=== PATIENT | male | born 1955 | race Caucasian/White ===

== ENCOUNTER 2020-02-29 07:27 | Inpatient (IN) | payer MEDICAID, SELFPAY ==
[2020-02-29] VITALS (15 sets, daily range): BP systolic 111–153; BP diastolic 52–111; PULSE 82–110; RESP 16–24; TEMP 36.4–36.9; O2SAT 91–98; BMI 35.4
--- NOTE | 2020-02-29 07:33 | XR_ITS ---
WS: [id number] PORTABLE CHEST HISTORY: dyspnea COMPARISON: 08/25/2014 New bilateral scattered opacifications. Opacification in the RIGHT upper lobe abuts the fissure. Ther e are a few scattered opacifications in the central and lower LEFT lung. Normal vasculature. No pleur al effusion or pneumothorax. Cardiac size: Normal. Mediastinum/Aorta: Normal mediastinum. No osseous abnormality seen. XR/XR chest 1V portable [id number] IMPRESSION: Bilateral, multilobar opacifications consistent with pneumonia/pneumonitis.
--- NOTE | 2020-02-29 07:38 | ED_ITS ---
HPI - COVID General: Chief Complaint: COVID symptoms Stated Complaint: covid symptoms Time Seen by Provider: 02/29/20 07:32 Triage information: Has fever, cough or shortness of breath . No known COVID + exposure last 14 days History of Present Illness: HPI Narrative: 64-year-old male who has 1 week of cough flulike symptoms with some diarrhea. Cough has been minimally productive. He is [place] increasingly short of breath. Is a history of hypertension coronary artery disease this morning began to have severe shortness of breath called EMS he was found to have room air sats in the mid and upper 80s which responded to oxygen by nasal cannula at 4 L/min he was in the mid 90s. He is not aware of being around anyone who has Covid and he has not been tested. He states he has been having extreme difficult time eating and drinking significant loss of appetite. Has not seen anyone for this or taking anything [id number] or prescription since it started. MD complaint: has COVID symptoms Prior covid testing: no COVID 19 common symptoms: positive fever(s), chills, cough, non-productive cough, dyspnea, fatigue, body aches, nasal congestion, nausea, vomiting and diarrhea COVID 19 other sytmptoms: positive requiring oxygen; negative chest pain Onset (ago): week(s) (1) Severity: moderate Pertinent comorbid conditions: hypertension, heart disease and COPD/respiratory disease Treatment prior to arrival: oxygen COVID Results: SARS-CoV-2 Antigen (Rapid) Positive (Negative) H 02/29/20 08:06 02/29/20 Review of Systems Const: Reports: fever(s), chills, body aches and fatigue ENMT: Reports: nasal congestion Card: Denies: chest pain, edema, dyspnea on exertion or orthopnea Resp: Reports: dyspnea and non-productive cough GI: Reports: nausea, vomiting and diarrhea : Denies: flank pain, dysuria, urinary frequency or urinary urgency Skin/Breast: Denies: rash or pruritus PFSH ED PFSH: Medical History (Updated 03/01/20 @ 09:15 by Vince Kern DO) Chronic back pain COPD (chronic obstructive pulmonary disease) Coronary artery disease HTN (hypertension) Hyperlipidemia Surgical History (Updated 02/29/20 @ 12:35 by Darius Gregg MD) History of thoracotomy Previous back surgery C5 and C6 fusion S/P appendectomy S/P cholecystectomy S/P eye surgery S/P knee surgery S/P PTCA (percutaneous transluminal coronary angioplasty) Status post lung surgery Secondary to pneumothorax Family History Other Diabetes Hypertension Social History (Updated 02/29/20 @ 07:41 by Mil Jaffe RN) Smoking and tobacco status: former smoker Alcohol intake: current Alcohol intake frequency: holidays/special occasions only Substance/Drug Use: never History of recent travel: No Physical Exam Const: COMMON NORMALS: no acute distress GENERAL APPEARANCE: cooperative and comfortable ORIENTATION/CONSCIOUSNESS: Yes awake, Yes oriented to person, Yes oriented to place and Yes oriented to time HENMT: COMMON NORMALS: normocephalic, atraumatic and hearing grossly normal bilaterally HEAD & SCALP: normocephalic and atraumatic Neck/C-Spine: COMMON NORMALS: no JVD Resp: AUSCULTATION: rhonchi, wheezes and diminished lung sounds Cardio: COMMON NORMALS: no JVD, regular rate, regular rhythm and No murmurs present (Cardio) RATE: regular rate RHYTHM: regular rhythm GI: COMMON NORMALS: Soft to palpation and No hepatosplenomegaly present AUSCULTATION: Yes normoactive bowel sounds PALPATION: Yes Soft to palpation, No Tenderness to palpation present (GI), No Guarding due to palpation present (GI) and Yes No hepatosplenomegaly present Extremity: COMMON NORMALS: normal to inspection, capillary refill normal, no clubbing, cyanosis or edema, no calf tenderness and no pedal edema Neuro: SENSORIUM/ORIENTATION: Yes oriented to person, Yes oriented to place and Yes oriented to time Skin: COMMON NORMALS: no rashes or lesions noted GENERAL SKIN EXAM: no rashes or lesions noted Course Vital Signs: Vital signs: Vital Signs Temperature 97.9 F 03/01/20 08:00 Pulse Rate 79 03/01/20 08:00 Respiratory Rate 17 03/01/20 08:00 Blood Pressure 108/76 03/01/20 08:00 Pulse Oximetry 92 03/01/20 08:00 MDM - COVID MDM Narrative: Medical decision making narrative: Patient has Covid pneumonitis I am quite concerned that he will continue to worsen and would benefit from closer monitoring. We will go ahead and admit him start him on dexamethasone and remdesivir. Cussed Dr. Gregg orders are written Lab Data: Labs: Lab Results 02/29/20 02/29/20 02/29/20 Range/Units 07:23 07:23 07:23 WBC 3.4 L (4.0-10.0) 10^3/ uL RBC 6.64 H (4.1-5.3) 10^6/u L Hgb 17.0 H (11.7-16.6) g/dL Hct 55.2 H (42.0-52.0) % MCV 83.1 (80-94) fL MCH 25.6 L (28.0-34.0) pg MCHC 30.8 (30.0-36.0) g/dL RDW 14.6 (12.1-15.1) % Plt Count 123 L (130-400) 10^3/c mm MPV 10.8 H (7.4-10.4) fL Neut % (Auto) 44.8 % Lymph % (Auto) 46.4 % [place] % (Auto) 8.2 % Eos % (Auto) 0.0 % Baso % (Auto) 0.6 % Neut # (Auto) 1.54 L (1.8-7.7) 10^3/u L Lymph # (Auto) 1.6 (0.8-4.8) 10^3/u L [place] # (Auto) 0.3 (0.2-0.9) 10^3/u L Eos # (Auto) 0.0 (0.0-0.8) 10^3/u L Baso # (Auto) 0.0 (0.0-0.1) 10^3/u L Nucleated RBC % (a uto) 0 % Nucleated RBCs # 0.0 /100WBC D-Dimer Cancelled Specimen Type Sample Site ABG pH (7.35-7.45) ABG pCO2 (35-45) mmHg ABG pO2 (80.0-100.0) mmH g ABG HCO3 (22-26) mmol/L ABG O2 Saturation ABG Base Excess (-2.0-2.0) mmol/ L Wilber Test A-a O2 Gradient (5-10) mmHg Hematocrit (42-52) % Hgb O2 Saturation (95-100) % Carboxyhemoglobin (0.4-20.1) %THgb Methemoglobin (0.4-1.5) % Total Hemoglobin (14-18) g/dL Ionized Calcium (1.1-1.4) mmol/L O2 Delivery Device O2 Liters/Min % FiO2 % Portable Pinch Riveter ID Sodium 135 L (136-145) mmol/L Potassium 4.2 (3.5-5.1) mmol/L Chloride 98 (98-107) mmol/L Carbon Dioxide 24 (22-29) mmol/L Anion Gap 17.2 (5-19) BUN 12 (8-23) mg/dL Creatinine 1.0 (0.7-1.2) mg/dL GFR Calculation 75.2 L (90-130) mL/min Glucose 162 H (65-115) mg/dL Estimat Average Gl ucose Hemoglobin A1c (4.0-6.0) % Calculated Osmolal ity 283 L (285-295) mOsm/k g Calcium 9.9 (8.5-10.5) mg/dL Total Bilirubin 0.3 (0.15-1.2) mg/dL AST 39 (0-40) U/L ALT 28 (0-41) U/L Alkaline Phosphata se 56 (40-130) IU/L C-Reactive Protein (0.0-4.9) mg/L Total Protein 6.8 (6.6-8.7) g/dL Albumin 4.2 (3.5-5.2) g/dL Globulin 2.6 (1.3-4.6) g/dL Procalcitonin (0-0.5) ng/mL SARS-CoV-2 Ag (Rap id) (Negative) 02/29/20 02/29/20 02/29/20 Range/Units 07:23 07:23 08:04 WBC (4.0-10.0) 10^3/ uL RBC (4.1-5.3) 10^6/u L Hgb (11.7-16.6) g/dL Hct (42.0-52.0) % MCV (80-94) fL MCH (28.0-34.0) pg MCHC (30.0-36.0) g/dL RDW (12.1-15.1) % Plt Count (130-400) 10^3/c mm MPV (7.4-10.4) fL Neut % (Auto) % Lymph % (Auto) % [place] % (Auto) % Eos % (Auto) % Baso % (Auto) % Neut # (Auto) (1.8-7.7) 10^3/u L Lymph # (Auto) (0.8-4.8) 10^3/u L [place] # (Auto) (0.2-0.9) 10^3/u L Eos # (Auto) (0.0-0.8) 10^3/u L Baso # (Auto) (0.0-0.1) 10^3/u L Nucleated RBC % (a uto) % Nucleated RBCs # /100WBC D-Dimer 1.01 H Specimen Type Sample Site ABG pH (7.35-7.45) ABG pCO2 (35-45) mmHg ABG pO2 (80.0-100.0) mmH g ABG HCO3 (22-26) mmol/L ABG O2 Saturation ABG Base Excess (-2.0-2.0) mmol/ L Wilber Test A-a O2 Gradient (5-10) mmHg Hematocrit (42-52) % Hgb O2 Saturation (95-100) % Carboxyhemoglobin (0.4-20.1) %THgb Methemoglobin (0.4-1.5) % Total Hemoglobin (14-18) g/dL Ionized Calcium (1.1-1.4) mmol/L O2 Delivery Device O2 Liters/Min % FiO2 % Portable Pinch Riveter ID Sodium (136-145) mmol/L Potassium (3.5-5.1) mmol/L Chloride (98-107) mmol/L Carbon Dioxide (22-29) mmol/L Anion Gap (5-19) BUN (8-23) mg/dL Creatinine (0.7-1.2) mg/dL GFR Calculation (90-130) mL/min Glucose (65-115) mg/dL Estimat Average Gl ucose 137 Hemoglobin A1c 6.4 H (4.0-6.0) % Calculated Osmolal ity (285-295) mOsm/k g Calcium (8.5-10.5) mg/dL Total Bilirubin (0.15-1.2) mg/dL AST (0-40) U/L ALT (0-41) U/L Alkaline Phosphata se (40-130) IU/L C-Reactive Protein 55.4 H (0.0-4.9) mg/L Total Protein (6.6-8.7) g/dL Albumin (3.5-5.2) g/dL Globulin (1.3-4.6) g/dL Procalcitonin 0.27 (0-0.5) ng/mL SARS-CoV-2 Ag (Rap id) (Negative) 02/29/20 02/29/20 Range/Units 08:06 08:36 WBC (4.0-10.0) 10^3/ uL RBC (4.1-5.3) 10^6/u L Hgb (11.7-16.6) g/dL Hct (42.0-52.0) % MCV (80-94) fL MCH (28.0-34.0) pg MCHC (30.0-36.0) g/dL RDW (12.1-15.1) % Plt Count (130-400) 10^3/c mm MPV (7.4-10.4) fL Neut % (Auto) % Lymph % (Auto) % [place] % (Auto) % Eos % (Auto) % Baso % (Auto) % Neut # (Auto) (1.8-7.7) 10^3/u L Lymph # (Auto) (0.8-4.8) 10^3/u L [place] # (Auto) (0.2-0.9) 10^3/u L Eos # (Auto) (0.0-0.8) 10^3/u L Baso # (Auto) (0.0-0.1) 10^3/u L Nucleated RBC % (a uto) % Nucleated RBCs # /100WBC D-Dimer Specimen Type Arterial Sample Site Radial, right ABG pH 7.45 (7.35-7.45) ABG pCO2 31.7 L (35-45) mmHg ABG pO2 68.0 L (80.0-100.0) mmH g ABG HCO3 21.8 L (22-26) mmol/L ABG O2 Saturation 95.8 ABG Base Excess -1.2 (-2.0-2.0) mmol/ L Wilber Test Pos A-a O2 Gradient 12.1 H (5-10) mmHg Hematocrit 48.5 (42-52) % Hgb O2 Saturation 94.4 L (95-100) % Carboxyhemoglobin 0.8 (0.4-20.1) %THgb Methemoglobin 0.7 (0.4-1.5) % Total Hemoglobin 15.8 (14-18) g/dL Ionized Calcium 1.2 (1.1-1.4) mmol/L O2 Delivery Device Nc O2 Liters/Min 2.0 % FiO2 28.0 % Portable Pinch Riveter ID Ed Sodium 134.0 (136-145) mmol/L Potassium 3.7 (3.5-5.1) mmol/L Chloride (98-107) mmol/L Carbon Dioxide (22-29) mmol/L Anion Gap (5-19) BUN (8-23) mg/dL Creatinine (0.7-1.2) mg/dL GFR Calculation (90-130) mL/min Glucose 154.0 H (65-115) mg/dL Estimat Average Gl ucose Hemoglobin A1c (4.0-6.0) % Calculated Osmolal ity (285-295) mOsm/k g Calcium (8.5-10.5) mg/dL Total Bilirubin (0.15-1.2) mg/dL AST (0-40) U/L ALT (0-41) U/L Alkaline Phosphata se (40-130) IU/L C-Reactive Protein (0.0-4.9) mg/L Total Protein (6.6-8.7) g/dL Albumin (3.5-5.2) g/dL Globulin (1.3-4.6) g/dL Procalcitonin (0-0.5) ng/mL SARS-CoV-2 Ag (Rap id) Positive H (Negative) COVID Results: SARS-CoV-2 Antigen (Rapid) Positive (Negative) H 02/29/20 08:06 02/29/20 Discharge Plan Discharge Patient Disposition: Admitted As Inpatient Admit Provider: Darius Gregg Clinical Impression: Pneumonia due to COVID-19 virus, HTN (hypertension), Coronary artery disease Condition: Stable Coding Level of Care Code ED Comedian for Chg Fwd Exam Comprehensive
[2020-02-29 07:45] LABS: Basophils % 0.6 %; Hematocrit 55.2 % (42.0-52.0); Lymphocytes # 1.6 10^3/uL (0.8-4.8); Lymphocytes % 46.4 %; Mean Corpuscular HGB Conc 30.8 g/dL (30.0-36.0); Mean Corpuscular Hemoglobin 25.6 pg (28.0-34.0); Mean Corpuscular Volume 83.1 fL (80-94); Mean Platelet Volume 10.8 fL (7.4-10.4); Monocytes # 0.3 10^3/uL (0.2-0.9); Monocytes % 8.2 %; Neutrophils # 1.54 10^3/uL (1.8-7.7); Neutrophils % 44.8 %; Nucleated Red Blood Cells % 0 %; Platelet Count 123 10^3/cmm (130-400); Red Blood Count 6.64 10^6/uL (4.1-5.3); Red Cell Distribution Width 14.6 % (12.1-15.1); White Blood Count 3.4 10^3/uL (4.0-10.0)
[2020-02-29 08:05] LABS: Alanine Aminotransferase 28 U/L (0-41); Albumin Level 4.2 g/dL (3.5-5.2); Alkaline Phosphatase 56 IU/L (40-130); Anion Gap 17.2 (5-19); Aspartate Amino Transferase 39 U/L (0-40); Blood Urea Nitrogen 12 mg/dL (8-23); Calcium 9.9 mg/dL (8.5-10.5); Carbon Dioxide 24 mmol/L (22-29); Chloride 98 mmol/L (98-107); Globulin 2.6 g/dL (1.3-4.6); Glomerular Filtration Rate 75.2 mL/min (90-130); Glucose 162 mg/dL (65-115); Osmolality Calculated 283 mOsm/kg (285-295); Potassium 4.2 mmol/L (3.5-5.1); Sodium 135 mmol/L (136-145); Total Bilirubin 0.3 mg/dL (0.15-1.2); Total Protein 6.8 g/dL (6.6-8.7)
[2020-02-29 08:41] LABS: D Dimer 1.01 ug/mIFEU (0-0.59)
[2020-02-29 08:45] LABS: SARS Covid-2 Antigen Positive (Negative)
[2020-02-29 08:47] LABS: ABG PCO2 31.7 mmHg (35-45); ABG PH Result 7.45 (7.35-7.45); Alveolar-Arterial Oxygen Gradi 12.1 mmHg (5-10); Arterial Blood Gas Hematocrit 48.5 % (42-52); Base Excess ABG -1.2 mmol/L (-2.0-2.0); Blood Gas Allen Test Pos; Blood Gas Operator Identificat ED; Blood Gas Sample Site Radial, right; Blood Gas Sample Type Arterial; Carboxyhemoglobin 0.8 %THgb (0.4-20.1); HCO3 ABG 21.8 mmol/L (22-26); HGB O2 Sat 94.4 % (95-100); Ionized Calcium Level - ABG 1.2 mmol/L (1.1-1.4); Methemoglobin 0.7 % (0.4-1.5); Oxygen Device NC; Oxygen Saturation ABG 95.8; Potassium Level - ABG 3.7 mmol/L (3.5-5.0); Total Hemoglobin 15.8 g/dL (14-18)
--- NOTE | 2020-02-29 09:11 | CT_ITS ---
WS: [id number] CT CHEST ANGIOGRAPHY WITH REFORMATS HISTORY: elevated d dimer/COVID TECHNIQUE: Contiguous axial images are obtained through the chest during arterial injection of intrav enous contrast. Images are reconstructed to evaluate the pulmonary arteries. MIP imaging also reviewe d. All CT scans at [facility] use at least one of these dose optimization techniques: aut omated exposure control; mA and/or kV adjustment per patient size (includes targeted exams where dose is matched to clinical indication); or iterative reconstruction. CONTRAST: Visipaque 320; 95 mL IV. DLP: 580.09 mGy.cm COMPARISON: None available. Adequate but limited opacification of the pulmonary arteries. Centrally there is no pulmonary emboli. Beyond the segmental branches the opacification is limited. Pulmonary artery size is normal. Atheros clerosis aorta. Normal size heart. No pericardial or pleural effusions. There are numerous bilateral, multi lobar opacifications. Groundglass opacifications with increasing areas of consolidation predominantly in a peripheral and basilar distribution. No pneumothorax. Small mediastinal and hilar lymph nodes are probably reactive. Small hiatal hernia. Prior cholecystectomy. Cortical cyst upper pole LEFT kidney. Hepatic steatosis. CT/CT angio chest PE protcl [id number] IMPRESSION: 1. No central pulmonary emboli. Opacification is limited from the segmental ar teries distally. 2. Diffuse multilobar opacifications consistent with history of Covid 19. 3. Prior cholecystectomy. 4. Hepatic steatosis.
[2020-02-29] MEDS: iodixanol 320 mg/mL 100mL Btl IV (10:12)
--- NOTE | 2020-02-29 11:51 | PC.PHAR ---
pt states he stop taking his amlodipine,losartan, and metoprolol tartrate about a month ago-pt states he was getting nose bleeds and states he hasnt told his dr that he has dced them-pt state he was taking a old rx of amoxil 500mg q6h pt states the amoxil wasnt working so he stop taking on the 02/27/20
[2020-02-29] MEDS: dexamethasone 4 mg/mL INJ 6 MG IVP (12:12)
[2020-02-29] MEDS: remdesivir 200 MG in sodium chloride 0.9% (100 ml) 100 ML 100 MG IV (12:12)
--- NOTE | 2020-02-29 12:32 | PM.HP ---
Providers/Chief Complaint Primary Care Provider: Jamaal Allison DO Chief Complaint: covid symptoms History of Present Illness Jono Pierce is a 64 year old male who presents to the hospital with concerns of having Covid. He reports he has been ill for 8 days. He has had fever, chills, anorexia. He denies any loose stool. No vomiting. He reports he is short of breath with any exertion. He coughs constantly occasionally productive of white sputum. No chest pain. Still drinking clear liquids. Review of Systems General: Reports: 10 or more systems reviewed and unremarkable except in HPI and below Const: Reports: fever(s), chills, body aches and change in appetite Eyes: Denies: change in vision ENMT: Denies: throat pain Card: Denies: chest pain Resp: Reports: dyspnea and productive cough GI: Denies: abdominal pain, nausea or vomiting : Denies: flank pain Musc: Denies: neck pain Skin/Breast: Denies: rash Neuro: Denies: headache(s) Psych: Denies: anxiety Endo: Denies: polyuria [place]/Lymph: Denies: easy bruising All/Imm: Denies: urticaria Medications/Allergies Home Medications Medication Instructions Recorded Confirmed Last Taken Type magnesium oxide 400 mg PO DAILY PRN 04/30/19 02/29/20 Unknown History metoprolol tartrate 25 mg tablet 25 mg PO BID PRN 04/30/19 02/29/20 Unknown History Plavix 75 mg PO DAILY@15 02/29/20 02/29/20 02/28/20 History alprazolam 1 mg PO TID PRN 02/29/20 02/29/20 02/28/20 History amlodipine 5 mg PO DAILY PRN 02/29/20 02/29/20 Unknown History amoxicillin 500 mg PO Q6H 02/29/20 02/29/20 02/27/20 History old rx pt took ibuprofen 400 mg PO PRN 02/29/20 02/29/20 Unknown History losartan 25 mg PO DAILY PRN 02/29/20 02/29/20 Unknown History Allergies Allergy/AdvReac Type Severity Reaction Status Date / Time lisinopril Allergy RASH Verified 02/29/20 11:50 Penicillins Allergy RASH Verified 02/29/20 11:50 PFSH Acute PFSH: Medical History (Updated 02/29/20 @ 12:39 by Darius Gregg MD) Chronic back pain COPD (chronic obstructive pulmonary disease) Coronary artery disease HTN (hypertension) Hyperlipidemia Surgical History (Updated 02/29/20 @ 12:35 by Darius Gregg MD) History of thoracotomy Previous back surgery C5 and C6 fusion S/P appendectomy S/P cholecystectomy S/P eye surgery S/P knee surgery S/P PTCA (percutaneous transluminal coronary angioplasty) Status post lung surgery Secondary to pneumothorax Family History Other Diabetes Hypertension Social History (Updated 02/29/20 @ 07:41 by Mil Jaffe RN) Smoking and tobacco status: former smoker Alcohol intake: current Alcohol intake frequency: holidays/special occasions only History of recent travel: No Vitals/I&O/Wt Last Vital Signs Temp 98.5 F 02/29/20 07:29 Pulse 110 H 02/29/20 07:29 Resp 16 02/29/20 07:29 BP 124/83 02/29/20 07:29 Pulse Ox 95 02/29/20 08:11 Weight last 48 hrs Weight 108.862 kg Physical Exam Narrative: EXAM NARRATIVE: General exam is a white male, who appears tachypneic at baseline who coughs frequently throughout the exam. HEENT: Atraumatic normocephalic. Pupils equally round. Oropharynx clear and mucous membranes wet. Neck is supple no lymphadenopathy or thyromegaly Cardiovascular regular rate and rhythm, borderline tachycardia. No murmur Lungs scattered dry crackles bilaterally with occasional expiratory wheeze Abdomen is soft with positive bowel sounds. No obvious organomegaly is deferred Extremities no cyanosis clubbing or edema, cap refill brisk Skin no rash Neuro no focal deficits. Data : 02/29/20 07:23 02/29/20 07:23 Micro: Microbiology 02/29/20 08:06 Gram Stain - Final Sputum - Expectorated Sputum Other data: CT chest consistent with Covid with scattered bilateral opacities. No evidence of pulmonary embolism. I reviewed this as well. Chest x-ray reviewed by me with scattered opacities consistent with Covid Rapid Covid is positive ABG demonstrates a pH 7.45, PCO2 of 31, PO2 of 68 on 28% FiO2 LFTs normal A&P Assessment and plan (1) Pneumonia due to COVID-19 virus: Admission Remdesivir Dexamethasone 6 mg IV daily Pulmonary toilet Oxygen as needed Check pro calcitonin level. If high consider initiation of antibiotic Status: Acute (2) Acute hypoxemic respiratory failure: Oxygen as needed Status: Acute (3) Leukopenia: Consistent with viral infection Status: Acute (4) Hyperglycemia: Check hemoglobin A1c Status: Acute (5) Thrombocytopenia: Continue to monitor Status: Acute (6) COPD (chronic obstructive pulmonary disease): Combivent as needed. No evidence of exacerbation currently. Status: Inactive Additional A&P Information Coronary artery disease. Denies any chest discomfort currently. Continue metoprolol and Plavix History of chronic back pain Hypertension. Continue Norvasc Hyperlipidemia, has refused treatment in the past secondary to leg pain/myalgia Past history of tobacco use Full code Lovenox will suffice for DVT prophylaxis Attestations Medical Necessity Statement*: Will need greater than 2 midnight stay secondary COVID-19 pneumonia requiring treatment Time Spent in Patient Care: Greater than 35 minutes Coding Level of Care Code Acute Senior Technical Project Manager for [facility] Diagnoses Pneumonia due to COVID-19 virus U07.1; J12.89 Acute hypoxemic respiratory failure J96.01 Leukopenia D72.819 Hyperglycemia R73.9 Thrombocytopenia D69.6 COPD (chronic obstructive pulmonary disease) J44.9
[2020-02-29 13:05] LABS: Estmated Average Glucose 137; Hemoglobin A1C 6.4 % (4.0-6.0)
[2020-02-29] MEDS: HYDROcodone-acetaminophen 5-325 mg Tablet 1 TAB PO (18:19)
--- NOTE | 2020-02-29 18:54 | PC.NURSE ---
PT STILL IN ED, S/T SECOND FLOORNOT READY FOR REPORT.
[2020-02-29 22:51] LABS: Procalcitonin 0.27 ng/mL (0-0.5)
[2020-02-29 23:02] LABS: C Reactive Protein 55.4 mg/L (0.0-4.9)
[2020-03-01] VITALS (9 sets, daily range): BP systolic 96–117; BP diastolic 62–76; PULSE 71–97; RESP 15–20; TEMP 36.2–37; O2SAT 91–95
[2020-03-01] MEDS: enoxaparin 40 mg/0.4 mL Syringe SUBCUT ×2 (00:31→22:05)
[2020-03-01] MEDS: HYDROcodone-acetaminophen 5-325 mg Tablet 1 TAB PO ×4 (01:55→22:06)
[2020-03-01] MEDS: famotidine 20 mg Tablet PO ×3 (01:55→17:18)
[2020-03-01 06:07] LABS: Basophils % 0.3 %; Hemoglobin 16.5 g/dL (11.7-16.6); Lymphocytes # 1.4 10^3/uL (0.8-4.8); Lymphocytes % 44.7 %; Mean Corpuscular HGB Conc 30.6 g/dL (30.0-36.0); Mean Corpuscular Hemoglobin 25.6 pg (28.0-34.0); Mean Corpuscular Volume 83.9 fL (80-94); Mean Platelet Volume 10.4 fL (7.4-10.4); Monocytes # 0.4 10^3/uL (0.2-0.9); Neutrophils # 1.32 10^3/uL (1.8-7.7); Neutrophils % 42.7 %; Nucleated Red Blood Cells % 0 %; Platelet Count 114 10^3/cmm (130-400); Red Blood Count 6.44 10^6/uL (4.1-5.3); Red Cell Distribution Width 14.6 % (12.1-15.1); White Blood Count 3.1 10^3/uL (4.0-10.0)
[2020-03-01 06:41] LABS: Alanine Aminotransferase 28 U/L (0-41); Albumin Level 3.8 g/dL (3.5-5.2); Alkaline Phosphatase 53 IU/L (40-130); Aspartate Amino Transferase 37 U/L (0-40); Blood Urea Nitrogen 15 mg/dL (8-23); Calcium 10.7 mg/dL (8.5-10.5); Carbon Dioxide 29 mmol/L (22-29); Chloride 104 mmol/L (98-107); Globulin 3.4 g/dL (1.3-4.6); Glomerular Filtration Rate 97.3 mL/min (90-130); Glucose 128 mg/dL (65-115); Osmolality Calculated 294 mOsm/kg (285-295); Sodium 141 mmol/L (136-145); Total Bilirubin 0.2 mg/dL (0.15-1.2); Total Protein 7.2 g/dL (6.6-8.7)
[2020-03-01] MEDS: dexamethasone 4 mg/mL INJ 6 MG IVP (07:01)
--- NOTE | 2020-03-01 10:41 | PC.NURSE ---
PRN norco given for chronic back pain per doctors orders see MAR for further details, PRN tessalon pearls given for cough, denies further needs, remains alert and oriented.
[2020-03-01] MEDS: benzonatate 100 mg Capsule PO (10:44)
--- NOTE | 2020-03-01 11:17 | PC.NURSE ---
patient resting with eyes closed, equal chest rise and fall, no distress noted.
--- NOTE | 2020-03-01 13:19 | P.PN_ITS ---
Subjective Subjective: Interval history: This is a 64-year-old male who was admitted to the hospital with Covid pneumonia. Breathing about the same. Afebrile. Vitals/I&O/Wt Last Vital Signs Temp 97.9 F 03/01/20 08:00 Pulse 71 03/01/20 09:34 Resp 16 03/01/20 09:34 BP 108/76 03/01/20 08:00 Pulse Ox 91 03/01/20 09:34 02/29/20 03/01/20 03/01/20 22:59 06:59 14:59 Intake Total 100 / 100 480 / 480 Output Total 700 / 700 Balance 100 / 100 -700 / -600 480 / 480 Weight last 48 hrs Weight 240 lb Physical Exam Const: COMMON NORMALS: no acute distress, average body habitus and patient oriented x3 Resp: COMMON NORMALS: normal respiratory effort and No retractions Cardio: COMMON NORMALS: regular rate and regular rhythm RATE: regular rate RHYTHM: regular rhythm GI: COMMON NORMALS: Normal to inspection, nondistended, normoactive bowel sounds present and Soft to palpation PALPATION: Yes Soft to palpation Neuro: COMMON NORMALS: patient oriented x3 Psych: COMMON NORMALS: mental status grossly normal and Normal thought process present THOUGHT PROCESS: Normal thought process present Data : 03/01/20 05:37 03/01/20 05:37 Micro: Microbiology 02/29/20 08:06 Gram Stain - Final Sputum - Expectorated Sputum Sputum Culture - Preliminary A&P Assessment and plan (1) Thrombocytopenia: Status: Acute (2) Hyperglycemia: Status: Acute (3) Leukopenia: Status: Acute (4) Pneumonia due to COVID-19 virus: Status: Acute Additional A&P Information Pneumonia secondary to COVID-19 infection 1) Pneumonia due to COVID-19 virus: Admission Remdesivir Dexamethasone 6 mg IV daily Pulmonary toilet Oxygen as needed add azithromycin, rocephin (2) Acute hypoxemic respiratory failure: Oxygen as needed Status: Acute (3) Leukopenia: Consistent with viral infection Status: Acute (4) Hyperglycemia: AIC 6.4 Status: Acute (5) Thrombocytopenia: Continue to monitor Status: Acute (6) COPD (chronic obstructive pulmonary disease): Combivent as needed. No evidence of exacerbation currently. Status: Inactive Coronary artery disease. - Continue metoprolol and Plavix History of chronic back pain Hypertension. Continue Norvasc Hyperlipidemia, has refused treatment in the past secondary to leg pain/myalgia Past history of tobacco use Attestations Medical Necessity Statement*: Jono Pierce's hospital stay will require greater than 2 midnights for pna Coding Level of Care Code Acute Microfilm Operator for g Fwd Exam Detailed Diagnoses Thrombocytopenia D69.6 Hyperglycemia R73.9 Leukopenia D72.819 Pneumonia due to COVID-19 virus U07.1; J12.89
[2020-03-01] MEDS: cefTRIAXone 2,000 MG in sodium chloride 0.9% (plus) 50 ML 100 MG IV (14:38)
[2020-03-01] MEDS: azithromycin 500 MG in sodium chloride 0.9% 250 ML 250 MG IV (15:52)
[2020-03-01] MEDS: clopidogrel 75 mg Tablet PO (15:54)
--- NOTE | 2020-03-01 16:30 | PC.NURSE ---
Patient reports back pain, PRN norco given per doctors orders, see MAR for further details.
[2020-03-01] MEDS: remdesivir 100 MG in sodium chloride 0.9% (100 ml) 100 ML IV (17:18)
--- NOTE | 2020-03-01 17:36 | PC.NURSE ---
Patient denies further back pain at this time. Sitting up in bed, eating supper, no distress noted.
[2020-03-02] VITALS (14 sets, daily range): BP systolic 93–136; BP diastolic 60–88; PULSE 68–88; RESP 16–20; TEMP 35.9–36.6; O2SAT 86–93
[2020-03-02 04:11] LABS: Basophils % 0.2 %; Hematocrit 49.1 % (42.0-52.0); Hemoglobin 15.2 g/dL (11.7-16.6); Lymphocytes # 1.6 10^3/uL (0.8-4.8); Lymphocytes % 29.5 %; Mean Corpuscular Hemoglobin 25.6 pg (28.0-34.0); Mean Corpuscular Volume 82.7 fL (80-94); Mean Platelet Volume 10.3 fL (7.4-10.4); Monocytes # 0.4 10^3/uL (0.2-0.9); Monocytes % 7.5 %; Neutrophils # 3.34 10^3/uL (1.8-7.7); Neutrophils % 62.6 %; Nucleated Red Blood Cells % 0 %; Platelet Count 137 10^3/cmm (130-400); Red Blood Count 5.94 10^6/uL (4.1-5.3); Red Cell Distribution Width 14.3 % (12.1-15.1); White Blood Count 5.3 10^3/uL (4.0-10.0)
[2020-03-02] MEDS: benzonatate 100 mg Capsule PO ×2 (04:25→21:39)
[2020-03-02 04:32] LABS: Alanine Aminotransferase 23 U/L (0-41); Albumin Level 3.3 g/dL (3.5-5.2); Alkaline Phosphatase 45 IU/L (40-130); Anion Gap 12.4 (5-19); Aspartate Amino Transferase 26 U/L (0-40); Blood Urea Nitrogen 16 mg/dL (8-23); Calcium 9.5 mg/dL (8.5-10.5); Carbon Dioxide 26 mmol/L (22-29); Chloride 106 mmol/L (98-107); Creatinine Clr Calc Pharmacy 151.2344; Globulin 2.9 g/dL (1.3-4.6); Glomerular Filtration Rate 135.6 mL/min (90-130); Glucose 141 mg/dL (65-115); Osmolality Calculated 294 mOsm/kg (285-295); Potassium 4.4 mmol/L (3.5-5.1); Sodium 140 mmol/L (136-145); Total Bilirubin 0.2 mg/dL (0.15-1.2); Total Protein 6.2 g/dL (6.6-8.7)
[2020-03-02] MEDS: dexamethasone 4 mg/mL INJ 6 MG IVP (06:30)
[2020-03-02] MEDS: HYDROcodone-acetaminophen 5-325 mg Tablet 1 TAB PO ×3 (08:50→21:39)
[2020-03-02] MEDS: famotidine 20 mg Tablet PO ×2 (08:50→17:14)
[2020-03-02] MEDS: azithromycin 500 MG in sodium chloride 0.9% 250 ML 250 MG IV (14:40)
[2020-03-02] MEDS: clopidogrel 75 mg Tablet PO (14:40)
--- NOTE | 2020-03-02 16:51 | P.PN_ITS ---
Subjective Subjective: Interval history: This is a 64-year-old male who was admitted to the hospital with Covid pneumonia. feels breathing is comfortable. afebrile feels anxious at times 3L oxygen Vitals/I&O/Wt Last Vital Signs Temp 97.1 F L 03/02/20 16:00 Pulse 84 03/02/20 16:00 Resp 16 03/02/20 16:00 BP 113/78 03/02/20 16:00 Pulse Ox 92 03/02/20 16:00 03/02/20 03/02/20 03/02/20 06:59 14:59 22:59 Intake Total 480 / 480 Output Total 0 / 950 Balance 0 / 955 480 / 480 Physical Exam Const: COMMON NORMALS: no acute distress, average body habitus and patient oriented x3 Resp: COMMON NORMALS: normal respiratory effort and No retractions Cardio: COMMON NORMALS: regular rate and regular rhythm RATE: regular rate RHYTHM: regular rhythm GI: COMMON NORMALS: Normal to inspection, nondistended, normoactive bowel sounds present and Soft to palpation PALPATION: Yes Soft to palpation Neuro: COMMON NORMALS: patient oriented x3 Psych: COMMON NORMALS: mental status grossly normal and Normal thought process present THOUGHT PROCESS: Normal thought process present Data : 03/02/20 04:05 03/02/20 04:05 Micro: Microbiology 02/29/20 08:06 Gram Stain - Final Sputum - Expectorated Sputum Sputum Culture - Final A&P Assessment and plan (1) Thrombocytopenia: Status: Acute (2) Hyperglycemia: Status: Acute (3) Leukopenia: Status: Acute (4) Pneumonia due to COVID-19 virus: Status: Acute Additional A&P Information Pneumonia secondary to COVID-19 infection 1) Pneumonia due to COVID-19 virus: Admission Remdesivir (started 02/28) Dexamethasone 6 mg IV daily Pulmonary toilet Oxygen as needed add azithromycin, rocephin (2) Acute hypoxemic respiratory failure: Oxygen as needed Status: Acute (3) Leukopenia: Consistent with viral infection Status: Acute (4) Hyperglycemia: AIC 6.4 Status: Acute (5) Thrombocytopenia: Continue to monitor Status: Acute (6) COPD (chronic obstructive pulmonary disease): Combivent as needed. No evidence of exacerbation currently. Status: Inactive Coronary artery disease. - Continue metoprolol and Plavix History of chronic back pain Hypertension. Continue Norvasc Hyperlipidemia, has refused treatment in the past secondary to leg pain/myalgia Past history of tobacco use Disposition: DC home this week, may need home health and oxygen Attestations Medical Necessity Statement*: Jono Pierce's hospital stay will require greater than 2 midnights for pneumonia Coding Level of Care Code Acute Chief Contract Officer for Chg Fwd Diagnoses Thrombocytopenia D69.6 Hyperglycemia R73.9 Leukopenia D72.819 Pneumonia due to COVID-19 virus U07.1; J12.89
[2020-03-02] MEDS: docusate sodium 100 mg Capsule PO (17:14)
[2020-03-02] MEDS: remdesivir 100 MG in sodium chloride 0.9% (100 ml) 100 ML IV (17:25)
[2020-03-02] MEDS: enoxaparin 40 mg/0.4 mL Syringe SUBCUT (21:39)
[2020-03-03] VITALS (9 sets, daily range): BP systolic 118–129; BP diastolic 73–86; PULSE 69–87; RESP 16–18; TEMP 35.8–36.8; O2SAT 90–94
[2020-03-03 05:30] LABS: Basophils % 0.2 %; Hematocrit 48.7 % (42.0-52.0); Hemoglobin 15.1 g/dL (11.7-16.6); Lymphocytes % 33.2 %; Mean Corpuscular Hemoglobin 25.9 pg (28.0-34.0); Mean Corpuscular Volume 83.7 fL (80-94); Mean Platelet Volume 10.4 fL (7.4-10.4); Monocytes # 0.4 10^3/uL (0.2-0.9); Neutrophils # 3.53 10^3/uL (1.8-7.7); Neutrophils % 59.1 %; Nucleated Red Blood Cells % 0 %; Platelet Count 169 10^3/cmm (130-400); Red Blood Count 5.82 10^6/uL (4.1-5.3); Red Cell Distribution Width 14.5 % (12.1-15.1)
[2020-03-03 05:56] LABS: Alanine Aminotransferase 21 U/L (0-41); Albumin Level 3.3 g/dL (3.5-5.2); Alkaline Phosphatase 47 IU/L (40-130); Anion Gap 14.7 (5-19); Aspartate Amino Transferase 23 U/L (0-40); Blood Urea Nitrogen 15 mg/dL (8-23); C Reactive Protein 14.9 mg/L (0.0-4.9); Calcium 9.6 mg/dL (8.5-10.5); Carbon Dioxide 27 mmol/L (22-29); Chloride 104 mmol/L (98-107); Creatinine Clr Calc Pharmacy 129.6295; Glomerular Filtration Rate 113.5 mL/min (90-130); Glucose 105 mg/dL (65-115); Osmolality Calculated 293 mOsm/kg (285-295); Potassium 4.7 mmol/L (3.5-5.1); Sodium 141 mmol/L (136-145); Total Bilirubin 0.2 mg/dL (0.15-1.2); Total Protein 6.3 g/dL (6.6-8.7)
[2020-03-03] MEDS: dexamethasone 4 mg/mL INJ 6 MG IVP (06:05)
[2020-03-03] MEDS: HYDROcodone-acetaminophen 5-325 mg Tablet 1 TAB PO ×3 (10:16→22:17)
[2020-03-03] MEDS: famotidine 20 mg Tablet PO ×2 (10:16→18:02)
[2020-03-03] MEDS: docusate sodium 100 mg Capsule PO (10:16)
--- NOTE | 2020-03-03 13:35 | PC.RESP ---
Pulmonary Rehab information sent to patient.
[2020-03-03] MEDS: azithromycin 500 MG in sodium chloride 0.9% 250 ML 250 MG IV (15:24)
[2020-03-03] MEDS: clopidogrel 75 mg Tablet PO (15:24)
--- NOTE | 2020-03-03 17:08 | PM.PN ---
Subjective Subjective: Interval history: 64 year old with past medical history hypertension, coronary artery disease, chronic back pain, hyperlipidemia and chronic obstructive pulmonary disease who is presenting shortness of breath. Upon arrival to ER patients initial laboratory work up showed wbc of 3.1, hgb 16.5, hct 54.0, plt of 114. Sodium of 115, potassium of 5.0, chloride of 104, bicarbonate of 29, BUN of 15, and creatinine of 0.8. CoV-2-ag was positive. Bilateral, multi-lobar opacifications consistent with pneumonia/pneumonitis. CTA chest showed diffuse multilobar opacifications consistent with history of Covid 19. Patient was started on Remdesivir 200mg IV x 1, then 100 mg IV daily for total 5 days until 03/04/20, Decadron 6 mg IV daily and empirically on rocephin/azithromycin. Patient has been requiring supplemental oxygen. 03/04 No significant clinical events overnight. Patient remained on oxygen via nasal cannula. Oxygen saturations remained in the high 80s to low 90s. Patient did not have any new complaints. No fever chills overnight. No nausea vomiting. Medications: Reviewed: Yes Vitals/I&O/Wt Last Vital Signs Temp 98.2 F 03/03/20 19:56 Pulse 74 03/03/20 19:56 Resp 18 03/03/20 19:56 BP 129/86 03/03/20 19:56 Pulse Ox 94 03/03/20 19:56 03/03/20 03/03/20 03/03/20 06:59 14:59 22:59 Intake Total 600 / 600 480 / 1080 Output Total 1150 / 1150 500 / 500 600 / 1100 Balance -1150 / 40 100 / 100 -120 / -20 Physical Exam Narrative: EXAM NARRATIVE: General: Alert, awake and oriented x 3, on NC HEENT : Unremarkable Chest : Non-labored respiration CVS : NSR ABD : soft,NT Ext : No edema Data : 03/03/20 05:21 03/03/20 05:21 A&P Assessment and plan (1) Thrombocytopenia: Continue to monitor Status: Acute (2) Hyperglycemia: Check hemoglobin A1c Status: Acute (3) Leukopenia: Consistent with viral infection Status: Acute (4) Pneumonia due to COVID-19 virus: Admission Remdesivir Dexamethasone 6 mg IV daily Pulmonary toilet Oxygen as needed Check pro calcitonin level. If high consider initiation of antibiotic Status: Acute Additional A&P Information Acute Hypoxic respiratory failure due to COVID-19 pneumonia Chronic obstructive pulmonary disease Thrombocytopenia - Resolved Steroid induced Hyperglycemia Coronary artery disease Hypertension Hyperlipidemia Chronic back pain GI ppx DVT ppx Plan: - Remdesivir 5 day protocol - Completed on 03/04 - Decadron 6 mg daily - plan total 10 days - On ceftriaxone 1g daily - Azithromycin 500 mg IV daily - Sputum culture - ngtd - Check Ferritin, D-dimer, CRP, Procalcitonin in am - Chest -xray in am - Home 02 eval at discharge. Attestations Medical Necessity Statement*: Patient require further hospitalization for management of COVID-19 pneumonia Time Spent in Patient Care: Greater than 35 minutes (>than 50% of time spent in counselling and/or direct pt care on unit). Coding Level of Care Code Acute [employer]ed [employer] Boards Plasma Etcher for g Fwd Diagnoses Thrombocytopenia D69.6 Hyperglycemia R73.9 Leukopenia D72.819 Pneumonia due to COVID-19 virus U07.1; J12.89
[2020-03-03] MEDS: remdesivir 100 MG in sodium chloride 0.9% (100 ml) 100 ML IV (18:02)
[2020-03-03] MEDS: enoxaparin 40 mg/0.4 mL Syringe SUBCUT (21:24)
[2020-03-04] VITALS (10 sets, daily range): BP systolic 117–130; BP diastolic 74–98; PULSE 68–99; RESP 17–18; TEMP 36.4–37.1; O2SAT 83–94
[2020-03-04 04:39] LABS: ABG PH Result 7.43 (7.35-7.45); Arterial Blood Gas Hematocrit 48.7 % (42-52); Blood Gas Allen Test Pos; Blood Gas Sample Site Radial, right; Blood Gas Sample Type Arterial; HCO3 ABG 26.5 mmol/L (22-26); Oxygen Device NC
[2020-03-04] MEDS: dexamethasone 4 mg/mL INJ 6 MG IVP (06:27)
--- NOTE | 2020-03-04 07:00 | XR_ITS ---
WS: [id number] CHEST XRAY TECHNIQUE: Portable chest. CLINICAL INFORMATION: respiratory failure COMPARISON: February 29, 2020 FINDINGS: Heart: Normal cardiac silhouette. Lungs: Advanced chronic emphysematous changes. Bilateral pulmonary infiltrates within the right upper lobe and right lower lobe laterally and left lower lobe unchanged since March 12, 2020 Bones: Normal visualized bony structures. XR/XR chest 1V portable [id number] IMPRESSION: Bilateral multilobar pulmonary infiltrates unchanged since February 29, 2020
[2020-03-04] MEDS: docusate sodium 100 mg Capsule PO (08:34)
[2020-03-04] MEDS: famotidine 20 mg Tablet PO (08:34)
[2020-03-04] MEDS: HYDROcodone-acetaminophen 5-325 mg Tablet 1 TAB PO ×2 (08:34→14:10)
[2020-03-04 10:21] LABS: Basophils % 0.2 %; Hematocrit 50.7 % (42.0-52.0); Hemoglobin 15.6 g/dL (11.7-16.6); Lymphocytes % 15.9 %; Mean Corpuscular HGB Conc 30.8 g/dL (30.0-36.0); Mean Corpuscular Hemoglobin 25.5 pg (28.0-34.0); Mean Platelet Volume 10.4 fL (7.4-10.4); Monocytes # 0.3 10^3/uL (0.2-0.9); Monocytes % 5.4 %; Neutrophils # 4.88 10^3/uL (1.8-7.7); Neutrophils % 77.7 %; Nucleated Red Blood Cells % 0 %; Platelet Count 183 10^3/cmm (130-400); Red Blood Count 6.11 10^6/uL (4.1-5.3); Red Cell Distribution Width 14.5 % (12.1-15.1); White Blood Count 6.3 10^3/uL (4.0-10.0)
[2020-03-04 10:48] LABS: Alanine Aminotransferase 56 U/L (0-41); Albumin Level 3.3 g/dL (3.5-5.2); Alkaline Phosphatase 53 IU/L (40-130); Anion Gap 17.5 (5-19); Aspartate Amino Transferase 65 U/L (0-40); Blood Urea Nitrogen 15 mg/dL (8-23); Calcium 9.8 mg/dL (8.5-10.5); Carbon Dioxide 22 mmol/L (22-29); Chloride 100 mmol/L (98-107); Creatinine Clr Calc Pharmacy 129.6295; Globulin 3.3 g/dL (1.3-4.6); Glomerular Filtration Rate 113.5 mL/min (90-130); Glucose 270 mg/dL (65-115); Osmolality Calculated 290 mOsm/kg (285-295); Potassium 4.5 mmol/L (3.5-5.1); Sodium 135 mmol/L (136-145); Total Bilirubin 0.3 mg/dL (0.15-1.2); Total Protein 6.6 g/dL (6.6-8.7)
[2020-03-04 10:54] LABS: Procalcitonin 0.13 ng/mL (0-0.5)
[2020-03-04 11:42] LABS: Ferritin 1718 ng/mL (30-400)
[2020-03-04] MEDS: clopidogrel 75 mg Tablet PO (14:10)
--- NOTE | 2020-03-04 15:05 | P.PN_ITS ---
Subjective Subjective: Interval history: 64 year old with past medical history hypertension, coronary artery disease, chronic back pain, hyperlipidemia and chronic obstructive pulmonary disease who is presenting shortness of breath. Upon arrival to ER patients initial laboratory work up showed wbc of 3.1, hgb 16.5, hct 54.0, plt of 114. Sodium of 115, potassium of 5.0, chloride of 104, bicarbonate of 29, BUN of 15, and creatinine of 0.8. CoV-2-ag was positive. Bilateral, multi-lobar opacifications consistent with pneumonia/pneumonitis. CTA chest showed diffuse multilobar opacifications consistent with history of Covid 19. Patient was started on Remdesivir 200mg IV x 1, then 100 mg IV daily for total 5 days until 03/04/20, Decadron 6 mg IV daily and empirically on rocephin/azithromycin. Patient has been requiring supplemental oxygen. 03/03 No significant clinical events overnight. Patient remained on oxygen via nasal cannula. Oxygen saturations remained in the high 80s to low 90s. Patient did not have any new complaints. No fever chills overnight. No nausea vomiting. 03/04 Doing well. oxygen weaned to 3L via NC. Wanting to go home Medications: Reviewed: Yes Vitals/I&O/Wt Last Vital Signs Temp 98.8 F 03/04/20 12:00 Pulse 81 03/04/20 14:00 Resp 17 03/04/20 12:00 BP 117/83 03/04/20 12:00 Pulse Ox 93 03/04/20 12:00 03/04/20 03/04/20 03/04/20 06:59 14:59 22:59 Intake Total 960 / 960 Output Total 700 / 1800 300 / 300 Balance -700 / -720 660 / 660 Physical Exam Narrative: EXAM NARRATIVE: General: Alert, awake and oriented x 3, on NC HEENT : Unremarkable Chest : Non-labored respiration CVS : NSR ABD : soft,NT Ext : No edema Data : 03/04/20 10:15 03/04/20 10:15 A&P Assessment and plan (1) Thrombocytopenia: Status: Acute (2) Hyperglycemia: Status: Acute (3) Leukopenia: Status: Acute (4) Pneumonia due to COVID-19 virus: Status: Acute Additional A&P Information Acute Hypoxic respiratory failure due to COVID-19 pneumonia Chronic obstructive pulmonary disease Thrombocytopenia - Resolved Steroid induced Hyperglycemia Coronary artery disease Hypertension Hyperlipidemia Chronic back pain GI ppx DVT ppx Plan: - Remdesivir 5 day protocol - Completed on 03/04 at 18:00 - Decadron 6 mg daily - plan total 10 days - Azithromycin 500 mg IV daily - Sputum culture - NGTD - Home eval today - May consider discharging in PM today after final remdesivir dose Attestations Medical Necessity Statement*: Will require further hospitalization for management of covid-19 related respiratory failure Time Spent in Patient Care: Greater than 35 minutes (>than 50% of time spent in counselling and/or direct pt care on unit) . Coding Level of Care Code Acute Hospital Nursing Assistant for Chg Fwd Diagnoses Thrombocytopenia D69.6 Hyperglycemia R73.9 Leukopenia D72.819 Pneumonia due to COVID-19 virus U07.1; J12.89
[2020-03-04] MEDS: azithromycin 500 MG in sodium chloride 0.9% 250 ML 250 MG IV (15:06)
[2020-03-04] MEDS: remdesivir 100 MG in sodium chloride 0.9% (100 ml) 100 ML IV (16:41)
--- NOTE | 2020-03-04 16:42 | P.DS_ITS ---
Discharge Providers Date of Admission: 02/29/20 11:36 Date of Discharge: March 04, 2020 Attending Provider at Admission: Darius Gregg MD Attending Provider at Discharge: Alena Bartholomew Primary Care Provider: Jamaal Allison DO Diagnoses at Discharge Discharge Diagnosis (1) Thrombocytopenia: Status: Acute (2) Hyperglycemia: Status: Acute (3) Leukopenia: Status: Acute (4) Pneumonia due to COVID-19 virus: Status: Acute Reason for Visit Reason for Visit: covid symptoms Hospital Course Hospital Course 64 year old with past medical history hypertension, coronary artery disease, chronic back pain, hyperlipidemia and chronic obstructive pulmonary disease who is presenting shortness of breath. Upon arrival to ER patients initial laboratory work up showed wbc of 3.1, hgb 16.5, hct 54.0, plt of 114. Sodium of 115, potassium of 5.0, chloride of 104, bicarbonate of 29, BUN of 15, and creatinine of 0.8. CoV-2-ag was positive. Bilateral, multi-lobar opacifications consistent with pneumonia/pneumonitis. CTA chest showed diffuse multilobar opacifications consistent with history of Covid 19. Patient was started on Remdesivir 200mg IV x 1, then 100 mg IV daily for total 5 days until 03/04/20, Decadron 6 mg IV daily and empirically on azithromycin. Patient has been requiring supplemental oxygen. After completion of 5 day course of remdesivir patient was wanting to discharge home. Home o2 eval qualified patient for 3L of o2 via NC which was arranged. Decadron was was prescribed to complete total 10 days. Patient was advised to follow up with PCP and given information for follow up with pulmonary medicine. Physical Exam Narrative: EXAM NARRATIVE: General: Alert, awake and oriented x 3, on NC HEENT : Unremarkable Chest : Non-labored respiration CVS : NSR ABD : soft,NT Ext : No edema Discharge Data Data Completed and Pending: Completed Studies During Hospitalization Category Date Time Status CT angio chest PE protcl [id number] Stat Cat Scan 02/29/20 09:11 Completed XR chest 1V lucretia ble [id number] Routine Exams 03/04/20 07:00 Completed XR chest 1V lucretia ble [id number] Stat Exams 02/29/20 07:33 Completed Labs from last 24 hours 03/04/20 03/04/20 03/04/20 10:15 10:15 10:15 WBC RBC Hgb Hct MCV MCH MCHC RDW Plt Count MPV Neut % (Auto) Lymph % (Auto) Otero % (Auto) Eos % (Auto) Baso % (Auto) Neut # (Auto) Lymph # (Auto) Otero # (Auto) Eos # (Auto) Baso # (Auto) Nucleated RBC % (a uto) Nucleated RBCs # D-Dimer 0.80 H Specimen Type Sample Site ABG pH ABG pCO2 ABG pO2 ABG HCO3 ABG Base Excess Wilber Test Hematocrit O2 Delivery Device O2 Liters/Min FiO2 Nuclear Powerplant Mechanic ID Sodium 135 L Potassium 4.5 Chloride 100 Carbon Dioxide 22 Anion Gap 17.5 BUN 15 Creatinine 0.7 GFR Calculation 113.5 Glucose 270 H Calculated Osmolal ity 290 Calcium 9.8 Ferritin 1718 H Total Bilirubin 0.3 AST 65 H ALT 56 H Alkaline Phosphata se 53 Total Protein 6.6 Albumin 3.3 L Globulin 3.3 Procalcitonin 0.13 03/04/20 03/04/20 10:15 04:28 WBC 6.3 RBC 6.11 H Hgb 15.6 Hct 50.7 MCV 83.0 MCH 25.5 L MCHC 30.8 RDW 14.5 Plt Count 183 MPV 10.4 Neut % (Auto) 77.7 Lymph % (Auto) 15.9 Otero % (Auto) 5.4 Eos % (Auto) 0.0 Baso % (Auto) 0.2 Neut # (Auto) 4.88 Lymph # (Auto) 1.0 Otero # (Auto) 0.3 Eos # (Auto) 0.0 Baso # (Auto) 0.0 Nucleated RBC % (a uto) 0 Nucleated RBCs # 0.0 D-Dimer Specimen Type Arterial Sample Site Radial, right ABG pH 7.43 ABG pCO2 40.0 ABG pO2 54.0 L ABG HCO3 26.5 H ABG Base Excess 2.0 Wilber Test Pos Hematocrit 48.7 O2 Delivery Device Nc O2 Liters/Min 3.0 FiO2 32.0 Nuclear Powerplant Mechanic ID [id number] Sodium Potassium Chloride Carbon Dioxide Anion Gap BUN Creatinine GFR Calculation Glucose Calculated Osmolal ity Calcium Ferritin Total Bilirubin AST ALT Alkaline Phosphata se Total Protein Albumin Globulin Procalcitonin Vitals: Last Vital Signs Temp 97.6 F 03/04/20 16:00 Pulse 99 03/04/20 16:00 Resp 18 03/04/20 16:00 BP 130/85 03/04/20 16:00 Pulse Ox 88 L 03/04/20 16:08 Discharge Plan Discharge Patient Disposition: Home Condition: Stable Prescriptions: New Decadron 6 mg tablet 6 mg PO DAILY 5 Days RF: 0 Ventolin HFA 90 mcg/actuation HFA aerosol inhaler 1 inh inhalation Q6H PRN (Reason: shortness of breath or wheezing) Qty: 6.7 RF: 0 Continued magnesium oxide 400 mg magnesium capsule 400 mg PO DAILY PRN (Reason: unknown) RF: 0 metoprolol tartrate 25 mg tablet 25 mg PO BID PRN (Reason: pt dced a month ago-see pharmacy comment) RF: 0 alprazolam 1 mg tablet 1 mg PO TID PRN (Reason: Anxiety) RF: 0 Plavix 75 mg tablet 75 mg PO DAILY@15 RF: 0 amlodipine 5 mg tablet 5 mg PO DAILY PRN (Reason: pt dced a month ago-see pharmacy comment) RF: 0 losartan 25 mg tablet 25 mg PO DAILY PRN (Reason: pt dced a month ago-see pharmacy comment) RF: 0 Discontinued amoxicillin 500 mg Tablet 500 mg PO Q6H RF: 0 ibuprofen 200 mg Tablet 400 mg PO PRN RF: 0 Discharge Orders: Discharge Order (Routine); Ordered 03/04/20 Ordered By: Alena Bartholomew Other Ambulatory Orders: DME: Oxygen (Order) Location: None Selected Ordered By: Alena Bartholomew Referrals: Jamaal Allison DO [Primary Care Provider] - 4-7 days (Please call tomorrow to make a follow up appointment.) Riddhi Hernandez MD [Physician] - 04/01/20 8:45 am Discharge Diet: Cardiac Discharge Activity: Increase activity as tolerated Patient Instructions: Corticosteroids (By mouth), Albuterol (By breathing), Pneumonia Stoplight, Pneumonia - Viral, Using Oxygen at Home Activity Restrictions/Additional Instructions: Return to ER for worsening respiratory distress, recurrent fever or any new symptoms. Discharge Attestations Time Spent in Discharge Care*: greater than 30 min Specific Discharge Activities: educating patient, educating and/or supporting family/caregiver, discussing with case technician/social workers/dc planners, documenting/other paperwork and evaluating patient/reviewing data Status at Discharge: Cognitive status at discharge: cognitively intact , Behavioral status at discharge: cooperative , Functional status at discharge: independent ambulation Overall status at discharge: patient is progressing back to baseline Quality Metrics Clinical Quality Measures During this hospital stay, did patient experience: None Coding Level of Care Code Acute System Support Developer for Keeshag Fwd Diagnoses Thrombocytopenia D69.6 Hyperglycemia R73.9 Leukopenia D72.819 Pneumonia due to COVID-19 virus U07.1; J12.89
--- NOTE | 2020-03-04 18:38 | PC.NURSE ---
Discharge instructions given to patient, all questions answered. Patient in stable condition. Patient is being rude and states is ready to get out of here. Patient refused to take his belongings states he does not want to take it with him because he does not want to catch COVID again. Patient left his pants, hat and socks on the bed. Patient taken out in wheelchair in stable condition.
== END 2020-03-04 18:41 | disposition home or self-care (01) | DRG 177 ==
LOC: ER 13:57 → MEDSURG 15:12
PROVIDERS: Internal Medicine; Admitting Provider Internal Medicine; Emergency Provider Family Medicine; PCP Family Medicine; Visit Provider Hospitalist
DX: U07.1 COVID-19 (principal); J12.82 Pneumonia due to coronavirus disease 2019; J96.01 Acute respiratory failure with hypoxia; J44.0 Chronic obstructive pulmonary disease with (acute) lower respiratory infection; D69.6 Thrombocytopenia, unspecified; R73.9 Hyperglycemia, unspecified; I25.10 Atherosclerotic heart disease of native coronary artery without angina pectoris; I10 Essential (primary) hypertension; G89.29 Other chronic pain; M54.9 Dorsalgia, unspecified; E78.5 Hyperlipidemia, unspecified; Z79.02 Long term (current) use of antithrombotics/antiplatelets; T38.0X5A Adverse effect of glucocorticoids and synthetic analogues, initial encounter; Y92.009 Unspecified place in unspecified non-institutional (private) residence as the place of occurrence of the external cause; Z95.5 Presence of coronary angioplasty implant and graft
CPT/HCPCS: 12345; 36415; 36600; 71045; 71275; 80051; 80053; 82330; 82728; 82803; 82805; 83036; 83605; 84145; 85025; 85378; 86140; 87070; 87205; 87426; 94640; 96372; 99283; J0456; J0696; J1100; J1650; J3535; J7050; Q9967

== ENCOUNTER 2020-03-05 16:12 | Inpatient (IN) | payer MEDICAID, SELFPAY ==
[2020-03-05] VITALS (8 sets, daily range): BP systolic 98–142; BP diastolic 58–95; PULSE 100–128; RESP 21–30; TEMP 36.6–36.7; O2SAT 91–96; BMI 35.4
--- NOTE | 2020-03-05 16:24 | CTR_ITS ---
PROCEDURE INFORMATION: Exam: CT Angiography Chest With Contrast Exam date and time: 03/05/2020 5:13 PM Age: 64 years old Clinical indication: Shortness of breath; Chest pain; Additional info: Sudden onset dyspnea TECHNIQUE: Imaging protocol: Computed tomographic angiography of the chest with intravenous contrast. 3D rendering (Not supervised by radiologist): MIP and/or 3D reconstructed images were created by the technologist. Radiation optimization: All CT scans at this facility use at least one of these dose optimization techniques: automated exposure control; mA and/or kV adjustment per patient size (includes targeted exams where dose is matched to clinical indication); or iterative reconstruction. Contrast material: OMNI 350; Contrast volume: 94 ml; Contrast route: INTRAVENOUS (IV); COMPARISON: CT angio chest PE protcl [id number] 02/29/2020 9:57 AM RADIATION DOSE METRICS: Total DLP (mGy-cm): 613.05 FINDINGS: Limitations: Suboptimal opacification of the pulmonary arteries limits assessment. Pulmonary arteries: The central pulmonary arteries are free of filling defects. Peripheral branches also appear free of filling defects. Aorta: Mild atherosclerosis of the thoracic aorta. No aortic aneurysm or dissection. Lungs: Extensive bullous disease/emphysema in the upper lungs. Superimposed peripheral ground-glass infiltrates throughout both lungs, consistent with nonspecific viral pneumonia. Pleural space: No pleural effusion or pneumothorax noted. Heart: No cardiomegaly. No pericardial effusion. Lymph nodes: Mild nonspecific mediastinal and bilateral hilar adenopathy. Lymph nodes measuring up to 10 mm short axis are noted. Bones/joints: Mild degenerative spine changes. No acute fracture. Soft tissues: Unremarkable. CT/CT angio chest PE protcl [id number] IMPRESSION: 1. Suboptimal opacification of the pulmonary arteries limits assessment. 2. No evidence of pulmonary embolism within the technical limits of the examination. 3. Mild atherosclerosis of the thoracic aorta. No aortic aneurysm or dissection. 4. Extensive bullous disease/emphysema in the upper lungs. Superimposed peripheral infiltrates throughout both lungs, consistent with nonspecific viral pneumonia. These infiltrates have progressed when compared to the previous study. Commonly reported imaging features of COVID-19 pneumonia are present. Other processes such as influenza pneumonia and organizing pneumonia, as can be seen with drug toxicity and connective tissue disease, can cause a similar imaging pattern. (Reference: [place]) 5. Mild nonspecific mediastinal and bilateral hilar adenopathy. Lymph nodes measuring up to 10 mm short axis are noted. REFERENCES: Carl Francois, et al., Radiological Society of [place] Expert Consensus Statement on Reporting Chest CT Findings Related to COVID-19. Endorsed by the Society of Thoracic Radiology, the [employer], and RSNA. Published May 16, 2019. Radiation Dose CTDIVOL = (mGy): DLP = 613.05 (mGy-cm)
--- NOTE | 2020-03-05 16:24 | XR_ITS ---
WS: [id number] Portable AP upright chest, 03/05/2020 Clinical Data: dyspnea/cough Comparison: Portable chest, 03/04/2020 Findings: The bilateral patchy opacities have increased slightly compared to yesterday. The patient h as a poor inspiratory effort. The heart remains the same. Monitor leads on the chest wall. There are no nodules or masses. XR/XR chest 1V portable [id number] Impression: Increase in bilateral peripheral opacities which may represent worsening pneumo fidelina.
--- NOTE | 2020-03-05 16:30 | ED_ITS ---
HPI - SOB/Dyspnea General: Chief Complaint: Shortness of Breath/Dyspnea Stated Complaint: RESPIRATORY DISTRESS/ LEG WEAKNESS Time Seen by Provider: 03/05/20 16:14 History of Present Illness: HPI Narrative: 64 male presents to the emergency room with complaints of shortness of breath. Symptoms began suddenly this afternoon while he was sitting at rest. Patient has a recent hospitalization for COVID-19 was discharged yesterday. He was discharged home on dexamethasone. He is also on Plavix. He did receive DVT prophylaxis while he was in inpatient but was not sent home on the oral anticoagulation because he developed some epistaxis. He denies any fever denies any shortness of breath EMS reports that on arrival his oxygen saturation was in the mid to low 80s. It improved with the addition of mask at 10 L/min he is now at 92%. He is tachycardic as well he denies any chest pain. He has a known history of coronary disease had multiple previous stents. MD elicited complaint: shortness of breath and cough Pertinent past history: COPD, pneumonia (COVID-19) and other (Urinary artery disease/hypertension) Onset (ago): hour(s) Context: recent illness (Hospitalized from February 29, 2020 to March 04, 2020 for COVID-19) Timing: constant Severity: severe Exacerbating factors: exertion and coughing Relieving factors: oxygen Known history of: congestive heart failure Associated symptoms: Deny abdominal pain, chest pain, nausea, orthopnea or vomiting Treatment prior to arrival: oxygen and bronchodilator Review of Systems ENMT: Denies: throat pain, ear or mastoid pain, nasal discharge or nasal congestion Card: Denies: chest pain, edema, dyspnea on exertion or orthopnea Resp: Denies: dyspnea, productive cough or non-productive cough GI: Denies: abdominal pain, nausea, vomiting, hematemesis, coffee ground emesis, diarrhea, constipation, bloating, hematochezia or melena : Denies: flank pain, dysuria, urinary frequency or urinary urgency Skin/Breast: Denies: rash or pruritus PFSH ED PFSH: Medical History Chronic back pain COPD (chronic obstructive pulmonary disease) Coronary artery disease HTN (hypertension) Hyperlipidemia Surgical History History of thoracotomy Previous back surgery C5 and C6 fusion S/P appendectomy S/P cholecystectomy S/P eye surgery S/P knee surgery S/P PTCA (percutaneous transluminal coronary angioplasty) Status post lung surgery Secondary to pneumothorax Family History Other Diabetes Hypertension Social History Smoking and tobacco status: former smoker Alcohol intake: current Alcohol intake frequency: holidays/special occasions only History of recent travel: No Physical Exam Const: ORIENTATION/CONSCIOUSNESS: Yes awake, Yes oriented to person, Yes oriented to place and Yes oriented to time HENMT: COMMON NORMALS: normocephalic, atraumatic and hearing grossly normal bilaterally HEAD & SCALP: normocephalic and atraumatic Resp: AUSCULTATION: rhonchi, wheezes and diminished lung sounds Cardio: COMMON NORMALS: regular rhythm and No murmurs present (Cardio) RATE: tachycardic RHYTHM: regular rhythm GI: COMMON NORMALS: Soft to palpation and No hepatosplenomegaly present AUSCULTATION: Yes normoactive bowel sounds PALPATION: Yes Soft to palpation, No Tenderness to palpation present (GI), No Guarding due to palpation present (GI) and Yes No hepatosplenomegaly present Extremity: COMMON NORMALS: normal to inspection, capillary refill normal, no clubbing, cyanosis or edema, no calf tenderness and no pedal edema Neuro: SENSORIUM/ORIENTATION: Yes oriented to person, Yes oriented to place and Yes oriented to time Skin: COMMON NORMALS: no rashes or lesions noted GENERAL SKIN EXAM: no rashes or lesions noted Course Vital Signs: Vital signs: Vital Signs Temperature 98.0 F 03/07/20 08:00 Pulse Rate 97 03/07/20 12:00 Respiratory Rate 29 H 03/07/20 12:00 Blood Pressure 92/60 03/07/20 12:00 Pulse Oximetry 91 03/07/20 12:00 MDM - SOB/Dyspnea MDM Narrative: Medical decision making narrative: Patient was recently discharged from Covid unit we will go ahead and readmit he looks like he has pneumonia cover with antibiotics discussed with hospitalist. Lab Data: Labs: Lab Results 03/05/20 03/05/20 03/05/20 Range/Units 00:00 00:00 16:22 WBC (4.0-10.0) 10^3/ uL RBC (4.1-5.3) 10^6/u L Hgb (11.7-16.6) g/dL Hct (42.0-52.0) % MCV (80-94) fL MCH (28.0-34.0) pg MCHC (30.0-36.0) g/dL RDW (12.1-15.1) % Plt Count (130-400) 10^3/c mm MPV (7.4-10.4) fL Neut % (Auto) % Lymph % (Auto) % [place] % (Auto) % Eos % (Auto) % Baso % (Auto) % Neut # (Auto) (1.8-7.7) 10^3/u L Lymph # (Auto) (0.8-4.8) 10^3/u L [place] # (Auto) (0.2-0.9) 10^3/u L Eos # (Auto) (0.0-0.8) 10^3/u L Baso # (Auto) (0.0-0.1) 10^3/u L Nucleated RBC % (a uto) % Nucleated RBCs # /100WBC Specimen Type Arterial Sample Site Radial, left ABG pH 7.48 H (7.35-7.45) ABG pCO2 28.7 L (35-45) mmHg ABG pO2 60.8 L (80.0-100.0) mmH g ABG HCO3 21.4 L (22-26) mmol/L ABG O2 Saturation 93.8 ABG Base Excess -0.5 (-2.0-2.0) mmol/ L Wilber Test Pos A-a O2 Gradient 6.7 (5-10) mmHg Hematocrit 53.6 H (42-52) % Hgb O2 Saturation 92.4 L (95-100) % Carboxyhemoglobin 0.8 (0.4-20.1) %THgb Methemoglobin 0.6 (0.4-1.5) % Total Hemoglobin 17.5 (14-18) g/dL Sodium 140.0 (131-143) mmol/L Potassium 3.7 (3.5-5.0) mmol/L Glucose 203.0 H (70-115) mg/dL Ionized Calcium 1.3 (1.1-1.4) mmol/L O2 Delivery Device Nrb O2 Liters/Min 12.0 % [employer]ator [employer] ID Gd Chloride (98-107) mmol/L Carbon Dioxide (22-29) mmol/L Anion Gap (5-19) BUN (8-23) mg/dL Creatinine (0.7-1.2) mg/dL GFR Calculation (90-130) mL/min Calculated Osmolal ity (285-295) mOsm/k g Lactic Acid (0.5-2.2) mmol/L Lactic Acid (Sepsi s) 1.6 (0.5-2.2) mmol/L Calcium (8.5-10.5) mg/dL Total Bilirubin (0.15-1.2) mg/dL AST (0-40) U/L ALT (0-41) U/L Alkaline Phosphata se (40-130) IU/L Troponin T Baselin e 35 H (0-15) ng/L Total Protein (6.6-8.7) g/dL Albumin (3.5-5.2) g/dL Globulin (1.3-4.6) g/dL 03/05/20 03/05/20 03/05/20 Range/Units 16:45 16:45 16:45 WBC 8.5 (4.0-10.0) 10^3/ uL RBC 6.45 H (4.1-5.3) 10^6/u L Hgb 16.7 H (11.7-16.6) g/dL Hct 54.0 H (42.0-52.0) % MCV 83.7 (80-94) fL MCH 25.9 L (28.0-34.0) pg MCHC 30.9 (30.0-36.0) g/dL RDW 15.3 H (12.1-15.1) % Plt Count 201 (130-400) 10^3/c mm MPV 10.5 H (7.4-10.4) fL Neut % (Auto) 64.0 % Lymph % (Auto) 25.3 % [place] % (Auto) 8.6 % Eos % (Auto) 0.6 % Baso % (Auto) 0.6 % Neut # (Auto) 5.40 (1.8-7.7) 10^3/u L Lymph # (Auto) 2.1 (0.8-4.8) 10^3/u L [place] # (Auto) 0.7 (0.2-0.9) 10^3/u L Eos # (Auto) 0.1 (0.0-0.8) 10^3/u L Baso # (Auto) 0.1 (0.0-0.1) 10^3/u L Nucleated RBC % (a uto) 0 % Nucleated RBCs # 0.0 /100WBC Specimen Type Sample Site ABG pH (7.35-7.45) ABG pCO2 (35-45) mmHg ABG pO2 (80.0-100.0) mmH g ABG HCO3 (22-26) mmol/L ABG O2 Saturation ABG Base Excess (-2.0-2.0) mmol/ L Wilber Test A-a O2 Gradient (5-10) mmHg Hematocrit (42-52) % Hgb O2 Saturation (95-100) % Carboxyhemoglobin (0.4-20.1) %THgb Methemoglobin (0.4-1.5) % Total Hemoglobin (14-18) g/dL Sodium 137 (131-143) mmol/L Potassium 4.0 (3.5-5.0) mmol/L Glucose 200 H (70-115) mg/dL Ionized Calcium (1.1-1.4) mmol/L O2 Delivery Device O2 Liters/Min % [employer] ID Chloride 101 (98-107) mmol/L Carbon Dioxide 22 (22-29) mmol/L Anion Gap 18.0 (5-19) BUN 16 (8-23) mg/dL Creatinine 0.8 (0.7-1.2) mg/dL GFR Calculation 97.3 (90-130) mL/min Calculated Osmolal ity 291 (285-295) mOsm/k g Lactic Acid 3.1 H (0.5-2.2) mmol/L Lactic Acid (Sepsi s) (0.5-2.2) mmol/L Calcium 9.7 (8.5-10.5) mg/dL Total Bilirubin 0.5 (0.15-1.2) mg/dL AST 43 H (0-40) U/L ALT 74 H (0-41) U/L Alkaline Phosphata se 61 (40-130) IU/L Troponin T Baselin e (0-15) ng/L Total Protein 6.8 (6.6-8.7) g/dL Albumin 3.7 (3.5-5.2) g/dL Globulin 3.1 (1.3-4.6) g/dL Discharge Plan Discharge Patient Disposition: Admitted As Inpatient Admit Provider: Regulo Reynaga Clinical Impression: Pneumonia due to COVID-19 virus, Acute hypoxemic respiratory failure, COPD (chronic obstructive pulmonary disease), Coronary artery disease, HTN (hypertension) Condition: Stable Coding Level of Care Code ED Production Designer for Chg Fwd Exam Detailed
[2020-03-05 16:39] LABS: ABG PCO2 28.7 mmHg (35-45); ABG PH Result 7.48 (7.35-7.45); Alveolar-Arterial Oxygen Gradi 6.7 mmHg (5-10); Arterial Blood Gas Hematocrit 53.6 % (42-52); Base Excess ABG -0.5 mmol/L (-2.0-2.0); Blood Gas Allen Test Pos; Blood Gas Operator Identificat GD; Blood Gas Sample Site Radial, left; Blood Gas Sample Type Arterial; Carboxyhemoglobin 0.8 %THgb (0.4-20.1); HCO3 ABG 21.4 mmol/L (22-26); HGB O2 Sat 92.4 % (95-100); Ionized Calcium Level - ABG 1.3 mmol/L (1.1-1.4); Methemoglobin 0.6 % (0.4-1.5); Oxygen Device NRB; Oxygen Saturation ABG 93.8; PO2 ABG 60.8 mmHg (80.0-100.0); Potassium Level - ABG 3.7 mmol/L (3.5-5.0); Total Hemoglobin 17.5 g/dL (14-18)
--- NOTE | 2020-03-05 16:53 | PC.PHAR ---
PT STATES HE NEVER GOT HIS RX FOR DECADRON 6MG DAILY-DISCHARGE PAPERS DOESNT SHOW WHERE IT WAS TRANSMITTED TO A PHARMACY-PT STATES HE GOT THE VENTOLIN INHALER BUT [facility] STATES THEY HAVE THE RX READY FOR HIM TO [facility]-PT STATES HE STOP TAKING HIS BP MEDS A MONTH AGO AND STATES HE HASNT TALKED TO HIS DR ABOUT STOPPING THEM
[2020-03-05 16:56] LABS: Basophils # 0.1 10^3/uL (0.0-0.1); Basophils % 0.6 %; Eosinophils # 0.1 10^3/uL (0.0-0.8); Eosinophils % 0.6 %; Hemoglobin 16.7 g/dL (11.7-16.6); Lymphocytes # 2.1 10^3/uL (0.8-4.8); Lymphocytes % 25.3 %; Mean Corpuscular HGB Conc 30.9 g/dL (30.0-36.0); Mean Corpuscular Hemoglobin 25.9 pg (28.0-34.0); Mean Corpuscular Volume 83.7 fL (80-94); Mean Platelet Volume 10.5 fL (7.4-10.4); Monocytes # 0.7 10^3/uL (0.2-0.9); Monocytes % 8.6 %; Nucleated Red Blood Cells % 0 %; Platelet Count 201 10^3/cmm (130-400); Red Blood Count 6.45 10^6/uL (4.1-5.3); Red Cell Distribution Width 15.3 % (12.1-15.1); White Blood Count 8.5 10^3/uL (4.0-10.0)
[2020-03-05 17:17] LABS: Alanine Aminotransferase 74 U/L (0-41); Albumin Level 3.7 g/dL (3.5-5.2); Alkaline Phosphatase 61 IU/L (40-130); Aspartate Amino Transferase 43 U/L (0-40); Blood Urea Nitrogen 16 mg/dL (8-23); Calcium 9.7 mg/dL (8.5-10.5); Carbon Dioxide 22 mmol/L (22-29); Chloride 101 mmol/L (98-107); Globulin 3.1 g/dL (1.3-4.6); Glomerular Filtration Rate 97.3 mL/min (90-130); Glucose 200 mg/dL (65-115); Osmolality Calculated 291 mOsm/kg (285-295); Sodium 137 mmol/L (136-145); Total Bilirubin 0.5 mg/dL (0.15-1.2); Total Protein 6.8 g/dL (6.6-8.7)
[2020-03-05 17:18] LABS: Lactic Sepsis W/Reflex 3.1 mmol/L (0.5-2.2)
[2020-03-05] MEDS: iohexol 350 mg/mL 100 mL Btl IV (17:18)
--- NOTE | 2020-03-05 18:23 | PM.HP ---
Providers/Chief Complaint Primary Care Provider: Jamaal Allison DO Chief Complaint: RESPIRATORY DISTRESS/ LEG WEAKNESS History of Present Illness Jono Pierce is a 64 year old male with past medical history hypertension, coronary artery disease s/p multiple stent, chronic back pain, hyperlipidemia and chronic obstructive pulmonary disease diagnosed with COVID 19 on 02/28 and discharged on 03/04 after completing the 5 day course. Patient has been requiring supplemental oxygen during last admission. After completion of 5 day course of remdesivir patient was discharged as he wanted to go home.Home o2 evaluation was done patient qualified for 3L of o2 via [place].He came back today with worsening SOB after admission.He is also complainin ER Course: CTA chest:Subopitmal study : No evidence of pulmonary embolism within the technical limits of the examination.Extensive bullous disease/emphysema in the upper lungs. Superimposed peripheral infiltrates throughout both lungs, consistent with nonspecific viral pneumonia. These infiltrates have progressed when compared to the previous study. Pertinent Labs : WBC: 8.5 , H/H: 16/54 , PLT: 201, Lactic acid: 3.1 ABG : Ph: 7.48, PCO2: 28, PO2: 60 FIO2: 12 Ls EKG: Sinus Tachycardia. Review of Systems Const: Denies: fever(s) or chills Card: Denies: palpitations, edema, swelling of feet/ankles or leg pain with exertion Resp: Denies: wheezing or pain on inspiration GI: Denies: abdominal pain, nausea, vomiting, diarrhea or constipation : Denies: flank pain or difficulty urinating Musc: Denies: back pain, extremity pain or extremity swelling Neuro: Denies: headache(s) Medications/Allergies Home Medications Medication Instructions Recorded Confirmed Last Taken Type magnesium oxide 400 mg PO DAILY PRN 04/30/19 03/05/20 Unknown History metoprolol tartrate 25 mg tablet 25 mg PO BID PRN 04/30/19 03/05/20 Unknown History alprazolam 1 mg PO TID PRN 02/29/20 03/05/20 03/04/20 History amlodipine 5 mg PO DAILY PRN 02/29/20 03/05/20 Unknown History clopidogrel [Plavix] 75 mg PO DAILY@15 02/29/20 03/05/20 03/04/20 History losartan 25 mg PO DAILY PRN 02/29/20 03/05/20 Unknown History albuterol sulfate [Ventolin HFA] 1 inh INHALATION Q6H PRN #6.7 g 03/04/20 03/05/20 Unknown Rx dexamethasone [Decadron] 6 mg PO DAILY 03/05/20 03/05/20 Unknown History Allergies Allergy/AdvReac Type Severity Reaction Status Date / Time lisinopril Allergy RASH Verified 03/05/20 16:52 Penicillins Allergy RASH Verified 03/05/20 16:52 PFSH Acute PFSH: Medical History Chronic back pain COPD (chronic obstructive pulmonary disease) Coronary artery disease HTN (hypertension) Hyperlipidemia Surgical History History of thoracotomy Previous back surgery C5 and C6 fusion S/P appendectomy S/P cholecystectomy S/P eye surgery S/P knee surgery S/P PTCA (percutaneous transluminal coronary angioplasty) Status post lung surgery Secondary to pneumothorax Family History Other Diabetes Hypertension Social History Smoking and tobacco status: former smoker Alcohol intake: current Alcohol intake frequency: holidays/special occasions only History of recent travel: No Vitals/I&O/Wt Last Vital Signs Temp 97.9 F 03/05/20 16:21 Pulse 115 H 03/05/20 18:00 Resp 26 H 03/05/20 17:54 BP 108/76 03/05/20 17:54 Pulse Ox 96 03/05/20 17:54 Weight last 48 hrs Weight 108.862 kg Physical Exam Const: COMMON NORMALS: patient oriented x3 HENMT: COMMON NORMALS: normocephalic and atraumatic HEAD & SCALP: normocephalic and atraumatic Chest: CHEST: Yes Symmetrical chest wall rise Resp: OTHER: Diminished air entry B/L Cardio: COMMON NORMALS: regular rate, regular rhythm, S1 normal heart sound present, S2 normal heart sound present, No gallops present (Cardio), No murmurs present (Cardio), No rub (Cardio) and Peripheral pulses 2+ throughout RATE: regular rate RHYTHM: regular rhythm HEART SOUNDS: S1 normal heart sound present and S2 normal heart sound present PERIPHERAL PULSES: Peripheral pulses 2+ throughout GI: COMMON NORMALS: Normal to inspection, nondistended, normoactive bowel sounds present, Soft to palpation, non-tender, No hepatosplenomegaly present and no masses AUSCULTATION: Yes normoactive bowel sounds PALPATION: Yes Soft to palpation and Yes No hepatosplenomegaly present RECTAL EXAM: Yes deferred Extremity: COMMON NORMALS: no clubbing, cyanosis or edema and no pedal edema Neuro: COMMON NORMALS: patient oriented x3 Data : 03/05/20 16:45 03/05/20 16:45 A&P Assessment and plan (1) Acute hypoxemic respiratory failure: 2/2 COVID PNA/Possible superimposed bacterial PNA. Extended 10 days Rem course Dexamethasone 6 mg I.V daily Van/Imipenam/ Monitor Cytokine storm markers ( D-DIMER, CRP, ESR, Ferritin) Will consider Convalescent Plasma therapy Eliquis 2 .5 MG Q12 H Daily Supplemental oxygen Nebs Monitor Serial X-Ray, ABG Status: Acute (2) Pneumonia due to COVID-19 virus: Status: Acute (3) Coronary artery disease: Status: Acute (4) HTN (hypertension): Status: Acute (5) COPD (chronic obstructive pulmonary disease): Status: Acute Additional A&P Information DVT PPX: Eliquis 2.5 mgq12 h daily Code Status :Full code Disposition :Home Attestations Medical Necessity Statement*: Patient needs to be in hospital for the management of r/f 2/2 COVID PNA. Anticipated LOS greater then 2 midnights Coding Level of Care Code Acute Power System Dispatcher for [facility] Fwd Diagnoses Acute hypoxemic respiratory failure J96.01 Pneumonia due to COVID-19 virus U07.1; J12.89 Coronary artery disease I25.10 HTN (hypertension) I10 COPD (chronic obstructive pulmonary disease) J44.9
[2020-03-05] MEDS: levofloxacin-dextrose 5 % 750 MG/150 ML PREMIX 100 MG IV (18:34)
[2020-03-05] MEDS: aztreonam 2,000 MG in sodium chloride 0.9% (plus) 100 ML 200 MG IV (18:35)
[2020-03-05] MEDS: vancomycin 1,000 MG in sodium chloride 0.9% 250 ML 250 MG IV (18:35)
[2020-03-05 18:41] LABS: Reflex Lactate Order REFLEX LACTIC ORDERD
--- NOTE | 2020-03-05 18:50 | ECG_ITS ---
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 Measurements Intervals [place] Rate: 109 P: 23 MS: 150 QRS: -9 QRSD: 85 T: 24 QT: 260 QTc: 351 Interpretive Statements SINUS TACHYCARDIA LOW QRS VOLTAGE IN PRECORDIAL LEADS [QRS DEFLECTION < 1.0 mV IN CHEST LEADS] Compared to ECG 08/25/2014 17:23:37 Low QRS voltage now present Sinus rhythm no longer present T-wave abnormality no longer present Electronically Signed On 03-05-2020 19:16:33 LOGGING CONTRACTOR by Ree Moyer M.D. [id number]
--- NOTE | 2020-03-05 22:38 | ECG_ITS ---
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 Measurements Intervals [place] Rate: 101 P: 47 MI: 145 QRS: 16 QRSD: 89 T: 74 QT: 339 QTc: 440 Interpretive Statements SINUS TACHYCARDIA LOW QRS VOLTAGE IN PRECORDIAL LEADS [QRS DEFLECTION < 1.0 mV IN CHEST LEADS] POSSIBLE ANTERIOR MYOCARDIAL INFARCTION [30 ms Q WAVE IN V3/V4, OR R < 0.2 mV IN V4], OF INDETERMINATE AGE ST ELEVATION, CONSIDER INFERIOR INJURY [MARKED ST ELEVATION W/O NORMALLY INFLECTED T WAVE IN II/aVF] Compared to ECG 03/05/2020 19:05:54 Myocardial infarct finding now present ST (T wave) deviation now present Electronically Signed On 03-11-2020 22:25:53 BI ANALYST by Ree Moyer M.D. [id number] f
[2020-03-05] MEDS: remdesivir 100 MG in sodium chloride 0.9% (100 ml) 100 ML IV (22:59)
[2020-03-05] MEDS: dexamethasone 4 mg/mL INJ 6 MG IVP (23:05)
--- NOTE | 2020-03-05 23:08 | ECG_ITS ---
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 Measurements Intervals [place] Rate: 98 P: 35 MO: 153 QRS: 7 QRSD: 82 T: 48 QT: 326 QTc: 418 Interpretive Statements SINUS RHYTHM LOW QRS VOLTAGE IN PRECORDIAL LEADS [QRS DEFLECTION < 1.0 mV IN CHEST LEADS] POSSIBLE ANTERIOR MYOCARDIAL INFARCTION [30 ms Q WAVE IN V3/V4, OR R < 0.2 mV IN V4], OF INDETERMINATE AGE Compared to ECG 03/05/2020 23:13:04 Sinus tachycardia no longer present ST (T wave) deviation no longer present Myocardial infarct finding still present Electronically Signed On 03-11-2020 22:23:59 SURFACE GRINDER by Ree Moyer M.D. [id number] f
--- NOTE | 2020-03-05 23:30 | PC.NURSE ---
When patient arrived to the floor patient was noted to be in sinus tach with no noted ST elevation on the personnel monitor. Patient began to complain of 8 out of 10 chest pain. When reviewing his personnel monitor there is profound changes in ST elevation of his personnel monitor. Notified hospitalist and received and order for stat EKG and one dose of 0.4mg sublingual Nitro. After taking the nitro the patient stated that the nitro helped a little and there was a decrease in ST elevation on his personnel monitor. EKG was reviewed by the hospitalist and she stated that she believes that the changes on his EKG are chronic in nature and r/t demand ischemia due to hypoxia.No interventions needed at this time. Patient is currently sating 95% on non-rebreather at 15LPM/100% Fi02. Patient denies of any other pains or concerns at this time. Bed in lowest and locked position, call light and water within reach, x's 2 rails up. Will continue to monitor pt.
[2020-03-05] MEDS: nitroglycerin 0.4 mg sublingual Tablet SUBLINGUAL (23:40)
[2020-03-06] VITALS (184 sets, daily range): BP systolic 120–184; BP diastolic 81–127; PULSE 74–117; RESP 7–27; TEMP 37.4; O2SAT 86–99; BMI 34.4
[2020-03-06] MEDS: albuterol 8 gm MDI 2 PUFF INHALATION ×3 (00:05→20:21)
--- NOTE | 2020-03-06 00:06 | P.PNCC_ITS ---
Critical Care Event Note Critical Care Event The high probability of a clinically significant, sudden or life threatening deterioration of the patient's cardiovascular system(s) required my full and direct attention, intervention and personal management. The critical care time is as shown. This time is in addition to time spent performing any reported procedures but includes the following: [x] Data and vital sign review and interpretation [x] Patient assessment, examination and intervention [x] Documentation [x] Medication orders and management Patient arrived to the viral ICU and was complaining of substernal chest pain radiating into the neck and shoulder region. It was severe in nature. Twelve- lead EKG was done and showed some mild ST elevation in lead III and aVF. Q waves were also noted. ST elevation was not noted on an old EKG from 2014. Also not noted on an EKG from earlier. Troponin and BNP are currently pending. Patient does have a history of coronary artery disease with prior stents. Last arteriogram was in 2014. At that point in time he had a chronically occluded RCA noted. He had stents put in the mid and distal LAD, the left circumflex and the first OM. He follows with Dr. Reyes on outpatient basis. Blood pressure was 114/86, pulse 102 and respirations in the mid 20s. He is on high flow heated oxygen at 15 L with sats at 92%. Nitroglycerin was tried but he had drop in blood pressure. He is feeling a little bit better but continues to complain of pain. I have discussed the case with Dr. Lopez. Suspicion is that the ischemia is likely secondary to the hypoxemia at this point in time in the setting of somebody with a chronically occluded RCA. We will attempt to manage medically at the moment. He has not received Eliquis. I am changing him to treatment dose Lovenox. He is chronically on Plavix. We will give him some aspirin. Have also ordered statin. Echocardiogram for in the morning. Lipid panel for in the morning. Looks like most of his cardiac medications at home are as needed rather than scheduled. I have currently held the as needed amlodipine and losartan but I have ordered low-dose beta-blockade to see if his blood pressure can handle it. Will follow up with Dr. Wright regarding cardiac enzymes and BNP which are pending. Have reviewed with nursing staff current plans of care. Critical Care Time Critical Care Time: Code activated: No Critical Care Time (min): 32 Additional information about critical care time: Time spent reviewing clinical situation, new and old EKGs, laboratory studies and prior cardiac catheterizations/cardiac history as well as discussing with specialist, entering medication orders and updating nursing staff Coding Level of Care Code Acute Cabin Cleaning Supervisor for María Galvan
[2020-03-06] MEDS: morphine 4 mg/mL SDV 1 mL 2 MG IVP (00:18)
[2020-03-06] MEDS: atorvastatin 40 mg Tablet PO ×2 (00:18→21:23)
[2020-03-06 00:44] LABS: Lactic Acid level (Lactate) 1.6 mmol/L (0.5-2.2)
[2020-03-06 00:51] LABS: NT Pro B Type Natriuretic Pept 54 pg/mL (0-125)
--- NOTE | 2020-03-06 00:51 | ECG_ITS ---
[facility] ED Test Date: 2020-03-06 Pat Name: Jono Pierce Department: Room: ICU19 Gender: Male Vp Home Health: : 1955 Requested By: Regulo Reynaga Order Number: [id number] Deven MD: Ree Moyer M.D. Measurements Intervals [place] Rate: 92 P: 35 SC: 157 QRS: -11 QRSD: 86 T: 41 QT: 341 QTc: 423 Interpretive Statements SINUS RHYTHM LOW QRS VOLTAGE IN PRECORDIAL LEADS [QRS DEFLECTION < 1.0 mV IN CHEST LEADS] ST ELEVATION, CONSIDER INFERIOR INJURY ACUTE NV Compared to ECG 03/05/2020 23:28:42 ST (T wave) deviation now present Myocardial infarct finding still present Electronically Signed On 03-11-2020 22:28:01 TEST DEVELOPER by Ree Moyer M.D. [id number]
[2020-03-06] MEDS: aspirin 325 mg EC Tablet PO (01:04)
[2020-03-06] MEDS: enoxaparin 120 mg/0.8 mL Syringe 110 MG SUBCUT ×2 (01:04→12:13)
[2020-03-06 01:13] LABS: Troponin(5th) Baseline 35 ng/L (0-15)
--- NOTE | 2020-03-06 01:19 | PC.RESP ---
Therapist tried patient on a high flow nasal cannula. patient did not succeed and sats went down to 85%. therapist placed patient back on NRB of 15LPM sats are 92%. Patient was asked if he would want to wear a Heated high flow machine and patient refused. patient stated that he just wants to wear the NRB mask at this time.
[2020-03-06] MEDS: nitroglycerin 0.4 mg sublingual Tablet SUBLINGUAL (01:32)
[2020-03-06 02:38] LABS: Basophils % 0.3 %; Eosinophils % 0.1 %; Hematocrit 51.9 % (42.0-52.0); Hemoglobin 15.9 g/dL (11.7-16.6); Lymphocytes % 10.8 %; Mean Corpuscular HGB Conc 30.6 g/dL (30.0-36.0); Mean Corpuscular Hemoglobin 25.5 pg (28.0-34.0); Mean Corpuscular Volume 83.3 fL (80-94); Mean Platelet Volume 10.6 fL (7.4-10.4); Monocytes # 0.6 10^3/uL (0.2-0.9); Monocytes % 6.9 %; Neutrophils # 7.29 10^3/uL (1.8-7.7); Neutrophils % 80.8 %; Nucleated Red Blood Cells % 0 %; Platelet Count 198 10^3/cmm (130-400); Red Blood Count 6.23 10^6/uL (4.1-5.3); Red Cell Distribution Width 14.9 % (12.1-15.1)
[2020-03-06 03:15] LABS: Alanine Aminotransferase 104 U/L (0-41); Albumin Level 3.4 g/dL (3.5-5.2); Alkaline Phosphatase 76 IU/L (40-130); Aspartate Amino Transferase 114 U/L (0-40); Blood Urea Nitrogen 15 mg/dL (8-23); Calcium 9.4 mg/dL (8.5-10.5); Carbon Dioxide 21 mmol/L (22-29); Chloride 100 mmol/L (98-107); Creatinine Clr Calc Pharmacy 151.2344; Glomerular Filtration Rate 135.6 mL/min (90-130); Glucose 212 mg/dL (65-115); Magnesium 1.9 mg/dL (1.7-2.3); Osmolality Calculated 285 mOsm/kg (285-295); Sodium 134 mmol/L (136-145); Total Bilirubin 0.6 mg/dL (0.15-1.2); Total Protein 6.4 g/dL (6.6-8.7)
[2020-03-06 03:17] LABS: Troponin 5 2HR 46.03 ng/L (0-15)
[2020-03-06 03:22] LABS: Procalcitonin 0.27 ng/mL (0-0.5)
[2020-03-06 03:32] LABS: Chol HDL Ratio 2.32 mg/dL (1.0-5.00); Cholesterol 88 mg/dL (0-200); HDL Cholesterol 38 mg/dL (60-100); LDL Cholesterol Calculated 29 mg/dL (50-129); LDL HDL Ratio 0.76 RATIO (0.00-3.22); Triglycerides 104 mg/dL (0-150)
[2020-03-06 03:46] LABS: Anion Gap 17.3 (5-19); Potassium 4.3 mmol/L (3.5-5.1)
--- NOTE | 2020-03-06 04:45 | PC.NURSE ---
Patient started to c/o chest pain again and rated his pain 8 out of 10. Patient states that pain is like a bunch of pressure located mid-sternum that does not radiate. Patient states he is also feeling really hot. Patient is noted to be back in ST elevation. Notified hospitalist. Was ordered to give another does of 0.4mg of sublingual nitro and 1mg of PO Xanax. Post nitro patient stated that it helped ease his chest pain and that the pain was now tolerable. ST elevation still noted on start up specialist. Patient denies any other pains or concerns at this time. Bed in lowest and locked position, call light and water within reach, x's 2 rails up. Will continue to monitor patient. supervisor matrix was notified of patient's situation and current treatment plan.
[2020-03-06] MEDS: nitroglycerin 1 gm/inch oint Pkt 1 INCH TOPICAL ×4 (05:10→21:58)
[2020-03-06 08:00] LABS: Lactic Sepsis W/Reflex 1.2 mmol/L (0.5-2.2)
[2020-03-06] MEDS: vancomycin 1,500 MG/300 ML PIGGYBACK 200 MG IV ×2 (08:28→19:47)
[2020-03-06] MEDS: ascorbic acid 500 mg Tablet PO (08:29)
[2020-03-06] MEDS: pantoprazole DR 40 mg Tablet PO (08:29)
[2020-03-06] MEDS: aspirin 81 mg EC Tablet PO (08:29)
[2020-03-06] MEDS: zinc gluconate 50 mg Tablet PO (08:30)
[2020-03-06] MEDS: metoprolol tartrate 25 mg Tablet 12.5 MG PO (08:30)
--- NOTE | 2020-03-06 10:05 | PC.NURSE ---
Patient has been resting in bed this shift. Complains of dull chest ache at 3/10 and becomes short of breath while talking.
--- NOTE | 2020-03-06 12:09 | P.CONIM_ITS ---
Providers/Reason For Consult Consulting Physican/Specialty*: Cardiology Reason for Consult*: Abnormal EKG Attending Physician: Benny Godinez MD Primary Care Provider: Jamaal Allison DO History of Present Illness History of Present Illness Jono Pierce is a 64 year old male past medical history significant for history of coronary artery disease, non-ST elevation MS with history of 4 stents two in LAD, 2 in circumflex and chronically occluded RCA as per angiogram in 2015. Patient was admitted with Covid pneumonia respiratory distress last night. Due to abnormal EKG I was consulted to see whether patient is having acute coronary syndrome with suspicion of ST elevation. Twelve-lead EKG was suggestive of sinus rhythm normal axis and old inferior wall myocardial infarction with slight ST elevation without any significant reciprocal changes. When compared to the prior EKG from 2015 this change was new, patient was complaining of some chest pressure. Please note that history and physical examination was as per my conversation with Dr. Marquez and I have not examined the patient since he is in Covid unit. I suggested medical management as I was not convinced on the basis of EKG that patient is going through ST elevation MS. We checked cardiac markers which did not show significant change to be called as acute coronary syndrome. Patient was not suggested of heart failure by physical examination. Review of Systems Const: Denies: fever(s) or chills ENMT: Denies: throat pain, ear or mastoid pain, nasal discharge or nasal congestion Card: Denies: chest pain, palpitations, edema, swelling of feet/ankles, dyspnea on exertion, orthopnea or leg pain with exertion Resp: Denies: dyspnea, productive cough, non-productive cough, wheezing or pain on inspiration GI: Denies: abdominal pain, nausea, vomiting, hematemesis, coffee ground emesis, diarrhea, constipation, bloating, hematochezia or melena : Denies: flank pain, difficulty urinating, dysuria, urinary frequency or urinary urgency Musc: Denies: back pain, extremity pain or extremity swelling Skin/Breast: Denies: rash or pruritus Neuro: Denies: headache(s) Meds/Allergies Home Medications and Allergies Home Medications Medication Instructions Recorded Confirmed Last Taken Type magnesium oxide 400 mg PO DAILY PRN 04/30/19 03/05/20 Unknown History metoprolol tartrate 25 mg tablet 25 mg PO BID PRN 04/30/19 03/05/20 Unknown History alprazolam 1 mg PO TID PRN 02/29/20 03/05/20 03/04/20 History amlodipine 5 mg PO DAILY PRN 02/29/20 03/05/20 Unknown History clopidogrel [Plavix] 75 mg PO DAILY@15 02/29/20 03/05/20 03/04/20 History losartan 25 mg PO DAILY PRN 02/29/20 03/05/20 Unknown History albuterol sulfate [Ventolin HFA] 1 inh INHALATION Q6H PRN #6.7 g 03/04/20 03/05/20 Unknown Rx dexamethasone [Decadron] 6 mg PO DAILY 03/05/20 03/05/20 Unknown History Allergies Allergy/AdvReac Type Severity Reaction Status Date / Time lisinopril Allergy RASH Verified 03/05/20 16:52 Penicillins Allergy RASH Verified 03/05/20 16:52 Current Medications Current Medications Generic Name Dose Route Start Last Admin Trade Name Freq PRN Reason Stop Dose Admin Albuterol Sulfate 2 puff 03/05/20 22:38 03/06/20 09:39 Albuterol 8 Gm Mdi INHALATION 2 puff Q4H.RESPIRATORY PRN Administration SHORTNESS OF BREATH Alprazolam 1 mg 03/05/20 22:38 03/06/20 01:44 Alprazolam 1 Mg Tablet PO 1 mg TID PRN Administration Anxiety Ascorbic Acid 500 mg 03/06/20 09:00 03/06/20 08:29 Ascorbic Acid 500 Mg Tablet PO 500 mg DAILY ALEN Administration Aspirin 81 mg 03/06/20 09:00 03/06/20 08:29 Aspirin 81 Mg Ec Tablet PO 81 mg DAILY ALEN Administration Atorvastatin Calcium 40 mg 03/05/20 23:45 03/06/20 00:18 Atorvastatin 40 Mg Tablet PO 40 mg BEDTIME ALEN Administration Dexamethasone 6 mg 03/05/20 22:38 03/05/20 23:05 Dexamethasone 4 Mg/Ml Inj IVP 6 mg Q24H ALEN Administration Enoxaparin Sodium 110 mg 03/06/20 00:15 03/06/20 01:04 Enoxaparin 120 Mg/0.8 Ml Syringe SUBCUT 110 mg Q12H ALEN Administration Remdesivir 100 mg/ Sodium 100 mls @ 100 mls/hr 03/05/20 19:30 03/06/20 00:10 Chloride IV 03/09/20 18:59 Infused DAILY@1800 ALEN Infusion Vancomycin/PEG/NADA/Lysine/Water 1,500 mg in 300 mls @ 200 mls/hr 03/05/20 20:00 03/06/20 08:28 Vancocin IV 200 mls/hr Q12H ALEN Administration Imipenem/Cilastatin Sodium 500 100 mls @ 200 mls/hr 03/05/20 23:00 03/06/20 11:02 mg/ Sodium Chloride IV 200 mls/hr Q6H ALEN Administration Protocol Metoprolol Tartrate 12.5 mg 03/06/20 09:00 03/06/20 08:30 Metoprolol Tartrate 25 Mg Tablet PO 12.5 mg BID@0900,2100 ALEN Administration Morphine Sulfate 2 mg 03/05/20 23:57 03/06/20 00:18 Morphine 4 Mg/Ml Sdv 1 Ml IVP 2 mg Q4H PRN Administration SEVERE PAIN Nitroglycerin 0.4 mg 03/05/20 23:26 03/06/20 01:32 Nitroglycerin 0.4 Mg Sublingual Tablet SUBLINGUAL 0.4 mg Q5M PRN Administration CHEST PAIN Nitroglycerin 1 inch 03/06/20 04:30 03/06/20 11:02 Nitroglycerin 1 Gm/Inch Oint Pkt TOPICAL 1 inch Q6H ALEN Administration Pantoprazole Sodium 40 mg 03/06/20 09:00 03/06/20 08:[address] 40 Mg Tablet PO 40 mg DAILY ALEN Administration Fluticasone/Salmeterol 1 puff 03/06/20 09:00 03/06/20 09:38 Fluticasone-Salmeterol 250-50 Diskus INHALATION 1 puff BID ALEN Administration Zinc Gluconate 50 mg 03/06/20 09:00 03/06/20 08:30 Zinc Gluconate 50 Mg Tablet PO 50 mg DAILY ALEN Administration PFSH Acute PFSH: Medical History Chronic back pain COPD (chronic obstructive pulmonary disease) Coronary artery disease HTN (hypertension) Hyperlipidemia Surgical History History of thoracotomy Previous back surgery C5 and C6 fusion S/P appendectomy S/P cholecystectomy S/P eye surgery S/P knee surgery S/P PTCA (percutaneous transluminal coronary angioplasty) Status post lung surgery Secondary to pneumothorax Family History Other Diabetes Hypertension Social History Smoking and tobacco status: former smoker Alcohol intake: current Alcohol intake frequency: holidays/special occasions only History of recent travel: No Dietary Habits: Current diet type/program: regular Vitals/I&O/Wt Last Vital Signs Temp 99.3 F 03/06/20 08:45 Pulse 88 03/06/20 09:43 Resp 20 H 03/06/20 09:43 BP 141/102 03/06/20 09:35 Pulse Ox 91 03/06/20 09:43 03/05/20 03/06/20 03/06/20 22:59 06:59 14:59 Intake Total 100 / 100 960 / 1060 340 / 340 Output Total 350 / 350 Balance 100 / 100 610 / 710 340 / 340 Weight last 48 hrs Weight 233 lb 3 oz Weight 240 lb Physical Exam Narrative: EXAM NARRATIVE: Physical examination was not performed since I did not examine the patient as he was in Covid unit Data Micro: Micro: Microbiology 03/05/20 16:45 Blood Culture - Pr eliminary Blood SPECIMEN [facility] 03/05/20 16:55 Blood Culture - Pr eliminary Blood SPECIMEN [facility] A&P Assessment and plan (1) Abnormal electrocardiogram: Patient has history of chronic RCA occlusion, in the face of acute respiratory distress Covid and hypoxia inferior wall EKG changes could be secondary to demand and supply mismatch. We therefore recommend continuing treating patient medically, patient will be on Lovenox continue aspirin statin and isosorbide mononitrate along with oxygenation above 90. Will obtain echocardiogram to assess LV function. Status: Acute (2) Coronary artery disease: Patient has history of multivessel coronary artery disease status post drug-eluting stent to LAD circumflex and history of chronically occluded RCA. In this time of stress/pneumonia we will continue to treat medically with nitroglycerin statin aspirin and anticoagulation. Status: Acute Qualifiers: Coronary Disease-Associated Artery/Lesion type: [place] artery [place] vs. transplanted heart: [place] heart Associated angina: with other forms of angina Qualified Code(s): I25.118 - Atherosclerotic heart disease of [place] coronary artery with other forms of angina pectoris (3) HTN (hypertension): Continue current regimen Status: Acute Qualifiers: Hypertension type: essential hypertension Qualified Code(s): I10 - Essential (primary) hypertension (4) Pneumonia due to COVID-19 virus: As per medicine Status: Acute Consult Attestations Medical Necessity Statement: Patient require continuation hospitalization for above defined care. Coding Level of Care Code New Pt Acute Manager Universal for [facility] Cole Patient Type New History Detailed Exam Detailed Medical Decision Making Moderate Complexity Diagnoses Abnormal electrocardiogram R94.31 Coronary artery disease I25.118 Coronary Disease-Associated Artery/Lesion type: [place] artery [place] vs. transplanted heart: [place] heart Associated angina: with other forms of angina HTN (hypertension) I10 Hypertension type: essential hypertension Pneumonia due to COVID-19 virus U07.1; J12.89
[2020-03-06] MEDS: clopidogrel 75 mg Tablet PO (15:42)
[2020-03-06] MEDS: benzonatate 100 mg Capsule PO ×2 (15:42→21:23)
[2020-03-06] MEDS: remdesivir 100 MG in sodium chloride 0.9% (100 ml) 100 ML IV (17:12)
[2020-03-06] MEDS: ascorbic acid 500 mg Tablet 1000 MG PO (17:12)
--- NOTE | 2020-03-06 18:17 | PC.NURSE ---
Uneventful shift. Patient sits up in bed and eats meals. Complains of not being very hungry. Only one episode of chest pain this AM at 3/10. Patient has been using IS and able to hook puller 1,000 and wants to rest in bed with lights off.
--- NOTE | 2020-03-06 18:50 | P.PN_ITS ---
Subjective Subjective: Interval history: Hospital course, labs and vitals noted. On examination patient lying comfortably in bed, states feels out of breath. Denies any further chest pain. He is on 10 L high flow nasal cannula saturating 95%. Vitals/I&O/Wt Last Vital Signs Temp 99.3 F 03/06/20 08:45 Pulse 92 03/06/20 16:15 Resp 19 H 03/06/20 16:15 BP 165/103 03/06/20 16:15 Pulse Ox 95 03/06/20 16:15 03/06/20 03/06/20 03/06/20 06:59 14:59 22:59 Intake Total 960 / 1060 840 / 840 Output Total 350 / 350 600 / 600 500 / 1100 Balance 610 / 710 240 / 240 -500 / -260 Weight last 48 hrs Weight 105.772 kg Weight 108.862 kg Physical Exam Narrative: EXAM NARRATIVE: General: No acute distress, AO x3 HEENT: PERRLA, pupils bilaterally equal and reactive Chest: Bilateral coarse crackles, right more than left, rhonchi present bilaterally over the lung condon CVS: S1-S2 regular, no murmurs, no tachycardia, no gallops, no rubs Abdomen: Soft, nontender, no organomegaly, bowel sounds present Neuro: No focal deficits, no facial deformity, AO x3, power 5/5 in all limbs Data : 03/06/20 02:00 03/06/20 02:00 Micro: Microbiology 03/05/20 16:45 Blood Culture - Preliminary Blood NEGATIVE TO DATE 03/05/20 16:55 Blood Culture - Preliminary Blood NEGATIVE TO DATE A&P Assessment and plan (1) Acute hypoxemic respiratory failure: Status: Acute (2) Pneumonia due to COVID-19 virus: Status: Acute (3) Coronary artery disease: Status: Acute (4) HTN (hypertension): Status: Acute (5) COPD (chronic obstructive pulmonary disease): Status: Acute Additional A&P Information Hypoxic respiratory failure: Patient was recently admitted for COVID-19 pneumonia and he completed a course with IV remdesivir. Cannot rule out post Covid syndrome versus superadded bacterial infection. For now continue with already started vancomycin and imipenem. Check procalcitonin, proBNP, MRSA swab, urine Legionella, bacterial antigen. If patient remains afebrile without leukocytosis will de-escalate antibiotics in the next 24 to 48 hours. Also check proBNP. CTA negative for pulmonary embolism, negative for pleural effusion. Patient is already finished course of remdesivir will not continue any further. Continue dexamethasone 6 mg IV daily for now. Start patient on Advair, Spiriva. Oxygen supplementation keeping saturation over 88% for now. CAD: Case discussed with Dr. Wright. EKG done yesterday suggestive of mild ST elevation in inferior lateral leads. As per Dr. 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 For now continue with medical management with aspirin, Plavix, statin, beta- ronaldo, full dose Lovenox. Hypertension: Less than 140/90 mmHg. Continue with metoprolol 50 twice daily given CAD. We will restart home dose of losartan tomorrow depending on blood pressures. DVT prophylaxis: Lovenox PUD prophylaxis: Famotidine Code Status :Full code Disposition :Home Attestations Medical Necessity Statement*: Requires further hospitalization for management of acute hypoxic respiratory failure in setting of recent COVID-19 pneumonia and demand ischemia in setting of CAD. Time Spent in Patient Care: Greater than 35 minutes (>than 50% of time spent in counselling and/or direct pt care on unit) . Coding Level of Care Code Acute Advanced Practice Professional for María Galvan Diagnoses Acute hypoxemic respiratory failure J96.01 Pneumonia due to COVID-19 virus U07.1; J12.89 Coronary artery disease I25.10 HTN (hypertension) I10 COPD (chronic obstructive pulmonary disease) J44.9
[2020-03-06] MEDS: acetaminophen 325 mg Tablet 650 MG PO (19:46)
[2020-03-06] MEDS: metoprolol tartrate 25 mg Tablet 50 MG PO (21:26)
[2020-03-06] MEDS: dexamethasone 4 mg/mL INJ 6 MG IVP (21:58)
[2020-03-06] MEDS: HYDROcodone-acetaminophen 5-325 mg Tablet 1 TAB PO (22:00)
--- NOTE | 2020-03-06 23:53 | USCV_ITS ---
Jono Pierce Age: 64 Gender: M : 1955 Exam Date: 03/06/2020 10:13 Ordering Phys: Annette Hurst MD Technologist: Jason Beal [place] [facility] [place]: [place] BP: 140 / 111 HR: 84 Rhythm: Sinus Technical Quality: Poor MEASUREMENTS (Male / Female) Normal Values 2D ECHO LV Diastolic Diameter PLAX 3.0 cm 4.2 - 5.9 / 3.9 - 5.3 cm LV Systolic Diameter PLAX 1.9 cm IVS Diastolic Thickness 0.7 cm 0.6 - 1.0 / 0.6 - 0.9 cm IVS Systolic Thickness 1.0 cm LVPW Diastolic Thickness 1.1 cm 0.6 - 1.0 / 0.6 - 0.9 cm LVPW Systolic Thickness 1.1 cm LVOT Diameter 2.0 cm LV Ejection Fraction 2D Teich 69.1 % LV Ejection Fraction MOD 2C 59.4 % LV Ejection Fraction 2C AL 59.1 % LA Diameter 3.9 cm LA Width 3.2 cm LA Height 4.6 cm RA Width 3.6 cm RA Height 5.3 cm M-MODE LV Diastolic Diameter MM 5.2 cm 4.2 - 5.9 / 3.9 - 5.3 cm LV Systolic Diameter MM 4.0 cm LV Ejection Fraction MM Teich 45.7 % IVS Diastolic Thickness MM 1.1 cm 0.6 - 1.0 / 0.6 - 0.9 cm IVS Systolic Thickness MM 1.6 cm LVPW Diastolic Thickness MM 1.2 cm 0.6 - 1.0 / 0.6 - 0.9 cm LVPW Systolic Thickness MM 1.5 cm RV Diastolic Diameter MM 1.5 cm Aortic Annulus Diameter 4.0 cm LA Ao Ratio MM 1.1 MV E Point Septal Separation 0.7 cm FINDINGS Left Ventricle Normal left ventricular cavity size. Normal left ventricular systolic function. Left ventricular ejection fraction is estimated at 55 %. Right Ventricle The right ventricle is normal in size and function. RVSP could not be calculated due to incomplete tricuspid regurgitation velocity profile. Right Atrium The right atrium is normal in size. Left Atrium The left atrium is normal in size. Mitral Valve Structurally normal mitral valve without significant stenosis or prolapse. Aortic Valve Moderate aortic valve calcification. No aortic valve stenosis. Tricuspid Valve Structurally normal tricuspid valve without significant stenosis or regurgitation. P Pulmonic Valve Structurally normal pulmonic valve without significant stenosis. Pericardium Normal pericardium without effusion. Aorta Normal ascending aorta dimension. CONCLUSIONS Please note that no Doppler data was recorded therefore cannot assess regurgitation of the valves or pulmonary pressures 1-Normal left ventricular cavity size. Normal left ventricular systolic function. Left ventricular ejection fraction is estimated at 55 %. 2-Moderate aortic valve calcification. No aortic valve stenosis. 3-Structurally normal mitral valve without significant stenosis or prolapse. 4-There is no pericardial effusion. 5-Cannot compared with prior echocardiogram due to suboptimal quality Gaurav Wright MD (Electronically Signed) Final Date: 10 March 2020 18:51 S
[2020-03-07] VITALS (87 sets, daily range): BP systolic 75–137; BP diastolic 54–98; PULSE 69–97; RESP 11–29; TEMP 36.6–37.4; O2SAT 87–97; BMI 34.4
[2020-03-07] MEDS: enoxaparin 120 mg/0.8 mL Syringe 110 MG SUBCUT ×2 (00:27→11:27)
[2020-03-07] MEDS: nitroglycerin 1 gm/inch oint Pkt 1 INCH TOPICAL ×3 (05:20→21:30)
[2020-03-07 05:36] LABS: Basophils % 0.3 %; Eosinophils # 0.1 10^3/uL (0.0-0.8); Eosinophils % 0.6 %; Hematocrit 52.1 % (42.0-52.0); Hemoglobin 15.9 g/dL (11.7-16.6); Lymphocytes # 1.3 10^3/uL (0.8-4.8); Lymphocytes % 15.7 %; Mean Corpuscular HGB Conc 30.5 g/dL (30.0-36.0); Mean Corpuscular Hemoglobin 25.8 pg (28.0-34.0); Mean Corpuscular Volume 84.4 fL (80-94); Mean Platelet Volume 10.6 fL (7.4-10.4); Monocytes # 0.5 10^3/uL (0.2-0.9); Monocytes % 6.3 %; Neutrophils # 6.09 10^3/uL (1.8-7.7); Neutrophils % 76.2 %; Nucleated Red Blood Cells % 0 %; Platelet Count 214 10^3/cmm (130-400); Red Blood Count 6.17 10^6/uL (4.1-5.3); Red Cell Distribution Width 14.6 % (12.1-15.1)
[2020-03-07 05:58] LABS: Fibrinogen 704 mg/dL (174-498)
[2020-03-07 06:01] LABS: D Dimer 1.25 ug/mIFEU (0-0.59)
[2020-03-07 06:06] LABS: Alanine Aminotransferase 79 U/L (0-41); Albumin Level 3.3 g/dL (3.5-5.2); Alkaline Phosphatase 69 IU/L (40-130); Anion Gap 12.8 (5-19); Aspartate Amino Transferase 59 U/L (0-40); Blood Urea Nitrogen 17 mg/dL (8-23); Calcium 10.2 mg/dL (8.5-10.5); Carbon Dioxide 27 mmol/L (22-29); Chloride 100 mmol/L (98-107); Glomerular Filtration Rate 113.5 mL/min (90-130); Glucose 212 mg/dL (65-115); Osmolality Calculated 288 mOsm/kg (285-295); Potassium 4.8 mmol/L (3.5-5.1); Sodium 135 mmol/L (136-145); Total Bilirubin 0.4 mg/dL (0.15-1.2); Total Protein 7.3 g/dL (6.6-8.7)
[2020-03-07 06:55] LABS: C Reactive Protein 124.7 mg/L (0.0-4.9); Lactate Dehydrogenase 418 U/L (135-225); NT Pro B Type Natriuretic Pept 721 pg/mL (0-125)
[2020-03-07 07:13] LABS: Ferritin 2188 ng/mL (30-400)
[2020-03-07 07:15] LABS: Creatine Phosphokinase 323 U/L (39-308)
[2020-03-07 08:36] LABS: Vancomycin Trough 5.2 ug/mL (10-15)
[2020-03-07] MEDS: zinc gluconate 50 mg Tablet PO (09:05)
[2020-03-07] MEDS: aspirin 81 mg EC Tablet PO (09:05)
[2020-03-07] MEDS: pantoprazole DR 40 mg Tablet PO (09:05)
[2020-03-07] MEDS: vancomycin 1,500 MG/300 ML PIGGYBACK 200 MG IV ×2 (09:06→15:04)
[2020-03-07] MEDS: benzonatate 100 mg Capsule PO ×3 (09:06→21:24)
[2020-03-07] MEDS: ascorbic acid 500 mg Tablet 1000 MG PO ×2 (09:06→17:55)
--- NOTE | 2020-03-07 09:07 | PC.NURSE ---
0800 vancomycin overdue, given at 0907 r/t unavailable vanc trough from lab.
[2020-03-07] MEDS: metoprolol tartrate 25 mg Tablet 50 MG PO ×2 (09:09→21:28)
[2020-03-07] MEDS: sodium chloride 0.9% (100 ml) 100 ML (09:09)
[2020-03-07] MEDS: budesonide 0.5 mg/2 mL Neb INHALATION ×2 (09:14→20:19)
[2020-03-07] MEDS: ipratropium-albuterol 3 mL Neb INHALATION ×3 (09:14→20:19)
[2020-03-07] MEDS: clopidogrel 75 mg Tablet PO (15:04)
[2020-03-07] MEDS: HYDROcodone-acetaminophen 5-325 mg Tablet 1 TAB PO ×2 (15:04→21:28)
--- NOTE | 2020-03-07 16:20 | PM.PN ---
Subjective Subjective: Interval history: No acute events overnight. Patient states he is feeling a lot better. He states his breathing is a lot better. Appropriately with incentive spirometry. On examination saturating 94% on 6 L nasal cannula. Blood pressures have been on the softer side but mean arterial pressures over 65 continuously. Urine output has been appropriate. Energy level is better today. Vitals/I&O/Wt Last Vital Signs Temp 98.0 F 03/07/20 08:00 Pulse 94 03/07/20 14:15 Resp 22 H 03/07/20 14:12 BP 92/60 03/07/20 12:00 Pulse Ox 92 03/07/20 14:15 03/07/20 03/07/20 03/07/20 06:59 14:59 22:59 Intake Total 200 / 1640 800 / 800 400 / 1200 Output Total 600 / 1700 500 / 500 Balance -400 / -60 300 / 300 400 / 700 Weight last 48 hrs Weight 105.772 kg Weight 105.772 kg Weight 108.862 kg Physical Exam Narrative: EXAM NARRATIVE: General: No acute distress, AO x3 HEENT: PERRLA, pupils bilaterally equal and reactive Chest: Bilateral coarse crackles, right more than left, rhonchi present bilaterally over the lung condon CVS: S1-S2 regular, no murmurs, no tachycardia, no gallops, no rubs Abdomen: Soft, nontender, no organomegaly, bowel sounds present Neuro: No focal deficits, no facial deformity, AO x3, power 5/5 in all limbs Data : 03/07/20 04:00 03/07/20 04:00 Micro: Microbiology 03/07/20 09:27 Bacterial Antigens - Final Urine,Clean Catch 03/06/20 21:25 Blood Culture - Preliminary Blood SPECIMEN COLLECTED 03/06/20 17:45 Blood Culture - Preliminary Blood SPECIMEN COLLECTED 03/06/20 14:40 Legionella Urinary Antigen - Final Urine,Voided 03/05/20 16:45 Blood Culture - Preliminary Blood NEGATIVE TO DATE 03/05/20 16:55 Blood Culture - Preliminary Blood NEGATIVE TO DATE A&P Assessment and plan (1) Acute hypoxemic respiratory failure: Status: Acute (2) Pneumonia due to COVID-19 virus: Status: Acute (3) Coronary artery disease: Status: Acute (4) HTN (hypertension): Status: Acute (5) COPD (chronic obstructive pulmonary disease): Status: Acute Additional A&P Information Hypoxic respiratory failure: Patient was recently admitted for COVID-19 pneumonia and he completed a course with IV remdesivir. Cannot rule out post Covid syndrome versus superadded bacterial infection. For now continue with already started vancomycin and imipenem. Procalcitonin negative, proBNP within normal limits. MRSA swab awaited, urine Legionella and bacterial antigen negative. Patient does not have any leukocytosis, no fever but for now we will continue the antibiotics as patient is improving. Would most likely do a short course of antibiotics. Patient is overall 1400 cc positive since admission. Will give IV Lasix 20 mg once. Will give 40 mg of oral potassium as well. Continue to monitor urine output regularly, strict input output charting, daily weights. CTA negative for pulmonary embolism, negative for pleural effusion. Patient is already finished course of remdesivir will not continue any further. Continue dexamethasone 6 mg IV daily for now. Start patient on Advair, Spiriva. Oxygen supplementation keeping saturation over 88% for now. CAD: Case discussed with Dr. Wright. EKG done yesterday suggestive of mild ST elevation in inferior lateral leads. As per Dr. Wright most likely secondary to RCA MEDICAL CARE MANAGER covering patient to have possible demand ischemia in setting of hypoxia. For now continue with medical management with aspirin, Plavix, statin, beta-ronaldo, full dose Lovenox. Lipid panel results appreciated. Hypertension: Less than 140/90 mmHg. Continue with metoprolol 50 twice daily given CAD. We will restart home dose of losartan tomorrow depending on blood pressures. Cardiac diet. DVT prophylaxis: Lovenox PUD prophylaxis: Famotidine Code Status :Full code Disposition :Home If patient continues to improve we will plan to transfer to floors tomorrow. PT/OT evaluation. Out of bed to chair. Will encourage patient to walk Attestations Medical Necessity Statement*: Requires further hospitalization for management of hypoxia due to recent COVID-19 pneumonia and possible superadded bacterial infection. Time Spent in Patient Care: Greater than 35 minutes (>than 50% of time spent in counselling and/or direct pt care on unit). Coding Level of Care Code Acute Anatomic Pathology Assistant for Keesha Cole Diagnoses Acute hypoxemic respiratory failure J96.01 Pneumonia due to COVID-19 virus U07.1; J12.89 Coronary artery disease I25.10 HTN (hypertension) I10 COPD (chronic obstructive pulmonary disease) J44.9
--- NOTE | 2020-03-07 16:25 | P.PN_ITS ---
Subjective Subjective: Interval history: No chest pain. Patient getting treated for Covid pneumonia Vitals/I&O/Wt Last Vital Signs Temp 98.0 F 03/07/20 08:00 Pulse 94 03/07/20 14:15 Resp 22 H 03/07/20 14:12 BP 92/60 03/07/20 12:00 Pulse Ox 92 03/07/20 14:15 03/07/20 03/07/20 03/07/20 06:59 14:59 22:59 Intake Total 200 / 1640 800 / 800 400 / 1200 Output Total 600 / 1700 500 / 500 Balance -400 / -60 300 / 300 400 / 700 Weight last 48 hrs Weight 233 lb 3 oz Weight 233 lb 3 oz Physical Exam Narrative: EXAM NARRATIVE: Physical examination was not performed since I did not examine the patient as he was in Covid unit Data : 03/07/20 04:00 03/07/20 04:00 Micro: Microbiology 03/07/20 09:27 Bacterial Antigens - Final Urine,Clean Catch 03/06/20 21:25 Blood Culture - Preliminary Blood SPECIMEN COLLECTED 03/06/20 17:45 Blood Culture - Preliminary Blood SPECIMEN COLLECTED 03/06/20 14:40 Legionella Urinary Antigen - Final Urine,Voided 03/05/20 16:45 Blood Culture - Preliminary Blood NEGATIVE TO DATE 03/05/20 16:55 Blood Culture - Preliminary Blood NEGATIVE TO DATE A&P Assessment and plan (1) Abnormal electrocardiogram: Patient has history of chronic RCA occlusion, in the face of acute respiratory distress Covid and hypoxia inferior wall EKG changes could be secondary to demand and supply mismatch. We therefore recommend continuing treating patient medically, patient will be on Lovenox continue aspirin statin and isosorbide mononitrate along with oxygenation above 90. Will obtain echocardiogram to assess LV function.\ Stable from a coronary disease perspective continue current regimen Status: Acute (2) Coronary artery disease: Patient has history of multivessel coronary artery disease status post drug-eluting stent to LAD circumflex and history of chronically occluded RCA. In this time of stress/pneumonia we will continue to treat medically with nitroglycerin statin aspirin and anticoagulation. Continue to manage medically. Awaiting echocardiogram as images were not transferred. Will repeat EKG and if patient has chest pain may will ask for cardiac markers Status: Acute (3) HTN (hypertension): Mildly on the lower side. Status: Acute (4) Pneumonia due to COVID-19 virus: As per medicine Status: Acute Attestations Medical Necessity Statement*: Require continuation hospitalization for above defined care. Coding Level of Care Code Established Pt Acute Professional Nursing Tutor for Keeshag Fwd Patient Type Established History Expanded Problem Focused Exam Expanded Problem Focused Medical Decision Making Moderate Complexity Diagnoses Abnormal electrocardiogram R94.31 Coronary artery disease I25.10 HTN (hypertension) I10 Pneumonia due to COVID-19 virus U07.1; J12.89
[2020-03-07] MEDS: FUROsemide 10 mg/mL SDV 2mL 20 MG IVP (17:56)
--- NOTE | 2020-03-07 17:56 | PC.NURSE ---
Furosemide overdue - dose to start at 1800.
--- NOTE | 2020-03-07 20:11 | PC.NURSE ---
Spoke with mother rina robledo .
[2020-03-07] MEDS: atorvastatin 40 mg Tablet PO (21:24)
[2020-03-07] MEDS: dexamethasone 4 mg/mL INJ 6 MG IVP (21:29)
[2020-03-08] VITALS (32 sets, daily range): BP systolic 93–132; BP diastolic 67–99; PULSE 64–101; RESP 13–26; TEMP 36.6–37.2; O2SAT 88–97; BMI 34.4
[2020-03-08] MEDS: enoxaparin 120 mg/0.8 mL Syringe 110 MG SUBCUT ×2 (00:26→11:29)
[2020-03-08] MEDS: ipratropium-albuterol 3 mL Neb INHALATION ×4 (03:41→20:08)
[2020-03-08] MEDS: nitroglycerin 1 gm/inch oint Pkt 1 INCH TOPICAL ×4 (03:42→21:31)
[2020-03-08] MEDS: vancomycin 1,500 MG/300 ML PIGGYBACK 200 MG IV ×2 (03:42→11:29)
[2020-03-08 04:27] LABS: Basophils % 0.4 %; Eosinophils % 0.3 %; Hematocrit 53.3 % (42.0-52.0); Hemoglobin 16.2 g/dL (11.7-16.6); Lymphocytes # 1.2 10^3/uL (0.8-4.8); Lymphocytes % 15.6 %; Mean Corpuscular HGB Conc 30.4 g/dL (30.0-36.0); Mean Corpuscular Hemoglobin 25.8 pg (28.0-34.0); Mean Corpuscular Volume 84.9 fL (80-94); Mean Platelet Volume 10.8 fL (7.4-10.4); Monocytes # 0.3 10^3/uL (0.2-0.9); Monocytes % 4.1 %; Neutrophils % 78.6 %; Nucleated Red Blood Cells % 0 %; Platelet Count 225 10^3/cmm (130-400); Red Blood Count 6.28 10^6/uL (4.1-5.3); Red Cell Distribution Width 14.6 % (12.1-15.1); White Blood Count 7.6 10^3/uL (4.0-10.0)
[2020-03-08 04:38] LABS: Fibrinogen 705 mg/dL (174-498)
[2020-03-08 04:40] LABS: D Dimer 1.18 ug/mIFEU (0-0.59)
[2020-03-08 04:57] LABS: Alanine Aminotransferase 62 U/L (0-41); Albumin Level 3.4 g/dL (3.5-5.2); Alkaline Phosphatase 68 IU/L (40-130); Anion Gap 13.9 (5-19); Aspartate Amino Transferase 24 U/L (0-40); Blood Urea Nitrogen 22 mg/dL (8-23); C Reactive Protein 51.7 mg/L (0.0-4.9); Calcium 10.4 mg/dL (8.5-10.5); Carbon Dioxide 26 mmol/L (22-29); Chloride 99 mmol/L (98-107); Creatine Phosphokinase 95 U/L (39-308); Globulin 4.4 g/dL (1.3-4.6); Glomerular Filtration Rate 97.3 mL/min (90-130); Glucose 274 mg/dL (65-115); Lactate Dehydrogenase 352 U/L (135-225); NT Pro B Type Natriuretic Pept 581 pg/mL (0-125); Osmolality Calculated 291 mOsm/kg (285-295); Potassium 4.9 mmol/L (3.5-5.1); Sodium 134 mmol/L (136-145); Total Bilirubin 0.4 mg/dL (0.15-1.2); Total Protein 7.8 g/dL (6.6-8.7)
[2020-03-08 05:09] LABS: Ferritin 2127 ng/mL (30-400)
--- NOTE | 2020-03-08 06:00 | XRR_ITS ---
PROCEDURE INFORMATION: Exam: XR Chest, 1 View Exam date and time: 03/08/2020 12:00 AM Age: 64 years old Clinical indication: Shortness of breath; Additional info: Covid TECHNIQUE: Imaging protocol: XR of the chest Views: 1 view. COMPARISON: CR XR chest 1V portable [id number] 03/05/2020 4:47 PM FINDINGS: Lungs: Bilateral interstitial pulmonary infiltrates are present which are consistent with a viral pneumonia. They have mildly improved when compared to previous chest x-ray from 03/05/2020. Pleural space: Unremarkable. No pleural effusion. No pneumothorax. Heart/Mediastinum: Unremarkable. No cardiomegaly. Bones/joints: Unremarkable. XR/XR chest 1V portable [id number] IMPRESSION: Mild improvement of bilateral interstitial pneumonia.
[2020-03-08] MEDS: aspirin 81 mg EC Tablet PO (08:16)
[2020-03-08] MEDS: benzonatate 100 mg Capsule PO ×3 (08:16→20:06)
[2020-03-08] MEDS: metoprolol tartrate 25 mg Tablet 50 MG PO ×2 (08:16→20:06)
[2020-03-08] MEDS: zinc gluconate 50 mg Tablet PO (08:16)
[2020-03-08] MEDS: pantoprazole DR 40 mg Tablet PO (08:16)
[2020-03-08] MEDS: ascorbic acid 500 mg Tablet 1000 MG PO ×2 (08:16→17:05)
[2020-03-08] MEDS: budesonide 0.5 mg/2 mL Neb INHALATION ×2 (09:05→20:08)
--- NOTE | 2020-03-08 14:35 | PC.NURSE ---
Patient ambulated throughout hallway with PT et walker. Oxygen saturation maintained at 97% on 3L nasal cannula. Denies c/o during this time. Currently resting in bed.
[2020-03-08] MEDS: clopidogrel 75 mg Tablet PO (15:47)
--- NOTE | 2020-03-08 16:41 | PM.PN ---
Subjective Subjective: Interval history: No acute events overnight. Patient states he is feeling a lot better. He states his breathing is a lot better. Appropriately with incentive spirometry. On examination saturating 94% on 6 L nasal cannula. Blood pressures have been on the softer side but mean arterial pressures over 65 continuously. Urine output has been appropriate. Energy level is better today. Vitals/I&O/Wt Last Vital Signs Temp 97.9 F 03/08/20 08:00 Pulse 80 03/08/20 16:00 Resp 16 03/08/20 15:55 BP 112/85 03/08/20 12:00 Pulse Ox 92 03/08/20 15:55 03/08/20 03/08/20 03/08/20 06:59 14:59 22:59 Intake Total 100 / 2300 1600 / 1600 Output Total 550 / 2475 500 / 500 Balance -450 / -175 1100 / 1100 Weight last 48 hrs Weight 105.772 kg Weight 105.772 kg Physical Exam Narrative: EXAM NARRATIVE: General: No acute distress, AO x3 HEENT: PERRLA, pupils bilaterally equal and reactive Chest: Bilateral coarse crackles, right more than left, rhonchi present bilaterally over the lung condon CVS: S1-S2 regular, no murmurs, no tachycardia, no gallops, no rubs Abdomen: Soft, nontender, no organomegaly, bowel sounds present Neuro: No focal deficits, no facial deformity, AO x3, power 5/5 in all limbs Data : 03/08/20 03:50 03/08/20 03:50 Micro: Microbiology 03/06/20 21:25 Blood Culture - Preliminary Blood NEGATIVE TO DATE 03/06/20 17:45 Blood Culture - Preliminary Blood NEGATIVE TO DATE 03/07/20 09:27 Bacterial Antigens - Final Urine,Clean Catch A&P Assessment and plan (1) Acute hypoxemic respiratory failure: Status: Acute (2) Pneumonia due to COVID-19 virus: Status: Acute (3) Coronary artery disease: Status: Acute (4) HTN (hypertension): Status: Acute (5) COPD (chronic obstructive pulmonary disease): Status: Acute Additional A&P Information Hypoxic respiratory failure: Patient was recently admitted for COVID-19 pneumonia and he completed a course with IV remdesivir. Cannot rule out post Covid syndrome versus superadded bacterial infection. Though bacterial infection is less likely as patient does not have any fever, leukocytosis, pro-Azam negative since admission. Stop antibiotics and monitor for next 24 hours. Switch dexamethasone to oral prednisone. Most likely patient will require slow taper as an outpatient. Continue with Advair and Spiriva. Oxygen supplementation keeping saturation over 90%. Continue with physical therapy and oxygen monitoring both at rest and ambulation. CAD: Case discussed with Dr. Wright. EKG done yesterday suggestive of mild ST elevation in inferior lateral leads. As per Dr. 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 For now continue with medical management with aspirin, Plavix, statin, beta-ronaldo, full dose Lovenox. Lipid panel appreciated. Hypertension: Less than 140/90 mmHg. Continue with metoprolol 50 twice daily given CAD. We will restart home dose of losartan tomorrow depending on blood pressures. Cardiac diet. DVT prophylaxis: Lovenox PUD prophylaxis: Famotidine Code Status :Full code Disposition :Home Discharge planning: If patient continues to improve can plan to discharge soon. Discussed with patient regarding possible discharge to SNF because of severe generalized deconditioning. Patient states he lives by himself and does not have any family support nearby and is agreeable to discuss SNF discharge if possible. Will consult care coordination for same. Attestations Medical Necessity Statement*: Patient requires further hospitalization for management of hypoxic respiratory failure secondary to COVID-19 pneumonia. Time Spent in Patient Care: Greater than 35 minutes (>than 50% of time spent in counselling and/or direct pt care on unit). Coding Level of Care Code Acute Concrete Smoother for María Galvan Diagnoses Acute hypoxemic respiratory failure J96.01 Pneumonia due to COVID-19 virus U07.1; J12.89 Coronary artery disease I25.10 HTN (hypertension) I10 COPD (chronic obstructive pulmonary disease) J44.9
--- NOTE | 2020-03-08 19:00 | PC.NURSE ---
Report received, care assumed. Monitor alarms, plan of care et previous orders reviewed. Please see physical assessment et vital sign flow sheets for details.
[2020-03-08] MEDS: atorvastatin 40 mg Tablet PO (20:06)
[2020-03-08] MEDS: HYDROcodone-acetaminophen 5-325 mg Tablet 1 TAB PO (20:06)
[2020-03-08] MEDS: morphine 4 mg/mL SDV 1 mL 2 MG IVP (21:11)
[2020-03-09] VITALS (17 sets, daily range): BP systolic 81–121; BP diastolic 54–81; PULSE 68–85; RESP 13–18; TEMP 36.4–36.5; O2SAT 90–93
[2020-03-09] MEDS: enoxaparin 120 mg/0.8 mL Syringe 110 MG SUBCUT ×2 (00:19→12:57)
[2020-03-09] MEDS: ipratropium-albuterol 3 mL Neb INHALATION ×3 (02:45→14:52)
[2020-03-09] MEDS: HYDROcodone-acetaminophen 5-325 mg Tablet 1 TAB PO (04:07)
[2020-03-09] MEDS: nitroglycerin 1 gm/inch oint Pkt 1 INCH TOPICAL ×2 (04:08→10:23)
[2020-03-09] MEDS: morphine 4 mg/mL SDV 1 mL 2 MG IVP ×2 (04:24→11:22)
[2020-03-09 06:10] LABS: Alanine Aminotransferase 47 U/L (0-41); Albumin Level 3.2 g/dL (3.5-5.2); Alkaline Phosphatase 57 IU/L (40-130); Anion Gap 14.3 (5-19); Aspartate Amino Transferase 21 U/L (0-40); Blood Urea Nitrogen 23 mg/dL (8-23); Carbon Dioxide 23 mmol/L (22-29); Chloride 102 mmol/L (98-107); Creatinine Clr Calc Pharmacy 148.7447; Globulin 3.6 g/dL (1.3-4.6); Glomerular Filtration Rate 135.6 mL/min (90-130); Glucose 179 mg/dL (65-115); Osmolality Calculated 288 mOsm/kg (285-295); Potassium 4.3 mmol/L (3.5-5.1); Sodium 135 mmol/L (136-145); Total Bilirubin 0.3 mg/dL (0.15-1.2); Total Protein 6.8 g/dL (6.6-8.7)
[2020-03-09 06:16] LABS: Fibrinogen 561 mg/dL (174-498)
[2020-03-09 06:22] LABS: D Dimer 0.95 ug/mIFEU (0-0.59)
[2020-03-09] MEDS: ascorbic acid 500 mg Tablet 1000 MG PO (08:03)
[2020-03-09] MEDS: benzonatate 100 mg Capsule PO ×2 (08:03→14:32)
[2020-03-09] MEDS: metoprolol tartrate 25 mg Tablet 50 MG PO (08:03)
[2020-03-09] MEDS: aspirin 81 mg EC Tablet PO (08:03)
[2020-03-09] MEDS: zinc gluconate 50 mg Tablet PO (08:03)
[2020-03-09] MEDS: predniSONE 20 mg Tablet 40 MG PO (08:03)
[2020-03-09] MEDS: pantoprazole DR 40 mg Tablet PO (08:03)
[2020-03-09] MEDS: budesonide 0.5 mg/2 mL Neb INHALATION (09:19)
--- NOTE | 2020-03-09 13:58 | P.DS_ITS ---
Discharge Providers Date of Admission: 03/05/20 18:20 Date of Discharge: March 09, 2020 Attending Provider at Admission: Regulo Reynaga MD Attending Provider at Discharge: Benny Godinez MD Consults: Cardiology: Dr. Wright Primary Care Provider: Jamaal Allison DO Diagnoses at Discharge Discharge Diagnosis (1) Acute hypoxemic respiratory failure: Status: Acute (2) Pneumonia due to COVID-19 virus: Status: Acute (3) Coronary artery disease: Status: Acute (4) HTN (hypertension): Status: Acute (5) COPD (chronic obstructive pulmonary disease): Status: Acute Reason for Visit Reason for Visit: RESPIRATORY DISTRESS/ LEG WEAKNESS Hospital Course Hospital Course Jono Pierce is a 64 year old male with past medical history hypertension, coronary artery disease s/p multiple stent, chronic back pain, hyperlipidemia and chronic obstructive pulmonary disease diagnosed with COVID 19 on 02/28 and discharged on 03/04 after completing the 5 day course. Patient has been requiring supplemental oxygen during last admission. After completion of 5 day course of remdesivir patient was discharged as he wanted to go home.Home o2 evaluation was done patient qualified for 3L of o2 via NC.He came back today with worsening SOB after admission. Patient admitted to the hospital for further evaluation and management of hypoxia. Patient underwent CTA of chest which was negative for pulmonary embolism or any new infiltrates but showed evolving infiltrates from nonspecific viral pneumonia. He was started on empiric antibiotics, steroids. Patient remained afebrile without any leukocytosis and was monitored in the hospital for more than 24 hours and off antibiotics. His oxygen supplementation requirement eventually came down and he was on room air for more than 18 hours though requiring as high as 1 L as of oxygen patient becomes anxious. It is believed that patient's hypoxia is most likely secondary to anxiety along with gradual evolution of recent COVID-19 pneumonia infiltrates. During hospitalization patient was also found to have mildly elevated troponins for which cardiology was consulted. As per cardiology patient mild troponin leak is most likely because of chronic total occlusion of RCA. He was advised medical management. Patient is discharged in hemodynamically stable condition with advised to take Advair and Spiriva as additional treatment for next 2 weeks, slow taper of steroids as an outpatient, follow-up with his primary care provider within next 1 to 3 days. Patient was counseled in detail that now his oxygen supplementation requirement is down to room air both at rest and ambulation which has been tested multiple times in the hospital and he has remained stable during his hospitalization. Home health has been arranged for further assistance. Patient lives by himself and does not have any social support along with anxiety that puts him at a high risk of readmission. For safe discharge placement to SNF short-term goals discussed with the patient though he declined the offer and agreed to go home with home health. Physical Exam Narrative: EXAM NARRATIVE: General: No acute distress, AO x3 HEENT: PERRLA, pupils bilaterally equal and reactive Chest: Bilateral coarse crackles, right more than left, rhonchi present bilaterally over the lung condon CVS: S1-S2 regular, no murmurs, no tachycardia, no gallops, no rubs Abdomen: Soft, nontender, no organomegaly, bowel sounds present Neuro: No focal deficits, no facial deformity, AO x3, power 5/5 in all limbs Discharge Data Data Completed and Pending: Completed Studies During Hospitalization Category Date Time Status CT angio chest PE protcl [id number] Stat Cat Scan 03/05/20 16:24 Completed XR chest 1V lucretia ble [id number] Q48H Exams 03/08/20 06:00 Completed XR chest 1V lucretia ble [id number] Stat Exams 03/05/20 16:24 Completed Pending at discharge Category Date Time Status XR chest 1V lucretia ble 06595 Q48H Exams 03/10/20 06:00 Ordered XR chest 1V lucretia ble [id number] Q48H Exams 03/12/20 06:00 Ordered Blood Culture Sta t Lab 03/05/20 16:45 Results Blood Culture Sta t Lab 03/06/20 21:25 Results C Reactive Protei n AM LABS Lab 03/09/20 04:00 Ordered Creatine Phosphok inase AM LABS Lab 03/09/20 04:00 Ordered Ferritin AM LABS Lab 03/09/20 04:00 Ordered Lactate Dehydroge nase AM LABS Lab 03/09/20 04:00 Ordered Miscellaneous Muriel t Routine Lab 03/06/20 Received NT Pro B Type Parvin riuretic Pept AM L ABS Lab 03/09/20 04:00 Ordered CV echo limited 9 [id number] Routine Ultrasound 03/06/20 23:53 Taken Labs from last 24 hours 03/09/20 03/09/20 04:20 04:20 Fibrinogen 561 H D-Dimer 0.95 H Sodium 135 L Potassium 4.3 Chloride 102 Carbon Dioxide 23 Anion Gap 14.3 BUN 23 Creatinine 0.6 L GFR Calculation 135.6 H Glucose 179 H Calculated Osmolal ity 288 Calcium 10.0 Total Bilirubin 0.3 AST 21 ALT 47 H Alkaline Phosphata se 57 Total Protein 6.8 Albumin 3.2 L Globulin 3.6 Vitals: Last Vital Signs Temp 97.7 F 03/09/20 12:00 Pulse 69 03/09/20 12:00 Resp 15 03/09/20 12:00 BP 121/81 03/09/20 12:00 Pulse Ox 91 03/09/20 12:00 Discharge Plan Discharge Patient Disposition: Home Health Service Condition: Stable Prescriptions: New atorvastatin 40 mg Tablet 40 mg PO BEDTIME 30 Days Qty: 30 RF: 0 Advair Diskus 250-50 mcg/dose Blister With Device 1 puff inhalation BID.RESPIRATORY 14 Days Qty: 30 RF: 0 aspirin 81 mg Tablet,Delayed Release (Dr/Ec) 81 mg PO DAILY 30 Days Qty: 30 RF: 0 Vitamin C 500 mg Tablet 1,000 mg PO BID 14 Days Qty: 56 RF: 0 benzonatate 100 mg Capsule 100 mg PO TID PRN (Reason: cough) Qty: 10 RF: 0 pantoprazole 40 mg Tablet,Delayed Release (Dr/Ec) 40 mg PO DAILY 30 Days Qty: 30 RF: 0 zinc gluconate 50 mg Tablet 50 mg PO DAILY 14 Days Qty: 14 RF: 0 Spiriva with HandiHaler 18 mcg Capsule, W/Inhalation Device 18 mcg inhalation DAILY.RESPIRATORY 30 Days Qty: 30 RF: 0 prednisone 10 mg tablet See Taper mg PO DAILY Qty: 60 RF: 0 Continued magnesium oxide 400 mg magnesium capsule 400 mg PO DAILY PRN (Reason: unknown) RF: 0 alprazolam 1 mg tablet 1 mg PO TID PRN (Reason: Anxiety) RF: 0 clopidogrel [Plavix] 75 mg tablet 75 mg PO DAILY@15 RF: 0 albuterol sulfate [Ventolin HFA] 90 mcg/actuation HFA aerosol inhaler 1 inh inhalation Q6H PRN (Reason: shortness of breath or wheezing) Qty: 6.7 RF: 0 Changed metoprolol tartrate 25 mg tablet 50 mg PO BID PRN (Reason: pt dced a month ago-see pharmacy comment) Qty: 0 RF: 0 Discontinued Decadron 6 mg tablet 6 mg PO DAILY RF: 0 amlodipine 5 mg tablet 5 mg PO DAILY PRN (Reason: pt dced a month ago-see pharmacy comment) RF: 0 losartan 25 mg tablet 25 mg PO DAILY PRN (Reason: pt dced a month ago-see pharmacy comment) RF: 0 Discharge Orders: Discharge Order (Routine); Ordered 03/09/20 Ordered By: Benny Godinez Referrals: Jamaal Allison, [Primary Care Provider] - 1-3 days Discharge Diet: Cardiac Discharge Activity: Resume usual activity and Increase activity as tolerated Activity Restrictions/Additional Instructions: Please take Advair and Spiriva which are the inhalers for next 2 weeks. Please take steroids as directed and wean off after acted. Please take aspirin and Plavix along with your cholesterol medication. Please take vitamin C and zinc as directed. Please follow-up with your primary care provider within next 1 to 3 days. Home health has been arranged for you. Please follow social distancing protocols as discussed in detail. Discharge Attestations Time Spent in Discharge Care*: greater than 30 min Specific Discharge Activities: educating patient, discussing with keycase assembler/social workers/dc planners, documenting/other paperwork and evaluating patient/reviewing data Status at Discharge: Cognitive status at discharge: cognitively intact , Behavioral status at discharge: cooperative , Functional status at discharge: independent ambulation Overall status at discharge: patient is progressing back to baseline Quality Metrics Clinical Quality Measures During this hospital stay, did patient experience: None Coding Level of Care Code Acute Merchandiser Seasonal for carlos Fwd Diagnoses Acute hypoxemic respiratory failure J96.01 Pneumonia due to COVID-19 virus U07.1; J12.89 Coronary artery disease I25.10 HTN (hypertension) I10 COPD (chronic obstructive pulmonary disease) J44.9
[2020-03-09] MEDS: clopidogrel 75 mg Tablet PO (14:32)
[2020-03-10 07:45] LABS: C Reactive Protein 15.5 mg/L (0.0-4.9); Creatine Phosphokinase 61 U/L (39-308); Lactate Dehydrogenase 284 U/L (135-225); NT Pro B Type Natriuretic Pept 489 pg/mL (0-125)
[2020-03-10 08:04] LABS: Ferritin 1530 ng/mL (30-400)
--- NOTE | 2020-04-14 09:19 | PC.SOCIAL ---
Natalie shipping assistant was notified by [facility] Home Care staff member on 04/11/2020 that patient verbalized did not want HH services to continue.
== END 2020-03-09 16:09 | disposition home health service (06) | DRG 177 ==
LOC: ER 16:23 → MEDSURG 19:54 → ICU 21:21
PROVIDERS: Hospitalist; Admitting Provider Internal Medicine; Emergency Provider Family Medicine; PCP Family Medicine; Visit Provider Student in an Organized Health Care Education/Training Program
DX: U07.1 COVID-19 (principal); J12.82 Pneumonia due to coronavirus disease 2019; J96.01 Acute respiratory failure with hypoxia; J15.9 Unspecified bacterial pneumonia; I24.8 Other forms of acute ischemic heart disease; I25.118 Atherosclerotic heart disease of native coronary artery with other forms of angina pectoris; G89.29 Other chronic pain; M54.9 Dorsalgia, unspecified; E78.5 Hyperlipidemia, unspecified; J43.9 Emphysema, unspecified; Z99.81 Dependence on supplemental oxygen; Z98.1 Arthrodesis status; Z87.891 Personal history of nicotine dependence; I25.2 Old myocardial infarction; R94.31 Abnormal electrocardiogram [ECG] [EKG]; F41.9 Anxiety disorder, unspecified; Z79.02 Long term (current) use of antithrombotics/antiplatelets; Z79.51 Long term (current) use of inhaled steroids
CPT/HCPCS: 12345; 36415; 36600; 71045; 71275; 80051; 80053; 80061; 80202; 82330; 82550; 82728; 82805; 83605; 83615; 83735; 83880; 84145; 84484; 85025; 85378; 85384; 86140; 86403; 87040; 87081; 87449; 93005; 93308; 94640; 96372; 97110; 97116; 97161; 97530; 99283; J0743; J1100; J1650; J1940; J1956; J2270; J3370; J3490; J3535; J7050; J7512; J7626; Q9967

== ENCOUNTER 2020-04-18 12:50 | Emergency (ER) | payer MEDICAID, SELFPAY ==
[2020-04-18 13:02] VITALS: BP 113/83; PULSE 118; RESP 22; TEMP 36.6; O2SAT 95; BMI 35.1
--- NOTE | 2020-04-18 13:17 | XR_ITS ---
WS: [id number] Exam: XR chest 1V portable [id number] Date/Time of Exam: 04/18/2020 1:25 PM Reason For Exam: dyspnea Comparison 03/08/2020. Interstitial densities noted in the upper lobe of the right lung which may represent scarring or resi dual infiltrate. There is atelectasis in the right lower lobe. There may be some loculated pleural ef fusion present. Normal cardiomediastinal structures and bony elements. The lungs are fully expanded. XR/XR chest 1V portable [id number] IMPRESSION: 1. Atelectasis in the right lower lobe. There may be some loculated or subpulmo perfecto pleural effusion present. 2. Interstitial densities noted in the upper lobe of the right lung which may r epresent residual infiltrate or scarring.
--- NOTE | 2020-04-18 13:17 | CT_ITS ---
WS: [id number] CTA OF THE CHEST WITH PULMONARY EMBOLISM PROTOCOL TECHNIQUE: High-resolution contrast enhanced CTA of the chest with coronal and sagittal reformatted i mages with pulmonary embolism protocol. MIP images are also reviewed. CLINICAL INFORMATION: recent dx covid COMPARISON: CTA March 05, 2020 DLP: 604.[address] scans at [facility] use at least one of these dose optimization techniques: automat ed exposure control; mA and/or kV adjustment per patient size (includes targeted exams where dose is matched to clinical indication); or iterative reconstruction. FINDINGS: Moderate chronic emphysematous changes. Bulla formation in the lung apices. Previously described grou ndglass infiltrates have improved and essentially resolved resolved compared to previous. Hazy atelec tasis in the lung bases. No focal consolidation or pleural fluid. Proximal main pulmonary arteries are normal. Multiple filling defects in the right lower lobe segment al and subsegmental pulmonary arteries consistent with acute pulmonary embolus. Suboptimal contrast b olus. Numerous mediastinal and peribronchial lymph nodes likely reactive. Coronary calcification. Adrenal g lands are normal. Cholecystectomy clips. Small esophageal hiatal hernia. CT/CT angio chest PE protcl [id number] IMPRESSION: 1. Numerous filling defects in the right lower lobe segmental and subsegmental pulmonary arteries consistent with acute pulmonary embolus. 2. Previous described pulmonary infiltrates have essentially resolved. Hazy at electasis in the lung bases. 3. Normal mediastinal and peribronchial lymph nodes likely reactive. 4. Prior cholecystectomy. Notified Vince Kern DO at 04/18/2020 2:47 PM.
--- NOTE | 2020-04-18 13:17 | ECG_ITS ---
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 Measurements Intervals [place] Rate: 116 P: 55 OK: 147 QRS: 20 QRSD: 85 T: 8 QT: 287 QTc: 400 Interpretive Statements SINUS TACHYCARDIA POSSIBLE ANTERIOR MYOCARDIAL INFARCTION, OF INDETERMINATE AGE PROBABLE INFERIOR MYOCARDIAL INFARCTION [35 ms Q WAVE IN II/aVF], OF INDETERMINATE AGE Compared to ECG 03/06/2020 01:15:50 Sinus rhythm no longer present ST (T wave) deviation no longer present Myocardial infarct finding still present Electronically Signed On 04-19-2020 11:07:48 CORD MAKER by Ree Moyer M.D. [id number]
[2020-04-18 13:27] VITALS: BP 115/79; PULSE 110; RESP 21; O2SAT 94; O2SAT 95
--- NOTE | 2020-04-18 13:37 | ED_ITS ---
HPI - Chest Pain General: Chief Complaint: Chest Pain Stated Complaint: CP, SOB W/ EXERTION Time Seen by Provider: 04/18/20 13:16 History of Present Illness: HPI narrative: 64 yo male [facility] emergency [facility] complaining of chest pain with shortness of breath with exertion. He tested positive for Covid on March 10 he was hospitalized for period of time and then discharged home. When he has these episodes he gets diaphoretic and palpitations. MD complaint: chest pain Onset (ago): week(s) Timing of current episode: episodic Onset: during exertion Pain radiation: none Severity: moderate Quality: heaviness Relieving factors: rest Exacerbating factors: exertion Context: recent illness (covid) Associated symptoms: Reports dyspnea; Deny abdominal pain, diaphoresis, fever(s), leg edema, nausea, palpitations, sense of impending doom, syncope or vomiting Treatment prior to arrival: none Review of Systems Const: Denies: fever(s) or diaphoresis ENMT: Denies: throat pain, ear or mastoid pain, nasal discharge or nasal congestion Card: Denies: palpitations or syncope Resp: Reports: dyspnea GI: Denies: abdominal pain, nausea or vomiting : Denies: flank pain, dysuria, urinary frequency or urinary urgency Skin/Breast: Denies: rash or pruritus PFSH ED PFSH: Medical History Chronic back pain COPD (chronic obstructive pulmonary disease) Coronary artery disease HTN (hypertension) Hyperlipidemia Surgical History History of thoracotomy Previous back surgery C5 and C6 fusion S/P appendectomy S/P cholecystectomy S/P eye surgery S/P knee surgery S/P PTCA (percutaneous transluminal coronary angioplasty) Status post lung surgery Secondary to pneumothorax Family History Other Diabetes Hypertension Social History Smoking and tobacco status: former smoker Alcohol intake: current Alcohol intake frequency: holidays/special occasions only History of recent travel: No Physical Exam Const: COMMON NORMALS: no acute distress GENERAL APPEARANCE: cooperative and comfortable ORIENTATION/CONSCIOUSNESS: Yes awake, Yes oriented to person, Yes oriented to place and Yes oriented to time HENMT: COMMON NORMALS: normocephalic, atraumatic and hearing grossly normal bilaterally HEAD & SCALP: normocephalic and atraumatic Neck/C-Spine: COMMON NORMALS: no JVD Resp: COMMON NORMALS: normal respiratory effort, No retractions, No use of accessory muscles and clear to auscultation bilaterally AUSCULTATION: clear to auscultation bilaterally Cardio: COMMON NORMALS: no JVD, regular rate, regular rhythm and No murmurs present (Cardio) RATE: regular rate RHYTHM: regular rhythm GI: COMMON NORMALS: Soft to palpation and No hepatosplenomegaly present AUSCULTATION: Yes normoactive bowel sounds PALPATION: Yes Soft to palpation, No Tenderness to palpation present (GI), No Guarding due to palpation present (GI) and Yes No hepatosplenomegaly present Extremity: COMMON NORMALS: normal to inspection, capillary refill normal, no clubbing, cyanosis or edema, no calf tenderness and no pedal edema Neuro: SENSORIUM/ORIENTATION: Yes oriented to person, Yes oriented to place and Yes oriented to time Skin: COMMON NORMALS: no rashes or lesions noted GENERAL SKIN EXAM: no rashes or lesions noted Course Vital Signs: Vital signs: Vital Signs Temperature 97.9 F 04/18/20 13:02 Pulse Rate 104 H 04/18/20 15:37 Respiratory Rate 18 04/18/20 15:37 Blood Pressure 139/99 04/18/20 15:37 Pulse Oximetry 96 04/18/20 15:37 MDM - Chest Pain MDM Narrative: Medical decision making narrative: Patient is maintaining sats well at room air we will go ahead and discharge him home with Eliquis. Given Lovenox here given Eliquis starter kit and Dosepak follow-up this primary care with Dr. Hernandez. Lab Data: Labs: Lab Results 04/18/20 04/18/20 04/18/20 Range/Units 13:40 13:40 13:40 WBC 7.2 (4.0-10.0) 10^3/ uL RBC 5.84 H (4.1-5.3) 10^6/u L Hgb 15.3 (11.7-16.6) g/dL Hct 49.3 (42.0-52.0) % MCV 84.4 (80-94) fL MCH 26.2 L (28.0-34.0) pg MCHC 31.0 (30.0-36.0) g/dL RDW 15.9 H (12.1-15.1) % Plt Count 209 (130-400) 10^3/c mm MPV 10.6 H (7.4-10.4) fL Neut % (Auto) 54.0 % Lymph % (Auto) 35.0 % [place] % (Auto) 8.6 % Eos % (Auto) 1.3 % Baso % (Auto) 0.7 % Neut # (Auto) 3.87 (1.8-7.7) 10^3/u L Lymph # (Auto) 2.5 (0.8-4.8) 10^3/u L [place] # (Auto) 0.6 (0.2-0.9) 10^3/u L Eos # (Auto) 0.1 (0.0-0.8) 10^3/u L Baso # (Auto) 0.1 (0.0-0.1) 10^3/u L Nucleated RBC % (a uto) 0 % Nucleated RBCs # 0.0 /100WBC Sodium 140 (136-145) mmol/L Potassium 4.4 (3.5-5.1) mmol/L Chloride 107 (98-107) mmol/L Carbon Dioxide 22 (22-29) mmol/L Anion Gap 15.4 (5-19) BUN 19 (8-23) mg/dL Creatinine 0.6 L (0.7-1.2) mg/dL GFR Calculation 135.6 H (90-130) mL/min Glucose 118 H (65-115) mg/dL Calculated Osmolal ity 293 (285-295) mOsm/k g Calcium 10.9 H (8.5-10.5) mg/dL Total Bilirubin 0.2 (0.15-1.2) mg/dL AST 16 (0-40) U/L ALT 26 (0-41) U/L Alkaline Phosphata se 62 (40-130) IU/L Troponin T Baselin e 8 (0-15) ng/L Total Protein 7.3 (6.6-8.7) g/dL Albumin 4.2 (3.5-5.2) g/dL Globulin 3.1 (1.3-4.6) g/dL Discharge Plan Discharge Patient Disposition: Home Clinical Impression: Pulmonary embolism Condition: Stable Prescriptions: New Eliquis DVT-PE Treat 30D Start 5 mg (74 tabs) tablets,dose pack See Rx Instructions .ROUTE .COMPLEX Qty: 74 RF: 0 No Action Stiolto Respimat 2.5-2.5 mcg/actuation mist 2 puff inhalation DAILY 30 Days Qty: 4 RF: 3 albuterol sulfate [Ventolin HFA] 90 mcg/actuation HFA aerosol inhaler 1 inh inhalation Q6H PRN (Reason: shortness of breath or wheezing) 30 Days Qty: 6.7 RF: 3 alprazolam 1 mg tablet 1 mg PO TID PRN (Reason: Anxiety) RF: 0 clopidogrel [Plavix] 75 mg tablet 75 mg PO DAILY@09 RF: 0 amlodipine 5 mg tablet 5 mg PO DAILY RF: 0 losartan 25 mg tablet 25 mg PO DAILY RF: 0 Advil 200 mg Tablet 200 mg PO PRN RF: 0 Lasix 20 mg tablet 20 mg PO DAILY@09 RF: 0 metoprolol tartrate 25 mg tablet 50 mg PO BID PRN (Reason: SEE PHARMACY COMMENTS) RF: 0 Discharge Orders: Discharge ED (Routine); Ordered 04/18/20 Ordered By: Vince Kern Referrals: Jamaal Allison DO [Primary Care Provider] - Discharge Diet: Usual diet Discharge Activity: Increase activity as tolerated Patient Instructions: Opioid Safety Activity Restrictions/Additional Instructions: Follow-up with your primary care doctor within the next 7 to 10 days return to the emergency room if any worsening or change of symptoms Coding Level of Care Code ED Branch Rental Manager for María Galvan
--- NOTE | 2020-04-18 13:51 | PC.PHAR ---
PT STATES HE TAKES CARE OF HIS OWN MEDICATIONS-PT STATES HE HASNT TAKEN METOPROLOL TARTRATE FOR MONTHS- RX WRITTEN ON 04/11/2020 FOR 50MG BID PRN-OZH FILLED 25MG BID ON 04/11/2020
[2020-04-18 14:04] LABS: Basophils # 0.1 10^3/uL (0.0-0.1); Basophils % 0.7 %; Eosinophils # 0.1 10^3/uL (0.0-0.8); Eosinophils % 1.3 %; Hematocrit 49.3 % (42.0-52.0); Hemoglobin 15.3 g/dL (11.7-16.6); Lymphocytes # 2.5 10^3/uL (0.8-4.8); Mean Corpuscular Hemoglobin 26.2 pg (28.0-34.0); Mean Corpuscular Volume 84.4 fL (80-94); Mean Platelet Volume 10.6 fL (7.4-10.4); Monocytes # 0.6 10^3/uL (0.2-0.9); Monocytes % 8.6 %; Neutrophils # 3.87 10^3/uL (1.8-7.7); Nucleated Red Blood Cells % 0 %; Platelet Count 209 10^3/cmm (130-400); Red Blood Count 5.84 10^6/uL (4.1-5.3); Red Cell Distribution Width 15.9 % (12.1-15.1); White Blood Count 7.2 10^3/uL (4.0-10.0)
--- NOTE | 2020-04-18 14:14 | PC.NURSE ---
Pt given water with approval of Dr Kern.
[2020-04-18 14:21] VITALS: BP 98/78; PULSE 101; RESP 19; O2SAT 96
[2020-04-18 14:23] LABS: Alanine Aminotransferase 26 U/L (0-41); Albumin Level 4.2 g/dL (3.5-5.2); Alkaline Phosphatase 62 IU/L (40-130); Anion Gap 15.4 (5-19); Aspartate Amino Transferase 16 U/L (0-40); Blood Urea Nitrogen 19 mg/dL (8-23); Calcium 10.9 mg/dL (8.5-10.5); Carbon Dioxide 22 mmol/L (22-29); Chloride 107 mmol/L (98-107); Globulin 3.1 g/dL (1.3-4.6); Glomerular Filtration Rate 135.6 mL/min (90-130); Glucose 118 mg/dL (65-115); Osmolality Calculated 293 mOsm/kg (285-295); Potassium 4.4 mmol/L (3.5-5.1); Sodium 140 mmol/L (136-145); Total Bilirubin 0.2 mg/dL (0.15-1.2); Total Protein 7.3 g/dL (6.6-8.7)
[2020-04-18 14:24] LABS: Troponin(5th) Baseline 8 ng/L (0-15)
[2020-04-18 14:27] LABS: Creatinine Clr Calc Pharmacy 150.5961
[2020-04-18] MEDS: iohexol 350 mg/mL 100 mL Btl IV (14:31)
[2020-04-18 15:21] VITALS: O2SAT 93; O2SAT 96
[2020-04-18 15:37] VITALS: BP 139/99; PULSE 104; RESP 18; O2SAT 96
== END 2020-04-18 15:38 | disposition home or self-care (01) ==
PROVIDERS: Emergency Provider Family Medicine; PCP Family Medicine
DX: I26.99 Other pulmonary embolism without acute cor pulmonale (principal); Z79.02 Long term (current) use of antithrombotics/antiplatelets; J44.9 Chronic obstructive pulmonary disease, unspecified; I25.10 Atherosclerotic heart disease of native coronary artery without angina pectoris; I10 Essential (primary) hypertension; E78.5 Hyperlipidemia, unspecified; Z87.891 Personal history of nicotine dependence
CPT/HCPCS: 71045; 71275; 80053; 84484; 85025; 93005; 99284; Q9967

== ENCOUNTER 2020-05-07 12:29 | Outpatient (CLI) | payer MEDICAID, SELFPAY ==
--- NOTE | 2020-05-07 12:45 | USCV_ITS ---
Jono Pierce Age: 64 Gender: M : 1955 Exam Date: 05/07/2020 13:01 Ordering Phys: Riddhi Hernandez MD Technologist: Jason Beal [place] [facility] [place] CHEST PAIN BP: 129 / 90 HR: 77 Rhythm: Sinus Technical Quality: Fair MEASUREMENTS (Male / Female) Normal Values 2D ECHO LV Diastolic Diameter PLAX 3.9 cm 4.2 - 5.9 / 3.9 - 5.3 cm LV Systolic Diameter PLAX 2.7 cm IVS Diastolic Thickness 1.6 cm 0.6 - 1.0 / 0.6 - 0.9 cm IVS Systolic Thickness 2.0 cm LVPW Diastolic Thickness 1.1 cm 0.6 - 1.0 / 0.6 - 0.9 cm LVPW Systolic Thickness 1.5 cm LVOT Diameter 2.0 cm LV Ejection Fraction 2D Teich 57.5 % LV Ejection Fraction MOD 2C 58.8 % LV Ejection Fraction 2C AL 59.1 % LA Diameter 3.5 cm LA Width 3.1 cm LA Height 4.8 cm RA Width 3.4 cm RA Height 5.1 cm Aorta at Sinotubular Diameter 3.5 cm M-MODE LV Diastolic Diameter MM 4.7 cm 4.2 - 5.9 / 3.9 - 5.3 cm LV Systolic Diameter MM 3.2 cm LV Ejection Fraction MM Teich 58.8 % IVS Diastolic Thickness MM 1.1 cm 0.6 - 1.0 / 0.6 - 0.9 cm IVS Systolic Thickness MM 1.5 cm LVPW Diastolic Thickness MM 1.1 cm 0.6 - 1.0 / 0.6 - 0.9 cm LVPW Systolic Thickness MM 1.5 cm Aortic Annulus Diameter 4.4 cm LA Ao Ratio MM 0.8 DOPPLER AV Peak Velocity 171.0 cm/s LVOT Peak Velocity 79.0 cm/s AV Area Cont Eq vti 1.6 cm squared AV Area Cont Eq pk 1.5 cm squared MV Area PHT 4.9 cm squared Mitral E to A Ratio 0.6 MV E' Velocity 29.0 cm/s Mitral E to MV E' Ratio 5.8 Mitral E to LV E' Lateral Ratio 6.0 Mitral E to LV E' Septal Ratio 5.7 TR Peak Velocity 147.7 cm/s TR Peak Gradient 8.7 mmHg Right Atrial Pressure 3.0 mmHg Pulmonary Artery Systolic Pressu 11.7 mmHg PV Peak Velocity 65.0 cm/s RV Acceleration Time 0.1 s RV Ejection Time 0.2 s RV AcT/ET 0.5 FINDINGS Left Ventricle Normal left ventricular cavity size. Normal left ventricular systolic function. No regional wall motion abnormalities. Left ventricular ejection fraction is estimated at 58 %. Grade I/IV diastolic dysfunction (abnormal relaxation filling pattern), normal to mildly elevated filling pressures. Right Ventricle The right ventricle is normal in size and function. Right Atrium The right atrium is normal in size. Left Atrium The left atrium is normal in size. Mitral Valve Moderately thickened mitral valve. Moderate mitral annular calcification. No mitral valve stenosis. No mitral valve regurgitation. Aortic Valve Severe aortic valve calcification. Moderate aortic valve stenosis, mean gradient 6 mmHg, ELIJAH 1.6 cm squared. Trace aortic valve regurgitation. Tricuspid Valve Trace tricuspid valve regurgitation. Pulmonic Valve Structurally normal pulmonic valve without significant stenosis. There is no pulmonic regurgitation. Pericardium Normal pericardium without effusion. Aorta Normal ascending aorta dimension. CONCLUSIONS 1-Normal left ventricular cavity size. Normal left ventricular systolic function. No regional wall motion abnormalities. Left ventricular ejection fraction is estimated at 58 %. Grade I/IV diastolic dysfunction (abnormal relaxation filling pattern), normal to mildly elevated filling pressures. 2-Moderately thickened mitral valve. Moderate mitral annular calcification. No mitral valve stenosis. No mitral valve regurgitation. 3-Severe aortic valve calcification. Moderate aortic valve stenosis, mean gradient 6 mmHg, ELIJAH 1.6 cm squared. Trace aortic valve regurgitation. 4-Trace tricuspid valve regurgitation. 5-There is no pericardial effusion. 6-Pulmonary artery systolic pressure is within normal limits. 7-No significant change since the prior echocardiogram study of 05/23/2014 Gaurav Wright MD (Electronically Signed) Final Date: 07 May 2020 19:51 S
== END 2020-05-07 12:30 | disposition home or self-care (01) ==
LOC: RAD 12:32
PROVIDERS: PCP Family Medicine; Visit Provider Internal Medicine Critical Care Medicine
DX: R06.02 Shortness of breath (principal); I08.3 Combined rheumatic disorders of mitral, aortic and tricuspid valves
CPT/HCPCS: 93306

== ENCOUNTER 2020-08-26 08:53 | Outpatient (CLI) | payer MEDICARE, MEDICAID, SELFPAY ==
--- NOTE | 2020-08-26 09:20 | XR_ITS ---
WS: [id number] PROCEDURE: XR chest 2V* [id number] CLINICAL INFORMATION: PERIPHERAL NEUROPATHY, CHEST PAIN COMPARISON: 2020 FINDINGS: Heart: Cardiomegaly. Tortuous thoracic aorta. Lungs: Moderate chronic emphysematous changes. Subsegmental atelectasis right lower lobe. No acute pu lmonary infiltrates. Bones: Normal visualized bony structures. XR/XR chest 2V* [id number] IMPRESSION: Moderate chronic emphysematous changes. Subsegmental atelectasis right lower lo be. This is unchanged from previous.
== END 2020-08-26 08:54 | disposition home or self-care (01) ==
PROVIDERS: PCP Family Medicine; Visit Provider Family Medicine
DX: G60.9 Hereditary and idiopathic neuropathy, unspecified (principal); R07.9 Chest pain, unspecified; J98.11 Atelectasis
CPT/HCPCS: 71046

== ENCOUNTER → 2021-04-28 12:47 | Outpatient (BNVA) | payer MEDICARE, MEDICAID, SELFPAY | PROVIDERS: PCP Family Medicine; Visit Provider Internal Medicine Critical Care Medicine | DX: J44.9 Chronic obstructive pulmonary disease, unspecified (principal); I25.10 Atherosclerotic heart disease of native coronary artery without angina pectoris; U09.9 Post COVID-19 condition, unspecified; J12.9 Viral pneumonia, unspecified; I26.99 Other pulmonary embolism without acute cor pulmonale; G47.10 Hypersomnia, unspecified; F17.210 Nicotine dependence, cigarettes, uncomplicated | CPT/HCPCS: 99213; 99214; 99215 ==

== ENCOUNTER 2021-07-06 13:38 | Outpatient (CLI) | payer MEDICARE, MEDICAID, SELFPAY ==
--- NOTE | 2021-07-06 13:52 | XRR_ITS ---
PROCEDURE INFORMATION: Exam: XR Right Knee Exam date and time: 07/06/2021 2:01 PM Age: 65 years old Clinical indication: Right; Prior surgery; Surgery type: Patella reconstruction; Patient HX: PT was pushing his adalberto Tuesday and heard his RT knee pop. PT has been having pain in the posterior popliteal area since. PT has had reconstructive suregery on the patella prior; Additional info: R knee joint pain radiating up thigh down into R calf, stat TECHNIQUE: Imaging protocol: XR Right knee. Views: 3 views. COMPARISON: No relevant prior studies available. FINDINGS: Bones/joints: Intact cerclage wire noted within the patella. Osseous structures are intact. Negative for fracture. Mild tricompartmental DJD of the knee. Soft tissues: Normal. XR/XR knee RT 3V* [id number] IMPRESSION: No acute findings.
--- NOTE | 2021-07-06 13:52 | USCV_ITS ---
Jono Pierce Age: 65 Gender: M : 1955 Exam Date: 07/06/2021 14:11 Ordering Phys: Mil Rose NP Technologist: Exam Location: [facility] [place] Indication: rt leg pain HISTORY: rt knee pain PROCEDURES: Venous duplex imaging was performed in only the right lower extremity. The following venous structures were evaluated: common femoral vein, profunda vein, proximal portion of the greater saphenous vein, superficial femoral vein, and the popliteal vein. In addition, the posterior tibial and peroneal trunk were evaluated. FINDINGS: rt leg pain rt popleteal and rt perineal trunk dvt CONCLUSIONS Right popliteal and peroneal trunk DVT Remainder RLE patent 3.1 x 1.1cm right popliteal cyst with internal debris Beka Acevedo MD (Electronically Signed) Final Date: 07 Jul 2021 08:35 S
== END 2021-07-06 13:39 | disposition home or self-care (01) ==
LOC: RAD 13:44
PROVIDERS: PCP Family Medicine; Visit Provider Family Medicine
DX: I82.451 Acute embolism and thrombosis of right peroneal vein (principal); I82.431 Acute embolism and thrombosis of right popliteal vein; M71.21 Synovial cyst of popliteal space [Baker], right knee; M25.561 Pain in right knee
CPT/HCPCS: 73562; 93971

== ENCOUNTER 2021-08-10 09:56 | Outpatient (CLI) | payer MEDICARE, MEDICAID, SELFPAY ==
--- NOTE | 2021-08-10 10:07 | XR_ITS ---
WS: [id number] Exam: XR lumbar spine 2-3V* [id number] Date/Time of Exam: 08/10/2021 10:09 AM Reason For Exam: BACK PAIN, LUMBAR W/RADICULOPATHY Comparison 11/27/2009. No fracture or dislocation. Mild spondylosis. Disc spaces are relatively well maintained. There may b e aneurysmal dilatation of the abdominal aorta. Recommendations: Abdominal aortic ultrasound recommended for further workup. XR/XR lumbar spine 2-3V* [id number] IMPRESSION: 1. No fracture or malalignment. Mild degenerative changes and spondylosis. 2. Possible aneurysmal dilatation of the abdominal aorta.
== END 2021-08-10 09:57 | disposition home or self-care (01) ==
LOC: RAD 10:00
PROVIDERS: PCP Family Medicine; Visit Provider Family Medicine
DX: M54.16 Radiculopathy, lumbar region (principal); M47.896 Other spondylosis, lumbar region
CPT/HCPCS: 72100

== ENCOUNTER 2021-09-24 12:12 | Outpatient (CLI) | payer MEDICARE, MEDICAID, SELFPAY ==
--- NOTE | 2021-09-24 12:50 | CT_ITS ---
WS: [id number] LDCT LUNG CANCER SCREENING TECHNIQUE: Noncontrast CT of the chest with coronal and sagittal reformatted images. CLINICAL INFORMATION: Lung cancer screening COMPARISON: CTA April 18, 2020 DLP: 81.50 mGy.cm DIvol: Mean CTDIvol: 1.60 (mGy) All CT scans at [facility] use at least one of these dose optimization techniques: automat ed exposure control; mA and/or kV adjustment per patient size (includes targeted exams where dose is matched to clinical indication); or iterative reconstruction. FINDINGS: Mild to moderate chronic emphysematous changes. No acute pulmonary infiltrates. No focal pneumonia or pleural fluid. No suspicious pulmonary parenchymal opacities. Mild aortic calcification. Normal caliber thoracic aorta. No mediastinal or hilar lymphadenopathy. Co ronary calcification. Normal caliber descending thoracic aorta. Normal GE junction. Adrenal glands are normal. CT/CT lung screening [id number] IMPRESSION: LUNG-RADS: 1-Negative FOLLOW UP: 12 Month: Continue annual screening with LDCT
== END 2021-09-24 12:13 | disposition home or self-care (01) ==
PROVIDERS: PCP Family Medicine; Visit Provider Internal Medicine Critical Care Medicine
DX: Z12.2 Encounter for screening for malignant neoplasm of respiratory organs (principal); F17.200 Nicotine dependence, unspecified, uncomplicated; I71.4 Abdominal aortic aneurysm, without rupture
CPT/HCPCS: 71271; 80053

== ENCOUNTER 2021-09-28 12:44 | Outpatient (CLI) | payer MEDICARE, MEDICAID, SELFPAY ==
--- NOTE | 2021-09-28 12:58 | CTR_ITS ---
PROCEDURE INFORMATION: Exam: CTA Abdomen and Pelvis With Contrast Exam date and time: 09/28/2021 1:21 PM Age: 66 years old Clinical indication: Other: Dilation of descending aorta, back pain-chronic TECHNIQUE: Imaging protocol: Computed tomographic angiography of the abdomen and pelvis with contrast. 3D rendering (Not supervised by radiologist): MIP and/or 3D reconstructed images were created by the technologist. Radiation optimization: All CT scans at this facility use at least one of these dose optimization techniques: automated exposure control; mA and/or kV adjustment per patient size (includes targeted exams where dose is matched to clinical indication); or iterative reconstruction. Contrast material: OMNI 350; Contrast volume: 95 ml; Contrast route: INTRAVENOUS (IV); COMPARISON: CT angio chest PE protcl [id number] 04/18/2020 2:39 PM RADIATION DOSE METRICS: Total DLP (mGy-cm): 1087.15 FINDINGS: Lungs: Emphysematous changes. Bibasilar atelectasis. Heart: Coronary artery atherosclerotic calcifications. Aorta: Infrarenal fusiform abdominal aortic aneurysm measuring 3.2 cm without findings of rupture. Celiac trunk and mesenteric arteries: No occlusion or significant stenosis. Renal arteries: No occlusion or significant stenosis. Right iliac arteries: No occlusion or significant stenosis. Left iliac arteries: No occlusion or significant stenosis. Liver: Hepatic steatosis. Gallbladder and bile ducts: Cholecystectomy. Pancreas: Unremarkable. No mass. No ductal dilation. Spleen: Unremarkable. No splenomegaly. Adrenal glands: Unremarkable. No mass. Kidneys and ureters: Bilateral renal cysts, negative for follow-up advised. Stomach and bowel: Unremarkable. No obstruction. No mucosal thickening. Appendix: No evidence of appendicitis. Intraperitoneal space: Unremarkable. No free air. No significant fluid collection. Lymph nodes: Unremarkable. No enlarged lymph nodes. Urinary bladder: Unremarkable. No mass. Reproductive: Unremarkable as visualized. Bones/joints: No acute fracture. Soft tissues: Unremarkable. CT/CT angio abdomen pelvis [id number] IMPRESSION: 1. Infrarenal fusiform abdominal aortic aneurysm measuring 3.2 cm without findings of rupture. 2. Bilateral renal cysts, negative for follow-up advised. 3. Coronary artery atherosclerotic calcifications. 4. Emphysematous changes. 5. Bibasilar atelectasis. 6. Hepatic steatosis. 7. Cholecystectomy.
[2021-09-28] MEDS: iohexol 350 mg/mL 100 mL Btl IV (13:32)
== END 2021-09-28 12:45 | disposition home or self-care (01) ==
LOC: RAD 12:45
PROVIDERS: PCP Family Medicine; Visit Provider Family Medicine
DX: I71.4 Abdominal aortic aneurysm, without rupture (principal); Q61.02 Congenital multiple renal cysts; J98.11 Atelectasis; K76.0 Fatty (change of) liver, not elsewhere classified; Z90.49 Acquired absence of other specified parts of digestive tract
CPT/HCPCS: 74174

== ENCOUNTER → 2022-04-06 10:55 | Outpatient (BNVA) | payer MEDICARE, MEDICAID, SELFPAY | PROVIDERS: PCP Family Medicine; Visit Provider Family Medicine | DX: I10 Essential (primary) hypertension (principal); J44.9 Chronic obstructive pulmonary disease, unspecified; M54.9 Dorsalgia, unspecified; G89.29 Other chronic pain; R73.9 Hyperglycemia, unspecified; J02.9 Acute pharyngitis, unspecified; M19.90 Unspecified osteoarthritis, unspecified site; G47.10 Hypersomnia, unspecified | CPT/HCPCS: 80053; 80061; 83036 ==

== ENCOUNTER → 2022-05-05 09:57 | Outpatient (BNVA) | payer MEDICARE, MEDICAID, SELFPAY | PROVIDERS: PCP Family Medicine; Visit Provider Family Medicine | DX: M19.90 Unspecified osteoarthritis, unspecified site (principal); J44.9 Chronic obstructive pulmonary disease, unspecified; E78.00 Pure hypercholesterolemia, unspecified; I10 Essential (primary) hypertension; E83.52 Hypercalcemia; G47.10 Hypersomnia, unspecified | CPT/HCPCS: 82310; 83970 ==

== ENCOUNTER → 2022-08-17 11:43 | Outpatient (BNVA) | payer MEDICARE, MEDICAID, SELFPAY | PROVIDERS: PCP Clinical Nurse Specialist Adult Health; Visit Provider Internal Medicine Cardiovascular Disease | DX: R06.02 Shortness of breath (principal); I25.10 Atherosclerotic heart disease of native coronary artery without angina pectoris; I10 Essential (primary) hypertension; E78.5 Hyperlipidemia, unspecified; E78.00 Pure hypercholesterolemia, unspecified; J44.9 Chronic obstructive pulmonary disease, unspecified; I26.99 Other pulmonary embolism without acute cor pulmonale; I71.43 Infrarenal abdominal aortic aneurysm, without rupture; F17.210 Nicotine dependence, cigarettes, uncomplicated; R94.31 Abnormal electrocardiogram [ECG] [EKG] | CPT/HCPCS: 93005; 99214 ==

== ENCOUNTER → 2022-10-26 10:25 | Outpatient (BNVA) | payer MEDICARE, MEDICAID, SELFPAY | PROVIDERS: PCP Clinical Nurse Specialist Adult Health; Visit Provider Clinical Nurse Specialist Adult Health | DX: I25.10 Atherosclerotic heart disease of native coronary artery without angina pectoris (principal) | CPT/HCPCS: 80061 ==

== ENCOUNTER → 2023-01-19 08:18 | Outpatient (BNVA) | payer MEDICARE, MEDICAID, SELFPAY | PROVIDERS: PCP Clinical Nurse Specialist Adult Health; Visit Provider Clinical Nurse Specialist Adult Health | DX: F41.1 Generalized anxiety disorder (principal); G47.00 Insomnia, unspecified; J44.9 Chronic obstructive pulmonary disease, unspecified; E78.5 Hyperlipidemia, unspecified; I25.10 Atherosclerotic heart disease of native coronary artery without angina pectoris; M54.9 Dorsalgia, unspecified; G89.29 Other chronic pain; Z79.899 Other long term (current) drug therapy | CPT/HCPCS: 80053; 83036; 83721; 83735; 85025 ==

== ENCOUNTER 2023-09-26 06:43 | Outpatient (CLI) | payer MEDICARE, MEDICAID, SELFPAY ==
--- NOTE | 2023-09-26 07:17 | XR_ITS ---
WS: [id number] XR cervical spine 4-5V [id number] REASON FOR EXAM: CERVICAL FUSION SYNDROME FINDINGS: Moderate straightening of the normal cervical lordosis. Fusion of C5 and C6. Significant narrowing of the C4-C5 disc space with moderate uncinate and anterior osteophytosis. 2/3 mm of anterolisthesis of fused C5-C6 in relation to C4. XR/XR cervical spine 4-5V [id number] IMPRESSION: C5-C6 fusion with significant degenerative spondylosis at C4-C5.
--- NOTE | 2023-09-26 07:17 | XR_ITS ---
WS: [email or web address] XR lumbar spine min 4V [id number] REASON FOR EXAM: DDD LUMBAR FINDINGS: Moderate rotatory dextroscoliosis. Mildly exaggerated lumbar scoliosis. No significant focal vertebral body abnormality. Moderate narrowing of the L5-S1 disc space with endplate sclerosis and osteophytosis. 4 mm of anterolisthesis of L3 in relation to L2 and L for in relation to L3. Moderate degenerative arthropathy in the facet joints L4-S1. There is an abdominal aortic aneurysm. The mural calcifications indicate a diameter of 4.5 cm. XR/XR lumbar spine min 4V [id number] IMPRESSION: Degenerative spondylosis as above. There is an increased amount of dextroscolio sis compared to 08/10/2021. The abdominal aortic aneurysm appears to have increased in maximum diameter fro m 3.288 2021 to 4.5 cm currently. Ultrasound of the abdominal aorta is recommen ded to confirm and continued survey may be indicated.
== END 2023-09-26 06:44 | disposition home or self-care (01) ==
PROVIDERS: PCP Clinical Nurse Specialist Adult Health; Visit Provider General Practice
DX: M51.36 Other intervertebral disc degeneration, lumbar region (principal); M43.22 Fusion of spine, cervical region; M41.35 Thoracogenic scoliosis, thoracolumbar region; M48.061 Spinal stenosis, lumbar region without neurogenic claudication; M48.08 Spinal stenosis, sacral and sacrococcygeal region; M25.78 Osteophyte, vertebrae; M43.16 Spondylolisthesis, lumbar region; I71.40 Abdominal aortic aneurysm, without rupture, unspecified; M47.896 Other spondylosis, lumbar region; M47.898 Other spondylosis, sacral and sacrococcygeal region
CPT/HCPCS: 72050; 72110

== ENCOUNTER 2023-11-02 09:04 | Emergency (ER) | payer MEDICARE, MEDICAID, SELFPAY ==
[2023-11-02 09:19] VITALS: BP 135/95; PULSE 82; RESP 18; TEMP 36.6; O2SAT 95; BMI 35.4
[2023-11-02 09:21] VITALS: BP 135/95; PULSE 82; RESP 18; TEMP 36.6; O2SAT 95
--- NOTE | 2023-11-02 09:23 | ECG_ITS ---
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
--- NOTE | 2023-11-02 09:23 | XR_ITS ---
WS: [email or web address] XR chest 1V portable [id number] REASON FOR EXAM: dyspnea/cough FINDINGS: The chest is relatively unchanged compared to previous examination of 04/18/2020. Moderate tortuosity and ectasia of the thoracic aorta. Normal heart size. Calcified granulomas disease bilaterally. Central lobar emphysema and bullous changes in the upper lungs. Flattening of the hemidiaphragms. Old pleural reactive changes in the right lower hemithorax. Chronic reticular interstitial densities in both lower lung condon. No definite acute pulmonary parenchymal or pleural abnormality is identified. Moderate degenerative spondylosis of the mid and lower thoracic spine. XR/XR chest 1V portable [id number] IMPRESSION: Stable abnormal chest as above.
[2023-11-02 10:02] LABS: Basophils # 0.1 10^3/uL (0.0-0.1); Basophils % 0.5 %; Eosinophils # 0.1 10^3/uL (0.0-0.8); Hematocrit 50.4 % (37-53); Lymphocytes # 2.2 10^3/uL (0.8-4.8); Lymphocytes % 19.3 %; Mean Corpuscular HGB Conc 31.5 g/dL (30-55); Mean Corpuscular Hemoglobin 27.3 pg (27-33); Mean Corpuscular Volume 86.4 fl (82-101); Mean Platelet Volume 10.4 fL (7.4-10.4); Monocytes % 8.8 %; Neutrophils # 8.07 10^3/uL (1.8-7.7); Nucleated Red Blood Cells % 0 %; Platelet Count 178 10^3/cmm (157-399); Red Blood Count 5.83 10^6/uL (3.85-5.65); Red Cell Distribution Width 14.8 % (12.1-15.1); White Blood Count 11.52 10^3/uL (3.29-11.43)
--- NOTE | 2023-11-02 10:17 | ED_ITS ---
HPI - URI/Sore Throat 2 General: Chief Complaint: Upper Respiratory Infection Stated Complaint: Fever, soar throat, coughing Time Seen by Provider: 11/02/23 09:22 Source: patient Mode of arrival: ambulatory Limitations: no limitations History of Present Illness: 68-year-old male history of COPD states that he has been having cough shortness of breath low-grade fever flulike symptoms for the last 4 to 5 days. He states that he is just gotten more short of breath and his cough is worsening. He is in no distress here with normal pulse ox. He denies any pain anywhere denies any vomiting or diarrhea Associated symptoms: Deny abdominal pain, chills, chest pain, diarrhea, fever(s), headache(s), nausea or vomiting Related Data Home Medications Medication Instructions Recorded Confirmed ibuprofen 200 mg tablet (Advil) 200 mg PO PRN 04/18/20 08/08/23 evolocumab 140 mg/mL subcutaneous 140 mg SUBCUT .Q2W 08/17/22 08/08/23 syringe (Repatha Syringe) Previous Rx's Medication Instructions Recorded hydrocodone 10 mg-acetaminophen 1 tab PO Q6H 5 days #20 tabs 07/29/22 325 mg tablet hydroxyzine HCl 50 mg tablet 50 mg PO BID PRN itching #30 tabs 03/07/23 losartan 25 mg tablet 25 mg PO DAILY #90 tabs 03/07/23 metoprolol tartrate 25 mg tablet See Rx Instructions .Route 03/21/23 .COMPLEX #180 tabs Plavix 75 mg tablet (clopidogrel) 75 mg PO DAILY@09 #90 tabs 04/29/23 albuterol sulfate 90 mcg/actuation See Rx Instructions .Route 05/31/23 aerosol inhaler .COMPLEX #8.5 grams prednisone 10 mg tablet 5 - 10 mg (0.5 - 1 x 10 mg) PO 06/21/23 DAILY PRN inflammation #30 tabs alprazolam 1 mg tablet 1 mg PO TID PRN anxiety #90 tabs 08/08/23 gabapentin 400 mg capsule 400 mg PO TID #90 caps 08/08/23 tiotropium 2.5 mcg-olodaterol 2.5 2 puff inhalation DAILY 30 days #4 08/30/23 mcg/actuation mist for inhalation grams (Stiolto Respimat) apixaban 5 mg tablet (Eliquis) 5 mg PO BID #60 tabs 09/20/23 methocarbamol 500 mg tablet 500 mg PO TID #90 tabs 09/20/23 amlodipine 5 mg tablet 5 mg PO DAILY #30 tabs 09/22/23 budesonide-formoterol HFA 160 2 puff inhalation BID #10.2 grams 11/01/23 mcg-4.5 mcg/actuation aerosol inhaler (Symbicort) cephalexin 500 mg capsule 500 mg PO TID 7 days #21 caps 11/02/23 prednisone 50 mg tablet 50 mg PO DAILY #5 tabs 11/02/23 Allergies Allergy/AdvReac Type Severity Reaction Status Date / Time atorvastatin [From Lipitor] Allergy Severe Unknown Verified 08/08/23 08:00 lisinopril Allergy RASH Verified 08/08/23 08:00 Penicillins Allergy RASH Verified 08/08/23 08:00 Review of Systems 2 Const: Denies: fever(s), chills, body aches or change in appetite ENMT: Denies: throat pain or dental pain Card: Denies: chest pain Resp: Reports: dyspnea, non-productive cough and wheezing GI: Denies: abdominal pain, nausea, vomiting or diarrhea Musc: Denies: neck pain or back pain Skin/Breast: Denies: rash Neuro: Denies: headache(s) PFSH ED 2 PFSH: Medical History Abdominal aortic aneurysm 3.2 cm 09/28/21 DVT (deep venous thrombosis) hx of DVT History of heart attack COPD (chronic obstructive pulmonary disease) Chronic back pain Coronary artery disease has 11 stents Hyperlipidemia HTN (hypertension) Surgical History History of ankle surgery History of facial surgery History of thoracotomy S/P cholecystectomy S/P appendectomy Status post lung surgery Secondary to pneumothorax S/P knee surgery Previous back surgery C5 and C6 fusion S/P eye surgery S/P PTCA (percutaneous transluminal coronary angioplasty) Family History Other CAD (coronary artery disease) Hypertension Denies family history of Diabetes Stroke Social History Smoking and tobacco/nicotine status: current every day tobacco/nicotine user cigarettes Packs smoked per day: 1 Years cigarettes smoked: 48 [ Other cigarette details: Hx of 1PPD x 48 Years, started at age 16] and cigars Cigars smoked per week: 21 Years smoked cigars: 1 Cigar details: smoked cigarettes prior to cigars. Quit status (tobacco/nicotine): has tried quititng Alcohol intake: current Alcohol intake frequency: holidays/special occasions only Substance/Drug Use: former Lives independently: Yes Household members: none Marital status: Current occupational status: retired and disabled Do you think of yourself as: Straight/Heterosexual Current gender identity: Male Physical Exam 2 Const: COMMON NORMALS: no acute distress, patient oriented x3 and healthy appearing HENMT: COMMON NORMALS: normocephalic and atraumatic HEAD & SCALP: n ormocephalic and atraumatic Neck/C-Spine: COMMON NORMALS: full ROM and supple Chest: COMMONS NORMALS: normal inspection of the chest and normal palpation of entire chest wall Resp: COMMON NORMALS: normal respiratory effort, No retractions and No use of accessory muscles AUSCULTATION: wheezes Cardio: COMMON NORMALS: regular rate, regular rhythm and No murmurs present (Cardio) RATE: regular rate RHYTHM: regular rhythm GI: COMMON NORMALS: Normal to inspection, nondistended, normoactive bowel sounds present, Soft to palpation, non-tender and no masses PALPATION: Yes Soft to palpation Extremity: COMMON NORMALS: normal to inspection and full ROM Neuro: COMMON NORMALS: patient oriented x3, moves all extremities and no focal motor deficits Psych: COMMON NORMALS: mental status grossly normal, Normal thought process present and cooperative THOUGHT PROCESS: Normal thought process present Skin: COMMON NORMALS: no rashes or lesions noted and no wounds GENERAL SKIN EXAM: no rashes or lesions noted Course 2 Vital Signs: Vital signs: Vital Signs Temperature 97.8 F 11/02/23 09:21 Pulse Rate 88 11/02/23 10:24 Respiratory Rate 20 H 11/02/23 10:24 Blood Pressure 135/95 11/02/23 09:21 Pulse Oximetry 94 11/02/23 10:24 Oxygen Delivery Me thod Room Air 11/02/23 10:24 MDM - URI/Sore Throat Medical Decision Making Patient presents with cough congestion history of COPD likely has a bronchitis feels improved after breathing treatment we will place him on steroids antibiotics no signs of pneumonia or pulmonary embolism he stable for discharge follow-up with PCP return if worsening. Medical Records I reviewed the patient's medical records. Lab Data I reviewed the patient's lab results. 11/02/23 09:46 11/02/23 09:46 Radiology Impressions Chest X-Ray 11/02/23 09:23 IMPRESSION: Stable abnormal chest as above. Laboratory Results WBC 11.52 10^3/uL (3.29-11.43) H 11/02/23 09:46 RBC 5.83 10^6/uL (3.85-5.65) H 11/02/23 09:46 Hgb 15.90 g/dL (11.27-16.99) 11/02/23 09:46 Hct 50.4 % (37-53) 11/02/23 09:46 MCV 86.4 fl (82-101) 11/02/23 09:46 MCH 27.3 pg (27-33) 11/02/23 09:46 MCHC 31.5 g/dL (30-55) 11/02/23 09:46 RDW 14.8 % (12.1-15.1) 11/02/23 09:46 Plt Count 178 10^3/cmm (157-399) 11/02/23 09:46 MPV 10.4 fL (7.4-10.4) 11/02/23 09:46 Neut % (Auto) 70.0 % 11/02/23 09:46 Lymph % (Auto) 19.3 % 11/02/23 09:46 Fleming % (Auto) 8.8 % 11/02/23 09:46 Eos % (Auto) 1.0 % 11/02/23 09:46 Baso % (Auto) 0.5 % 11/02/23 09:46 Neut # (Auto) 8.07 10^3/uL (1.8-7.7) H 11/02/23 09:46 Lymph # (Auto) 2.2 10^3/uL (0.8-4.8) 11/02/23 09:46 Fleming # (Auto) 1.0 10^3/uL (0.2-0.9) H 11/02/23 09:46 Eos # (Auto) 0.1 10^3/uL (0.0-0.8) 11/02/23 09:46 Baso # (Auto) 0.1 10^3/uL (0.0-0.1) 11/02/23 09:46 Nucleated RBC % (auto) 0 % 11/02/23 09:46 Nucleated RBCs # 0.0 /100WBC 11/02/23 09:46 Sodium 136 mmol/L (136-145) 11/02/23 09:46 Potassium 4.3 mmol/L (3.5-5.1) 11/02/23 09:46 Chloride 102 mmol/L (98-107) 11/02/23 09:46 Carbon Dioxide 23 mmol/L (22-29) 11/02/23 09:46 Anion Gap 15.3 (5-19) 11/02/23 09:46 BUN 16 mg/dL (8-23) 11/02/23 09:46 Creatinine 0.8 mg/dL (0.7-1.2) 11/02/23 09:46 GFR Calculation 96.1 mL/min (90-130) 11/02/23 09:46 Glucose 192 mg/dL (65-115) H 11/02/23 09:46 Calculated Osmolality 288 mOsm/kg (285-295) 11/02/23 09:46 Calcium 10.0 mg/dL (8.5-10.5) 11/02/23 09:46 Total Bilirubin 0.6 mg/dL (0.15-1.2) 11/02/23 09:46 AST 14 U/L (0-40) 11/02/23 09:46 ALT 18 U/L (0-41) 11/02/23 09:46 Alkaline Phosphatase 70 U/L (40-130) 11/02/23 09:46 Total Protein 7.3 g/dL (6.6-8.7) 11/02/23 09:46 Albumin 4.0 g/dL (3.5-5.2) 11/02/23 09:46 Globulin 3.3 g/dL (1.3-4.6) 11/02/23 09:46 Coronavirus (PCR) Negative (Negative) 11/02/23 09:31 Influenza A (PCR) Negative (Negative) 11/02/23 09:31 Influenza Type B (PCR) Negative (Negative) 11/02/23 09:31 RSV (PCR) Negative (Negative) 11/02/23 09:31 All radiology interpretation(s) finalized by discharge Discharge Plan Discharge Patient Disposition: Home Clinical Impression: Bronchitis Condition: Stable Prescriptions: New cephalexin 500 mg capsule 500 mg PO TID 7 Days Qty: 21 0RF prednisone 50 mg tablet 50 mg PO DAILY Qty: 5 0RF No Action Repatha Syringe 140 mg/mL syringe 140 mg SUBCUT .Q2W alprazolam 1 mg tablet 1 mg PO TID PRN (Reason: anxiety) Qty: 90 2RF gabapentin 400 mg capsule 400 mg PO TID Qty: 90 3RF hydrocodone-acetaminophen 10-325 mg tablet 1 tab PO Q6H 5 Days Qty: 20 0RF hydroxyzine HCl 50 mg tablet 50 mg PO BID PRN (Reason: itching) Qty: 30 0RF losartan 25 mg tablet 25 mg PO DAILY Qty: 90 3RF metoprolol tartrate 25 mg tablet See Rx Instructions .ROUTE .COMPLEX Qty: 180 3RF Dose Instruction: TAKE 1 TABLET BY MOUTH TWICE DAILY Rx Instructions: TAKE 1 TABLET BY MOUTH TWICE DAILY clopidogrel [Plavix] 75 mg tablet 75 mg PO DAILY@09 Qty: 90 3RF albuterol sulfate 90 mcg/actuation HFA aerosol inhaler See Rx Instructions .ROUTE .COMPLEX Qty: 8.5 5RF Dose Instruction: INHALE TWO PUFFS EVERY 4 HOURS NEEDED FOR help with breathing Rx Instructions: INHALE TWO PUFFS EVERY 4 HOURS NEEDED FOR help with breathing prednisone 10 mg tablet 5 - 10 mg PO DAILY PRN (Reason: inflammation) Qty: 30 1RF Stiolto Respimat 2.5-2.5 mcg/actuation mist 2 puff inhalation DAILY 30 Days Qty: 4 3RF methocarbamol 500 mg tablet 500 mg PO TID Qty: 90 2RF Eliquis 5 mg tablet 5 mg PO BID Qty: 60 11RF amlodipine 5 mg tablet 5 mg PO DAILY Qty: 30 11RF budesonide-formoterol [Symbicort] 160-4.5 mcg/actuation HFA aerosol inhaler 2 puff inhalation BID Qty: 10.2 6RF Advil 200 mg Tablet 200 mg PO PRN Discharge Orders: Discharge ED (Routine); Ordered 11/02/23 Ordered By: Roberto Mensah Referrals: Mil Rose SURGEON PARTNER [Primary Care Provider] - 4-7 days Discharge Diet: Advance as tolerated Discharge Activity: Resume usual activity Patient Instructions: Acute Bronchitis (ED) Coding Level of Care Code ED Fashion Model for María Galvan
[2023-11-02 10:20] LABS: Covid PCR NEGATIVE (Negative); Influenza A NEGATIVE (Negative); Influenza B NEGATIVE (Negative); Respiratory Syncytial Virus Ce NEGATIVE (Negative)
[2023-11-02 10:21] LABS: Alanine Aminotransferase 18 U/L (0-41); Alkaline Phosphatase 70 U/L (40-130); Anion Gap 15.3 (5-19); Aspartate Amino Transferase 14 U/L (0-40); Blood Urea Nitrogen 16 mg/dL (8-23); Carbon Dioxide 23 mmol/L (22-29); Chloride 102 mmol/L (98-107); Globulin 3.3 g/dL (1.3-4.6); Glomerular Filtration Rate 96.1 mL/min (90-130); Glucose 192 mg/dL (65-115); Osmolality Calculated 288 mOsm/kg (285-295); Potassium 4.3 mmol/L (3.5-5.1); Sodium 136 mmol/L (136-145); Total Bilirubin 0.6 mg/dL (0.15-1.2); Total Protein 7.3 g/dL (6.6-8.7)
[2023-11-02] MEDS: ipratropium-albuterol 3 mL Neb INHALATION (10:22)
[2023-11-02 10:24] VITALS: PULSE 88; RESP 20; O2SAT 94
[2023-11-02] MEDS: cephALEXin 500 mg Capsule PO (11:23)
[2023-11-02] MEDS: predniSONE 20 mg Tablet 60 MG PO (11:23)
[2023-11-02 11:25] VITALS: BP 142/71; PULSE 83; O2SAT 97
== END 2023-11-02 11:26 | disposition home or self-care (01) ==
PROVIDERS: Family Medicine; Emergency Provider Emergency Medicine; PCP Clinical Nurse Specialist Adult Health
DX: J44.89 Other specified chronic obstructive pulmonary disease (principal); Z79.02 Long term (current) use of antithrombotics/antiplatelets; Z79.01 Long term (current) use of anticoagulants; F17.290 Nicotine dependence, other tobacco product, uncomplicated; I25.2 Old myocardial infarction; I25.10 Atherosclerotic heart disease of native coronary artery without angina pectoris; E78.5 Hyperlipidemia, unspecified; I10 Essential (primary) hypertension
CPT/HCPCS: 0241U; 36415; 71045; 80053; 85025; 93005; 94640; 99285; J7512

== ENCOUNTER 2024-01-03 12:15 | Outpatient (CLI) | payer MEDICARE, MEDICAID, SELFPAY ==
--- NOTE | 2024-01-03 12:26 | MR_ITS ---
WS: [id number] MRI LUMBAR SPINE NONCONTRAST TECHNIQUE: Sagittal T1, T2 and STIR imaging. Axial T1 and T2 imaging. CLINICAL INFORMATION: INTERVERTEBRAL DISC DISORDERS WITH RADICULOPATHY COMPARISON: None. FINDINGS: Small central protrusion in the cervical spine surgical elastic knitter hand frame imaging at C4-5 with slight indentation on the c ervical cord. L1-L2: Mild annular bulging. Moderate facet arthropathy. Spinal canal and foramen are patent. L2-L3: Mild annular bulging. Moderate facet arthropathy. Spinal canal and foramen are patent. L3-L4: Slight retrolisthesis. Mild annular bulging. Slight effacement of the ventral thecal sac. RIGH T eccentric disc bulging slightly contacts the exiting RIGHT L3 nerve root. L4-L5: Mild annular bulging. Slight effacement of the ventral thecal sac. LEFT eccentric disc bulging slightly contacts the exiting LEFT L4 nerve root. Moderate facet arthropathy. L5-S1: Mild annular bulging. Moderate facet arthropathy. Spinal canal and foramen are patent. Visualized pelvic bony structures: Normal. Paravertebral soft tissues: Normal. Small bilateral renal cysts. Partially visualized abdominal aortic aneurysm measuring 3.8 x 3.7 cm AP by transverse. Peripheral mural thrombus. This appears progressed since 2021. Recommend further eval uation CTA. MR/MR lumbar spine wo con* [id number] IMPRESSION: 1. Partially visualized abdominal aortic aneurysm measuring 3.8 x 3.7 cm AP b y transverse. Peripheral mural thrombus. This appears progressed since 2021. Re commend further evaluation CTA. 2. RIGHT eccentric disc bulging L3-4 with slight contact of the exiting RIGHT L3 nerve root. 3. Mild LEFT L4-5 foraminal narrowing. 4. Mild annular bulge L3-4 and L4-5 with slight effacement of the ventral thec al sac. No significant central canal stenosis. 5. Moderate facet arthropathy L4-L5 and L5-S1.
== END 2024-01-03 12:25 | disposition home or self-care (01) ==
PROVIDERS: Visit Provider General Practice
DX: M51.16 Intervertebral disc disorders with radiculopathy, lumbar region (principal); M47.896 Other spondylosis, lumbar region; M51.360 Other intervertebral disc degeneration, lumbar region with discogenic back pain only; M47.898 Other spondylosis, sacral and sacrococcygeal region; I71.40 Abdominal aortic aneurysm, without rupture, unspecified; Q61.02 Congenital multiple renal cysts; I51.3 Intracardiac thrombosis, not elsewhere classified
CPT/HCPCS: 72148

== ENCOUNTER → 2024-02-28 15:52 | Outpatient (BNVA) | payer MEDICARE, MEDICAID, SELFPAY | PROVIDERS: Visit Provider Internal Medicine Cardiovascular Disease | DX: I25.10 Atherosclerotic heart disease of native coronary artery without angina pectoris (principal); E78.00 Pure hypercholesterolemia, unspecified; I10 Essential (primary) hypertension; J44.9 Chronic obstructive pulmonary disease, unspecified; Z86.711 Personal history of pulmonary embolism; Z86.718 Personal history of other venous thrombosis and embolism; Z86.16 Personal history of COVID-19; I25.2 Old myocardial infarction; F17.210 Nicotine dependence, cigarettes, uncomplicated | CPT/HCPCS: 99214 ==

== ENCOUNTER 2024-03-04 15:51 | Observation (INO) | payer MEDICARE, MEDICAID, SELFPAY ==
[2024-03-04] VITALS (12 sets, daily range): BP systolic 98–124; BP diastolic 60–81; PULSE 79–114; RESP 16–22; TEMP 36.4–36.6; O2SAT 91–96
--- NOTE | 2024-03-04 15:52 | XRR_ITS ---
PROCEDURE INFORMATION: Exam: XR Chest Exam date and time: 03/04/2024 4:18 PM Age: 68 years old Clinical indication: Shortness of breath; Prior surgery; Surgery date: 6+ months; Surgery type: Lung; Coronary angioplasty; Patient HX: C/O SOB and left sided chest pain for the past week. PT states that he has been to [facility] and given steroids for uri. PT reports that it has not helped at all. PT states that he has been waking up gasping for air. Reports copd HX. TECHNIQUE: Imaging protocol: Radiologic exam of the chest. Views: 1 view. COMPARISON: CR XR chest 1V portable [id number] 11/02/2023 9:33 AM FINDINGS: Lungs: Emphysematous changes in the lungs. Chronic bibasilar atelectasis/scarring. No focal consolidation. Pleural spaces: Unremarkable. No pleural effusion. No pneumothorax. Heart/Mediastinum: Unremarkable. No cardiomegaly. Vasculature: Tortuous, ectatic thoracic aorta with atherosclerotic calcifications, similar to prior. Bones/joints: Unremarkable. XR/XR chest 1V portable [id number] IMPRESSION: No acute cardiopulmonary findings.
--- NOTE | 2024-03-04 15:52 | ECG_ITS ---
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 Measurements Intervals [place] Rate: 99 P: 71 NC: 146 QRS: 28 QRSD: 90 T: -54 QT: 314 QTc: 404 Interpretive Statements SINUS RHYTHM Possible old IWMI Compared to ECG 11/02/2023 09:24:28 No significant changes Electronically Signed On 03-06-2024 23:47:16 SOCIAL WORKER ASSISTANT by Fortino Lange M.D. [email or web address]
--- NOTE | 2024-03-04 16:21 | W.ED.SOB ---
HPI - SOB/Dyspnea General: Chief Complaint: Shortness of Breath/Dyspnea Stated Complaint: sob Time Seen by Provider: 03/04/24 16:10 History of Present Illness: HPI Narrative: 68-year-old male presents to the emergency department reporting 1 week of shortness of breath and chest congestion with tightness and wheezing. Patient reports that he has been having sweats and chills at nighttime. He reports minimal sputum production and no hemoptysis. He has not measured his temperature. He does have loss of appetite and some bodyaches. He has had some runny nose and mild sore throat as well. Patient does have a significant medical history and takes Plavix as well as Eliquis. He has a history of coronary artery disease, DVTs, pulmonary embolism among other comorbidities. Patient went to urgent care 2 days ago and was started on prednisone twice a day. He says it has not helped. Patient does use budesonide formoterol inhaler as well as as needed albuterol nebulizer at home. He reports they have not been helping him. Other symptoms include poor appetite, mild headache. Associated symptoms: Deny abdominal pain, extremity pain, nausea, syncope or vomiting Related Data Previous Rx's Medication Instructions Recorded hydrocodone 10 mg-acetaminophen 1 tab PO Q6H 5 days #20 tabs 07/29/22 325 mg tablet metoprolol tartrate 25 mg tablet See Rx Instructions .Route 03/21/23 .COMPLEX #180 tabs Plavix 75 mg tablet (clopidogrel) 75 mg PO DAILY@09 #90 tabs 04/29/23 albuterol sulfate 90 mcg/actuation See Rx Instructions .Route 05/31/23 aerosol inhaler .COMPLEX #8.5 grams apixaban 5 mg tablet (Eliquis) 5 mg PO BID #60 tabs 09/20/23 budesonide-formoterol HFA 160 2 puff inhalation BID #10.2 grams 11/01/23 mcg-4.5 mcg/actuation aerosol inhaler (Symbicort) Nebulizer machine and supplies #1 ea 11/08/23 albuterol sulfate 2.5 mg/3 mL 2.5 mg (3 mL) inhalation Q4H PRN 11/08/23 (0.083 %) solution for nebulization shortness of breath or wheezing #75 mL gabapentin 400 mg capsule 400 mg PO TID #90 caps 12/20/23 methocarbamol 500 mg tablet 500 mg PO TID #90 tabs 12/20/23 tiotropium 2.5 mcg-olodaterol 2.5 2 puff inhalation DAILY 30 days #4 01/13/24 mcg/actuation mist for inhalation grams (Stiolto Respimat) alprazolam 1 mg tablet 1 mg PO TID PRN anxiety #90 tabs 01/31/24 pantoprazole 40 mg tablet,delayed 40 mg PO DAILY #30 tabs 01/31/24 release (Protonix) losartan 25 mg tablet 25 mg PO DAILY #90 tabs 02/27/24 prednisone 20 mg tablet 20 mg PO BID 5 days #10 tabs 03/01/24 Allergies Allergy/AdvReac Type Severity Reaction Status Date / Time atorvastatin [From Lipitor] Allergy Severe Unknown Verified 03/01/24 16:55 lisinopril Allergy RASH Verified 03/01/24 16:55 Penicillins Allergy RASH Verified 03/01/24 16:55 Review of Systems General: Reports: 10 or more systems reviewed and unremarkable except in HPI and below Eyes: Denies: change in vision Card: Denies: edema or syncope Resp: Denies: productive cough GI: Denies: abdominal pain, nausea, vomiting or diarrhea : Denies: flank pain, dysuria or urinary frequency Musc: Denies: neck pain, extremity pain or extremity swelling Skin/Breast: Denies: rash or erythema Neuro: Denies: numbness in extremities, weakness in extremities, lack of coordination or difficulty walking PFS ED PFSH: Medical History Abdominal aortic aneurysm 3.2 cm 09/28/21 DVT (deep venous thrombosis) hx of DVT History of heart attack COPD (chronic obstructive pulmonary disease) Chronic back pain Coronary artery disease has 11 stents Hyperlipidemia HTN (hypertension) Surgical History History of ankle surgery History of facial surgery History of thoracotomy S/P cholecystectomy S/P appendectomy Status post lung surgery Secondary to pneumothorax S/P knee surgery Previous back surgery C5 and C6 fusion S/P eye surgery S/P PTCA (percutaneous transluminal coronary angioplasty) Family History Other CAD (coronary artery disease) Hypertension Denies family history of Diabetes Stroke Social History Smoking and tobacco/nicotine status: never used tobacco/nicotine Quit status (tobacco/nicotine): has quit using Year quit tobacco: 2023 Alcohol intake: current Alcohol intake frequency: holidays/special occasions only Substance/Drug Use: former Lives independently: Yes Household members: none Marital status: Current occupational status: retired and disabled Do you think of yourself as: Straight/Heterosexual Current gender identity: Male Physical Exam Narrative: EXAM NARRATIVE: Awake, alert, conversational. Tachypneic. Decreased breath sounds with some wheezing and accessory muscle use. No JVD in the upright position. No extremity asymmetry, swelling, redness or overt signs of DVT. Heart rate is slightly elevated around 98 bpm. Respiratory rate in the low 20s. Oxygen saturation 92% on room air Const: COMMON NORMALS: no limitations, alert and well nourished EXAM LIMITATIONS: no altered mental status HENMT: COMMON NORMALS: normocephalic, atraumatic and external ears normal HEAD & SCALP: normocephalic and atraumatic EXTERNAL EAR: Yes external ears normal MOUTH: no muffled voice Eye: COMMON NORMALS: EOMs intact bilaterally, conjunctivae normal and no scleral icterus CONJUNCTIVA: Yes conjunctivae normal Neck/C-Spine: GENERAL: Yes normal visual inspection and Yes trachea midline Cardio: COMMON NORMALS: regular rhythm RHYTHM: regular rhythm GI: COMMON NORMALS: Soft to palpation and non-tender PALPATION: Yes Soft to palpation and No Guarding due to palpation present (GI) Extremity: COMMON NORMALS: normal to inspection Neuro: COMMON NORMALS: moves all extremities, no focal motor deficits and no sensory deficits noted SENSORIUM/ORIENTATION: Yes alert SPEECH: speech normal Psych: COMMON NORMALS: mental status grossly normal, Normal thought process present, cooperative and speech normal SPEECH: Yes normal speech THOUGHT PROCESS: Normal thought process present Skin: COMMON NORMALS: no rashes or lesions noted, turgor normal and no jaundice GENERAL SKIN EXAM: no rashes or lesions noted and turgor normal Course Vital Signs: Vital signs: Vital Signs Temperature 97.5 F L 03/04/24 16:05 Pulse Rate 114 H 03/04/24 17:31 Respiratory Rate 17 03/04/24 17:31 Blood Pressure 104/77 03/04/24 17:31 Pulse Oximetry 92 03/04/24 17:31 Oxygen Delivery Me thod Room Air 03/04/24 16:52 MDM - SOB/Dyspnea Medical Decision Making Differential diagnosis includes infectious etiology (viral or bacterial), COPD, pulmonary hypertension, pulmonary embolism, CHF, atypical ACS, anemia, pulmonary edema, neoplastic process, and multiple others. EKG on arrival on my EP interpretation shows a sinus rhythm, rate 99, normal axis, QRS duration of 90 ms, Q waves in leads II, III and aVF, no active ST segment elevations, some minor J-point depressions noted in V6 although there is a variable baseline. Compared to the previous EKG the Q waves are slightly more prominent today. Chest x-ray 1 view. EP interpretation. The x-ray is abnormal. However, it appears fairly similar to previous 2 x-rays. There is changes in the right lower lungs. These appear to be pleural-based. No visualized pneumothorax. No signs of pulmonary edema. Suggestion of some interstitial disease/emphysema b/l. Update 1740 D-dimer is reassuring White blood cell count is normal Chest x-ray as noted above with no new infiltrates or findings, no signs of overt pulmonary edema BNP mildly elevated Troponin elevated in the 80s. Patient has not had many troponins but this is higher than it has ever been before. The way the patient intermittently describes chest discomfort has both typical and atypical characteristics. The patient's heart score is moderate. He has not had echocardiogram since 2020. I had originally reviewed his echo from February 2020 but it looks like he had another in April which was pointed out to me by Dr. Etienne that showed some aortic stenosis. I do not think the patient has gotten any treatment for this. The differential diagnosis therefore would include COPD exacerbation, pulmonary infection, pulmonary hypertension, CHF, aortic stenosis, coronary artery disease. It is difficult to figure out which of these is the primary contributing factor for his symptoms today. I spoke with Dr. Etienne who is willing to admit the patient, trend troponins, repeat echocardiogram and follow-up on infectious testing. Lab Data 03/04/24 16:26 03/04/24 16:26 Labs/Radiology: Radiology Impressions Chest X-Ray 03/04/24 15:52 IMPRESSION: No acute cardiopulmonary findings. Laboratory Results WBC 4.37 10^3/uL (3.29-11.43) 03/04/24 16: RBC 6.40 10^6/uL (3.85-5.65) H 03/04/24 16:26 Hgb 17.00 g/dL (11.27-16.99) H 03/04/24 16:26 Hct 54.8 % (37-53) H 03/04/24 16: MCV 85.6 fl (82-101) 03/04/24 16: MCH 26.6 pg (27-33) L 03/04/24 16: MCHC 31.0 g/dL (30-55) 03/04/24 16: RDW 13.9 % (12.1-15.1) 03/04/24 16: Plt Count 126 10^3/cmm (157-399) L 03/04/24 16: MPV 11.0 fL (7.4-10.4) H 03/04/24 16: Neut % (Auto) 69.3 % 03/04/24 16:26 Lymph % (Auto) 21.5 % 03/04/24 16:26 [place] % (Auto) 8.5 % 03/04/24 16: Eos % (Auto) 0.0 % 03/04/24: Baso % (Auto) 0.2 % 03/04/24 16: Neut # (Auto) 3.03 10^3/uL (1.8-7.7) 03/04/24 16: Lymph # (Auto) 0.9 10^3/uL (0.8-4.8) 03/04/24 16:26 [place] # (Auto) 0.4 10^3/uL (0.2-0.9) 03/04/24 16: Eos # (Auto) 0.0 10^3/uL (0.0-0.8) 03/04/24 16: Baso # (Auto) 0.0 10^3/uL (0.0-0.1) 03/04/24 16: Nucleated RBC % (auto) 0 % 03/04/24 16: Nucleated RBCs # 0.0 /100WBC 03/04/24 16:26 D-Dimer 0.51 ug/mLFEU (0-0.59) 03/04/24 16:26 Sodium 132 mmol/L (136-145) L 03/04/24 16:26 Potassium 4.1 mmol/L (3.5-5.1) 03/04/24 16:26 Chloride 96 mmol/L (98-107) L 03/04/24 16:26 Carbon Dioxide 22 mmol/L (22-29) 03/04/24 16:26 Anion Gap 18.1 (5-19) 03/04/24 16:26 BUN 15 mg/dL (8-23) 03/04/24 16:26 Creatinine 1.0 mg/dL (0.7-1.2) 03/04/24 16:26 GFR Calculation 74.3 mL/min (90-130) L 03/04/24 16:26 Glucose 234 mg/dL (65-115) H 03/04/24 16:26 Calculated Osmolality 282 mOsm/kg (285-295) L 03/04/24 16:26 Calcium 10.0 mg/dL (8.5-10.5) 03/04/24 16:26 Total Bilirubin 0.4 mg/dL (0.15-1.2) 03/04/24 16:26 AST 27 U/L (0-40) 03/04/24 16:26 ALT 25 U/L (0-41) 03/04/24 16:26 Alkaline Phosphatase 63 U/L (40-130) 03/04/24 16:26 Troponin T Baseline 84 ng/L (0-15) H 03/04/24 16:26 NT-Pro-B Natriuret Pep 882 pg/mL (0-125) H 03/04/24 16:26 Total Protein 7.0 g/dL (6.6-8.7) 03/04/24 16:26 Albumin 3.7 g/dL (3.5-5.2) 03/04/24 16:26 Globulin 3.3 g/dL (1.3-4.6) 03/04/24 16:26 All radiology interpretation(s) finalized by discharge Discharge Plan Discharge Patient Disposition: Placed in Observation Clinical Impression: Acute dyspnea, COPD (chronic obstructive pulmonary disease), Elevated troponin, Chest pain, moderate coronary artery risk, Cigarette smoker within last 12 months Coding Level of Care Code ED Drill Instructor for María Galvan
[2024-03-04 16:36] LABS: Basophils % 0.2 %; Hematocrit 54.8 % (37-53); Lymphocytes # 0.9 10^3/uL (0.8-4.8); Lymphocytes % 21.5 %; Mean Corpuscular Hemoglobin 26.6 pg (27-33); Mean Corpuscular Volume 85.6 fl (82-101); Monocytes # 0.4 10^3/uL (0.2-0.9); Monocytes % 8.5 %; Neutrophils # 3.03 10^3/uL (1.8-7.7); Neutrophils % 69.3 %; Nucleated Red Blood Cells % 0 %; Platelet Count 126 10^3/cmm (157-399); Red Cell Distribution Width 13.9 % (12.1-15.1); White Blood Count 4.37 10^3/uL (3.29-11.43)
[2024-03-04 16:50] LABS: D Dimer 0.51 ug/mLFEU (0-0.59)
[2024-03-04 17:02] LABS: Alanine Aminotransferase 25 U/L (0-41); Albumin Level 3.7 g/dL (3.5-5.2); Alkaline Phosphatase 63 U/L (40-130); Anion Gap 18.1 (5-19); Aspartate Amino Transferase 27 U/L (0-40); Blood Urea Nitrogen 15 mg/dL (8-23); Carbon Dioxide 22 mmol/L (22-29); Chloride 96 mmol/L (98-107); Globulin 3.3 g/dL (1.3-4.6); Glomerular Filtration Rate 74.3 mL/min (90-130); Glucose 234 mg/dL (65-115); NT Pro B Type Natriuretic Pept 882 pg/mL (0-125); Osmolality Calculated 282 mOsm/kg (285-295); Potassium 4.1 mmol/L (3.5-5.1); Sodium 132 mmol/L (136-145); Total Bilirubin 0.4 mg/dL (0.15-1.2)
[2024-03-04] MEDS: ipratropium-albuterol 3 mL Neb 6 ML INHALATION (17:02)
[2024-03-04] MEDS: apixaban 5 mg Tablet PO (17:03)
[2024-03-04] MEDS: metoprolol tartrate 25 mg Tablet PO (17:03)
[2024-03-04 17:16] LABS: Troponin(5th) Baseline 84 ng/L (0-15)
--- NOTE | 2024-03-04 17:43 | CTR_ITS ---
PROCEDURE INFORMATION: Exam: CT Chest Without Contrast; Diagnostic Exam date and time: 03/04/2024 6:15 PM Age: 68 years old Clinical indication: Cough and shortness of breath; Prior surgery; Surgery date: 6+ months; Surgery type: Gb; Patient HX: Cough with SOB. History of copd. ; Additional info: Copd/pna TECHNIQUE: Imaging protocol: Diagnostic computed tomography of the chest without contrast. Radiation optimization: All CT scans at this facility use at least one of these dose optimization techniques: automated exposure control; mA and/or kV adjustment per patient size (includes targeted exams where dose is matched to clinical indication); or iterative reconstruction. COMPARISON: CT lung screening [id number] 09/24/2021 1:20 PM RADIATION DOSE METRICS: Total DLP (mGy-cm): 601.05 FINDINGS: Lungs: Similar [id number] emphysematous changes. Ill-defined reticular and ground-glass opacities are seen throughout the lungs bilaterally with no lobe spared, most pronounced in the left upper and right lower lobes. Ground-glass opacities are in a predominantly subpleural distribution. No focal consolidation. Pleural spaces: Unremarkable. No pneumothorax. No pleural effusion. Heart: Unremarkable. No cardiomegaly. No pericardial effusion. Coronary arteries: Multivessel coronary artery calcifications/stenting. Lymph nodes: Enlarged subcarinal lymph node measuring 1.5 cm. Vasculature: Mild atherosclerotic calcifications throughout the thoracic aorta, including along the aortic valve plane. Mildly dilated ascending thoracic aorta measuring 4.1 cm in caliber, similar to prior. Liver: Hepatic steatosis. Intestine: Scattered diverticula within the visualized colon in the left upper quadrant. No associated inflammatory changes. Bones/joints: Degenerative changes of the thoracic spine. No acute or aggressive osseous lesion. Chronic nonunion fracture of the right posterolateral 9th rib. Soft tissues: Unremarkable. CT/CT chest wo con [id number] IMPRESSION: 1. Scattered reticular and ground-glass opacities throughout the lungs likely represent multifocal pneumonia in the acute setting. Recommend imaging follow-up after clinical treatment to evaluate for resolution. 2. Similar [id number] emphysematous changes. 3. Dilated ascending thoracic aorta measures 4.1 cm. 4. Atherosclerotic calcifications along the aortic valve plane can be seen with aortic stenosis. 5. Enlarged subcarinal lymph node is favored to be reactive. Attention on follow-up recommended. COMMENTS: The presence of pulmonary emphysema on CT is an independent risk factor for lung cancer. In the absence of a history or active diagnosis of lung cancer, it is recommended that this patient with emphysema be evaluated for enrollment in a low dose CT lung cancer screening program.
--- NOTE | 2024-03-04 17:46 | P.HP_ITS ---
Providers/Chief Complaint 2 Chief Complaint: sob History of Present Illness De La Cruz CassyLonnieradha Pierce is a 68 year old male with past medical history of CAD with multiple PCI, Hypertension, hyperlipidemia, DVT and PE, mod aortic stenosis on anticoagulation with Eliquis, COPD, diastolic heart failure presents to the ER today with difficulty in breathing getting worse over last 1 week associated with runny nose, sore throat and bodyaches. Also been having subjective feel of fever every night. Shortness of breath gets worse on minimal exertion. Denies any hemoptysis. Complains of increased expectoration. Denies any known sick contacts. Complaining of chest pain on exertion ongoing for last 1 week to 10 days as well. Patient went to urgent care for similar complaints around 4 days ago and was started on nebulization and steroids without much of a help hence he came to the ER today. On examination patient negatively in bed, in distress because of having chills and feeling cold, needing 2 L of oxygen supplementation. Review of Systems 2 General: Reports: 10 or more systems reviewed and unremarkable except in HPI and below Const: Denies: fever(s), chills, body aches, change in appetite, change in weight, malaise, night sweats, diaphoresis, change in sleep pattern, daytime sleepiness or snoring Eyes: Denies: change in vision, blurry vision, photophobia, eye discomfort or eye discharge ENMT: Denies: throat pain, enlarged tonsils, hoarseness, mouth pain, oral sores, dry mouth, tinnitus, nasal congestion or post nasal drip Card: Denies: chest pain, palpitations, irregular heart rhythm, edema, swelling of feet/ankles, lightheadedness, syncope, pre-syncope, dyspnea on exertion, orthopnea, leg pain with exertion or acrocyanosis Resp: Denies: dyspnea, productive cough, non-productive cough, wheezing, stridor, pain on inspiration, change in phlegm color, hemoptysis or chest congestion GI: Denies: abdominal pain, nausea, vomiting, hematemesis, coffee ground emesis, dysphagia, heartburn, diarrhea, constipation, bloating, GI cramping, change in bowel habits, pain on defecation, hematochezia or melena : Denies: flank pain, difficulty urinating, dysuria, urinary frequency, urinary urgency, urinary hesitancy, urinary dribbling, difficulty starting urination, change in urine stream, nocturia or hematuria Musc: Denies: neck pain, back pain, extremity pain, joint pain, joint swelling, joint redness, joint stiffness or limited range of motion Neuro: Denies: headache(s), numbness in extremities, weakness in extremities, sensory changes, lack of coordination, difficulty walking, frequent falls, dizziness, vertigo, confusion, Slurred speech present, difficulty communicating thoughts or seizure-like activity Psych: Denies: anxiety, depression, mood swings, panic attacks, hopelessness or irritability Endo: Denies: polyuria, polydipsia, tired all the time, cold intolerance, excessive sweating, flushing or heat intolerance [place]/Lymph: Denies: easy bruising or easy bleeding All/Imm: Denies: tongue swelling, facial swelling or acute wheezing Medications/Allergies Home Medications Medication Instructions Recorded Confirmed Last Taken Type hydrocodone 10 mg-acetaminophen 1 tab PO Q6H 5 days #20 tabs 07/29/22 03/04/24 Unknown Rx 325 mg tablet metoprolol tartrate 25 mg tablet See Rx Instructions .Route 03/21/23 03/04/24 Unknown Rx .COMPLEX #180 tabs Plavix 75 mg tablet (clopidogrel) 75 mg PO DAILY@09 #90 tabs 04/29/23 03/04/24 Unknown Rx albuterol sulfate 90 mcg/actuation See Rx Instructions .Route 05/31/23 03/04/24 Unknown Rx aerosol inhaler .COMPLEX #8.5 grams apixaban 5 mg tablet (Eliquis) 5 mg PO BID #60 tabs 09/20/23 03/04/24 Unknown Rx budesonide-formoterol HFA 160 2 puff inhalation BID #10.2 grams 11/01/23 03/04/24 Unknown Rx mcg-4.5 mcg/actuation aerosol inhaler (Symbicort) Nebulizer machine and supplies #1 ea 11/08/23 03/04/24 Unknown Rx albuterol sulfate 2.5 mg/3 mL 2.5 mg (3 mL) inhalation Q4H PRN 11/08/23 03/04/24 Unknown Rx (0.083 %) solution for nebulization shortness of breath or wheezing #75 mL gabapentin 400 mg capsule 400 mg PO TID #90 caps 12/20/23 03/04/24 Unknown Rx methocarbamol 500 mg tablet 500 mg PO TID #90 tabs 12/20/23 03/04/24 Unknown Rx tiotropium 2.5 mcg-olodaterol 2.5 2 puff inhalation DAILY 30 days #4 01/13/24 03/04/24 Unknown Rx mcg/actuation mist for inhalation grams (Stiolto Respimat) alprazolam 1 mg tablet 1 mg PO TID PRN anxiety #90 tabs 01/31/24 03/04/24 Unknown Rx losartan 25 mg tablet 25 mg PO DAILY #90 tabs 02/27/24 03/04/24 Unknown Rx prednisone 20 mg tablet 20 mg PO BID 5 days #10 tabs 03/01/24 03/04/24 Unknown Rx Allergies Allergy/AdvReac Type Severity Reaction Status Date / Time atorvastatin [From Lipitor] Allergy Severe Unknown Verified 03/01/24 16:55 lisinopril Allergy RASH Verified 03/01/24 16:55 Penicillins Allergy RASH Verified 03/01/24 16:55 PFSH Acute 2 PFSH: Medical History (Updated 03/04/24 @ 21:19 by Benny Godinez MD) Aortic valve stenosis Generalized anxiety disorder Pulmonary embolism, bilateral Abdominal aortic aneurysm 3.2 cm 09/28/21 DVT (deep venous thrombosis) hx of DVT History of heart attack COPD (chronic obstructive pulmonary disease) Chronic back pain Coronary artery disease has 11 stents Hyperlipidemia HTN (hypertension) Surgical History History of ankle surgery History of facial surgery History of thoracotomy S/P cholecystectomy S/P appendectomy Status post lung surgery Secondary to pneumothorax S/P knee surgery Previous back surgery C5 and C6 fusion S/P eye surgery S/P PTCA (percutaneous transluminal coronary angioplasty) Family History Other CAD (coronary artery disease) Hypertension Denies family history of Diabetes Stroke Social History Smoking and tobacco/nicotine status: never used tobacco/nicotine Quit status (tobacco/nicotine): has quit using Year quit tobacco: 2023 Alcohol intake: current Alcohol intake frequency: holidays/special occasions only Substance/Drug Use: former Lives independently: Yes Household members: none Marital status: Current occupational status: retired and disabled Do you think of yourself as: Straight/Heterosexual Current gender identity: Male Vitals/I&O/Wt Last Vital Signs Temp 97.5 F L 03/04/24 16:05 Pulse 114 H 03/04/24 17:31 Resp 17 03/04/24 17:31 BP 104/77 03/04/24 17:31 Pulse Ox 92 03/04/24 17:31 O2 Del Method Room Air 03/04/24 16:52 Weight last 48 hrs Weight 111.13 kg Physical Exam 2 Narrative: General: In acute distress due to chills and rigour, AO x3 HEENT: PERRLA, pupils bilaterally equal and reactive Chest: Bilateral bronchial breath sounds all over lung condon with occasional rhonchi and coarse crackles mostly in bilateral lower zone CVS: S1-S2 regular, Ejection systolic murmur in aortic region radiating to carotid region, no tachycardia, no gallops, no rubs Abdomen: Soft, nontender, no organomegaly, bowel sounds present Neuro: No focal deficits, no facial deformity, AO x3, power 5/5 in all limbs Data 03/04/24 16:26 03/04/24 16:26 A&P Assessment and plan (1) Acute hypoxemic respiratory failure: (2) COPD exacerbation: (3) Pulmonary embolism, bilateral: (4) Diastolic CHF: (5) NSTEMI (non-ST elevated myocardial infarction): (6) Coronary artery disease: Qualifiers: Associated angina: without angina Coronary Disease-Associated Artery/Lesion type: [place] artery [place] vs. transplanted heart: [place] heart Qualified Code(s): I25.10 - Atherosclerotic heart disease of [place] coronary artery without angina pectoris (7) Aortic valve stenosis: (8) HTN (hypertension): Qualifiers: Hypertension type: primary hypertension Qualified Code(s): I10 - Essential (primary) hypertension (9) GERD without esophagitis: Plan Acute hypoxic respiratory failure: Most likely in setting of COPD exacerbation. Also concerns for mild diastolic heart failure. Patient also has history of PE. D-dimer negative in the ER. Check respiratory panel, sputum culture, urine bacterial antigen, blood culture, MRSA swab. CT chest without contrast. Solu-Medrol 40 mg every 8 hourly. Pulmicort twice daily, ipratropium, Xopenex every 6 hours Oxygen supplementation keeping saturation more than 88%. Start patient on IV ceftriaxone and azithromycin to cover for community- acquired pneumonia for now. Concern for diastolic heart failure. Fluid restriction to less than 1500 cc. IV Lasix 40 mg one-time. Will plan for further Lasix depending on fluid status. Non-ST elevation DC: History of CAD with multiple PCI in the past. Complaining of chest pain recently Baseline troponin more than 80. Cycle troponin. Aspirin 325 mg one-time followed by 81 mg daily, continue with home dose of Plavix. Check A1c, lipid panel. Check echocardiogram. N.p.o. after midnight, Lexiscan stress test in AM. Full dose Lovenox 1 mg/kg body weight every 12 hourly. History of DVT and PE: Currently D-dimer negative. Changing from Eliquis to full dose Lovenox. Hypertension: Goal blood pressure less than 140/90 mmHg. Continue with home dose of losartan. Will start on beta-ronaldo depending on heart rate going forward. Continue other chronic home medications including Xanax as needed, gabapentin 3 times daily. Full code Cardiac diet, n.p.o. after midnight Full dose Lovenox will be sufficient for DVT prophylaxis Protonix for PUD prophylaxis Attestations 2 Medical Necessity Statement*: Admission for more than 2 midnights for management of hypoxic respiratory failure in setting of COPD exacerbation, high concerns for pneumonia, non-ST elevation DC in a patient with history of CAD Diagnoses Acute hypoxemic respiratory failure J96.01 COPD exacerbation J44.1 Pulmonary embolism, bilateral I26.99 Diastolic CHF I50.30 NSTEMI (non-ST elevated myocardial infarction) I21.4 Coronary artery disease involving osage coronary artery of [place] heart without angina pectoris I25.10 Associated angina: without angina Coronary Disease-Associated Artery/Lesion type: [place] artery [place] vs. transplanted heart: [place] heart Aortic valve stenosis I35.0 Primary hypertension I10 Hypertension type: primary hypertension GERD without esophagitis K21.9
[2024-03-04 17:58] LABS: SARS Covid-2 Antigen negative (Negative)
[2024-03-04 18:08] LABS: Influenza A by IFA Negative (Negative); Influenza B by IFA Negative (Negative)
[2024-03-04 18:12] LABS: Procalcitonin 0.12 ng/mL (0-0.5)
--- NOTE | 2024-03-04 18:25 | ECG_ITS ---
[employer] Test Date: 2024-03-04 Pat Name: Jono Nixon (Randy)partment: Room: ED Gender: Male Clinical Analyst: : 1955 Requested By: Kennedy Morgan Order Number: [id number] Reading MD: BRAYDEN DE LA O Measurements Intervals [place] Rate: 109 P: 73 IN: 151 QRS: 52 QRSD: 90 T: -28 QT: 299 QTc: 404 Interpretive Statements SINUS TACHYCARDIA PROBABLE INFERIOR MYOCARDIAL INFARCTION , OF INDETERMINATE AGE [35 ms Q WAVE IN II/aVF] Compared to ECG 03/04/2024 16:01:56 Myocardial infarct finding now present Sinus rhythm no longer present Electronically Signed On 03-12-2024 23:32:21 MOHS SURGEON by BRAYDEN DE LA O [email or web address]
[2024-03-04] MEDS: aspirin 325 mg Tablet PO (18:40)
[2024-03-04] MEDS: methylPREDNISolone sod succ 125 mg/2 mL INJ IVP (18:40)
--- NOTE | 2024-03-04 18:45 | PC.NURSE ---
Pt O2 sat maintaing 91-92% on room air, pt voices that he feels sob and would like oxygen on, placed pt on 2L NC per request, O2 saturation improved to 96% on 2L NC
[2024-03-04 19:32] LABS: Troponin 5 2HR 90.31 ng/L (0-15); Troponin 5 2HR Delta 6.31 ABS# (0-10)
[2024-03-04] MEDS: azithromycin 250 mg Tablet 500 MG PO (20:01)
[2024-03-04] MEDS: cefTRIAXone 1,000 mg SDV 1000 MG IVP (20:02)
[2024-03-04] MEDS: HYDROcodone-acetaminophen 10-325 mg Tablet 1 TAB PO (20:44)
[2024-03-04] MEDS: FUROsemide 10 mg/mL SDV 4mL 40 MG IVP (20:44)
[2024-03-04 21:27] LABS: Bilirubin Urine Negative (Negative); Blood Urine Trace (Negative); Glucose Urine UA Trace (Normal); Ketones Urine Negative (Negative); Leukocyte Esterase Urine Negative (Negative); Nitrate Urine Negative (Negative); Protein Urine 2+ (Negative); Urine Appearance Clear (CLEAR); Urine Color Yellow (Yellow)
[2024-03-04 21:32] LABS: Add Urine Microscopic? YES; Bacteria Urine None Seen /hpf; Hyaline Casts Urine 2.46 /lpf; Squamous Epithelial Cell Urine 0-5 /hpf (0-5); WBC Urine 0-5 /hpf (0-5)
[2024-03-04 21:34] LABS: Amphetamines Screen Urine Negative (Negative); Barbiturates Screen Urine Negative (Negative); Benzodiazepines Screen Urine Negative (Negative); Cocaine Screen Urine Negative (Negative); Opiate Screen Urine Positive (Negative); PCP Screen Urine Negative (Negative); THC Screen Urine Negative (Negative)
[2024-03-04] MEDS: gabapentin 400 mg Capsule PO (21:40)
[2024-03-04] MEDS: ALPRAZolam 0.5 mg Tablet 1 MG PO (21:40)
[2024-03-04 22:21] LABS: Iron 26 ug/dL (59-158); Percent Saturation 11.6 % (20-50); Thyroid Stimulating Hormone 1.85 uIU/mL (0.27-4.20); Total Iron Binding Capacity 224 mcg/dl; Unsaturated Iron Binding 198 ug/dL (112-347); Vitamin B12 575 pg/mL (232-1245)
--- NOTE | 2024-03-04 22:21 | ECG_ITS ---
[facility] Test Date: 2024-03-04 Pat Name: Jono Nixon (Randy)partment: Room: 112 Gender: Male Wire Setter: : 1955 Requested By: Kennedy Morgan Order Number: [id number] Reading MD: BRAYDEN DE LA O Measurements Intervals [place] Rate: 83 P: 55 CT: 150 QRS: 33 QRSD: 104 T: -14 QT: 355 QTc: 419 Interpretive Statements SINUS RHYTHM LOW QRS VOLTAGE IN PRECORDIAL LEADS [QRS DEFLECTION < 1.0 mV IN CHEST LEADS] Compared to ECG 03/04/2024 18:25:14 Low QRS voltage now present Sinus tachycardia no longer present Myocardial infarct finding no longer present Electronically Signed On 03-12-2024 23:31:55 SHANK BURNISHER by BRAYDEN DE LA O [id number]
[2024-03-04 23:13] LABS: Troponin 5 6HR 88.74 ng/L (0-15); Troponin 5 6HR Delta 4.74 ng/L (0-12)
[2024-03-05] VITALS (11 sets, daily range): BP systolic 90–106; BP diastolic 63–76; PULSE 70–92; RESP 16–20; TEMP 36.6–36.9; O2SAT 91–94
[2024-03-05 02:21] LABS: Adenovirus Not Detected (NOT DETECT); Chlamydia Pneumoniae Not Detected (NOT DETECT); Coronavirus 229E,HKU1,NL63,OC4 Not Detected (NOT DETECT); Human Metapneumovirus Not Detected (NOT DETECT); Human Rhinovirus/Enterovirus Not Detected (NOT DETECT); Influenza A Detected (NOT DETECT); Influenza A H1 Not Detected (NOT DETECT); Influenza A H1-2009 Not Detected (NOT DETECT); Influenza A H3 Detected (NOT DETECT); Influenza B Not Detected (NOT DETECT); Mycoplasma Pneumoniae Not Detected (NOT DETECT); Parainfluenza Virus Type 1 Not Detected (NOT DETECT); Parainfluenza Virus Type 2 Not Detected (NOT DETECT); Parainfluenza Virus Type 3 Not Detected (NOT DETECT); Parainfluenza Virus Type 4 Not Detected (NOT DETECT); Respiratory Syncytial Virus A Not Detected (NOT DETECT); Respiratory Syncytial Virus B Not Detected (NOT DETECT); SARS-COV-2 Not Detected (NOT DETECT)
[2024-03-05] MEDS: HYDROcodone-acetaminophen 10-325 mg Tablet 1 TAB PO ×4 (03:12→20:07)
[2024-03-05 03:30] LABS: Hematocrit 52.9 % (37-53); Lymphocytes # 0.9 10^3/uL (0.8-4.8); Lymphocytes % 27.5 %; Mean Corpuscular HGB Conc 30.8 g/dL (30-55); Mean Corpuscular Hemoglobin 26.3 pg (27-33); Mean Corpuscular Volume 85.3 fl (82-101); Mean Platelet Volume 11.9 fL (7.4-10.4); Monocytes # 0.2 10^3/uL (0.2-0.9); Monocytes % 5.5 %; Neutrophils # 2.18 10^3/uL (1.8-7.7); Neutrophils % 66.7 %; Nucleated Red Blood Cells % 0 %; Platelet Count 120 10^3/cmm (157-399); Red Cell Distribution Width 13.8 % (12.1-15.1); White Blood Count 3.27 10^3/uL (3.29-11.43)
[2024-03-05 04:17] LABS: Estmated Average Glucose 166; Hemoglobin A1C 7.4 % (4.0-6.0)
[2024-03-05 04:19] LABS: Alanine Aminotransferase 28 U/L (0-41); Albumin Level 3.8 g/dL (3.5-5.2); Alkaline Phosphatase 60 U/L (40-130); Aspartate Amino Transferase 28 U/L (0-40); Blood Urea Nitrogen 20 mg/dL (8-23); Calcium 10.1 mg/dL (8.5-10.5); Carbon Dioxide 23 mmol/L (22-29); Chloride 97 mmol/L (98-107); Chol HDL Ratio 5.19 mg/dL (1.0-5.00); Cholesterol 161 mg/dL (0-200); Globulin 3.5 g/dL (1.3-4.6); Glomerular Filtration Rate 74.3 mL/min (90-130); Glucose 353 mg/dL (65-115); HDL Cholesterol 31 mg/dL (60-100); LDL Cholesterol Calculated 94 mg/dL (50-129); LDL HDL Ratio 3.03 RATIO (0.00-3.22); Osmolality Calculated 297 mOsm/kg (285-295); Sodium 135 mmol/L (136-145); Total Bilirubin 0.3 mg/dL (0.15-1.2); Total Protein 7.3 g/dL (6.6-8.7); Triglycerides 180 mg/dL (0-150)
[2024-03-05 04:23] LABS: Procalcitonin 0.14 ng/mL (0-0.5)
[2024-03-05 04:31] LABS: Anion Gap 19.6 (5-19); Potassium 4.6 mmol/L (3.5-5.1)
[2024-03-05 04:38] LABS: Folate Level 10.6 ng/mL (4.5-32.2)
[2024-03-05] MEDS: methylPREDNISolone sod succ 40 mg/mL INJ IVP ×3 (05:13→20:08)
[2024-03-05] MEDS: enoxaparin 100 mg/mL Syringe 110 MG SUBCUT (05:14)
--- NOTE | 2024-03-05 05:28 | PC.NURSE ---
attempted to educate patient on no caffeine before stress test, patient stated he would refuse stress test, stating they can do a cath if they want, but I will not have a stress test , this morning informed radiology that patient had refused stress test
[2024-03-05] MEDS: azithromycin 250 mg Tablet 500 MG PO (09:01)
[2024-03-05] MEDS: clopidogrel 75 mg Tablet PO (09:01)
[2024-03-05] MEDS: gabapentin 400 mg Capsule PO ×3 (09:01→20:07)
[2024-03-05] MEDS: losartan 50 mg Tablet 25 MG PO (09:01)
[2024-03-05] MEDS: aspirin 81 mg EC Tablet PO (09:01)
[2024-03-05] MEDS: pantoprazole DR 40 mg Tablet PO (09:01)
[2024-03-05] MEDS: potassium chloride ER 20 mEq Tablet PO ×2 (11:29→17:50)
[2024-03-05] MEDS: ALPRAZolam 0.5 mg Tablet 1 MG PO ×2 (13:28→20:07)
--- NOTE | 2024-03-05 17:43 | USCV_ITS ---
Joon Pierce (Lonnie) Age: 68 Gender: M : 1955 Exam Date: 03/05/2024 09:56 Ordering Phys: Benny Godinez MD Technologist: Exam Location: [facility] [place] Indication: cva BP: 132 / 75 HR: 75 Rhythm: Sinus Technical Quality: Adequate MEASUREMENTS (Male / Female) Normal Values 2D ECHO LV Diastolic Diameter PLAX 4.5 cm 4.2 - 5.9 / 3.9 - 5.3 cm IVS Diastolic Thickness 1.3 cm 0.6 - 1.0 / 0.6 - 0.9 cm IVS Systolic Thickness 1.6 cm LVPW Diastolic Thickness 1.2 cm 0.6 - 1.0 / 0.6 - 0.9 cm LVPW Systolic Thickness 1.8 cm LVOT Diameter 2.1 cm LV Ejection Fraction 2D Teich 64.3 % LV Ejection Fraction MOD 4C 62.8 % LV Ejection Fraction MOD 2C 66.0 % LV Ejection Fraction 2C AL 64.8 % LA Diameter 4.0 cm RA Systolic Volume 4C AL 66.4 ml RA Systolic Volume 4C MOD 61.3 ml Aorta at Sinotubular Diameter 3.3 cm M-MODE LA Ao Ratio MM 1.1 AV Cusp Separation MM 1.1 cm DOPPLER AV Peak Velocity 155.0 cm/s LVOT Peak Velocity 87.0 cm/s AV Area Cont Eq vti 1.8 cm squared AV Area Cont Eq pk 1.9 cm squared MV Peak Velocity 101.0 cm/s MV Area PHT 3.4 cm squared Mitral E to A Ratio 0.7 TR Peak Velocity 152.0 cm/s TR Peak Gradient 9.2 mmHg TV Peak E Velocity 91.0 cm/s PV Peak Velocity 114.0 cm/s FINDINGS Left Ventricle Normal left ventricular size and systolic function, EF 65% .no regional wall motion abnormalities. Grade I/IV diastolic dysfunction (abnormal relaxation filling pattern), normal to mildly elevated filling pressures. Right Ventricle Normal right ventricular size and systolic function. Right Atrium Not visualized well Left Atrium No gross abnormalities noted Mitral Valve Mild-moderate mitral valve regurgitation. Aortic Valve Thickened aortic valve. Mild aortic valve calcification. Tricuspid Valve No gross abnormalities noted Pulmonic Valve Structurally normal pulmonic valve. Pericardium No pericardial effusion. Aorta Normal aortic annulus size. IVC Inferior vena cava not visualized. CONCLUSIONS Normal left ventricular size and systolic function, EF 65% .no regional wall motion abnormalities. Grade I/IV diastolic dysfunction (abnormal relaxation filling pattern), normal to mildly elevated filling pressures. Mild-moderate mitral valve regurgitation. Thickened aortic valve. Mild aortic valve calcification. There is no pericardial effusion. Technically somewhat limited study because of poor ultrasonic windows Dr Fortino Lange MD FACC (Electronically Signed) Final Date: 05 March 2024 21:08 S
[2024-03-05] MEDS: oseltamivir phosphate 75 mg Capsule PO (17:49)
[2024-03-05] MEDS: cefTRIAXone 1,000 mg SDV 1000 MG IVP (17:50)
--- NOTE | 2024-03-05 18:19 | P.PN_ITS ---
Subjective 2 Subjective: Patient still reports cough he reports that he feels better wearing oxygen he continues to have body aches and overall not feeling well Vitals/I&O/Wt Last Vital Signs Temp 98.4 F 03/05/24 16:00 Pulse 84 03/05/24 16:00 Resp 18 03/05/24 16:00 BP 95/74 03/05/24 16:00 Pulse Ox 93 03/05/24 16:00 O2 Del Method Nasal Cannula 03/05/24 16:00 O2 Flow Rate 2 03/05/24 07:25 03/05/24 03/05/24 03/05/24 06:59 14:59 22:59 Intake Total 450 / 450 Output Total 1000 / 1000 425 / 425 425 / 850 Balance -550 / -550 -425 / -425 -425 / -850 Weight last 48 hrs Weight 105.687 kg Weight 105.687 kg Weight 111.13 kg Physical Exam 2 Narrative: Patient in mild respiratory distress just lying in bed. He is using accessory muscles to breathe. Heart is regular S1-S2 distant heart sounds no rub murmur Lungs diffusely diminished breath sounds with scattered rhonchi. Abdomen soft nontender nondistended positive bowel sounds Extremities no clubbing cyanosis or edema Data 03/05/24 02:16 03/05/24 02:16 Micro: Microbiology 03/05/24 00:00 Gram Stain - Final Sputum - Expectorated Sputum 03/04/24 20:40 Bacterial Antigens - Final Urine Kidney 03/04/24 18:57 Blood Culture - Preliminary Blood SPECIMEN COLLECTED 03/04/24 18:42 Blood Culture - Preliminary Blood SPECIMEN COLLECTED CT Chest: Radiologist's impression: IMPRESSION: 1. Scattered reticular and ground-glass opacities throughout the lungs likely represent multifocal pneumonia in the acute setting. Recommend imaging follow-up after clinical treatment to evaluate for resolution. 2. Similar xeuu-au-rujekews emphysematous changes. 3. Dilated ascending thoracic aorta measures 4.1 cm. 4. Atherosclerotic calcifications along the aortic valve plane can be seen with aortic stenosis. 5. Enlarged subcarinal lymph node is favored to be reactive. Attention on follow-up recommended A&P Assessment and plan (1) Influenza A: Patient is prescribed Tamiflu although has had symptoms for up to 10 days. I doubt this treatment is of benefit however since it was started I we will continue (2) Diastolic CHF: Currently euvolemic and compensated (3) Aortic valve stenosis: (4) Cigarette smoker within last 12 months: Patient reports he stopped smoking when the symptoms sudden due to difficulty breathing (5) COPD (chronic obstructive pulmonary disease): (6) Coronary artery disease: Patient's troponin was 80 with no delta change therefore non-STEMI was ruled out Qualifiers: Associated angina: without angina Coronary Disease-Associated Artery/Lesion type: [place] artery [place] vs. transplanted heart: [place] tribe heart Qualified Code(s): I25.10 - Atherosclerotic heart disease of [place] coronary artery without angina pectoris Plan Patient will continue to be observation status I am hopeful to discharge patient tomorrow he will be evaluated for oxygen need at home and we can prescribe nebs at home with home health care to follow if needed Attestations 2 Medical Necessity Statement*: Patient is in observation status this statement is not necessary therefore Coding Level of Care Code Acute Code for [facility] Fwd Diagnoses Influenza A J10.1 Diastolic CHF I50.30 Aortic valve stenosis I35.0 Cigarette smoker within last 12 months Z87.891 COPD (chronic obstructive pulmonary disease) J44.9 Coronary artery disease involving [place] coronary artery of [place] heart without angina pectoris I25.10 Associated angina: without angina Coronary Disease-Associated Artery/Lesion type: [place] artery [place] vs. transplanted heart: [place] tribe heart
[2024-03-06] VITALS: BP 104/70; PULSE 81; RESP 18; TEMP 36.5; O2SAT 91
[2024-03-06] MEDS: HYDROcodone-acetaminophen 10-325 mg Tablet 1 TAB PO ×2 (02:18→08:16)
[2024-03-06 04:00] VITALS: BP 109/69; PULSE 82; RESP 18; TEMP 36.4; O2SAT 92
[2024-03-06] MEDS: methylPREDNISolone sod succ 40 mg/mL INJ IVP ×2 (04:42→12:19)
[2024-03-06 06:00] VITALS: PULSE 80
[2024-03-06 08:00] VITALS: BP 107/74; PULSE 82; RESP 18; RESP 19; TEMP 36.8; O2SAT 95; O2SAT 96
[2024-03-06 08:16] VITALS: BP 107/74
[2024-03-06] MEDS: pantoprazole DR 40 mg Tablet PO (08:16)
[2024-03-06] MEDS: oseltamivir phosphate 75 mg Capsule PO (08:16)
[2024-03-06] MEDS: losartan 50 mg Tablet 25 MG PO (08:16)
[2024-03-06] MEDS: clopidogrel 75 mg Tablet PO (08:16)
[2024-03-06] MEDS: gabapentin 400 mg Capsule PO (08:16)
[2024-03-06] MEDS: aspirin 81 mg EC Tablet PO (08:17)
[2024-03-06] MEDS: azithromycin 250 mg Tablet 500 MG PO (08:17)
[2024-03-06] MEDS: ALPRAZolam 0.5 mg Tablet 1 MG PO (08:29)
[2024-03-06 11:24] VITALS: O2SAT 88; O2SAT 92
--- NOTE | 2024-03-06 11:26 | PC.NURSE ---
Patient ambulated in the hallway 25 feet. Vital remained stable. He did require O2 to maintain 92-93%.
--- NOTE | 2024-05-07 11:08 | P.DS_ITS ---
Discharge Providers Date of Admission: 03/04/24 17:40 Date of Discharge: 03/06/24 Attending Provider at Admission: Benny Godinez MD Attending Provider at Discharge: Daren Camilo DO Diagnoses at Discharge Discharge Diagnosis (1) Influenza A: Status: Resolved (2) Diastolic CHF: Status: Inactive Qualifiers: Heart failure chronicity: chronic Qualified Code(s): I50.32 - Chronic diastolic (congestive) heart failure (3) Aortic valve stenosis: Status: Inactive Qualifiers: Cardiac valve disease etiology: etiology unspecified Qualified Code(s): I35.0 - Nonrheumatic aortic (valve) stenosis (4) Cigarette smoker within last 12 months: Status: Acute (5) COPD (chronic obstructive pulmonary disease): Status: Chronic Qualifiers: COPD type: unspecified COPD Qualified Code(s): J44.9 - Chronic obstructive pulmonary disease, unspecified (6) Coronary artery disease: Status: Chronic Qualifiers: Associated angina: without angina Coronary Disease-Associated Artery/Lesion type: [place] artery [place] vs. transplanted heart: [place] heart Qualified Code(s): I25.10 - Atherosclerotic heart disease of [place] coronary ar [place] without angina pectoris Permanent problem details: has 11 stents Reason for Visit Reason for Visit: sob Brief History: See H&P for details Hospital Course Hospital Course Patient was diagnosed with Influenza A. He was hypoxic and placed on 2 L oxygen. He was given supportive care. He was started on Tamiflu despite having symptoms for approx. 10 days. In 2 days he improved significantly and it was mutually decided to discharge to home finishing Tamiflu. He was in agreement. Physical Exam Narrative: H: reg with murmur L: less rhonchi, poor expiration A: soft nt/nd normoactive bowel sounds E: no edema Discharge Data Studies Completed and Pending Completed Studies During Hospitalization Category Date Time Status CT chest wo con [id number] Urgent Cat Scan 03/04/24 17:43 Completed XR chest 1V portable [id number] Stat Exams 03/04/24 15:52 Completed CV. echo complete* [id number] Routine Ultrasound 03/05/24 17:43 Completed Pending at discharge Category Date Time Status Sestamibi Stress Test Request Routine Exams 03/04/24 17:43 Stop Req Radiology Impressions Chest X-Ray 03/04/24 15:52 IMPRESSION: No acute cardiopulmonary findings. Chest CT 03/04/24 17:43 IMPRESSION: 1. Scattered reticular and ground-glass opacities throughout the lungs likely represent multifocal pneumonia in the acute setting. Recommend imaging follow-up after clinical treatment to evaluate for resolution. 2. Similar [id number] emphysematous changes. 3. Dilated ascending thoracic aorta measures 4.1 cm. 4. Atherosclerotic calcifications along the aortic valve plane can be seen with aortic stenosis. 5. Enlarged subcarinal lymph node is favored to be reactive. Attention on follow-up recommended. COMMENTS: The presence of pulmonary emphysema on CT is an independent risk factor for lung cancer. In the absence of a history or active diagnosis of lung cancer, it is recommended that this patient with emphysema be evaluated for enrollment in a low dose CT lung cancer screening program. Laboratory Results WBC 3.27 10^3/uL (3.29-11.43) L 03/05/24 02:16 RBC 6.20 10^6/uL (3.85-5.65) H 03/05/24 02:16 Hgb 16.30 g/dL (11.27-16.99) 03/05/24 02:16 Hct 52.9 % (37-53) 03/05/24 02:16 MCV 85.3 fl (82-101) 03/05/24 02:16 MCH 26.3 pg (27-33) L 03/05/24 02:16 MCHC 30.8 g/dL (30-55) 03/05/24 02:16 RDW 13.8 % (12.1-15.1) 03/05/24 02:16 Plt Count 120 10^3/cmm (157-399) L 03/05/24 02:16 MPV 11.9 fL (7.4-10.4) H 03/05/24 02:16 Neut % (Auto) 66.7 % 03/05/24 02:16 Lymph % (Auto) 27.5 % 03/05/24 02:16 [place] % (Auto) 5.5 % 03/05/24 02:16 Eos % (Auto) 0.0 % 03/05/24 02:16 Baso % (Auto) 0.0 % 03/05/24 02:16 Neut # (Auto) 2.18 10^3/uL (1.8-7.7) 03/05/24 02:16 Lymph # (Auto) 0.9 10^3/uL (0.8-4.8) 03/05/24 02:16 [place] # (Auto) 0.2 10^3/uL (0.2-0.9) 03/05/24 02:16 Eos # (Auto) 0.0 10^3/uL (0.0-0.8) 03/05/24 02:16 Baso # (Auto) 0.0 10^3/uL (0.0-0.1) 03/05/24 02:16 Nucleated RBC % (auto) 0 % 03/05/24 02:16 Nucleated RBCs # 0.0 /100WBC 03/05/24 02:16 D-Dimer 0.51 ug/mLFEU (0-0.59) 03/04/24 16:26 Sodium 135 mmol/L (136-145) L 03/05/24 02:16 Potassium 4.6 mmol/L (3.5-5.1) 03/05/24 02:16 Chloride 97 mmol/L (98-107) L 03/05/24 02:16 Carbon Dioxide 23 mmol/L (22-29) 03/05/24 02:16 Anion Gap 19.6 (5-19) H 03/05/24 02:16 BUN 20 mg/dL (8-23) 03/05/24 02:16 Creatinine 1.0 mg/dL (0.7-1.2) 03/05/24 02:16 GFR Calculation 74.3 mL/min (90-130) L 03/05/24 02:16 Glucose 353 mg/dL (65-115) H 03/05/24 02:16 Estimat Average Glucose 166 03/05/24 02:16 Hemoglobin A1c 7.4 % (4.0-6.0) H 03/05/24 02:16 Calculated Osmolality 297 mOsm/kg (285-295) H 03/05/24 02:16 Calcium 10.1 mg/dL (8.5-10.5) 03/05/24 02:16 Phosphorus 4.0 mg/dL (2.5-4.5) 03/05/24 02:16 Magnesium 2.0 mg/dL (1.7-2.3) 03/05/24 02:16 Iron 26 ug/dL (59-158) L 03/04/24 16:26 TIBC 224 mcg/dl 03/04/24 16:26 % Saturation 11.6 % (20-50) L 03/04/24 16:26 Unsat Iron Binding 198 ug/dL (112-347) 03/04/24 16:26 Total Bilirubin 0.3 mg/dL (0.15-1.2) 03/05/24 02:16 AST 28 U/L (0-40) 03/05/24 02:16 ALT 28 U/L (0-41) 03/05/24 02:16 Alkaline Phosphatase 60 U/L (40-130) 03/05/24 02:16 Troponin T Baseline 84 ng/L (0-15) H 03/04/24 16:26 Troponin T 120 Minute 90.31 ng/L (0-15) H 03/04/24 18:57 Delta Troponin T 6.31 ABS# (0-10) 03/04/24 18:57 Troponin T Hi Sens 6Hr 88.74 ng/L (0-15) H 03/04/24 22:30 Troponin T Hi Sens 6Hr Delta 4.74 ng/L (0-12) 03/04/24 22:30 NT-Pro-B Natriuret Pep 882 pg/mL (0-125) H 03/04/24 16:26 Total Protein 7.3 g/dL (6.6-8.7) 03/05/24 02:16 Albumin 3.8 g/dL (3.5-5.2) 03/05/24 02:16 Globulin 3.5 g/dL (1.3-4.6) 03/05/24 02:16 Triglycerides 180 mg/dL (0-150) H 03/05/24 02:16 Cholesterol 161 mg/dL (0-200) 03/05/24 02:16 LDL Cholesterol, Calc 94 mg/dL (50-129) 03/05/24 02:16 HDL Cholesterol 31 mg/dL (60-100) L 03/05/24 02:16 LDL/HDL Ratio 3.03 RATIO (0.00-3.22) 03/05/24 02:16 Cholesterol/HDL Ratio 5.19 mg/dL (1.0-5.00) H 03/05/24 02:16 Vitamin B12 575 pg/mL (232-1245) 03/04/24 16:26 Folate 10.6 ng/mL (4.5-32.2) 03/05/24 02:16 Procalcitonin 0.14 ng/mL (0-0.5) 03/05/24 02:16 TSH 1.85 uIU/mL (0.27-4.20) 03/04/24 16:26 Urine Color Yellow (Yellow) 03/04/24 20:40 Urine Appearance Clear (CLEAR) 03/04/24 20:40 Urine pH 6.0 (5-7) 03/04/24 20:40 Ur Specific [place] 1.020 (1.005-1.030) 03/04/24 20:40 Urine Protein 2+ (Negative) A 03/04/24 20:40 Urine Glucose (UA) Trace (Normal) H 03/04/24 20:40 Urine Ketones Negative (Negative) 03/04/24 20:40 Urine Blood Trace (Negative) A 03/04/24 20:40 Urine Nitrate Negative (Negative) 03/04/24 20:40 Urine Bilirubin Negative (Negative) 03/04/24 20:40 Urine Urobilinogen 1.0 mg/dL (Negative) 03/04/24 20:40 Ur Leukocyte Esterase Negative (Negative) 03/04/24 20:40 Urine RBC 3-5 /hpf (0-2) 03/04/24 20:40 Urine WBC 0-5 /hpf (0-5) 03/04/24 20:40 Ur Squamous Epith Cells 0-5 /hpf (0-5) 03/04/24 20:40 Amorphous Sediment Not Reportable 03/04/24 20:40 Urine Bacteria None seen /hpf (NONE) 03/04/24 20:40 Hyaline Casts 2.46 /lpf 03/04/24 20:40 Urine Opiates Screen Positive ng/mL (Negative) H 03/04/24 20:40 Ur Barbiturates Screen Negative ng/mL (Negative) 03/04/24 20:40 Ur Phencyclidine Scrn Negative ng/mL (Negative) 03/04/24 20:40 Ur Amphetamines Screen Negative ng/mL (Negative) 03/04/24 20:40 U Benzodiazepines Scrn Negative ng/mL (Negative) 03/04/24 20:40 Urine Cocaine Screen Negative ng/mL (Negative) 03/04/24 20:40 U Marijuana (THC) Screen Negative ng/mL (Negative) 03/04/24 20:40 Adenovirus (PCR) Not detected (NOT DETECT) 03/05/24 00:00 C. pneumoniae DNA (PCR) Not detected (NOT DETECT) 03/05/24 00:00 Coronavirus 229E (PCR) Not detected (NOT DETECT) 03/05/24 00:00 Human Metapneumovir PCR Not detected (NOT DETECT) 03/05/24 00:00 Influenza A (H1) PCR Not detected (NOT DETECT) 03/05/24 00:00 Influ A (H1/09) PCR Not detected (NOT DETECT) 03/05/24 00:00 Influenza A (H3) PCR Detected (NOT DETECT) A 03/05/24 00:00 Influenza Type A Ag Negative (Negative) 03/04/24 17:20 Influenza Type A (PCR) Detected (NOT DETECT) A 03/05/24 00:00 Influenza Type B Ag Negative (Negative) 03/04/24 17:20 Influenza Type B (PCR) Not detected (NOT DETECT) 03/05/24 00:00 M. pneumoniae (PCR) Not detected (NOT DETECT) 03/05/24 00:00 Parainfluenza 1 (PCR) Not detected (NOT DETECT) 03/05/24 00:00 Parainfluenza 2 (PCR) Not detected (NOT DETECT) 03/05/24 00:00 Parainfluenza 3 (PCR) Not detected (NOT DETECT) 03/05/24 00:00 Parainfluenza 4 (PCR) Not detected (NOT DETECT) 03/05/24 00:00 RSV Type A (PCR) Not detected (NOT DETECT) 03/05/24 00:00 RSV Type B (PCR) Not detected (NOT DETECT) 03/05/24 00:00 Entero/Rhino (PCR) Not detected (NOT DETECT) 03/05/24 00:00 SARS-CoV-2 (PCR) Not detected (NOT DETECT) 03/05/24 00:00 SARS-CoV-2 Ag (Rapid) negative (Negative) 03/04/24 17:20 Vitals Last Vital Signs Temp 98.2 F 03/06/24 08:00 Pulse 82 03/06/24 08:00 Resp 18 03/06/24 08:00 BP 107/74 03/06/24 08:16 Pulse Ox 88 L 03/06/24 11:24 O2 Del Method Nasal Cannula 03/06/24 08:00 O2 Flow Rate 2 03/06/24 11:24 Discharge Plan Discharge Patient Disposition: Home Condition: Stable Prescriptions: Continued albuterol sulfate 2.5 mg /3 mL (0.083 %) solution for nebulization 2.5 mg inhalation Q4H PRN (Reason: shortness of breath or wheezing) Qty: 75 6RF (DME) Nebulizer machine and supplies See Rx Instructions .ROUTE .MEDSUPPLY Qty: 1 11RF Rx Instructions: As directed clopidogrel [Plavix] 75 mg tablet 75 mg PO DAILY@09 Qty: 90 3RF albuterol sulfate 90 mcg/actuation HFA aerosol inhaler See Rx Instructions .ROUTE .COMPLEX Qty: 8.5 5RF Dose Instruction: INHALE TWO PUFFS EVERY 4 HOURS NEEDED FOR help with breathing Rx Instructions: INHALE TWO PUFFS EVERY 4 HOURS NEEDED FOR help with breathing No Action Capvaxive 0.5 mL syringe 0.5 ml IM ONCE Qty: 0.5 0RF voriconazole 200 mg tablet 200 mg PO .bid @0600, 1800 90 Days Qty: 180 0RF Rx Instructions: administer on empty stomach, at least 1 hour before or after meal(s) cinacalcet 30 mg tablet 30 mg PO BID 30 Days Qty: 60 0RF amlodipine 5 mg tablet 5 mg PO DAILY gabapentin 400 mg capsule 200 mg PO TID Qty: 90 1RF metoprolol tartrate 25 mg tablet 12.5 mg PO BID 30 Days Qty: 30 0RF Rx Instructions: TAKE 1 TABLET BY MOUTH TWICE DAILY Eliquis 5 mg tablet 2.5 mg PO BID Qty: 60 11RF hydrocodone-acetaminophen 10-325 mg tablet 0.5 tab PO Q6H 5 Days Qty: 20 0RF insulin aspart U-100 [Novolog FlexPen U-100 Insulin] 100 unit/mL (3 mL) insulin pen See Rx Instructions .ROUTE .COMPLEX MDD 20 Qty: 15 0RF Rx Instructions: Inject, subcut, 3 times daily, after meals, based on sliding scale provided (DME) glucometer testing kit See Rx Instructions .Route .MEDSUPPLY Qty: 1 0RF Rx Instructions: Glucometer testing kit, check bs tid Lancets #100 Strips #100 Discharge Orders: Discharge Order (Routine); Ordered 03/06/24 Ordered By: Daren Camilo Other Ambulatory Orders: DME: Oxygen (Order) Location: None Selected Ordered By: Daren Camilo [place]: [facility] [place] Keshav Díaz MD [Physician] - 4-7 days (Dr. Díaz's office is reviewing paperwork to establish proimary care. Clinic will contact you with appointment information. Thank you! ) Discharge Diet: Usual diet Discharge Activity: Increase activity as tolerated Patient Instructions: Coronary Artery Disease (DC), Aortic Stenosis (DC), Influenza (DC), CHF Stoplight, COPD Stoplight, Opioid Safety Activity Restrictions/Additional Instructions: use your nebulizer atleast 4 times a day. may use every 1 hr as needed for sob Discharge Attestations Time Spent in Discharge Care*: greater than 30 min Status at Discharge: Cognitive status at discharge: cognitively intact , Behavioral status at discharge: cooperative , Quality Metrics Clinical Quality Measures [ No reported AMI, CVA or VTE this stay] Coding Level of Care Code Acute Code for Chg Fwd Diagnoses Influenza A J10.1 Chronic diastolic congestive heart failure I50.32 Heart failure chronicity: chronic Aortic valve stenosis, etiology of cardiac valve disease unspecified I35.0 Cardiac valve disease etiology: etiology unspecified Cigarette smoker within last 12 months Z87.891 Chronic obstructive pulmonary disease, unspecified COPD type J44.9 COPD type: unspecified COPD Coronary artery disease involving [place] coronary artery of [place] heart without angina pectoris I25.10 Associated angina: without angina Coronary Disease-Associated Artery/Lesion type: [place] artery [place] vs. transplanted heart: [place] heart
== END 2024-03-06 14:55 | disposition home or self-care (01) ==
LOC: ER 18:00 → ER IP 18:02 → CSU 20:59
PROVIDERS: Emergency Medicine; Admitting Provider Student in an Organized Health Care Education/Training Program; Emergency Provider Emergency Medicine; Visit Provider Internal Medicine
DX: J10.1 Influenza due to other identified influenza virus with other respiratory manifestations (principal); J96.01 Acute respiratory failure with hypoxia; I11.0 Hypertensive heart disease with heart failure; I50.32 Chronic diastolic (congestive) heart failure; I35.0 Nonrheumatic aortic (valve) stenosis; I25.10 Atherosclerotic heart disease of native coronary artery without angina pectoris; E78.5 Hyperlipidemia, unspecified; J44.9 Chronic obstructive pulmonary disease, unspecified; R79.89 Other specified abnormal findings of blood chemistry; Z87.891 Personal history of nicotine dependence; Z79.01 Long term (current) use of anticoagulants; Z79.02 Long term (current) use of antithrombotics/antiplatelets; Z95.5 Presence of coronary angioplasty implant and graft; Z86.718 Personal history of other venous thrombosis and embolism; Z86.711 Personal history of pulmonary embolism
CPT/HCPCS: 36415; 71045; 71250; 80053; 80061; 80306; 81001; 82607; 82746; 83036; 83540; 83550; 83735; 83880; 84100; 84145; 84443; 84484; 85025; 85378; 86403; 87040; 87070; 87205; 87426; 87486; 87581; 87633; 87804; 93005; 93306; 94640; 94760; 96372; 96374; 96375; 96376; 99285; A9270; G0378; J0696; J1650; J1940; J2919; Q0144

== ENCOUNTER 2024-03-08 15:17 | Inpatient (IN) | payer MEDICARE, MEDICAID, SELFPAY ==
[2024-03-08] VITALS (7 sets, daily range): BP systolic 89–110; BP diastolic 64–82; PULSE 92–109; RESP 16–24; TEMP 36.6–37; O2SAT 90–94; BMI 35.4
--- NOTE | 2024-03-08 15:23 | ECG_ITS ---
[facility] Test Date: 2024-03-08 Pat Name: Jono Nixon (Randy)partment: Room: Gender: Male Or Assistant: : 1955 Requested By: Jordan Mckinney Order Number: [id number] Reading MD: BRAYDEN DE LA O Measurements Intervals [place] Rate: 114 P: 74 HI: 141 QRS: 24 QRSD: 91 T: 2 QT: 316 QTc: 436 Interpretive Statements SINUS TACHYCARDIA POSSIBLE LEFT ATRIAL ENLARGEMENT [-0.1mV P-WAVE IN V1/V2] INFERIOR MYOCARDIAL INFARCTION , PROBABLY OLD [40+ ms Q WAVE AND/OR ST/T ABNORMALITY IN II/aVF] Compared to ECG 03/04/2024 23:11:27 Myocardial infarct finding now present Sinus rhythm no longer present Electronically Signed On 03-09-2024 23:23:27 DECK AND HULL ASSEMBLER by BRAYDEN DE LA O [id number]
--- NOTE | 2024-03-08 15:23 | XRR_ITS ---
PROCEDURE INFORMATION: Exam: XR Chest Exam date and time: 03/08/2024 3:27 PM Age: 68 years old Clinical indication: Shortness of breath; Prior surgery; Surgery date: 6+ months; Surgery type: Gb; Additional info: Dyspnea TECHNIQUE: Imaging protocol: Radiologic exam of the chest. Views: 1 view. COMPARISON: CT chest wo con [id number] 03/04/2024 6:15 PM FINDINGS: Lungs: Ill-defined opacities in the periphery and lung bases. Diffuse coarsening of the lung parenchyma. Pleural spaces: Unremarkable. No pleural effusion. No pneumothorax. Heart/Mediastinum: Unremarkable. No cardiomegaly. Bones/joints: Unremarkable. XR/XR chest 1V [id number] IMPRESSION: Findings most suggestive of a nonspecific interstitial lung disease. COPD with a superimposed infectious or inflammatory process is an additional consideration.
--- NOTE | 2024-03-08 15:26 | W.ED.SOB ---
HPI - SOB/Dyspnea General: Chief Complaint: Shortness of Breath/Dyspnea Stated Complaint: SOB Time Seen by Provider: 03/08/24 15:20 History of Present Illness: HPI Narrative: Chief complaint is difficulty breathing. The patient states that he was just in the hospital for the same thing. He states he was here for COPD flareup. He states he has been short of breath ever since he got home. He is not on oxygen at home. According to EMS his oxygen level was 81% pulse ox when they arrived. Patient states he has been using his breathing treatments. He states he has not had a fever. No chest pain or chest discomfort. No new leg pain or swelling. He has had new cough for the last few days. No abdominal pain vomiting or diarrhea. No black or bloody stools. He has a history of blood clots he tells me but he is on his Eliquis and has not missed any doses. Patient states this is the same symptoms as his COPD exacerbations. It is worse with activity. He states he is taking his prednisone as prescribed. Related Data Home Medications Medication Instructions Recorded Confirmed amlodipine 5 mg tablet 5 mg PO DAILY 03/08/24 03/08/24 metoprolol tartrate 25 mg tablet 25 mg PO BID 03/08/24 03/08/24 Previous Rx's Medication Instructions Recorded hydrocodone 10 mg-acetaminophen 1 tab PO Q6H 5 days #20 tabs 07/29/22 325 mg tablet Plavix 75 mg tablet (clopidogrel) 75 mg PO DAILY@09 #90 tabs 04/29/23 albuterol sulfate 90 mcg/actuation See Rx Instructions .Route 05/31/23 aerosol inhaler .COMPLEX #8.5 grams apixaban 5 mg tablet (Eliquis) 5 mg PO BID #60 tabs 09/20/23 Nebulizer machine and supplies #1 ea 11/08/23 albuterol sulfate 2.5 mg/3 mL 2.5 mg (3 mL) inhalation Q4H PRN 11/08/23 (0.083 %) solution for nebulization shortness of breath or wheezing #75 mL gabapentin 400 mg capsule 400 mg PO TID #90 caps 12/20/23 alprazolam 1 mg tablet 1 mg PO TID PRN anxiety #90 tabs 01/31/24 losartan 25 mg tablet 25 mg PO DAILY #90 tabs 02/27/24 Allergies Allergy/AdvReac Type Severity Reaction Status Date / Time atorvastatin [From Lipitor] Allergy Severe Unknown Verified 03/01/24 16:55 lisinopril Allergy RASH Verified 03/01/24 16:55 Penicillins Allergy RASH Verified 03/01/24 16:55 [facility] ED PFSH: Medical History (Updated 03/08/24 @ 17:23 by Jordan Mckinney MD) Diastolic CHF Elevated troponin GERD without esophagitis Aortic valve stenosis Generalized anxiety disorder Pulmonary embolism, bilateral Abdominal aortic aneurysm 3.2 cm 09/28/21 DVT (deep venous thrombosis) hx of DVT History of heart attack COPD (chronic obstructive pulmonary disease) Chronic back pain Coronary artery disease has 11 stents Hyperlipidemia HTN (hypertension) Surgical History (Updated 03/07/24 @ 00:01 by ELEAZAR Mack) History of ankle surgery History of facial surgery History of thoracotomy S/P cholecystectomy S/P appendectomy Status post lung surgery Secondary to pneumothorax S/P knee surgery Previous back surgery C5 and C6 fusion S/P eye surgery S/P PTCA (percutaneous transluminal coronary angioplasty) Family History Other CAD (coronary artery disease) Hypertension Denies family history of Diabetes Stroke Social History Smoking and tobacco/nicotine status: never used tobacco/nicotine Quit status (tobacco/nicotine): has quit using Year quit tobacco: 2023 Alcohol intake: current Alcohol intake frequency: holidays/special occasions only Substance/Drug Use: former Lives independently: Yes Household members: none Marital status: Current occupational status: retired and disabled Do you think of yourself as: Straight/Heterosexual Current gender identity: Male Physical Exam Narrative: EXAM NARRATIVE: Patient is alert in moderate distress with bilateral expiratory wheezing and diminished breath sounds. Heart regular rhythm. Abdomen soft nontender. No calf tenderness. No pitting edema in his extremities. Patient has prolonged expiratory phase and accessory muscle use and retractions. He can speak in 2 words at a time. He cannot tolerate laying back even slightly and wants to sit up to breathe. Patient's respiratory status much improved after breathing treatments. He is now laying flat sleeping. He is still requiring 5 L nasal cannula and his pulse ox is 92%. No retractions or accessory muscle use currently. Patient chest x-ray shows interstitial infiltrates which could be atypical pneumonia versus pulmonary edema. Influenza A is positive. I did give the patient Levaquin 750 mg IV for possible pneumonia. proBNP was elevated but less than at thousand so less likely related to his acute dyspnea. Patient's white blood cell count was elevated. This would be consistent with infection although he is also on steroids. Patient's blood glucose was also elevated which also may be related to steroids. I consulted with Dr. Rasheed who accepts the patient for admission for continued management of acute respiratory failure, acute COPD exacerbation and influenza A and possible pneumonia. Course Vital Signs: Vital signs: Vital Signs Temperature 98.6 F 03/08/24 15:26 Pulse Rate 109 H 03/08/24 15:51 Respiratory Rate 20 H 03/08/24 15:40 Blood Pressure 105/72 03/08/24 15:26 Pulse Oximetry 91 03/08/24 15:40 Oxygen Delivery Me thod Nasal Cannula 03/08/24 15:40 Oxygen Flow Rate 5 03/08/24 15:40 MDM - SOB/Dyspnea Medical Decision Making Patient with a history of CHF, bilateral pulmonary emboli, aortic aneurysm, and COPD. Patient states this is the same as recent prior exacerbation with his COPD. He states he is compliant with his anticoagulation and has no chest pain or pleurisy or hemoptysis or new leg pain or swelling to suggest a PE. Patient states he had the symptoms before he came in the hospital and that is why he came to the hospital and as soon as he got home his symptoms started getting worse again. He states he has been taking prednisone but cannot tell me the dose. He denies any fever but has had some mild increased coughing. He denies any chest pain or chest discomfort to suggest acute PE or [place]. No pain into his back or chest suggestive of dissection or leaking AAA. Denies any black or bloody stools to suggest GI bleeding. His medication list indicates he is on Eliquis and Plavix.Differential would include cardiac dysrhythmia, pericardial effusion, PE, pleural effusion, CHF, pneumonia, acute bronchitis,[place], leaking aneurysm, among many others however as discussed above PE dissection like an aneurysm or [place] would be unlikely based on exam and history. Exam and history most suggestive of COPD exacerbation. I ordered chest x-ray, CBC CMP proBNP KG and Decadron 10 mg IV for his COPD exacerbation and DuoNeb and 5 mg of albuterol nebulized. Lab Data 03/08/24 15:47 03/08/24 15:47 Labs/Radiology: Radiology Impressions Chest X-Ray 03/08/24 15:23 IMPRESSION: Findings most suggestive of a nonspecific interstitial lung disease. COPD with a superimposed infectious or inflammatory process is an additional consideration. Laboratory Results WBC 14.63 10^3/uL (3.29-11.43) H 03/08/24 15:47 RBC 6.17 10^6/uL (3.85-5.65) H 03/08/24 15:47 Hgb 16.70 g/dL (11.27-16.99) 03/08/24 15:47 Hct 53.4 % (37-53) H 03/08/24 15:47 MCV 86.5 fl (82-101) 03/08/24 15:47 MCH 27.1 pg (27-33) 03/08/24 15:47 MCHC 31.3 g/dL (30-55) 03/08/24 15:47 RDW 13.4 % (12.1-15.1) 03/08/24 15:47 Plt Count 149 10^3/cmm (157-399) L 03/08/24 15:47 MPV 11.3 fL (7.4-10.4) H 03/08/24 15:47 Neut % (Auto) 83.5 % 03/08/24 15:47 Lymph % (Auto) 8.6 % 03/08/24 15:47 [place] % (Auto) 6.7 % 03/08/24 15:47 Eos % (Auto) 0.1 % 03/08/24 15:47 Baso % (Auto) 0.1 % 03/08/24 15:47 Neut # (Auto) 12.21 10^3/uL (1.8-7.7) H 03/08/24 15:47 Lymph # (Auto) 1.3 10^3/uL (0.8-4.8) 03/08/24 15:47 [place] # (Auto) 1.0 10^3/uL (0.2-0.9) H 03/08/24 15:47 Eos # (Auto) 0.0 10^3/uL (0.0-0.8) 03/08/24 15:47 Baso # (Auto) 0.0 10^3/uL (0.0-0.1) 03/08/24 15:47 Nucleated RBC % (auto) 0 % 03/08/24 15:47 Nucleated RBCs # 0.0 /100WBC 03/08/24 15:47 Sodium 134 mmol/L (136-145) L 03/08/24 15:47 Potassium 5.0 mmol/L (3.5-5.1) 03/08/24 15:47 Chloride 96 mmol/L (98-107) L 03/08/24 15:47 Carbon Dioxide 27 mmol/L (22-29) 03/08/24 15:47 Anion Gap 16.0 (5-19) 03/08/24 15:47 BUN 26 mg/dL (8-23) H 03/08/24 15:47 Creatinine 1.0 mg/dL (0.7-1.2) 03/08/24 15:47 GFR Calculation 74.3 mL/min (90-130) L 03/08/24 15:47 Glucose 289 mg/dL (65-115) H 03/08/24 15:47 Calculated Osmolality 293 mOsm/kg (285-295) 03/08/24 15:47 Calcium 11.9 mg/dL (8.5-10.5) H 03/08/24 15:47 Total Bilirubin 0.5 mg/dL (0.15-1.2) 03/08/24 15:47 AST 22 U/L (0-40) 03/08/24 15:47 ALT 27 U/L (0-41) 03/08/24 15:47 Alkaline Phosphatase 64 U/L (40-130) 03/08/24 15:47 NT-Pro-B Natriuret Pep 976 pg/mL (0-125) H 03/08/24 15:47 Total Protein 7.3 g/dL (6.6-8.7) 03/08/24 15:47 Albumin 3.4 g/dL (3.5-5.2) L 03/08/24 15:47 Globulin 3.9 g/dL (1.3-4.6) 03/08/24 15:47 Coronavirus (PCR) Negative (Negative) 03/08/24 16:04 Influenza A (PCR) Positive (Negative) 03/08/24 16:04 Influenza Type B (PCR) Negative (Negative) 03/08/24 16:04 RSV (PCR) Negative (Negative) 03/08/24 16:04 All radiology interpretation(s) finalized by discharge Discharge Plan Discharge Patient Disposition: Admitted As Inpatient Clinical Impression: Acute hypoxemic respiratory failure, Influenza A, Acute exacerbation of chronic obstructive airways disease Condition: Stable Coding Level of Care Code ED Duplicator Punch Set Up Operator for María Galvan
[2024-03-08] MEDS: ipratropium-albuterol 3 mL Neb INHALATION (15:38)
[2024-03-08] MEDS: albuterol 2.5 mg/3 mL Neb 5 MG INHALATION (15:38)
[2024-03-08] MEDS: dexamethasone 10 mg/mL INJ IVP (15:49)
[2024-03-08 15:58] LABS: Basophils % 0.1 %; Eosinophils % 0.1 %; Hematocrit 53.4 % (37-53); Lymphocytes # 1.3 10^3/uL (0.8-4.8); Lymphocytes % 8.6 %; Mean Corpuscular HGB Conc 31.3 g/dL (30-55); Mean Corpuscular Hemoglobin 27.1 pg (27-33); Mean Corpuscular Volume 86.5 fl (82-101); Mean Platelet Volume 11.3 fL (7.4-10.4); Monocytes % 6.7 %; Neutrophils # 12.21 10^3/uL (1.8-7.7); Neutrophils % 83.5 %; Nucleated Red Blood Cells % 0 %; Platelet Count 149 10^3/cmm (157-399); Red Blood Count 6.17 10^6/uL (3.85-5.65); Red Cell Distribution Width 13.4 % (12.1-15.1); White Blood Count 14.63 10^3/uL (3.29-11.43)
[2024-03-08 16:25] LABS: Alanine Aminotransferase 27 U/L (0-41); Albumin Level 3.4 g/dL (3.5-5.2); Alkaline Phosphatase 64 U/L (40-130); Aspartate Amino Transferase 22 U/L (0-40); Blood Urea Nitrogen 26 mg/dL (8-23); Calcium 11.9 mg/dL (8.5-10.5); Carbon Dioxide 27 mmol/L (22-29); Chloride 96 mmol/L (98-107); Creatinine Clr Calc Pharmacy 85.9648; Globulin 3.9 g/dL (1.3-4.6); Glomerular Filtration Rate 74.3 mL/min (90-130); Glucose 289 mg/dL (65-115); NT Pro B Type Natriuretic Pept 976 pg/mL (0-125); Osmolality Calculated 293 mOsm/kg (285-295); Sodium 134 mmol/L (136-145); Total Bilirubin 0.5 mg/dL (0.15-1.2); Total Protein 7.3 g/dL (6.6-8.7)
[2024-03-08 16:54] LABS: Covid PCR NEGATIVE (Negative); Influenza A POSITIVE (Negative); Influenza B NEGATIVE (Negative); Respiratory Syncytial Virus Ce NEGATIVE (Negative)
--- NOTE | 2024-03-08 17:53 | ECG_ITS ---
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
--- NOTE | 2024-03-08 17:59 | P.HP_ITS ---
Providers/Chief Complaint 2 Chief Complaint: SOB History of Present Illness Jono KellyDaniel Pierce is a 68 year old male with a past medical history of CAD with multiple PCI's, hypertension, anemia, DVT and PE, moderate aortic stenosis, on anticoagulation with Eliquis, COPD, diastolic heart failure who presents [facility] due to shortness of breath, productive cough, fatigue, malaise, subjective, fevers, chills. Patient tells me that recently he was discharged from [facility] but he continued to have shortness of breath, cough, subjective fevers, chills, fatigue, malaise, denies any chest pain, no palpitations, no calf pain, no calf swelling, no sick contacts, he lives at home by himself, no falls Review of Systems 2 Const: Reports: fever(s), chills, fatigue and malaise Eyes: Denies: change in vision Card: Denies: chest pain Resp: Reports: dyspnea and productive cough GI: Denies: abdominal pain : Denies: flank pain Neuro: Denies: headache(s) Medications/Allergies Home Medications Medication Instructions Recorded Confirmed Last Taken Type hydrocodone 10 mg-acetaminophen 1 tab PO Q6H 5 days #20 tabs 07/29/22 03/08/24 03/07/24 Rx 325 mg tablet Plavix 75 mg tablet (clopidogrel) 75 mg PO DAILY@09 #90 tabs 04/29/23 03/08/24 Unknown Rx albuterol sulfate 90 mcg/actuation See Rx Instructions .Route 05/31/23 03/08/24 03/08/24 Rx aerosol inhaler .COMPLEX #8.5 grams apixaban 5 mg tablet (Eliquis) 5 mg PO BID #60 tabs 09/20/23 03/08/24 03/08/24 Rx Nebulizer machine and supplies #1 ea 11/08/23 03/08/24 Unknown Rx albuterol sulfate 2.5 mg/3 mL 2.5 mg (3 mL) inhalation Q4H PRN 11/08/23 03/08/24 03/07/24 Rx (0.083 %) solution for nebulization shortness of breath or wheezing #75 mL gabapentin 400 mg capsule 400 mg PO TID #90 caps 12/20/23 03/08/24 03/08/24 Rx alprazolam 1 mg tablet 1 mg PO TID PRN anxiety #90 tabs 01/31/24 03/08/24 Unknown Rx losartan 25 mg tablet 25 mg PO DAILY #90 tabs 02/27/24 03/08/24 03/08/24 Rx amlodipine 5 mg tablet 5 mg PO DAILY 03/08/24 03/08/24 03/08/24 History metoprolol tartrate 25 mg tablet 25 mg PO BID 03/08/24 03/08/24 03/08/24 History Allergies Allergy/AdvReac Type Severity Reaction Status Date / Time atorvastatin [From Lipitor] Allergy Severe Unknown Verified 03/01/24 16:55 lisinopril Allergy RASH Verified 03/01/24 16:55 Penicillins Allergy RASH Verified 03/01/24 16:55 PFSH Acute 2 PFSH: Medical History Diastolic CHF Elevated troponin GERD without esophagitis Aortic valve stenosis Generalized anxiety disorder Pulmonary embolism, bilateral Abdominal aortic aneurysm 3.2 cm 09/28/21 DVT (deep venous thrombosis) hx of DVT History of heart attack COPD (chronic obstructive pulmonary disease) Chronic back pain Coronary artery disease has 11 stents Hyperlipidemia HTN (hypertension) Surgical History History of ankle surgery History of facial surgery History of thoracotomy S/P cholecystectomy S/P appendectomy Status post lung surgery Secondary to pneumothorax S/P knee surgery Previous back surgery C5 and C6 fusion S/P eye surgery S/P PTCA (percutaneous transluminal coronary angioplasty) Family History Other CAD (coronary artery disease) Hypertension Denies family history of Diabetes Stroke Social History Smoking and tobacco/nicotine status: never used tobacco/nicotine Quit status (tobacco/nicotine): has quit using Year quit tobacco: 2023 Alcohol intake: current Alcohol intake frequency: holidays/special occasions only Substance/Drug Use: former Lives independently: Yes Household members: none Marital status: Current occupational status: retired and disabled Do you think of yourself as: Straight/Heterosexual Current gender identity: Male Vitals/I&O/Wt Last Vital Signs Temp 98.6 F 03/08/24 15:26 Pulse 109 H 03/08/24 15:51 Resp 20 H 03/08/24 15:40 BP 105/72 03/08/24 15:26 Pulse Ox 91 03/08/24 15:40 O2 Del Method Nasal Cannula 03/08/24 15:40 O2 Flow Rate 5 03/08/24 15:40 Weight last 48 hrs Weight 108.862 kg Physical Exam 2 Const: COMMON NORMALS: no acute distress and patient oriented x3 HENMT: COMMON NORMALS: normocephalic HEAD & SCALP: normocephalic Eye: COMMON NORMALS: Equal, round and reactive pupils present Neck/C-Spine: COMMON NORMALS: no JVD Lymph: LYMPHATIC: no lymphadenopathy noted Resp: COMMON NORMALS: normal respiratory effort, No retractions and No use of accessory muscles AUSCULTATION: crackles and wheezes Cardio: COMMON NORMALS: regular rate, regular rhythm, S1 normal heart sound present and S2 normal heart sound present RATE: tachycardic RHYTHM: r egular rhythm HEART SOUNDS: S1 normal heart sound present and S2 normal heart sound present GI: COMMON NORMALS: Normal to inspection, nondistended, normoactive bowel sounds present, Soft to palpation and non-tender Extremity: COMMON NORMALS: no calf tenderness and no pedal edema Neuro: COMMON NORMALS: patient oriented x3, CN's II-XII intact bilaterally and moves all extremities Psych: COMMON NORMALS: mental status grossly normal Data 03/08/24 15:47 03/08/24 15:47 A&P Assessment and plan (1) Acute hypoxic respiratory failure: (2) Sepsis: (3) Healthcare-associated pneumonia: (4) Influenza A: (5) COPD exacerbation: Plan Acute hypoxic respiratory failure -Healthcare associated pneumonia -Influenza A -COPD exacerbation -With evidence of sepsis, sepsis features met given hypoxia up to 5 L, tachycardia, leukocytosis source of infection pneumonia, influenza A -CT of the chest on 03/04/2024 CT/CT chest wo con [id number] IMPRESSION: 1. Scattered reticular and ground-glass opacities throughout the lungs likely represent multifocal pneumonia in the acute setting. Recommend imaging follow-up after clinical treatment to evaluate for resolution. 5. Enlarged subcarinal lymph node is favored to be reactive. Attention on follow-up recommended. Plan -Monitor respiratory status closely -ABG ordered, will consider BiPAP -Continue Tamiflu -Broaden antibiotic coverage to vancomycin, meropenem -Solu-Medrol 40 mg IV every 8 hours -DuoNeb -Budesonide -Sputum culture -Blood culture -CRP, Pro-Azam, troponin series -Full code -Eliquis for DVT prophylaxis Attestations 2 Medical Necessity Statement*: Patient requires hospitalization, inpatient, greater than 2 midnights, for acute hypoxic respiratory failure, healthcare associate pneumonia, influenza A, COPD exacerbation Diagnoses Acute hypoxic respiratory failure J96.01 Sepsis A41.9 Healthcare-associated pneumonia J18.9 Influenza A J10.1 COPD exacerbation J44.1
[2024-03-08] MEDS: HYDROcodone-acetaminophen 10-325 mg Tablet 1 TAB PO (18:00)
[2024-03-08] MEDS: levofloxacin-dextrose 5 % 750 MG/150 ML PREMIX 100 MG IV (18:00)
[2024-03-08] MEDS: ALPRAZolam 0.5 mg Tablet 1 MG PO ×2 (18:00→20:25)
[2024-03-08] MEDS: oseltamivir phosphate 75 mg Capsule PO (18:00)
[2024-03-08 18:28] LABS: ABG PCO2 39.2 mmHg (35-45); Arterial Blood Gas Hematocrit 49.8 % (42-52); Base Excess ABG -0.4 mmol/L (-2.0-2.0); Blood Gas Allen Test Pos; Blood Gas Operator Identificat AMH; Blood Gas Sample Site Radial, left; Blood Gas Sample Type Arterial; HCO3 ABG 24.2 mmol/L (22-26); Oxygen Device NC; PO2 ABG 84.5 mmHg (80.0-100.0)
[2024-03-08 18:30] LABS: INR 1.21 (0.8-1.2)
[2024-03-08 18:31] LABS: Lactic Sepsis W/Reflex 2.3 mmol/L (0.5-2.2)
[2024-03-08 18:48] LABS: Troponin(5th) Baseline 71 ng/L (0-15)
[2024-03-08 18:49] LABS: C Reactive Protein 293.7 mg/L (0.0-4.9)
[2024-03-08 18:57] LABS: Procalcitonin 0.35 ng/mL (0-0.5)
--- NOTE | 2024-03-08 19:49 | ECG_ITS ---
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
[2024-03-08 19:58] LABS: Reflex Lactate Order REFLEX LACTIC ORDERD
[2024-03-08] MEDS: pantoprazole 40 mg SDV IVP (20:24)
[2024-03-08] MEDS: gabapentin 400 mg Capsule PO (20:24)
[2024-03-08] MEDS: metoprolol tartrate 25 mg Tablet PO (20:24)
[2024-03-08] MEDS: apixaban 5 mg Tablet PO (20:24)
[2024-03-08] MEDS: meropenem 1,000 mg SDV 1000 MG IVP (20:25)
[2024-03-08] MEDS: vancomycin 1,500 MG/300 ML PIGGYBACK 200 MG IV ×2 (20:25→22:02)
[2024-03-08 20:45] LABS: Glucose Point of Care 322 mg/dL (70-110)
[2024-03-08] MEDS: insulin lispro 100 unit/1 mL SUBCUT (20:45)
[2024-03-08 21:25] LABS: Troponin 5 2HR 59.86 ng/L (0-15)
[2024-03-08 21:26] LABS: Lactic Acid level (Lactate) 2.3 mmol/L (0.5-2.2)
[2024-03-08 21:29] LABS: Troponin 5 2HR Delta -11.14 ABS# (0-10)
[2024-03-08 21:51] LABS: Chol HDL Ratio 4.09 mg/dL (1.0-5.00); Cholesterol 135 mg/dL (0-200); HDL Cholesterol 33 mg/dL (60-100); LDL Cholesterol Calculated 50 mg/dL (50-129); LDL HDL Ratio 1.52 RATIO (0.00-3.22); Thyroid Stimulating Hormone 0.57 uIU/mL (0.27-4.20); Triglycerides 258 mg/dL (0-150)
[2024-03-08 22:26] LABS: Troponin 5 6HR 59.36 ng/L (0-15)
[2024-03-08 22:28] LABS: Troponin 5 6HR Delta -11.64 ng/L (0-12)
--- NOTE | 2024-03-08 23:49 | ECG_ITS ---
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
[2024-03-09] VITALS (18 sets, daily range): BP systolic 90–114; BP diastolic 61–78; PULSE 79–107; RESP 16–22; TEMP 36.2–36.5; O2SAT 88–97
[2024-03-09] MEDS: meropenem 1,000 mg SDV 1000 MG IVP ×3 (02:56→19:50)
[2024-03-09 03:25] LABS: Bilirubin Urine Negative (Negative); Blood Urine Trace (Negative); Glucose Urine UA 3+ (Normal); Ketones Urine Trace (Negative); Leukocyte Esterase Urine Negative (Negative); Nitrate Urine Negative (Negative); Protein Urine 1+ (Negative); Specific Gravity, Urine 1.028 (1.005-1.030); Urine Appearance Clear (CLEAR); Urine Color Yellow (Yellow)
[2024-03-09 03:30] LABS: Add Urine Microscopic? YES; Bacteria Urine None Seen /hpf; RBC Urine 0-2 /hpf (0-2); Squamous Epithelial Cell Urine 0-5 /hpf (0-5); WBC Urine 0-5 /hpf (0-5)
[2024-03-09 05:32] LABS: Basophils % 0.2 %; Hematocrit 51.7 % (37-53); Lymphocytes % 6.5 %; Mean Corpuscular HGB Conc 30.6 g/dL (30-55); Mean Corpuscular Hemoglobin 26.6 pg (27-33); Mean Corpuscular Volume 87.2 fl (82-101); Mean Platelet Volume 11.5 fL (7.4-10.4); Monocytes # 0.8 10^3/uL (0.2-0.9); Monocytes % 5.3 %; Neutrophils # 13.67 10^3/uL (1.8-7.7); Neutrophils % 87.2 %; Nucleated Red Blood Cells % 0 %; Platelet Count 161 10^3/cmm (157-399); Red Blood Count 5.93 10^6/uL (3.85-5.65); Red Cell Distribution Width 13.5 % (12.1-15.1); White Blood Count 15.67 10^3/uL (3.29-11.43)
[2024-03-09 05:51] LABS: Alanine Aminotransferase 24 U/L (0-41); Albumin Level 3.3 g/dL (3.5-5.2); Alkaline Phosphatase 65 U/L (40-130); Anion Gap 14.8 (5-19); Aspartate Amino Transferase 18 U/L (0-40); Blood Urea Nitrogen 30 mg/dL (8-23); Calcium 12.2 mg/dL (8.5-10.5); Carbon Dioxide 28 mmol/L (22-29); Chloride 99 mmol/L (98-107); Creatinine Clr Calc Pharmacy 85.9648; Globulin 4.1 g/dL (1.3-4.6); Glomerular Filtration Rate 74.3 mL/min (90-130); Glucose 272 mg/dL (65-115); Magnesium 2.3 mg/dL (1.7-2.3); Osmolality Calculated 298 mOsm/kg (285-295); Potassium 5.8 mmol/L (3.5-5.1); Sodium 136 mmol/L (136-145); Total Bilirubin 0.3 mg/dL (0.15-1.2); Total Protein 7.4 g/dL (6.6-8.7)
[2024-03-09] MEDS: methylPREDNISolone sod succ 40 mg/mL INJ IVP ×3 (06:04→21:30)
[2024-03-09 06:06] LABS: NT Pro B Type Natriuretic Pept 855 pg/mL (0-125)
[2024-03-09 06:23] LABS: Glucose Point of Care 227 mg/dL (70-110)
[2024-03-09] MEDS: sodium polystyrene sulfonate 15 gm/60 mL Btl PO (06:31)
[2024-03-09] MEDS: insulin lispro 100 unit/1 mL SUBCUT ×3 (08:24→16:36)
[2024-03-09] MEDS: clopidogrel 75 mg Tablet PO (08:25)
[2024-03-09] MEDS: gabapentin 400 mg Capsule PO ×3 (08:25→21:30)
[2024-03-09] MEDS: apixaban 5 mg Tablet PO ×2 (08:25→16:37)
[2024-03-09] MEDS: metoprolol tartrate 25 mg Tablet PO ×2 (08:25→16:37)
[2024-03-09] MEDS: oseltamivir phosphate 75 mg Capsule PO ×2 (08:26→16:37)
[2024-03-09] MEDS: vancomycin 1,500 MG/300 ML PIGGYBACK 200 MG IV ×2 (08:26→19:53)
[2024-03-09] MEDS: FUROsemide 10 mg/mL SDV 4mL 40 MG IVP (08:26)
--- NOTE | 2024-03-09 08:39 | PC.NURSE ---
Lostartan held d/t low trending BP and administration of Metoprolol and Lasix at this time.
[2024-03-09] MEDS: budesonide 0.5 mg/2 mL Neb INHALATION ×2 (08:46→20:43)
[2024-03-09] MEDS: ipratropium-albuterol 3 mL Neb INHALATION ×4 (08:46→20:43)
[2024-03-09] MEDS: HYDROcodone-acetaminophen 10-325 mg Tablet 1 TAB PO ×2 (10:16→21:30)
[2024-03-09 11:12] LABS: Glucose Point of Care 377 mg/dL (70-110)
--- NOTE | 2024-03-09 11:52 | PC.SOCIAL ---
IMM updated IMM dated and initialed, copy placed in chart and given to patient
--- NOTE | 2024-03-09 11:58 | PHA.VACGOAL ---
Vancomycin Goal - Goal Vancomycin Goal:: 15-20 mg/L Vancomycin Indication:: Other - Therapy Day of therpy:: Day []of [] . Actual body weight (kg): 240 lb - Data Labs: WBC 15.67 10^3/uL (3.29-11.43) H 03/09/24 04:53 RBC 5.93 10^6/uL (3.85-5.65) H 03/09/24 04:53 Hgb 15.80 g/dL (11.27-16.99) 03/09/24 04:53 Hct 51.7 % (37-53) 03/09/24 04:53 MCV 87.2 fl (82-101) 03/09/24 04:53 MCH 26.6 pg (27-33) L 03/09/24 04:53 MCHC 30.6 g/dL (30-55) 03/09/24 04:53 RDW 13.5 % (12.1-15.1) 03/09/24 04:53 Sodium 136 mmol/L (136-145) 03/09/24 04:53 Potassium 5.8 mmol/L (3.5-5.1) H 03/09/24 04:53 Chloride 99 mmol/L (98-107) 03/09/24 04:53 Carbon Dioxide 28 mmol/L (22-29) 03/09/24 04:53 Anion Gap 14.8 (5-19) 03/09/24 04:53 BUN 30 mg/dL (8-23) H 03/09/24 04:53 Creatinine 1.0 mg/dL (0.7-1.2) 03/09/24 04:53 GFR Calculation 74.3 mL/min (90-130) L 03/09/24 04:53 Treatment plan:: continue
[2024-03-09] MEDS: ALPRAZolam 0.5 mg Tablet 1 MG PO ×2 (13:30→21:30)
--- NOTE | 2024-03-09 14:10 | P.PN_ITS ---
Subjective 2 Subjective: Patient was seen this morning, he tells me he does not feel well this morning fatigue malaise shortness of breath productive cough, no fevers, no chills Vitals/I&O/Wt Last Vital Signs Temp 97.6 F 03/09/24 11:51 Pulse 89 03/09/24 11:51 Resp 17 03/09/24 11:51 BP 90/61 03/09/24 11:51 Pulse Ox 91 03/09/24 11:51 O2 Del Method Nasal Cannula 03/09/24 11:51 O2 Flow Rate 2 03/09/24 11:38 03/08/24 03/09/24 03/09/24 22:59 06:59 14:59 Intake Total 450 / 450 300 / 750 300 / 300 Output Total 250 / 250 850 / 850 Balance 450 / 450 50 / 500 -550 / -550 Weight last 48 hrs Weight 108.862 kg Weight 108.862 kg Physical Exam 2 Const: COMMON NORMALS: no acute distress and patient oriented x3 Resp: COMMON NORMALS: normal respiratory effort, No retractions and No use of accessory muscles AUSCULTATION: crackles and wheezes Cardio: COMMON NORMALS: regular rate, regular rhythm, S1 normal heart sound present and S2 normal heart sound present RATE: regular rate RHYTHM: r egular rhythm HEART SOUNDS: S1 normal heart sound present and S2 normal heart sound present GI: COMMON NORMALS: Normal to inspection, nondistended, normoactive bowel sounds present, Soft to palpation and non-tender PALPATION: Yes Soft to palpation Extremity: COMMON NORMALS: no calf tenderness and no pedal edema Neuro: COMMON NORMALS: patient oriented x3 Psych: COMMON NORMALS: mental status grossly normal Data 03/09/24 04:53 03/09/24 04:53 Micro: Microbiology 03/08/24 20:15 Blood Culture - Preliminary Blood SPECIMEN COLLECTED 03/08/24 20:18 Blood Culture - Preliminary Blood SPECIMEN COLLECTED A&P Assessment and plan (1) Acute hypoxic respiratory failure: (2) Sepsis: (3) Healthcare-associated pneumonia: (4) Influenza A: (5) COPD exacerbation: Plan Acute hypoxic respiratory failure -Healthcare associated pneumonia -Influenza A -COPD exacerbation -With evidence of sepsis, sepsis features met given hypoxia up to 5 L, tachycardia, leukocytosis source of infection pneumonia, influenza A -CT of the chest on 03/04/2024 CT/CT chest wo con [id number] IMPRESSION: 1. Scattered reticular and ground-glass opacities throughout the lungs likely represent multifocal pneumonia in the acute setting. Recommend imaging follow-up after clinical treatment to evaluate for resolution. 5. Enlarged subcarinal lymph node is favored to be reactive. Attention on follow-up recommended. Plan -Monitor respiratory status closely -Continue Tamiflu -Broaden antibiotic coverage to vancomycin, meropenem -Solu-Medrol 40 mg IV every 8 hours -DuoNeb -Budesonide -Sputum culture -Blood culture -CRP 293, Pro-Azam 0.35 -CHF exacerbation, required IV steroids -Full code -Eliquis for DVT prophylaxis Attestations 2 Medical Necessity Statement*: Patient requires hospitalization for respiratory failure secondary to healthcare associate pneumonia, influenza A, COPD Diagnoses Acute hypoxic respiratory failure J96.01 Sepsis A41.9 Healthcare-associated pneumonia J18.9 Influenza A J10.1 COPD exacerbation J44.1
[2024-03-09 15:51] LABS: Blood Urea Nitrogen 32 mg/dL (8-23); Calcium 11.8 mg/dL (8.5-10.5); Carbon Dioxide 24 mmol/L (22-29); Chloride 98 mmol/L (98-107); Glomerular Filtration Rate 96.1 mL/min (90-130); Glucose 368 mg/dL (65-115); Osmolality Calculated 302 mOsm/kg (285-295); Sodium 135 mmol/L (136-145)
[2024-03-09 15:53] LABS: Anion Gap 17.5 (5-19); Potassium 4.5 mmol/L (3.5-5.1)
[2024-03-09] MEDS: pantoprazole 40 mg SDV IVP (19:50)
[2024-03-09 20:45] LABS: Glucose Point of Care 330 mg/dL (70-110)
[2024-03-10] VITALS (16 sets, daily range): BP systolic 100–125; BP diastolic 62–92; PULSE 78–102; RESP 14–18; TEMP 36.4–36.8; O2SAT 86–96
--- NOTE | 2024-03-10 02:29 | PC.NURSE ---
At approximately 0155 this nurse heard a large boom, upon entering the room the patient was found with his back to bed one. There was blood noted coming from the left side of the top of his head. It was noted that there was a laceration approximately 2 in length. Pressure was applied to the laceration. At 0200 Dr. Phillip was notified of pt fall w/head lac. Dr. Phillip arrived to the pt's room @ approximately 0205 to assess the pt. Pressure was maintained to lac for additional 10 minutes when bleeding stopped. Dr. Phillip stated that the pt did not need suture or stables to site. 0228 supervisor melt house was notified of pt fall. Pt is alert and answers questions appropriately, but is unable to given explanation as to why he fell. MANOLO. SCHWARTZ w/ease. Denies pain at this time. VSS. No s/sx of fracture or dislocation noted. Pt was assisted back to bed w/ext assist of two. Side rails up x 2, bed alarm set, and pt's room is close to nurses station.
--- NOTE | 2024-03-10 02:32 | CTR_ITS ---
PROCEDURE INFORMATION: Exam: CT Head Without Contrast Exam date and time: 03/10/2024 2:52 AM Age: 68 years old Clinical indication: Injury or trauma; Without residual foreign body; Scalp; Patient HX: Fall with headstrike. Laceration near vertex of head. ; Additional info: Fall w/ head trauma / left parietal laceration TECHNIQUE: Imaging protocol: Computed tomography of the head without contrast. Radiation optimization: All CT scans at this facility use at least one of these dose optimization techniques: automated exposure control; mA and/or kV adjustment per patient size (includes targeted exams where dose is matched to clinical indication); or iterative reconstruction. COMPARISON: CR XR cervical spine 4-5V [id number] 09/26/2023 7:31 AM RADIATION DOSE METRICS: Total DLP (mGy-cm): 1045.65 FINDINGS: Brain: Mild periventricular white matter changes likely related to chronic ischemic small vessel disease. No intracranial mass, hemorrhage or recent infarct. Cerebral ventricles: No ventriculomegaly. Paranasal sinuses: Visualized sinuses are unremarkable. No fluid levels. Mastoid air cells: Visualized mastoid air cells are well aerated. Bones: Unremarkable. No acute fracture. Soft tissues: Unremarkable. CT/CT head wo con* [id number] IMPRESSION: No acute intracranial abnormality.
[2024-03-10] MEDS: meropenem 1,000 mg SDV 1000 MG IVP ×3 (03:57→21:28)
[2024-03-10 04:55] LABS: Basophils % 0.2 %; Hematocrit 56.2 % (37-53); Lymphocytes # 0.8 10^3/uL (0.8-4.8); Lymphocytes % 4.8 %; Mean Corpuscular HGB Conc 30.6 g/dL (30-55); Mean Corpuscular Hemoglobin 26.7 pg (27-33); Mean Corpuscular Volume 87.4 fl (82-101); Mean Platelet Volume 11.5 fL (7.4-10.4); Monocytes # 0.7 10^3/uL (0.2-0.9); Monocytes % 4.2 %; Neutrophils # 14.28 10^3/uL (1.8-7.7); Neutrophils % 89.9 %; Nucleated Red Blood Cells % 0 %; Platelet Count 200 10^3/cmm (157-399); Red Blood Count 6.43 10^6/uL (3.85-5.65); Red Cell Distribution Width 14.1 % (12.1-15.1); White Blood Count 15.89 10^3/uL (3.29-11.43)
[2024-03-10 05:28] LABS: Alanine Aminotransferase 24 U/L (0-41); Albumin Level 3.5 g/dL (3.5-5.2); Alkaline Phosphatase 77 U/L (40-130); Aspartate Amino Transferase 16 U/L (0-40); Blood Urea Nitrogen 34 mg/dL (8-23); C Reactive Protein 170.1 mg/L (0.0-4.9); Calcium 12.8 mg/dL (8.5-10.5); Carbon Dioxide 27 mmol/L (22-29); Chloride 100 mmol/L (98-107); Creatinine Clr Calc Pharmacy 102.4665; Globulin 4.8 g/dL (1.3-4.6); Glomerular Filtration Rate 96.1 mL/min (90-130); Glucose 361 mg/dL (65-115); Magnesium 2.5 mg/dL (1.7-2.3); NT Pro B Type Natriuretic Pept 821 pg/mL (0-125); Osmolality Calculated 310 mOsm/kg (285-295); Sodium 139 mmol/L (136-145); Total Bilirubin 0.3 mg/dL (0.15-1.2); Total Protein 8.3 g/dL (6.6-8.7)
[2024-03-10] MEDS: methylPREDNISolone sod succ 40 mg/mL INJ IVP (05:47)
[2024-03-10 06:20] LABS: Glucose Point of Care 340 mg/dL (70-110)
[2024-03-10] MEDS: budesonide 0.5 mg/2 mL Neb INHALATION ×2 (08:21→20:47)
[2024-03-10] MEDS: ipratropium-albuterol 3 mL Neb INHALATION ×4 (08:21→20:47)
[2024-03-10] MEDS: insulin glargine 100 units/1 mL 10 UNIT SUBCUT (08:58)
[2024-03-10] MEDS: insulin lispro 100 unit/1 mL SUBCUT ×4 (08:58→21:28)
[2024-03-10] MEDS: vancomycin 1,500 MG/300 ML PIGGYBACK 200 MG IV ×2 (08:59→21:40)
[2024-03-10] MEDS: gabapentin 400 mg Capsule PO ×3 (09:00→21:40)
[2024-03-10] MEDS: oseltamivir phosphate 75 mg Capsule PO ×2 (09:00→17:56)
[2024-03-10] MEDS: clopidogrel 75 mg Tablet PO (09:01)
[2024-03-10] MEDS: metoprolol tartrate 25 mg Tablet PO ×2 (09:01→17:56)
[2024-03-10] MEDS: losartan 50 mg Tablet 25 MG PO (09:01)
[2024-03-10] MEDS: apixaban 5 mg Tablet PO ×2 (09:02→17:56)
[2024-03-10 09:45] LABS: ABG PCO2 40.8 mmHg (35-45); ABG PH Result 7.43 (7.35-7.45); Base Excess ABG 2.4 mmol/L (-2.0-2.0); Blood Gas Allen Test Pos; Blood Gas Sample Type Arterial; Carboxyhemoglobin 1.3 %THgb (0.4-20.1); HGB O2 Sat 91.3 % (95-100); Ionized Calcium Level - ABG 1.6 mmol/L (1.1-1.4); Methemoglobin 0.9 % (0.4-1.5); Oxygen Saturation ABG 93.3; PO2 ABG 62.4 mmHg (80.0-100.0); Potassium Level - ABG 4.3 mmol/L (3.5-5.0)
[2024-03-10 09:46] LABS: Alveolar-Arterial Oxygen Gradi 7.5 mmHg (5-10); Blood Gas Operator Identificat CAK; Blood Gas Sample Site Radial, left; Oxygen Device NC; PO2 FiO2 Ratio Arterial Blood 260
[2024-03-10 11:42] LABS: Glucose Point of Care 321 mg/dL (70-110)
--- NOTE | 2024-03-10 12:35 | CTR_ITS ---
PROCEDURE INFORMATION: Exam: CT Head Without Contrast Exam date and time: 03/10/2024 1:00 PM Age: 68 years old Clinical indication: Altered mental status/memory loss; Additional info: AMS TECHNIQUE: Imaging protocol: Computed tomography of the head without contrast. Radiation optimization: All CT scans at this facility use at least one of these dose optimization techniques: automated exposure control; mA and/or kV adjustment per patient size (includes targeted exams where dose is matched to clinical indication); or iterative reconstruction. COMPARISON: CT head wo con* [id number] 03/10/2024 2:52 AM RADIATION DOSE METRICS: Total DLP (mGy-cm): 1112.5 FINDINGS: Brain: There are bilateral periventricular white matter and centrum semiovale hypodensities, consistent with chronic ischemic small vessel disease. No recent infarct, intracranial bleed or mass effect. Cerebral ventricles: No ventriculomegaly. Pituitary gland and sella: There is a normal empty pituitary sella. Paranasal sinuses: Mucosal disease of the right sphenoid sinus. Mastoid air cells: Visualized mastoid air cells are well aerated. Bones: Unremarkable. No acute fracture. Soft tissues: Unremarkable. CT/CT head wo con* [id number] IMPRESSION: No large territorial infarct or intracranial bleed.
--- NOTE | 2024-03-10 12:36 | CTR_ITS ---
PROCEDURE INFORMATION: Exam: CT Cervical Spine Without Contrast Exam date and time: 03/10/2024 1:00 PM Age: 68 years old Clinical indication: Injury or trauma; Fall; Blunt trauma TECHNIQUE: Imaging protocol: Computed tomography of the cervical spine without contrast. Radiation optimization: All CT scans at this facility use at least one of these dose optimization techniques: automated exposure control; mA and/or kV adjustment per patient size (includes targeted exams where dose is matched to clinical indication); or iterative reconstruction. COMPARISON: CR XR cervical spine 4-5V [id number] 09/26/2023 7:31 AM RADIATION DOSE METRICS: Total DLP (mGy-cm): 1063.7 FINDINGS: Bones: There are ossific densities in the ligamentum nuchae, consistent with remote trauma. Moderate degenerative disease at the anterior C1-C2 articulation. Bony bridging at C5-C6 disc. Posterior osteophyte disc complex at C4-C5 with moderate bony canal stenosis. Lungs: Severe centrilobular emphysematous changes are present. Nodular infiltrates in the left lung apex, likely infectious. Vasculature: There are bilateral carotid artery calcified atheromas. Soft tissues: Unremarkable. CT/CT cervical spin wo con* [id number] IMPRESSION: 1. No acute posttraumatic changes in the cervical spine. 2. Nodular infiltrates in the left lung apex, likely infectious.
[2024-03-10] MEDS: acetaminophen 325 mg Tablet 650 MG PO (13:24)
--- NOTE | 2024-03-10 14:59 | P.PN_ITS ---
Subjective 2 Subjective: Events overnight, patient had a fall overnight, noted to have a parietal laceration, medically managed, episodes of confusion early this morning, currently Lonnie is alert to person, to place, not to time he follows commands, but is hallucinating that there is a dog in his room, he has complaints of feeling unwell, fatigue, malaise, no nausea, no vomiting no chest pain no shortness of breath no fevers, no chills, he tells me he hurts all over he tells me that he uses the hydrocodone and Xanax for his pain Vitals/I&O/Wt Last Vital Signs Temp 97.6 F 03/10/24 12:00 Pulse 83 03/10/24 12:00 Resp 14 03/10/24 12:00 BP 106/72 03/10/24 12:00 Pulse Ox 91 03/10/24 12:00 O2 Del Method Nasal Cannula 03/10/24 12:00 O2 Flow Rate 2 03/10/24 11:40 03/09/24 03/10/24 03/10/24 22:59 06:59 14:59 Intake Total 300 / 600 200 / 800 300 / 300 Output Total 750 / 1600 Balance -450 / -1000 200 / -800 300 / 300 Weight last 48 hrs Weight 98.883 kg Weight 108.862 kg Weight 108.862 kg Physical Exam 2 Const: COMMON NORMALS: no acute distress EXAM LIMITATIONS: altered mental status GENERAL APPEARANCE: cooperative ORIENTATION/CONSCIOUSNESS: Yes awake, Yes oriented to person, Yes oriented to place and Yes confused; not oriented to time HENMT: COMMON NORMALS: normocephalic HEAD & SCALP: normocephalic OTHER: Head atraumatic, does have bruising superficial laceration on the parietal region, has bruising left jaw Eye: COMMON NORMALS: Equal, round and reactive pupils present and EOMs intact bilaterally PUPIL: Yes Equal, round and reactive pupils present Neck/C-Spine: COMMON NORMALS: full ROM Lymph: LYMPHATIC: no lymphadenopathy noted Resp: COMMON NORMALS: normal respiratory effort, No retractions, No use of accessory muscles and clear to auscultation bilaterally AUSCULTATION: clear to auscultation bilaterally Cardio: COMMON NORMALS: regular rate, regular rhythm, S1 normal heart sound present and S2 normal heart sound present RATE: regular rate RHYTHM: r egular rhythm HEART SOUNDS: S1 normal heart sound present and S2 normal heart sound present GI: COMMON NORMALS: Normal to inspection, nondistended, normoactive bowel sounds present and non-tender Extremity: COMMON NORMALS: no calf tenderness and no pedal edema Neuro: SENSORIUM/ORIENTATION: Yes oriented to person, Yes oriented to place and No oriented to time Data 03/10/24 03:47 03/10/24 03:47 Micro: Microbiology 03/08/24 20:15 Blood Culture - Preliminary Blood NEGATIVE TO DATE 03/08/24 20:18 Blood Culture - Preliminary Blood NEGATIVE TO DATE 03/08/24 18:02 Gram Stain - Final Sputum - Expectorated Sputum A&P Assessment and plan (1) Acute hypoxic respiratory failure: (2) Sepsis: (3) Healthcare-associated pneumonia: (4) Influenza A: (5) COPD exacerbation: (6) Acute encephalopathy: Plan Acute encephalopathy -Likely secondary to pneumonia, influenza, hypoxia -Possible narcotic and benzo associated? Is on Xanax 1 mg 3 times daily as needed, hydrocodone 10-325 every 6 hours as needed -Initial CT head within normal limits -Repeat CT head, CT neck -Troponin series, ammonia levels -Neurochecks, NIH stroke scale, monitor mentation closely Fall -With superficial laceration -Monitor -Repeat CT head, CT neck Acute hypoxic respiratory failure -Healthcare associated pneumonia -Influenza A -COPD exacerbation -With evidence of sepsis, sepsis features met given hypoxia up to 5 L, tachycardia, leukocytosis source of infection pneumonia, influenza A -CT of the chest on 03/04/2024 CT/CT chest wo con [id number] IMPRESSION: 1. Scattered reticular and ground-glass opacities throughout the lungs likely represent multifocal pneumonia in the acute setting. Recommend imaging follow-up after clinical treatment to evaluate for resolution. 5. Enlarged subcarinal lymph node is favored to be reactive. Attention on follow-up recommended. Plan -Monitor respiratory status closely -Continue Tamiflu -Broaden antibiotic coverage to vancomycin, meropenem -Solu-Medrol 40 mg IV every 8 hours -DuoNeb -Budesonide -Sputum culture -Blood culture -CRP 293, Pro-Azam 0.35 -CHF exacerbation, required IV steroids -Full code -Eliquis for DVT prophylaxis Chronic pain -Continue hydrocodone -Continue Xanax Attestations 2 Medical Necessity Statement*: Patient requires hospitalization for acute encephalopathy, acute respiratory failure, pneumonia Diagnoses Acute hypoxic respiratory failure J96.01 Sepsis A41.9 Healthcare-associated pneumonia J18.9 Influenza A J10.1 COPD exacerbation J44.1 Acute encephalopathy G93.40
[2024-03-10] MEDS: HYDROcodone-acetaminophen 10-325 mg Tablet 1 TAB PO (15:14)
--- NOTE | 2024-03-10 15:40 | ECG_ITS ---
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
[2024-03-10 15:48] LABS: Troponin(5th) Baseline 45 ng/L (0-15)
[2024-03-10 15:49] LABS: Ammonia 29 umol/L (16-60)
[2024-03-10 16:45] LABS: Calcium 12.4 mg/dL (8.5-10.5); Parathyroid Hormone 163.9 pg/mL (15-65)
--- NOTE | 2024-03-10 17:03 | ECG_ITS ---
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
[2024-03-10 17:20] LABS: Ionized Calcium 1.5 mmol/L (1.1-1.4)
[2024-03-10 17:45] LABS: Glucose Point of Care 439 mg/dL (70-110)
[2024-03-10] MEDS: benzonatate 100 mg Capsule PO (18:03)
[2024-03-10 19:04] LABS: Glucose Point of Care 414 mg/dL (70-110)
[2024-03-10] MEDS: ALPRAZolam 0.5 mg Tablet 1 MG PO (19:19)
[2024-03-10 19:22] LABS: Vancomycin Trough 14.7 ug/mL (10-15)
[2024-03-10 20:50] LABS: Glucose Point of Care 338 mg/dL (70-110)
--- NOTE | 2024-03-10 21:03 | ECG_ITS ---
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
[2024-03-10] MEDS: pantoprazole 40 mg SDV IVP (21:27)
[2024-03-10] MEDS: FUROsemide 10 mg/mL SDV 2mL 20 MG IVP (21:28)
[2024-03-10 22:13] LABS: Troponin 5 6HR 45.28 ng/L (0-15); Troponin 5 6HR Delta 0.28 ng/L (0-12)
[2024-03-11] VITALS (12 sets, daily range): BP systolic 90–127; BP diastolic 66–84; PULSE 83–108; RESP 16–23; TEMP 36.3–36.8; O2SAT 90–96
--- NOTE | 2024-03-11 00:08 | PC.NURSE ---
One-on-one sitter said patient needed to go to the bathroom. This nurse went to patient and asked patient if he needed to pee or poop. He said I need to shit, god damjavier, now get me out of this damn bed. This nurse stated that's what I'm here for is to help you go to the bathroom, but if you're needing to poop, I'm going to have to get some more help. Patient then stated I need to pee. God, you people. I did not feel comfortable ambulating patient due to AMS and drowsiness. I assisted patient to use the urinal at the side of the bed. Patient then assisted back to bed.
--- NOTE | 2024-03-11 00:28 | PC.NURSE ---
Patient's oxygen saturation 92 percent on 2 liters nasal cannula. Patient has labored breathing and c/o shortness of breath. Crackles and expiratory wheezing noted. RT in to see patient. Dr. Phillip notified and ordered Lasix IV x1.
[2024-03-11 02:32] LABS: Glucose Point of Care 149 mg/dL (70-110)
[2024-03-11] MEDS: meropenem 1,000 mg SDV 1000 MG IVP ×3 (03:50→19:32)
--- NOTE | 2024-03-11 04:07 | PC.NURSE ---
Addendum entered by Melissa Piña RN 03/11/24 04:15: Also, unable to keep telemetry on patient. Original Note: Phlebotamist came to this nurse stating that patient refusing to have labs drawn. Charge nurse, Rika and Romina rosa witnessed patient calling the phlebotamist a fat bitch and a cunt. Patient stated to them nobody can tell me not to lay my hands on people, I'll do what I want. There will be complaints in the morning, my left and right fist. Patient also attempted to kick one-on-one Steven shell.
--- NOTE | 2024-03-11 04:43 | PC.NURSE ---
Addendum entered by Melissa Piña RN 03/11/24 04:44: Patient was barely able to hold hisself up to use the urinal earlier, but also becomes agitated and combative when staff attempts to do any intervention/care. Original Note: Patient had fall previous night. Patient AMS/lethargic and sleeps a lot, but becomes combative with interaction. Dr. Phillip notified. Xanax placed on hold. One-on-one sitter ordered.
--- NOTE | 2024-03-11 05:15 | PC.NURSE ---
Addendum entered by Melissa Piña RN 03/11/24 05:20: Patient states I'm places charges on you guys for kidnapping me. Original Note: This nurse heard patient cussing loudly at sitter. When this nurse walked in room, I stated to patient I'm here to help you. Patient stated that fat cow wouldn't help me. Patient educated that the sitter is not allowed to help him out of bed. Patient then states then why the fuck is he in here.
[2024-03-11 06:30] LABS: Glucose Point of Care 197 mg/dL (70-110)
[2024-03-11] MEDS: ipratropium-albuterol 3 mL Neb INHALATION ×3 (08:35→20:51)
[2024-03-11] MEDS: budesonide 0.5 mg/2 mL Neb INHALATION ×2 (08:36→20:51)
[2024-03-11] MEDS: vancomycin 1,500 MG/300 ML PIGGYBACK 200 MG IV ×2 (08:55→19:32)
[2024-03-11] MEDS: insulin lispro 100 unit/1 mL SUBCUT ×4 (09:00→22:24)
[2024-03-11] MEDS: oseltamivir phosphate 75 mg Capsule PO (09:47)
[2024-03-11] MEDS: predniSONE 20 mg Tablet 40 MG PO (09:47)
[2024-03-11] MEDS: apixaban 5 mg Tablet PO ×2 (09:47→17:21)
[2024-03-11] MEDS: gabapentin 400 mg Capsule PO ×3 (09:47→19:32)
[2024-03-11] MEDS: clopidogrel 75 mg Tablet PO (09:48)
[2024-03-11] MEDS: losartan 50 mg Tablet 25 MG PO (09:48)
[2024-03-11] MEDS: metoprolol tartrate 25 mg Tablet PO ×2 (09:48→17:21)
--- NOTE | 2024-03-11 09:59 | MRR_ITS ---
PROCEDURE INFORMATION: Exam: MR Head Without Contrast Exam date and time: 03/11/2024 11:43 AM Age: 68 years old Clinical indication: Altered mental status/memory loss and malaise or fatigue; Confusion or disorientation; Additional info: AMS TECHNIQUE: Imaging protocol: Magnetic resonance imaging of the head without contrast. COMPARISON: CT head wo con* [id number] 03/10/2024 1:00 PM FINDINGS: Brain: Bilateral periventricular white matter and centrum semiovale foci of high FLAIR signal, consistent with chronic ischemic small vessel disease. No acute infarct, intracranial bleed or intracranial mass. Cerebral ventricles: Normal. No ventriculomegaly. Bones: Unremarkable. Paranasal sinuses: Mild mucosal disease of the right sphenoid sinus. Mastoid air cells: Normal as visualized. No mastoid effusion. Orbital cavities: Unremarkable. Soft tissues: Unremarkable. MR/MR head wo con* [id number] IMPRESSION: No acute infarct, intracranial bleed or intracranial mass.
[2024-03-11 10:34] LABS: Basophils # 0.1 10^3/uL (0.0-0.1); Basophils % 0.3 %; Eosinophils % 0.1 %; Hematocrit 54.9 % (37-53); Lymphocytes % 6.4 %; Mean Corpuscular HGB Conc 30.4 g/dL (30-55); Mean Corpuscular Hemoglobin 26.7 pg (27-33); Mean Corpuscular Volume 87.8 fl (82-101); Mean Platelet Volume 11.6 fL (7.4-10.4); Monocytes % 6.1 %; Neutrophils # 13.98 10^3/uL (1.8-7.7); Nucleated Red Blood Cells % 0 %; Platelet Count 203 10^3/cmm (157-399); Red Blood Count 6.25 10^6/uL (3.85-5.65); Red Cell Distribution Width 13.7 % (12.1-15.1); White Blood Count 16.27 10^3/uL (3.29-11.43)
[2024-03-11 10:37] LABS: Glucose Point of Care 240 mg/dL (70-110)
[2024-03-11 10:48] LABS: C Reactive Protein 150.3 mg/L (0.0-4.9)
[2024-03-11 10:49] LABS: Alanine Aminotransferase 19 U/L (0-41); Alkaline Phosphatase 66 U/L (40-130); Anion Gap 14.6 (5-19); Aspartate Amino Transferase 18 U/L (0-40); Blood Urea Nitrogen 34 mg/dL (8-23); Calcium 12.6 mg/dL (8.5-10.5); Carbon Dioxide 28 mmol/L (22-29); Chloride 99 mmol/L (98-107); Creatinine Clr Calc Pharmacy 92.0489; Globulin 4.7 g/dL (1.3-4.6); Glomerular Filtration Rate 83.9 mL/min (90-130); Glucose 274 mg/dL (65-115); Magnesium 2.1 mg/dL (1.7-2.3); Osmolality Calculated 301 mOsm/kg (285-295); Potassium 4.6 mmol/L (3.5-5.1); Sodium 137 mmol/L (136-145); Total Bilirubin 0.4 mg/dL (0.15-1.2); Total Protein 7.7 g/dL (6.6-8.7)
[2024-03-11 11:10] LABS: NT Pro B Type Natriuretic Pept 1128 pg/mL (0-125)
[2024-03-11] MEDS: HYDROcodone-acetaminophen 10-325 mg Tablet 1 TAB PO ×2 (13:55→19:32)
--- NOTE | 2024-03-11 14:56 | CTR_ITS ---
PROCEDURE INFORMATION: Exam: CT Chest With Contrast; Diagnostic Exam date and time: 03/11/2024 3:26 PM Age: 68 years old Clinical indication: Other: Hypercalcemia; Shortness of breath TECHNIQUE: Imaging protocol: Diagnostic computed tomography of the chest with contrast. Radiation optimization: All CT scans at this facility use at least one of these dose optimization techniques: automated exposure control; mA and/or kV adjustment per patient size (includes targeted exams where dose is matched to clinical indication); or iterative reconstruction. Contrast material: OMNI 350; Contrast volume: 100 ml; Contrast route: INTRAVENOUS (IV); COMPARISON: CT chest wo con [id number] 03/04/2024 6:15 PM RADIATION DOSE METRICS: Total DLP (mGy-cm): 1532.49 FINDINGS: Lungs: Severe centrilobular emphysematous changes are present. Nodular infiltrates in bilateral upper lobes, bilateral lower lobes and right middle lobe. Pleural spaces: Unremarkable. No pneumothorax. No pleural effusion. Heart: Unremarkable. No cardiomegaly. No pericardial effusion. Coronary arteries: There is moderate atherosclerotic calcification of the coronary arteries. Lymph nodes: Prominent mediastinal lymph nodes measuring up to 1.5 x 2.5 cm in the subcarinal space. Vasculature: Unremarkable. No aortic aneurysm. Bones/joints: Unremarkable. No acute fracture. Soft tissues: Unremarkable. COMMENTS: The presence of pulmonary emphysema on CT is an independent risk factor for lung cancer. In the absence of a history or active diagnosis of lung cancer, it is recommended that this patient with emphysema be evaluated for enrollment in a low dose CT lung cancer screening program. PROCEDURE INFORMATION: Exam: CT Abdomen And Pelvis With Contrast Exam date and time: 03/11/2024 3:26 PM Age: 68 years old Clinical indication: Other: Hypercalcemia; Shortness of breath TECHNIQUE: Imaging protocol: Computed tomography of the abdomen and pelvis with contrast. Radiation optimization: All CT scans at this facility use at least one of these dose optimization techniques: automated exposure control; mA and/or kV adjustment per patient size (includes targeted exams where dose is matched to clinical indication); or iterative reconstruction. Contrast material: OMNI 350; Contrast volume: 100 ml; Contrast route: INTRAVENOUS (IV); COMPARISON: CT angio abdomen pelvis [id number] 09/28/2021 1:21 PM RADIATION DOSE METRICS: Total DLP (mGy-cm): 1532.49 FINDINGS: Liver: There is a diffuse decrease in hepatic parenchymal density, consistent with fatty infiltration. Gallbladder and biliary ducts: There has been a cholecystectomy. Pancreas: Normal. No ductal dilation. Spleen: Normal. No splenomegaly. Adrenal glands: Normal. No mass. Kidneys and ureters: Bilateral simple renal cysts measuring up to 2.5 cm in the interpolar region. There is no evidence of hydronephrosis. Nonobstructing stone in the interpolar region of the left kidney measuring 5 mm. There is no evidence of hydronephrosis. Stomach and bowel: Unremarkable. No obstruction. No mucosal thickening. Appendix: There has been an appendectomy. Intraperitoneal space: Unremarkable. No free air. No significant fluid collection. Vasculature: Partially thrombosed abdominal aortic aneurysm measuring 4 cm. There are numerous benign phleboliths in the pelvis. Lymph nodes: Unremarkable. No enlarged lymph nodes. Urinary bladder: Unremarkable as visualized. Reproductive: Unremarkable as visualized. Bones/joints: There are mild degenerative changes of the sacroiliac joints. There are mild degenerative changes of the hip joints. Soft tissues: There is a fat-containing umbilical hernia. Bilateral fat containing inguinal hernias. CT/CT chest abdpel w/*[id number] IMPRESSION: Multilobar nodular infiltrates, suggestive of pneumonia. IMPRESSION: 1. No acute intra-abdominal process. 2. Hepatic steatosis. 3. Partially thrombosed infrarenal abdominal aortic aneurysm measuring 4 cm. COMMENTS: Consistent with the [employer]'s Incidental Findings Committee white paper (J Am Dee Dee Radiol 2018): Any incidental renal lesion less than 1 cm or classified as too small to characterize, or any incidental cystic renal lesion characterized as simple-appearing, is likely benign. No follow-up imaging is recommended for these lesions per consensus recommendations based on imaging criteria.
--- NOTE | 2024-03-11 15:00 | P.PN_ITS ---
Subjective 2 Subjective: Patient was seen this morning, he is alert to person, to place, not to time he can follow commands, able to squeeze my fingers bilaterally able to wiggle his toes pupils equal round react to light but remains encephalopathic, he is at times moaning and groaning complaining of pain everywhere, no nausea, no vomiting Vitals/I&O/Wt Last Vital Signs Temp 97.5 F L 03/11/24 11:54 Pulse 87 03/11/24 11:54 Resp 17 03/11/24 11:54 BP 95/66 03/11/24 11:54 Pulse Ox 91 03/11/24 11:54 O2 Del Method Nasal Cannula 03/11/24 11:54 O2 Flow Rate 2 03/11/24 08:45 03/11/24 03/11/24 03/11/24 06:59 14:59 22:59 Intake Total 300 / 300 Output Total 800 / 1300 1250 / 1250 Balance -800 / -100 -950 / -950 Weight last 48 hrs Weight 101.06 kg Weight 98.883 kg Physical Exam 2 Const: EXAM LIMITATIONS: altered mental status ORIENTATION/CONSCIOUSNESS: Y es awake, Yes oriented to person and Yes oriented to place; not oriented to time and not confused Resp: COMMON NORMALS: normal respiratory effort, No retractions and No use of accessory muscles AUSCULTATION: crackles and rhonchi Cardio: COMMON NORMALS: regular rate, regular rhythm, S1 normal heart sound present and S2 normal heart sound present RATE: regular rate RHYTHM: r egular rhythm HEART SOUNDS: S1 normal heart sound present and S2 normal heart sound present GI: COMMON NORMALS: Normal to inspection, nondistended, normoactive bowel sounds present and non-tender Extremity: COMMON NORMALS: no pedal edema Neuro: SENSORIUM/ORIENTATION: Yes oriented to person, Yes oriented to place and No oriented to time Psych: OTHER: Moaning and groaning, that he is hurting all over, at times he has episodes of hallucination Data 03/11/24 10:23 03/11/24 10:23 Micro: Microbiology 03/08/24 18:02 Gram Stain - Final Sputum - Expectorated Sputum Sputum Culture - Final A&P Assessment and plan (1) Acute hypoxic respiratory failure: (2) Sepsis: (3) Healthcare-associated pneumonia: (4) Influenza A: (5) COPD exacerbation: (6) Acute encephalopathy: (7) Altered mental status: (8) Hypercalcemia: Plan Acute encephalopathy -Likely secondary to pneumonia, influenza, hypoxia -Possibly related to hypercalcemia? -Possible narcotic and benzo associated? Is on Xanax 1 mg 3 times daily as needed, hydrocodone 10-325 every 6 hours as needed -Initial CT head within normal limits -Repeat CT head, CT neck no acute findings -Troponin series, ammonia levels -Neurochecks, NIH stroke scale, monitor mentation closely -MRI brain Hypercalcemia -With concerns for encephalopathy -With hyperparathyroidism, PTH 165 -Elevated ionized calcium -Vitamin D pending -Ultrasound thyroid -Will rule out lymphoma CT chest abdomen pelvis with IV contrast -Lasix 40 mg IV - -Start calcitonin -Monitor serum calcium, ionized calcium Fall -With superficial laceration -Monitor -Repeat CT head, CT neck no acute findings Acute hypoxic respiratory failure -Healthcare associated pneumonia -Influenza A -COPD exacerbation -With evidence of sepsis, sepsis features met given hypoxia up to 5 L, tachycardia, leukocytosis source of infection pneumonia, influenza A -CT of the chest on 03/04/2024 CT/CT chest wo con [id number] IMPRESSION: 1. Scattered reticular and ground-glass opacities throughout the lungs likely represent multifocal pneumonia in the acute setting. Recommend imaging follow-up after clinical treatment to evaluate for resolution. 5. Enlarged subcarinal lymph node is favored to be reactive. Attention on follow-up recommended. Plan -Monitor respiratory status closely -Will stop Tamiflu -Broaden antibiotic coverage to vancomycin, meropenem -Prednisone 40 mg daily -DuoNeb -Budesonide -Sputum culture -Blood culture -CRP 293, Pro-Azam 0.35 -CHF exacerbation, required IV lasix -See -Full code -Eliquis for DVT prophylaxis Chronic pain -Continue hydrocodone -Continue Xanax Attestations 2 Medical Necessity Statement*: Patient requires hospitalization for hypercalcemia, altered mental status, fall, acute hypoxic respiratory failure, pneumonia, COPD, CHF Diagnoses Acute hypoxic respiratory failure J96.01 Sepsis A41.9 Healthcare-associated pneumonia J18.9 Influenza A J10.1 COPD exacerbation J44.1 Acute encephalopathy G93.40 Altered mental status R41.82 Hypercalcemia E83.52
--- NOTE | 2024-03-11 15:01 | USR_ITS ---
PROCEDURE INFORMATION: Exam: US Soft Tissue Head and Neck, Thyroid Exam date and time: 03/11/2024 4:32 PM Age: 68 years old Clinical indication: Other: AMS TECHNIQUE: Imaging protocol: Real-time ultrasound scan of the neck with image documentation. Exam focused on the thyroid. COMPARISON: CT cervical spin wo con* [id number] 03/10/2024 1:00 PM FINDINGS: Limitations: Technically difficult study. Right thyroid lobe: No nodules. Left thyroid lobe: No nodules. Isthmus: No nodules. Lymph nodes: No enlarged cervical lymph nodes. US/US thyroid [id number] IMPRESSION: No thyroid nodules or lymphadenopathy.
[2024-03-11] MEDS: iohexol 350 mg/mL 500 mL Btl (per mL) IV (15:34)
[2024-03-11 16:58] LABS: Glucose Point of Care 301 mg/dL (70-110)
[2024-03-11] MEDS: FUROsemide 10 mg/mL SDV 4mL 40 MG IVP (17:22)
[2024-03-11] MEDS: calcitonin,salmon 200 unit/mL SDV 2mL 100 UNIT SUBCUT (17:23)
[2024-03-11] MEDS: pantoprazole 40 mg SDV IVP (19:31)
[2024-03-11 21:19] LABS: Glucose Point of Care 273 mg/dL (70-110)
[2024-03-12] VITALS (33 sets, daily range): BP systolic 87–118; BP diastolic 58–89; PULSE 85–108; RESP 16–30; TEMP 36.4–36.8; O2SAT 87–96
[2024-03-12 02:36] LABS: Ionized Calcium 1.4 mmol/L (1.1-1.4)
[2024-03-12] MEDS: meropenem 1,000 mg SDV 1000 MG IVP ×3 (03:10→20:31)
[2024-03-12 04:33] LABS: Basophils % 0.2 %; Eosinophils % 0.2 %; Hematocrit 54.9 % (37-53); Lymphocytes # 1.4 10^3/uL (0.8-4.8); Lymphocytes % 7.6 %; Mean Corpuscular HGB Conc 29.9 g/dL (30-55); Mean Corpuscular Hemoglobin 26.5 pg (27-33); Mean Corpuscular Volume 88.7 fl (82-101); Mean Platelet Volume 11.6 fL (7.4-10.4); Monocytes # 1.1 10^3/uL (0.2-0.9); Monocytes % 5.8 %; Neutrophils # 15.57 10^3/uL (1.8-7.7); Neutrophils % 85.4 %; Nucleated Red Blood Cells % 0 %; Platelet Count 200 10^3/cmm (157-399); Red Blood Count 6.19 10^6/uL (3.85-5.65); White Blood Count 18.22 10^3/uL (3.29-11.43)
[2024-03-12 05:04] LABS: Calcium 12.1 mg/dL (8.5-10.5); Parathyroid Hormone 168.3 pg/mL (15-65)
[2024-03-12 05:30] LABS: Alanine Aminotransferase 20 U/L (0-41); Albumin Level 3.2 g/dL (3.5-5.2); Alkaline Phosphatase 89 U/L (40-130); Aspartate Amino Transferase 18 U/L (0-40); Blood Urea Nitrogen 36 mg/dL (8-23); C Reactive Protein 225.4 mg/L (0.0-4.9); Calcium 11.8 mg/dL (8.5-10.5); Carbon Dioxide 21 mmol/L (22-29); Chloride 102 mmol/L (98-107); Creatinine Clr Calc Pharmacy 102.6705; Globulin 3.6 g/dL (1.3-4.6); Glomerular Filtration Rate 96.1 mL/min (90-130); Glucose 190 mg/dL (65-115); Magnesium 2.7 mg/dL (1.7-2.3); Osmolality Calculated 305 mOsm/kg (285-295); Sodium 141 mmol/L (136-145); Total Bilirubin 0.3 mg/dL (0.15-1.2); Total Protein 6.8 g/dL (6.6-8.7)
[2024-03-12 05:36] LABS: Procalcitonin 0.25 ng/mL (0-0.5)
[2024-03-12 05:37] LABS: Anion Gap 23.1 (5-19); Potassium 5.1 mmol/L (3.5-5.1)
[2024-03-12 06:31] LABS: Glucose Point of Care 266 mg/dL (70-110)
[2024-03-12] MEDS: ipratropium-albuterol 3 mL Neb INHALATION ×4 (07:27→19:39)
[2024-03-12] MEDS: budesonide 0.5 mg/2 mL Neb INHALATION ×2 (07:27→19:39)
[2024-03-12] MEDS: calcitonin,salmon 200 unit/mL SDV 2mL 100 UNIT SUBCUT (08:31)
[2024-03-12] MEDS: insulin lispro 100 unit/1 mL SUBCUT ×4 (08:32→20:52)
[2024-03-12] MEDS: predniSONE 20 mg Tablet 40 MG PO (08:32)
[2024-03-12] MEDS: clopidogrel 75 mg Tablet PO (08:33)
[2024-03-12] MEDS: apixaban 5 mg Tablet PO ×2 (08:33→17:39)
[2024-03-12] MEDS: gabapentin 400 mg Capsule PO ×3 (08:33→20:31)
[2024-03-12] MEDS: losartan 50 mg Tablet 25 MG PO (08:33)
[2024-03-12] MEDS: metoprolol tartrate 25 mg Tablet PO ×2 (08:34→17:39)
[2024-03-12] MEDS: vancomycin 1,500 MG/300 ML PIGGYBACK 200 MG IV ×2 (08:35→19:43)
[2024-03-12] MEDS: benzonatate 100 mg Capsule 200 MG PO ×3 (09:25→20:31)
[2024-03-12] MEDS: FUROsemide 10 mg/mL SDV 4mL 40 MG IVP (09:25)
--- NOTE | 2024-03-12 11:31 | PC.SOCIAL ---
IMM Updated Updated pt on IMM. No questions voiced. Provided pt a copy. Initialed, dated, & timed copy in chart.
[2024-03-12 11:45] LABS: Glucose Point of Care 409 mg/dL (70-110)
[2024-03-12] MEDS: AZITHROMYCIN ADD-Vantage 500 MG in 0.9% NaCl ADD-Vantage 250 ML 250 MG IV (12:43)
--- NOTE | 2024-03-12 12:45 | PC.NURSE ---
Received patient from med surg to ICU 7 via bed. Patient oriented to person only. Cooperative with care. No IV currently on patient. 18G PIV started to right forearm and antibiotics given as ordered.
[2024-03-12 13:00] LABS: Glucose Point of Care 366 mg/dL (70-110)
[2024-03-12 13:21] LABS: INR 1.39 (0.8-1.2)
[2024-03-12 13:28] LABS: Lactate Dehydrogenase 296 U/L (135-225)
[2024-03-12 17:30] LABS: Glucose Point of Care 307 mg/dL (70-110)
--- NOTE | 2024-03-12 18:19 | P.PN_ITS ---
Subjective 2 Subjective: Patient was seen this morning he is alert to person, to place, not to time he follows commands he tells me that he is not feeling well he is hurting all over patient had episodes of hemoptysis this morning, he shows me the At bedside, he denies a prior history of hemoptysis, no tuberculosis risk factors reported, discussed moving down to the ICU for closer monitoring, he is Eliquis will be held unfortunately he did receive his dose this morning will continue to hold his doses thereafter placed on cough suppressant Vitals/I&O/Wt Last Vital Signs Temp 98.0 F 03/12/24 16:00 Pulse 97 03/12/24 18:00 Resp 20 H 03/12/24 18:00 BP 104/74 03/12/24 18:00 Pulse Ox 90 03/12/24 18:00 O2 Del Method Nasal Cannula 03/12/24 18:00 O2 Flow Rate 6 03/12/24 18:00 03/12/24 03/12/24 03/12/24 06:59 14:59 22:59 Intake Total 300 / 300 450 / 750 Output Total 550 / 2600 1725 / 1725 Balance -550 / -1880 300 / 300 -1275 / -975 Weight last 48 hrs Weight 99.291 kg Weight 101.06 kg Physical Exam 2 Const: COMMON NORMALS: no acute distress and patient oriented x3 Resp: COMMON NORMALS: normal respiratory effort, No retractions and No use of accessory muscles AUSCULTATION: crackles and wheezes Cardio: COMMON NORMALS: regular rate, regular rhythm, S1 normal heart sound present and S2 normal heart sound present RATE: regular rate RHYTHM: r egular rhythm HEART SOUNDS: S1 normal heart sound present and S2 normal heart sound present GI: COMMON NORMALS: Normal to inspection, nondistended, normoactive bowel sounds present and non-tender Extremity: COMMON NORMALS: no pedal edema Neuro: COMMON NORMALS: patient oriented x3 Psych: COMMON NORMALS: mental status grossly normal Data 03/12/24 02:06 03/12/24 02:06 Micro: Microbiology 03/08/24 18:02 Gram Stain - Final Sputum - Expectorated Sputum Sputum Culture - Final A&P Assessment and plan (1) Acute hypoxic respiratory failure: (2) Sepsis: (3) Healthcare-associated pneumonia: (4) Influenza A: (5) COPD exacerbation: (6) Acute encephalopathy: (7) Altered mental status: (8) Hypercalcemia: (9) Hemoptysis: Plan Hemoptysis -Roughly 100 cc this morning, has not had any since early in the morning critical -For now hold Eliquis, Plavix -INR 1.3, hemoglobin 16.4 -Tessalon Perles 200 3 times daily scheduled -Monitor respiratory status, monitor for cough -Given CT chest findings as below will need to evaluate for Mycobacterium infection, atypical infection -QuantiFERON gold -Mycobacterium testing -AFB SMEARS -Fungal testing Acute encephalopathy, resolving -Likely secondary to pneumonia, influenza, hypoxia -Possibly related to hypercalcemia? -Possible narcotic and benzo associated? Is on Xanax 1 mg 3 times daily as needed, hydrocodone 10-325 every 6 hours as needed -Initial CT head within normal limits -Repeat CT head, CT neck no acute findings -Troponin series, ammonia levels -Neurochecks, NIH stroke scale, monitor mentation closely -MRI brain no acute findings Hypercalcemia -With concerns for encephalopathy -With hyperparathyroidism, PTH 165 -Elevated ionized calcium -Vitamin D pending -Ultrasound thyroid no acute findings -Will rule out lymphoma CT chest abdomen pelvis with IV contrast, does have enlarged subcarinal lymph node, will need to be evaluated as outpatient -Lasix 40 mg IV once today -Start calcitonin -Monitor serum calcium, ionized calcium Fall -With superficial laceration -Monitor -Repeat CT head, CT neck no acute findings Acute hypoxic respiratory failure -Healthcare associated pneumonia -Influenza A -COPD exacerbation -With evidence of sepsis, sepsis features met given hypoxia up to 5 L, tachycardia, leukocytosis source of infection pneumonia, influenza A -CT of the chest on 03/04/2024 CT/CT chest wo con [id number] IMPRESSION: 1. Scattered reticular and ground-glass opacities throughout the lungs likely represent multifocal pneumonia in the acute setting. Recommend imaging follow-up after clinical treatment to evaluate for resolution. 5. Enlarged subcarinal lymph node is favored to be reactive. Attention on follow-up recommended. Plan -Monitor respiratory status closely -Will stop Tamiflu -Broaden antibiotic coverage to vancomycin, meropenem, azithromycin -Prednisone 40 mg daily -DuoNeb -Budesonide -Sputum culture -Blood culture -CRP 293, Pro-Azam 0.35 -CHF exacerbation, required IV lasix -See -Full code -Eliquis for DVT prophylaxis Chronic pain -Continue hydrocodone -Continue Xanax Move patient out of ICU, monitor hemoptysis closely repeat CBC, continue IV antibiotics cough suppressant, order Mycobacterium workup, 40 mg IV push Lasix for fluid overload, added azithromycin for atypical coverage Attestations 2 Medical Necessity Statement*: Patient requires hospitalization for hemoptysis, acute encephalopathy, hypercalcemia, respiratory failure, pneumonia, Diagnoses Acute hypoxic respiratory failure J96.01 Sepsis A41.9 Healthcare-associated pneumonia J18.9 Influenza A J10.1 COPD exacerbation J44.1 Acute encephalopathy G93.40 Altered mental status R41.82 Hypercalcemia E83.52 Hemoptysis R04.2
[2024-03-12 19:32] LABS: Basophils % 0.2 %; Hematocrit 50.9 % (37-53); Lymphocytes % 5.1 %; Mean Corpuscular HGB Conc 30.6 g/dL (30-55); Mean Corpuscular Hemoglobin 26.4 pg (27-33); Mean Corpuscular Volume 86.1 fl (82-101); Mean Platelet Volume 11.4 fL (7.4-10.4); Monocytes # 0.7 10^3/uL (0.2-0.9); Monocytes % 3.6 %; Neutrophils # 17.92 10^3/uL (1.8-7.7); Neutrophils % 90.3 %; Nucleated Red Blood Cells % 0 %; Platelet Count 183 10^3/cmm (157-399); Red Blood Count 5.91 10^6/uL (3.85-5.65); Red Cell Distribution Width 13.8 % (12.1-15.1); White Blood Count 19.84 10^3/uL (3.29-11.43)
[2024-03-12] MEDS: fluconazole 100 mg Tablet 200 MG PO (19:43)
[2024-03-12] MEDS: pantoprazole 40 mg SDV IVP (19:43)
[2024-03-12 21:16] LABS: Glucose Point of Care 316 mg/dL (70-110)
[2024-03-13] VITALS (50 sets, daily range): BP systolic 88–139; BP diastolic 58–94; PULSE 85–115; RESP 12–32; TEMP 36.3–37.4; O2SAT 86–99
[2024-03-13] MEDS: meropenem 1,000 mg SDV 1000 MG IVP ×3 (05:00→20:34)
--- NOTE | 2024-03-13 06:12 | PC.NURSE ---
Patient refused am lab draw by lab, and several nurses. States he wants out of Here! patient unable to give correct physical location, date or time, or why he is here. Knows name and date of .
--- NOTE | 2024-03-13 07:00 | XRR_ITS ---
PROCEDURE INFORMATION: Exam: XR Chest Exam date and time: 03/13/2024 7:00 AM Age: 68 years old Clinical indication: Shortness of breath; Additional info: SOB TECHNIQUE: Imaging protocol: Radiologic exam of the chest. Views: 1 view. COMPARISON: CT chest abdpel w/*[id number] 03/11/2024 3:26 PM FINDINGS: Lungs: Redemonstration bilateral patchy airspace opacities with areas of confluence in the left lung base. Pleural spaces: No sizable pleural effusion or pneumothorax. Heart/Mediastinum: Normal cardiomediastinal silhouette. No cardiomegaly. Bones/joints: Unremarkable. XR/XR chest 1V portable [id number] IMPRESSION: As above.
[2024-03-13] MEDS: vancomycin 1,500 MG/300 ML PIGGYBACK 200 MG IV ×2 (07:39→20:13)
[2024-03-13] MEDS: ipratropium-albuterol 3 mL Neb INHALATION ×3 (07:44→19:38)
[2024-03-13] MEDS: budesonide 0.5 mg/2 mL Neb INHALATION ×2 (07:44→19:38)
[2024-03-13 07:48] LABS: Glucose Point of Care 211 mg/dL (70-110)
[2024-03-13 07:59] LABS: Basophils % 0.2 %; Eosinophils # 0.1 10^3/uL (0.0-0.8); Eosinophils % 0.5 %; Hematocrit 51.2 % (37-53); Lymphocytes # 1.5 10^3/uL (0.8-4.8); Lymphocytes % 6.8 %; Mean Corpuscular HGB Conc 30.5 g/dL (30-55); Mean Corpuscular Hemoglobin 26.4 pg (27-33); Mean Corpuscular Volume 86.5 fl (82-101); Mean Platelet Volume 11.4 fL (7.4-10.4); Monocytes # 0.9 10^3/uL (0.2-0.9); Monocytes % 4.2 %; Neutrophils # 19.31 10^3/uL (1.8-7.7); Neutrophils % 87.2 %; Nucleated Red Blood Cells % 0 %; Platelet Count 199 10^3/cmm (157-399); Red Blood Count 5.92 10^6/uL (3.85-5.65); Red Cell Distribution Width 13.8 % (12.1-15.1); White Blood Count 22.13 10^3/uL (3.29-11.43)
[2024-03-13 08:18] LABS: Alanine Aminotransferase 19 U/L (0-41); Albumin Level 2.8 g/dL (3.5-5.2); Alkaline Phosphatase 74 U/L (40-130); Anion Gap 14.7 (5-19); Aspartate Amino Transferase 17 U/L (0-40); Blood Urea Nitrogen 36 mg/dL (8-23); Calcium 12.8 mg/dL (8.5-10.5); Carbon Dioxide 28 mmol/L (22-29); Chloride 99 mmol/L (98-107); Creatinine Clr Calc Pharmacy 102.6705; Globulin 4.4 g/dL (1.3-4.6); Glomerular Filtration Rate 112.1 mL/min (90-130); Glucose 240 mg/dL (65-115); Osmolality Calculated 300 mOsm/kg (285-295); Potassium 4.7 mmol/L (3.5-5.1); Sodium 137 mmol/L (136-145); Total Bilirubin 0.4 mg/dL (0.15-1.2); Total Protein 7.2 g/dL (6.6-8.7)
[2024-03-13] MEDS: gabapentin 400 mg Capsule PO ×3 (09:14→20:12)
[2024-03-13] MEDS: insulin lispro 100 unit/1 mL SUBCUT ×4 (09:14→20:34)
[2024-03-13] MEDS: benzonatate 100 mg Capsule 200 MG PO ×3 (09:15→20:12)
[2024-03-13] MEDS: fluconazole 100 mg Tablet 200 MG PO (09:15)
[2024-03-13] MEDS: calcitonin,salmon 200 unit/mL SDV 2mL 100 UNIT SUBCUT (09:15)
[2024-03-13] MEDS: predniSONE 20 mg Tablet 40 MG PO (09:15)
[2024-03-13] MEDS: clopidogrel 75 mg Tablet PO (09:38)
[2024-03-13] MEDS: FUROsemide 10 mg/mL SDV 4mL 40 MG IVP (09:38)
[2024-03-13 09:59] LABS: C Reactive Protein 177.8 mg/L (0.0-4.9); Magnesium 1.8 mg/dL (1.7-2.3); Phosphorus 2.2 mg/dL (2.5-4.5)
[2024-03-13 10:20] LABS: Ionized Calcium 1.6 mmol/L (1.1-1.4)
[2024-03-13 10:49] LABS: INR 1.18 (0.8-1.2)
[2024-03-13 10:51] LABS: Lactate (Lactic Acid level) 2.3 mmol/L (0.5-2.2)
[2024-03-13 11:43] LABS: Calcium 12.7 mg/dL (8.5-10.5)
[2024-03-13] MEDS: AZITHROMYCIN ADD-Vantage 500 MG in 0.9% NaCl ADD-Vantage 250 ML 250 MG IV (12:49)
[2024-03-13 13:13] LABS: Glucose Point of Care 313 mg/dL (70-110)
--- NOTE | 2024-03-13 16:04 | P.PN_ITS ---
Subjective 2 Subjective: Patient was seen this morning, he is alert to person, to place not to time he follows commands, able to move bilateral upper lower extremities able to smile for me, pupils equal round reactive to light, continues to have encephalopathy, currently on nasal cannula, normotensive denies any headache, blurry vision, no nausea, no vomiting, no recurrent episodes of hemoptysis during the night Vitals/I&O/Wt Last Vital Signs Temp 98.7 F 03/13/24 13:30 Pulse 109 H 03/13/24 14:00 Resp 24 H 03/13/24 14:00 BP 97/74 03/13/24 14:00 Pulse Ox 91 03/13/24 14:00 O2 Del Method Nasal Cannula 03/13/24 13:30 O2 Flow Rate 3 03/13/24 13:30 03/13/24 03/13/24 03/13/24 06:59 14:59 22:59 Intake Total 200 / 1700 460 / 460 Output Total 500 / 2625 400 / 400 Balance -300 / -925 60 / 60 Weight last 48 hrs Weight 103.328 kg Weight 99.291 kg Physical Exam 2 Const: COMMON NORMALS: no acute distress ORIENTATION/CONSCIOUSNESS: Yes awake, Yes oriented to person, Yes oriented to place and Yes confused; not oriented to time Resp: COMMON NORMALS: normal respiratory effort, No retractions and No use of accessory muscles AUSCULTATION: crackles and wheezes Cardio: COMMON NORMALS: regular rate, regular rhythm, S1 normal heart sound present and S2 normal heart sound present RATE: regular rate RHYTHM: r egular rhythm HEART SOUNDS: S1 normal heart sound present and S2 normal heart sound present GI: COMMON NORMALS: Normal to inspection, nondistended, normoactive bowel sounds present and non-tender Extremity: COMMON NORMALS: no pedal edema Neuro: SENSORIUM/ORIENTATION: Yes oriented to person, Yes oriented to place and No oriented to time Psych: COMMON NORMALS: mental status grossly normal Data 03/13/24 07:45 03/13/24 07:45 Micro: Microbiology 03/12/24 09:16 Sputum Culture - Preliminary Sputum - Expectorated Sputum A&P Assessment and plan (1) Acute hypoxic respiratory failure: (2) Sepsis: (3) Healthcare-associated pneumonia: (4) Influenza A: (5) COPD exacerbation: (6) Acute encephalopathy: (7) Altered mental status: (8) Hypercalcemia: (9) Hemoptysis: Plan Hemoptysis -Roughly 100 cc 03/13/2024, has not had any since -For now hold Eliquis, -INR 1.3, hemoglobin 16.4 -Tessalon Perles 200 3 times daily scheduled -Monitor respiratory status, monitor for cough -Given CT chest findings as below will need to evaluate for Mycobacterium infection, atypical infection -QuantiFERON gold -Mycobacterium testing -AFB SMEARS -Fungal testing Acute encephalopathy, resolving -Likely secondary to pneumonia, influenza, hypoxia -Possibly related to hypercalcemia? -Possible narcotic and benzo associated? Is on Xanax 1 mg 3 times daily as needed, hydrocodone 10-325 every 6 hours as needed -Initial CT head within normal limits -Repeat CT head, CT neck no acute findings -MRI brain no acute findings -Troponin series, ammonia levels -Neurochecks, NIH stroke scale, monitor mentation closely Hypercalcemia -With concerns for encephalopathy -With hyperparathyroidism, PTH 165 -Elevated ionized calcium -Vitamin D pending -Ultrasound thyroid no acute findings -Will rule out lymphoma CT chest abdomen pelvis with IV contrast, does have enlarged subcarinal lymph node, will need to be evaluated as outpatient -Lasix 40 mg IV once today -calcitonin -cinacalcet -Will consider bisphosphonate -Monitor serum calcium, ionized calcium Atrial fibrillation -On metoprolol -Eliquis on hold -Will consider amiodarone drip as heart rates are climbing Fall -With superficial laceration -Monitor -Repeat CT head, CT neck no acute findings -MRI brain no acute findings Acute hypoxic respiratory failure -Healthcare associated pneumonia -Influenza A -COPD exacerbation -With evidence of sepsis, sepsis features met given hypoxia up to 5 L, tachycardia, leukocytosis source of infection pneumonia, influenza A -CT of the chest on 03/04/2024 CT/CT chest wo con [id number] IMPRESSION: 1. Scattered reticular and ground-glass opacities throughout the lungs likely represent multifocal pneumonia in the acute setting. Recommend imaging follow-up after clinical treatment to evaluate for resolution. 5. Enlarged subcarinal lymph node is favored to be reactive. Attention on follow-up recommended. Plan -Monitor respiratory status closely -Completed Tamiflu -Broaden antibiotic coverage to vancomycin, meropenem, azithromycin -Prednisone 40 mg daily -DuoNeb -Budesonide -Sputum culture -Blood culture -CRP 293, Pro-Azam 0.35 -CHF exacerbation, required IV lasix -See -Full code -Eliquis for DVT prophylaxis currently on hold due to hemoptysis CAD status post stenting Resume Plavix Chronic pain -Continue hydrocodone -Continue Xanax Monitor in ICU, Attestations 2 Medical Necessity Statement*: Patient requires hospitalization for acute hypoxic respiratory failure pneumonia, hypercalcemia, hemoptysis, atrial fibrillation, chronic pain, encephalopathy Diagnoses Acute hypoxic respiratory failure J96.01 Sepsis A41.9 Healthcare-associated pneumonia J18.9 Influenza A J10.1 COPD exacerbation J44.1 Acute encephalopathy G93.40 Altered mental status R41.82 Hypercalcemia E83.52 Hemoptysis R04.2
--- NOTE | 2024-03-13 16:23 | PC.NURSE ---
Physician communication. Updated Dr mayes on mental status and heart rate. Mental status largely unchanged form this morning. Oriented to person, place, time, and somewhat to situation. Is lethargic, but easily woken up and follows commands with no deficits. Patient was more alert earlier this morning, but family was also at bedside at the time. Heart rate has ranged between 95-105 today, did not receive morning metoprolol due to low blood pressures.
[2024-03-13 17:49] LABS: Glucose Point of Care 368 mg/dL (70-110)
[2024-03-13] MEDS: metoprolol tartrate 25 mg Tablet PO (18:07)
--- NOTE | 2024-03-13 18:16 | PC.NURSE ---
NUrse called patient's sister named Yasmin at [phone]. REquested she bring in home medication Cinacalcet. She said she can bring it tommorow morning around 8 am.
--- NOTE | 2024-03-13 18:31 | PC.NURSE ---
SHift SUmmary: Uneventful shift. patient has rested in bed for most of the day, but was up a a chair and more alert with family for about 2 hours. BG has been trending higher throughout the day, physician notified. Total urine output was grater than 1450. Unsure of exact amount as patient dropped his urinal at one point and spilled a large amount on the floor.
[2024-03-13 19:18] LABS: Vancomycin Trough 14.9 ug/mL (10-15)
[2024-03-13] MEDS: pantoprazole 40 mg SDV IVP (20:12)
[2024-03-13] MEDS: ALPRAZolam 0.5 mg Tablet 1 MG PO (20:35)
[2024-03-13 20:55] LABS: Glucose Point of Care 444 mg/dL (70-110)
[2024-03-14] VITALS (50 sets, daily range): BP systolic 100–154; BP diastolic 70–101; PULSE 78–116; RESP 17–28; TEMP 36.5–37.4; O2SAT 88–100
[2024-03-14 03:22] LABS: Ionized Calcium 1.7 mmol/L (1.1-1.4)
[2024-03-14 03:39] LABS: Basophils # 0.1 10^3/uL (0.0-0.1); Basophils % 0.2 %; Lymphocytes # 1.5 10^3/uL (0.8-4.8); Lymphocytes % 6.3 %; Mean Corpuscular Hemoglobin 26.3 pg (27-33); Mean Corpuscular Volume 87.6 fl (82-101); Mean Platelet Volume 11.5 fL (7.4-10.4); Monocytes % 4.4 %; Neutrophils # 20.25 10^3/uL (1.8-7.7); Neutrophils % 88.1 %; Nucleated Red Blood Cells % 0 %; Platelet Count 197 10^3/cmm (157-399); Red Blood Count 6.05 10^6/uL (3.85-5.65); Red Cell Distribution Width 13.9 % (12.1-15.1); White Blood Count 23.01 10^3/uL (3.29-11.43)
[2024-03-14 04:03] LABS: Alanine Aminotransferase 21 U/L (0-41); Albumin Level 2.7 g/dL (3.5-5.2); Alkaline Phosphatase 74 U/L (40-130); Anion Gap 11.4 (5-19); Aspartate Amino Transferase 16 U/L (0-40); Blood Urea Nitrogen 34 mg/dL (8-23); C Reactive Protein 212.7 mg/L (0.0-4.9); Calcium 13.5 mg/dL (8.5-10.5); Carbon Dioxide 32 mmol/L (22-29); Chloride 105 mmol/L (98-107); Glomerular Filtration Rate 112.1 mL/min (90-130); Glucose 144 mg/dL (65-115); Magnesium 1.9 mg/dL (1.7-2.3); Osmolality Calculated 308 mOsm/kg (285-295); Phosphorus 2.8 mg/dL (2.5-4.5); Potassium 4.4 mmol/L (3.5-5.1); Sodium 144 mmol/L (136-145); Total Bilirubin 0.3 mg/dL (0.15-1.2); Total Protein 7.7 g/dL (6.6-8.7)
[2024-03-14 04:04] LABS: Calcium 13.3 mg/dL (8.5-10.5); Lactate (Lactic Acid level) 1.1 mmol/L (0.5-2.2)
[2024-03-14 04:09] LABS: Procalcitonin 0.23 ng/mL (0-0.5)
[2024-03-14 04:10] LABS: Parathyroid Hormone 130.2 pg/mL (15-65)
[2024-03-14] MEDS: meropenem 1,000 mg SDV 1000 MG IVP ×3 (06:04→20:38)
[2024-03-14 07:09] LABS: Glucose Point of Care 219 mg/dL (70-110)
[2024-03-14] MEDS: budesonide 0.5 mg/2 mL Neb INHALATION ×2 (07:53→19:57)
[2024-03-14] MEDS: ipratropium-albuterol 3 mL Neb INHALATION ×4 (07:53→19:57)
[2024-03-14] MEDS: vancomycin 1,500 MG/300 ML PIGGYBACK 200 MG IV ×2 (08:17→20:38)
[2024-03-14] MEDS: insulin lispro 100 unit/1 mL SUBCUT ×4 (08:17→21:18)
--- NOTE | 2024-03-14 09:25 | CT_ITS ---
WS: [id number] CT HEAD NONCONTRAST HISTORY: fall TECHNIQUE: Contiguous axial imaging performed through the brain. Bone and soft tissue windows. Sagitt al and coronal reformats reviewed. All CT scans at [facility] use at least one of these dose optimization techniques: automated exposure control; mA and/or kV adjustment per patient size (includ es targeted exams where dose is matched to clinical indication); or iterative reconstruction. DLP: 1236.10 mGy.cm COMPARISON: 03/10/2024 No acute intracranial hemorrhage, midline shift or mass effect. Mild atrophy and mild small vessel ischemic changes. No progression or new infarct since the prior ex am. Ventricles: Normal size with no hydrocephalus. No inferior displacement of the cerebellar tonsils. Paranasal sinuses: As visualized are clear. Mastoid air cells: Well pneumatized. Calvarium and scalp: Skull is intact with no soft tissue edema or swelling. CT/CT head wo con* [id number] IMPRESSION: 1. No acute intracranial hemorrhage or edema. 2. Stable noncontrast head CT since 03/10/2024. Mild volume loss and small vess el disease.
[2024-03-14] MEDS: metoprolol tartrate 25 mg Tablet PO ×2 (09:31→17:37)
[2024-03-14] MEDS: FUROsemide 10 mg/mL SDV 4mL 40 MG IVP (09:32)
[2024-03-14] MEDS: benzonatate 100 mg Capsule 200 MG PO ×2 (09:32→16:11)
[2024-03-14] MEDS: fluconazole 100 mg Tablet 200 MG PO (09:32)
[2024-03-14] MEDS: gabapentin 400 mg Capsule PO ×2 (09:32→16:11)
[2024-03-14] MEDS: clopidogrel 75 mg Tablet PO (09:32)
[2024-03-14] MEDS: predniSONE 20 mg Tablet 40 MG PO (09:32)
[2024-03-14] MEDS: HYDROcodone-acetaminophen 10-325 mg Tablet 0.5 TAB PO ×2 (09:42→16:11)
[2024-03-14] MEDS: calcitonin,salmon 200 unit/mL SDV 2mL 100 UNIT SUBCUT (09:42)
[2024-03-14] MEDS: CINACALCET HCL 30 MG 1 EACH PO ×2 (10:05→17:37)
[2024-03-14] MEDS: AZITHROMYCIN ADD-Vantage 500 MG in 0.9% NaCl ADD-Vantage 250 ML 250 MG IV (12:10)
[2024-03-14 12:22] LABS: Glucose Point of Care 368 mg/dL (70-110)
--- NOTE | 2024-03-14 14:37 | PC.SOCIAL ---
IMM Update pg 2 of IMM updated and reviewed w/ patient's mom. Copy provided and copy dated, initialed and placed in chart.
--- NOTE | 2024-03-14 15:11 | P.PN_ITS ---
Subjective 2 Subjective: Patient was seen this morning, in the ICU, sitting up to the side of the bed, in a chair sister is at bedside he is alert to person, to place, not to time, denies any nausea, vomiting, abdominal pain, no fevers, no chills, following commands able to squeeze my fingers able to smile for a move his bilateral lower extremities Vitals/I&O/Wt Last Vital Signs Temp 97.8 F 03/14/24 14:00 Pulse 105 H 03/14/24 14:00 Resp 24 H 03/14/24 14:00 BP 120/100 03/14/24 14:00 Pulse Ox 94 03/14/24 14:00 O2 Del Method Nasal Cannula 03/14/24 14:00 O2 Flow Rate 4 03/14/24 14:00 03/14/24 03/14/24 03/14/24 06:59 14:59 22:59 Intake Total 840 / 840 Output Total 1350 / 1350 Balance -510 / -510 Weight last 48 hrs Weight 98.838 kg Weight 103.328 kg Physical Exam 2 Const: COMMON NORMALS: no acute distress and patient oriented x3 Resp: COMMON NORMALS: normal respiratory effort, No retractions, No use of accessory muscles and clear to auscultation bilaterally AUSCULTATION: clear to auscultation bilaterally Cardio: COMMON NORMALS: regular rate, regular rhythm, S1 normal heart sound present and S2 normal heart sound present RATE: regular rate RHYTHM: r egular rhythm HEART SOUNDS: S1 normal heart sound present and S2 normal heart sound present GI: COMMON NORMALS: Normal to inspection, nondistended, normoactive bowel sounds present and non-tender Extremity: COMMON NORMALS: no pedal edema Neuro: COMMON NORMALS: patient oriented x3 Psych: COMMON NORMALS: mental status grossly normal Data 03/14/24 03:15 03/14/24 03:15 Micro: Microbiology 03/08/24 20:15 Blood Culture - Final Blood NO GROWTH AFTER 5 DAYS 03/08/24 20:18 Blood Culture - Final Blood NO GROWTH AFTER 5 DAYS 03/12/24 09:16 Fungal Smear - Preliminary Sputum - Expectorated Sputum 03/12/24 09:16 Sputum Culture - Preliminary Sputum - Expectorated Sputum A&P Assessment and plan (1) Acute hypoxic respiratory failure: (2) Sepsis: (3) Healthcare-associated pneumonia: (4) Influenza A: (5) COPD exacerbation: (6) Acute encephalopathy: (7) Altered mental status: (8) Hypercalcemia: (9) Hemoptysis: Plan Hemoptysis -Roughly 100 cc 03/13/2024, has not had any since -For now hold Eliquis, -INR 1.3, hemoglobin 15.9 -Tessalon Perles 200 3 times daily scheduled -Monitor respiratory status, monitor for cough -Given CT chest findings as below will need to evaluate for Mycobacterium infection, atypical infection -QuantiFERON gold -Mycobacterium testing -AFB SMEARS -Fungal testing Acute encephalopathy, resolving -Likely secondary to pneumonia, influenza, hypoxia -Possibly related to hypercalcemia? -Possible narcotic and benzo associated withdrawal is on Xanax 1 mg 3 times daily as needed, hydrocodone 10-325 every 6 hours as needed. Will continue home medications but Xanax 0.5 mg, hydrocodone 5 due to concerns for polypharmacy -Initial CT head within normal limits -Repeat CT head, CT neck no acute findings -MRI brain no acute findings -Troponin series, ammonia levels -Neurochecks, NIH stroke scale, monitor mentation closely Hypercalcemia -With concerns for encephalopathy -With hyperparathyroidism, PTH 165 -Elevated ionized calcium -Vitamin D pending -Ultrasound thyroid no acute findings -Will rule out lymphoma CT chest abdomen pelvis with IV contrast, does have enlarged subcarinal lymph node, will need to be evaluated as outpatient -Lasix 40 mg IV once today -calcitonin -cinacalcet -Will consider bisphosphonate -Monitor serum calcium, ionized calcium Atrial fibrillation -On metoprolol -Eliquis on hold -Will consider amiodarone drip as heart rates are climbing Fall -With superficial laceration -Monitor -Repeat CT head, CT neck no acute findings -MRI brain no acute findings Acute hypoxic respiratory failure -Healthcare associated pneumonia -Influenza A -COPD exacerbation -With evidence of sepsis, sepsis features met given hypoxia up to 5 L, tachycardia, leukocytosis source of infection pneumonia, influenza A -CT of the chest on 03/04/2024 CT/CT chest wo con [id number] IMPRESSION: 1. Scattered reticular and ground-glass opacities throughout the lungs likely represent multifocal pneumonia in the acute setting. Recommend imaging follow-up after clinical treatment to evaluate for resolution. 5. Enlarged subcarinal lymph node is favored to be reactive. Attention on follow-up recommended. Plan -Monitor respiratory status closely -Completed Tamiflu -Broaden antibiotic coverage to vancomycin, meropenem, azithromycin -Added Diflucan -Prednisone 40 mg daily -DuoNeb -Budesonide -Sputum culture -Blood culture -CRP 293, Pro-Azam 0.35 -CHF exacerbation, required IV lasix -See -Full code -Eliquis for DVT prophylaxis currently on hold due to hemoptysis CAD status post stenting Resume Plavix Chronic pain -Continue hydrocodone -Continue Xanax Monitor in ICU, IV diuresis, PT OT, cinacelcet, IV antibiotics, Attestations 2 Medical Necessity Statement*: Patient requires hospitalization for hemoptysis, respiratory failure, encephalopathy, hypercalcemia, pneumonia Diagnoses Acute hypoxic respiratory failure J96.01 Sepsis A41.9 Healthcare-associated pneumonia J18.9 Influenza A J10.1 COPD exacerbation J44.1 Acute encephalopathy G93.40 Altered mental status R41.82 Hypercalcemia E83.52 Hemoptysis R04.2
[2024-03-14 17:44] LABS: Glucose Point of Care 382 mg/dL (70-110)
--- NOTE | 2024-03-14 18:47 | PC.NURSE ---
SHift SUmmary: uneventful shift. Patient was up to a chair for about 4 hours today. At a little more than yesterday, but still very poor oral food intake. MOstly just wants to drink water. Patient was overall more alert than yesterday, but still confused and with a variable mental status. Scott catheter inserted. Started on Cinacalcet today for high calcium, medication is in pharmacy bin.
[2024-03-14] MEDS: pantoprazole 40 mg SDV IVP (20:38)
[2024-03-14 21:46] LABS: Glucose Point of Care 319 mg/dL (70-110)
[2024-03-15] VITALS (35 sets, daily range): BP systolic 95–141; BP diastolic 73–110; PULSE 72–93; RESP 13–26; TEMP 36.2–37.3; O2SAT 90–94
[2024-03-15 04:09] LABS: Basophils # 0.1 10^3/uL (0.0-0.1); Basophils % 0.3 %; Lymphocytes # 1.3 10^3/uL (0.8-4.8); Lymphocytes % 5.5 %; Mean Corpuscular Hemoglobin 26.6 pg (27-33); Mean Corpuscular Volume 88.5 fl (82-101); Mean Platelet Volume 11.8 fL (7.4-10.4); Monocytes # 0.9 10^3/uL (0.2-0.9); Monocytes % 3.7 %; Neutrophils # 20.79 10^3/uL (1.8-7.7); Neutrophils % 89.5 %; Nucleated Red Blood Cells % 0 %; Platelet Count 186 10^3/cmm (157-399); Red Cell Distribution Width 13.9 % (12.1-15.1); White Blood Count 23.25 10^3/uL (3.29-11.43)
--- NOTE | 2024-03-15 04:09 | CTR_ITS ---
PROCEDURE INFORMATION: Exam: CT Head Without Contrast Exam date and time: 03/15/2024 4:07 AM Age: 68 years old Clinical indication: Speech disturbance; Slurred speech; Additional info: Acute facial dropp TECHNIQUE: Imaging protocol: Computed tomography of the head without contrast. Radiation optimization: All CT scans at this facility use at least one of these dose optimization techniques: automated exposure control; mA and/or kV adjustment per patient size (includes targeted exams where dose is matched to clinical indication); or iterative reconstruction. COMPARISON: CT head wo con* [id number] 03/14/2024 1:15 PM RADIATION DOSE METRICS: Total DLP (mGy-cm): 1086.38 FINDINGS: Brain: Intracranial calcified atherosclerotic disease, moderate. Cerebral ventricles: No ventriculomegaly. Paranasal sinuses: Visualized sinuses are unremarkable. No fluid levels. Mastoid air cells: Visualized mastoid air cells are well aerated. Bones: Unremarkable. No acute fracture. Soft tissues: Unremarkable. CT/CT head wo con* [id number] IMPRESSION: No acute findings.
--- NOTE | 2024-03-15 04:19 | CTR_ITS ---
PROCEDURE INFORMATION: Exam: CTA Head With Contrast, Arteriography Exam date and time: 03/15/2024 5:02 AM Age: 68 years old Clinical indication: Speech disturbance and other: Facial droop; Additional info: Stroke TECHNIQUE: Imaging protocol: Computed tomographic angiography of the head with contrast. Exam focused on the arteries. 3D rendering (Not supervised by radiologist): MIP and/or 3D reconstructed images were created by the technologist. Radiation optimization: All CT scans at this facility use at least one of these dose optimization techniques: automated exposure control; mA and/or kV adjustment per patient size (includes targeted exams where dose is matched to clinical indication); or iterative reconstruction. Contrast material: OMNI 350; Contrast volume: 75 ml; Contrast route: INTRAVENOUS (IV); COMPARISON: CT head wo con* [id number] 03/15/2024 4:07 AM RADIATION DOSE METRICS: Total DLP (mGy-cm): 482.09 FINDINGS: ANTERIOR CIRCULATION: Right internal carotid artery: Intracranial segment is patent with no significant stenosis. No aneurysm. Scattered atherosclerotic disease. Right middle cerebral artery: No occlusion or significant stenosis. No aneurysm. Right anterior cerebral artery: No occlusion or significant stenosis. No aneurysm. Left internal carotid artery: Intracranial segment is patent with no significant stenosis. No aneurysm. Scattered atherosclerotic disease. Left middle cerebral artery: No occlusion or significant stenosis. No aneurysm. Left anterior cerebral artery: No occlusion or significant stenosis. No aneurysm. POSTERIOR CIRCULATION: Right vertebral artery: No occlusion or significant stenosis. No aneurysm. Left vertebral artery: No occlusion or significant stenosis. No aneurysm. Basilar artery: No occlusion or significant stenosis. No aneurysm. Right posterior cerebral artery: No occlusion or significant stenosis. No aneurysm. Left posterior cerebral artery: No occlusion or significant stenosis. No aneurysm. Brain: No definite mass, mass effect, or midline shift. Cerebral ventricles: No ventriculomegaly. Bones/joints: Unremarkable. No acute fracture. Soft tissues: Unremarkable. PROCEDURE INFORMATION: Exam: CTA Neck With Contrast Exam date and time: 03/15/2024 5:02 AM Age: 68 years old Clinical indication: Speech disturbance and other: Facial droop; Additional info: Stroke TECHNIQUE: Imaging protocol: Computed tomographic angiography of the neck with contrast. Exam focused on the cervical segments of the vasculature. 3D rendering (Not supervised by radiologist): MIP and/or 3D reconstructed images were created by the technologist. Radiation optimization: All CT scans at this facility use at least one of these dose optimization techniques: automated exposure control; mA and/or kV adjustment per patient size (includes targeted exams where dose is matched to clinical indication); or iterative reconstruction. Contrast material: OMNI 350; Contrast volume: 75 ml; Contrast route: INTRAVENOUS (IV); COMPARISON: CT cervical spin wo con* [id number] 03/10/2024 1:00 PM RADIATION DOSE METRICS: Total DLP (mGy-cm): 01 FINDINGS: Right common carotid artery: No stenosis. No dissection or occlusion. Right internal carotid artery: About 25% stenosis of the right internal carotid artery by mixed density plaque. Right external carotid artery: No occlusion or stenosis of the origin. Left common carotid artery: No stenosis. No dissection or occlusion. Left internal carotid artery: Approaching near total occlusion of the proximal left internal carotid artery just after the bifurcation (about 95% occlusion by predominantly soft plaque). Left external carotid artery: No occlusion or stenosis of the origin. Right vertebral artery: No stenosis. No dissection or occlusion. Left vertebral artery: Diminutive left vertebral artery throughout its course. Pharynx: Multiple tonsilliths. Soft tissues: Normal. No significant soft tissue swelling. Bones/joints: Diffuse degenerative change of the visualized osseous structures. Prominent disc osteophyte complex at C4-C5 which effaces the anterior thecal sac, produces moderate to severe bilateral foraminal narrowing. Lungs: Advanced apically predominant COPD changes. Extensive apical somewhat cystic type bronchiectasis with extensive peribronchial wall thickening. CT/CT angio headneck* [id number] IMPRESSION: No large vessel stenosis or occlusion. IMPRESSION: 1. Severe proximal left internal carotid artery stenosis secondary to predominantly soft plaque just after the bifurcation. 2. Lung findings which can be seen in acute on chronic bronchitis with underlying advanced COPD changes. REFERENCES: NASCET CRITERIA. The degree of stenosis in the cervical segment of the internal carotid artery is based on NASCET criteria. Normal is no stenosis. Mild is less than 50% stenosis. Moderate is 50-69% stenosis. Severe is 70% to 99% stenosis. Total occlusion is no detectable patent lumen.
--- NOTE | 2024-03-15 04:20 | PC.NURSE ---
Stoke alert called at 350 am, into do patient bath at that time noted left sided facial drop, last hour check resting without distress, last known well time awake at 2 am check when woke up with oral care and evaluation. 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 Previous mentation waxes and wanes with ability to give answers to place and situation only. Able to given name date of and year. Did state was in [place]. Dr. Judd updated on situation via telephone, requested Dr. Russell to call after her assessment. HR 87 RR 18 o2 saturation 90 on 5L bp 119/89 . temp 99.2
[2024-03-15 04:27] LABS: Alanine Aminotransferase 19 U/L (0-41); Albumin Level 2.6 g/dL (3.5-5.2); Alkaline Phosphatase 83 U/L (40-130); Blood Urea Nitrogen 41 mg/dL (8-23); Calcium 12.9 mg/dL (8.5-10.5); Carbon Dioxide 31 mmol/L (22-29); Chloride 103 mmol/L (98-107); Creatinine Clr Calc Pharmacy 91.0613; Globulin 5.2 g/dL (1.3-4.6); Glomerular Filtration Rate 83.9 mL/min (90-130); Glucose 223 mg/dL (65-115); Magnesium 2.1 mg/dL (1.7-2.3); Osmolality Calculated 311 mOsm/kg (285-295); Phosphorus 3.1 mg/dL (2.5-4.5); Sodium 142 mmol/L (136-145); Total Bilirubin 0.3 mg/dL (0.15-1.2); Total Protein 7.8 g/dL (6.6-8.7)
[2024-03-15 04:28] LABS: Anion Gap 12.8 (5-19); Aspartate Amino Transferase 15 U/L (0-40); Potassium 4.8 mmol/L (3.5-5.1)
[2024-03-15 04:29] LABS: Lactate (Lactic Acid level) 1.2 mmol/L (0.5-2.2)
[2024-03-15 04:36] LABS: C Reactive Protein 200.7 mg/L (0.0-4.9)
[2024-03-15 04:39] LABS: NT Pro B Type Natriuretic Pept 1298 pg/mL (0-125)
[2024-03-15 04:43] LABS: Procalcitonin 0.35 ng/mL (0-0.5)
[2024-03-15] MEDS: iohexol 350 mg/mL 500 mL Btl (per mL) IV (05:21)
[2024-03-15] MEDS: meropenem 1,000 mg SDV 1000 MG IVP ×3 (05:28→20:56)
[2024-03-15 05:56] LABS: Glucose Point of Care 206 mg/dL (70-110)
[2024-03-15] MEDS: aspirin 325 mg Tablet PO (06:26)
--- NOTE | 2024-03-15 07:00 | XR_ITS ---
WS: [id number] Portable AP upright chest, 03/15/2024 Clinical Data: sob Comparison: Portable chest, 03/13/2024 Findings: The bilateral patchy opacities in the lungs remain the same. No masses or effusions are see n. The heart size is normal. The aortic arch shows calcification. XR/XR chest 1V portable [id number] Impression: 1. No change in bilateral patchy opacities. 2. Atherosclerosis.
[2024-03-15 07:43] LABS: Glucose Point of Care 236 mg/dL (70-110)
[2024-03-15] MEDS: predniSONE 20 mg Tablet 40 MG PO (08:21)
[2024-03-15] MEDS: gabapentin 400 mg Capsule PO ×3 (08:21→20:56)
[2024-03-15] MEDS: benzonatate 100 mg Capsule 200 MG PO ×3 (08:21→20:56)
[2024-03-15] MEDS: insulin lispro 100 unit/1 mL SUBCUT ×4 (08:21→21:09)
[2024-03-15] MEDS: losartan 50 mg Tablet 25 MG PO (08:22)
[2024-03-15] MEDS: clopidogrel 75 mg Tablet PO (08:22)
[2024-03-15] MEDS: CINACALCET HCL 30 MG 1 EACH PO ×2 (08:22→17:09)
[2024-03-15] MEDS: vancomycin 1,500 MG/300 ML PIGGYBACK 200 MG IV ×2 (08:22→19:22)
[2024-03-15] MEDS: fluconazole 100 mg Tablet 200 MG PO (08:22)
[2024-03-15] MEDS: metoprolol tartrate 25 mg Tablet PO ×2 (08:22→17:09)
[2024-03-15] MEDS: FUROsemide 10 mg/mL SDV 4mL 40 MG IVP (08:29)
[2024-03-15] MEDS: potassium chloride ER 20 mEq Tablet 40 MEQ PO (08:29)
[2024-03-15] MEDS: ipratropium-albuterol 3 mL Neb INHALATION ×4 (08:38→21:18)
[2024-03-15] MEDS: budesonide 0.5 mg/2 mL Neb INHALATION ×2 (08:38→21:18)
[2024-03-15] MEDS: apixaban 5 mg Tablet PO ×2 (11:03→20:55)
[2024-03-15 11:05] LABS: Glucose Point of Care 299 mg/dL (70-110)
[2024-03-15] MEDS: thiamine 100 mg/mL 2mL SDV 200 MG IVP ×2 (13:22→19:22)
--- NOTE | 2024-03-15 16:35 | P.PN_ITS ---
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 extremities, he can follow commands, however his expressions he has quite a flat affect, appears to be withdrawn, he does have a history of alcohol consumption, no tremors noted, denies any chest pain, no shortness of breath, Vitals/I&O/Wt Last Vital Signs Temp 98.1 F 03/15/24 14:00 Pulse 85 03/15/24 16:00 Resp 13 03/15/24 16:00 BP 119/91 03/15/24 16:00 Pulse Ox 91 03/15/24 16:00 O2 Del Method Nasal Cannula 03/15/24 16:00 O2 Flow Rate 6 03/15/24 16:00 03/15/24 03/15/24 03/15/24 06:59 14:59 22:59 Intake Total 400 / 2340 620 / 620 Output Total 900 / 3150 300 / 300 Balance -500 / -810 320 / 320 Weight last 48 hrs Weight 98.838 kg Physical Exam 2 Const: COMMON NORMALS: no acute distress ORIENTATION/CONSCIOUSNESS: Yes awake, Yes oriented to person and Yes oriented to place; not oriented to time Resp: COMMON NORMALS: normal respiratory effort, No retractions, No use of accessory muscles and clear to auscultation bilaterally AUSCULTATION: clear to auscultation bilaterally Cardio: COMMON NORMALS: regular rate, regular rhythm, S1 normal heart sound present and S2 normal heart sound present RATE: regular rate RHYTHM: r egular rhythm HEART SOUNDS: S1 normal heart sound present and S2 normal heart sound present GI: COMMON NORMALS: Normal to inspection, nondistended, normoactive bowel sounds present and non-tender Extremity: COMMON NORMALS: no pedal edema Neuro: SENSORIUM/ORIENTATION: Yes oriented to person, Yes oriented to place and No oriented to time Psych: COMMON NORMALS: mental status grossly normal Urinary Catheter Management: Scott: Cath Placed During This Visit: yes Reason for Continuing Indwelling Catheter: Accurate Measurement of Urinary Output in Critically Ill Patients Urinary Catheter Date of Insertion: 03/14/24 Urinary Catheter Time of Insertion: 14:00 Data 03/15/24 04:02 03/15/24 04:02 Micro: Microbiology 03/12/24 09:16 Fungal Smear - Preliminary Sputum - Expectorated Sputum 03/12/24 09:16 Sputum Culture - Final Sputum - Expectorated Sputum A&P Assessment and plan (1) Acute hypoxic respiratory failure: (2) Sepsis: (3) Healthcare-associated pneumonia: (4) Influenza A: (5) COPD exacerbation: (6) Acute encephalopathy: (7) Altered mental status: (8) Hypercalcemia: (9) Hemoptysis: Plan Hemoptysis, resolved -Roughly 100 cc 03/13/2024, has not had any since -Resume Eliquis today monitor closely -INR 1.3, hemoglobin 15.9 -Tessalon Perles 200 3 times daily scheduled -Monitor respiratory status, monitor for cough -Given CT chest findings as below will need to evaluate for Mycobacterium infection, atypical infection -QuantiFERON gold -Mycobacterium testing -AFB SMEARS -Fungal testing Acute encephalopathy, episodes of encephalopathy this morning, although following commands, no focal neurologic deficits, no facial droop no slurring words has a flat affect -Likely secondary to pneumonia, influenza, hypoxia -Had a stroke alert overnight, no focal neurologic deficits this morning does have severe left internal carotid artery stenosis, continue Plavix, statin, Eliquis -Possibly related to hypercalcemia? Calcium improving to 12.8 -Possible narcotic and benzo associated withdrawal is on Xanax 1 mg 3 times daily as needed, hydrocodone 10-325 every 6 hours as needed. Will continue home medications but Xanax 0.5 mg, hydrocodone 5 due to concerns for polypharmacy -Initial CT head within normal limits -Repeat CT head, CT neck no acute findings -MRI brain no acute findings -Troponin series, ammonia levels -Neurochecks, NIH stroke scale, monitor mentation closely Left internal carotid artery stenosis, severe -Will have to have patient follow-up with neurology, vascular as outpatient -Resume Plavix, statin, Eliquis Hypercalcemia -With concerns for encephalopathy -With hyperparathyroidism, PTH 165 -Elevated ionized calcium -Vitamin D pending -Ultrasound thyroid no acute findings -Will rule out lymphoma CT chest abdomen pelvis with IV contrast, does have enlarged subcarinal lymph node, will need to be evaluated as outpatient -Lasix 40 mg IV once today -calcitonin -cinacalcet -Will consider bisphosphonate -Monitor serum calcium, ionized calcium Atrial fibrillation -On metoprolol -Eliquis on hold -Will consider amiodarone drip as heart rates are climbing Fall -With superficial laceration -Monitor -Repeat CT head, CT neck no acute findings -MRI brain no acute findings Acute hypoxic respiratory failure -Healthcare associated pneumonia -Influenza A -COPD exacerbation -With evidence of sepsis, sepsis features met given hypoxia up to 5 L, tachycardia, leukocytosis source of infection pneumonia, influenza A -CT of the chest on 03/04/2024 CT/CT chest wo con [id number] IMPRESSION: 1. Scattered reticular and ground-glass opacities throughout the lungs likely represent multifocal pneumonia in the acute setting. Recommend imaging follow-up after clinical treatment to evaluate for resolution. 5. Enlarged subcarinal lymph node is favored to be reactive. Attention on follow-up recommended. Plan -Monitor respiratory status closely -Completed Tamiflu -Broaden antibiotic coverage to vancomycin, meropenem, azithromycin -Added Diflucan -Prednisone 40 mg daily -DuoNeb -Budesonide -Sputum culture -Blood culture -CRP 293, Pro-Azam 0.35 -CHF exacerbation, required IV lasix -See -Full code -Eliquis for DVT prophylaxis currently on hold due to hemoptysis CAD status post stenting Resume Plavix Chronic pain -Continue hydrocodone -Continue Xanax Monitor in ICU, IV diuresis, PT OT, cinacelcet, IV antibiotics, monitor mentation neurochecks, NIH stroke scale Attestations 2 Medical Necessity Statement*: Patient requires hospitalization for encephalopathy, altered mental status, hemoptysis, left internal carotid artery stenosis Diagnoses Acute hypoxic respiratory failure J96.01 Sepsis A41.9 Healthcare-associated pneumonia J18.9 Influenza A J10.1 COPD exacerbation J44.1 Acute encephalopathy G93.40 Altered mental status R41.82 Hypercalcemia E83.52 Hemoptysis R04.2
[2024-03-15 17:08] LABS: Glucose Point of Care 388 mg/dL (70-110)
[2024-03-15] MEDS: folic acid 1 mg Tablet PO (17:09)
[2024-03-15 18:21] LABS: Aspergillus Galactomannan Inde 1.61
[2024-03-15 18:32] LABS: Aspergillus AG,EIA,Serum DETECTED; Blastomyces Antigen Interpret NEGATIVE; Blastomyces Antigen Result NONE DETECTED
[2024-03-15 18:32] LABS: Quantiferon Nil 0.01 IU/mL; Quantiferon TB Gold INDETERMINATE (NEGATIVE)
[2024-03-15] MEDS: pantoprazole 40 mg SDV IVP (19:21)
[2024-03-15 21:09] LABS: Glucose Point of Care 244 mg/dL (70-110)
[2024-03-15] MEDS: ALPRAZolam 0.5 mg Tablet PO (21:54)
[2024-03-16] VITALS (53 sets, daily range): BP systolic 92–140; BP diastolic 68–112; PULSE 66–116; RESP 14–27; TEMP 36.5–37.1; O2SAT 86–94; BMI 31.6
[2024-03-16 04:55] LABS: Basophils # 0.1 10^3/uL (0.0-0.1); Basophils % 0.2 %; Eosinophils % 0.1 %; Hematocrit 53.3 % (37-53); Lymphocytes # 1.3 10^3/uL (0.8-4.8); Lymphocytes % 5.8 %; Mean Corpuscular HGB Conc 30.2 g/dL (30-55); Mean Corpuscular Hemoglobin 26.7 pg (27-33); Mean Corpuscular Volume 88.4 fl (82-101); Mean Platelet Volume 11.5 fL (7.4-10.4); Monocytes # 0.8 10^3/uL (0.2-0.9); Monocytes % 3.7 %; Neutrophils # 19.17 10^3/uL (1.8-7.7); Neutrophils % 89.3 %; Nucleated Red Blood Cells % 0 %; Platelet Count 157 10^3/cmm (157-399); Red Blood Count 6.03 10^6/uL (3.85-5.65); Red Cell Distribution Width 13.8 % (12.1-15.1); White Blood Count 21.49 10^3/uL (3.29-11.43)
[2024-03-16] MEDS: meropenem 1,000 mg SDV 1000 MG IVP (04:58)
[2024-03-16] MEDS: thiamine 100 mg/mL 2mL SDV 200 MG IVP ×3 (04:58→20:31)
[2024-03-16 05:18] LABS: Alanine Aminotransferase 19 U/L (0-41); Albumin Level 2.6 g/dL (3.5-5.2); Alkaline Phosphatase 86 U/L (40-130); Anion Gap 10.5 (5-19); Aspartate Amino Transferase 24 U/L (0-40); Blood Urea Nitrogen 39 mg/dL (8-23); C Reactive Protein 143.1 mg/L (0.0-4.9); Calcium 12.4 mg/dL (8.5-10.5); Carbon Dioxide 31 mmol/L (22-29); Chloride 103 mmol/L (98-107); Glomerular Filtration Rate 112.1 mL/min (90-130); Glucose 232 mg/dL (65-115); Osmolality Calculated 307 mOsm/kg (285-295); Phosphorus 2.3 mg/dL (2.5-4.5); Potassium 4.5 mmol/L (3.5-5.1); Sodium 140 mmol/L (136-145); Total Bilirubin 0.3 mg/dL (0.15-1.2); Total Protein 7.6 g/dL (6.6-8.7)
[2024-03-16 05:31] LABS: Procalcitonin 0.28 ng/mL (0-0.5)
[2024-03-16 05:52] LABS: NT Pro B Type Natriuretic Pept 1610 pg/mL (0-125)
[2024-03-16 07:29] LABS: Glucose Point of Care 251 mg/dL (70-110)
--- NOTE | 2024-03-16 07:55 | XR_ITS ---
WS: [id number] Portable AP semiupright chest, 03/16/2024 Clinical Data: sob Comparison: Portable chest, 03/15/2024 Findings: Bilateral patchy opacities throughout the lungs remain the same. No masses or effusions are seen. The heart is normal. The aortic arch shows tortuosity and calcification. No pneumothorax is pr esent. Monitor leads are on the chest wall. XR/XR chest 1V portable [id number] Impression: 1. No change in bilateral patchy pulmonary opacities. 2. Atherosclerosis.
[2024-03-16] MEDS: budesonide 0.5 mg/2 mL Neb INHALATION ×2 (08:00→21:37)
[2024-03-16] MEDS: ipratropium-albuterol 3 mL Neb INHALATION ×4 (08:00→21:38)
[2024-03-16] MEDS: CINACALCET HCL 30 MG 1 EACH PO (08:51)
[2024-03-16] MEDS: FUROsemide 10 mg/mL SDV 4mL 40 MG IVP (08:55)
[2024-03-16] MEDS: folic acid 1 mg Tablet PO (08:55)
[2024-03-16] MEDS: vancomycin 1,500 MG/300 ML PIGGYBACK 200 MG IV (08:55)
[2024-03-16] MEDS: metoprolol tartrate 25 mg Tablet PO (08:56)
[2024-03-16] MEDS: losartan 50 mg Tablet 25 MG PO (08:56)
[2024-03-16] MEDS: predniSONE 20 mg Tablet 40 MG PO (08:56)
[2024-03-16] MEDS: multivitamin therapeutic Tablet 1 TAB PO (08:56)
[2024-03-16] MEDS: benzonatate 100 mg Capsule 200 MG PO (08:56)
[2024-03-16] MEDS: clopidogrel 75 mg Tablet PO (08:57)
[2024-03-16] MEDS: gabapentin 400 mg Capsule PO (08:57)
[2024-03-16] MEDS: insulin lispro 100 unit/1 mL SUBCUT ×4 (08:57→21:06)
[2024-03-16] MEDS: apixaban 5 mg Tablet PO ×2 (09:22→20:31)
[2024-03-16] MEDS: HYDROcodone-acetaminophen 10-325 mg Tablet 0.5 TAB PO (09:23)
[2024-03-16 11:15] LABS: Glucose Point of Care 326 mg/dL (70-110)
[2024-03-16] MEDS: VORICONAZOLE IV ×2 (11:36→22:12)
[2024-03-16] MEDS: SODIUM CHLORIDE 0.9% IV ×2 (11:36→22:12)
--- NOTE | 2024-03-16 11:46 | PC.SOCIAL ---
IMM Update pg 2 of IMM updated and reviewed w/ patient. Copy provided and copy dated, initialed and placed in chart.
--- NOTE | 2024-03-16 13:01 | PC.OT ---
OT treatment attempted with pt unable to awaken; will attempt again at later time.
--- NOTE | 2024-03-16 15:35 | PC.NURSE ---
Patient is becoming more somnolent and less responsive. Patient's blood pressure is becoming softer from this morning. Dr. Allen was contacted and he ordered to put the patient in reverse trendelenburg for blood pressure.
--- NOTE | 2024-03-16 15:43 | ECG_ITS ---
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 Measurements Intervals [place] Rate: 81 P: 16 IN: 109 QRS: -17 QRSD: 89 T: -9 QT: 383 QTc: 446 Interpretive Statements SINUS RHYTHM WITH SHORT IN INTERVAL Compared to ECG 03/10/2024 22:16:19 Short IN interval now present Electronically Signed On 03-17-2024 23:07:28 IT DESKTOP SUPPORT TECHNICIAN by Jignesh Kline M.D. [email or web address]
[2024-03-16 15:53] LABS: ABG PCO2 45.9 mmHg (35-45); ABG PH Result 7.46 (7.35-7.45); Arterial Blood Gas Hematocrit 50.9 % (42-52); Base Excess ABG 7.7 mmol/L (-2.0-2.0); Blood Gas Allen Test Pos; Blood Gas Operator Identificat CAK; Blood Gas Sample Site Radial, left; Blood Gas Sample Type Arterial; HCO3 ABG 32.9 mmol/L (22-26); Oxygen Device NC; PO2 ABG 81.8 mmHg (80.0-100.0); PO2 FiO2 Ratio Arterial Blood 255
[2024-03-16 17:13] LABS: Glucose Point of Care 291 mg/dL (70-110)
[2024-03-16 17:24] LABS: Lactic Sepsis W/Reflex 1.3 mmol/L (0.5-2.2)
[2024-03-16 17:25] LABS: Ammonia 48 umol/L (16-60)
--- NOTE | 2024-03-16 17:51 | P.CONIM_ITS ---
Providers/Reason For Consult 2 Consulting Physician/Specialty*: Reena Rivas MD/ Infectious Disease Reason for Consult*: fungal pneumonia Requesting Physician: Gagandeep Allen MD Attending Physician: Gagandeep Allen MD History of Present Illness History of Present Illness Jono Pierce (Randy) is a 68 year old male with a past medical history of CAD with multiple PCI's, hypertension, anemia, DVT and PE, moderate aortic stenosis, on anticoagulation with Eliquis, COPD, diastolic heart failure who presented [facility] on 03/08/24 due to shortness of breath, productive cough, fatigue, malaise, subjective, fevers, chills. He had recently been discharged from the hospital on after being diagnosed with influenza pneumonia. He had been having symptoms for about [address] scan of the chest had showed scattered reticular and groundglass opacities throughout the lungs related to multifocal pneumonia. He has recently also been complaining of increasing shortness of breath prior to being diagnosed with influenza, has been having chills and feeling cold. He had been receiving multiple courses of nebulization and steroids as an outpatient without any significant relief. Review of chart shows patient has been receiving on and off steroids and intermittent antibiotics since at least October 2023. He uses a nebulizer machine at home. His current hospital admission has been complicated by persistent leukocytosis with an increasing trend. On admission white blood cell count was at 14.6, increasing to 18.98. No noted prolonged neutropenia. He has been encephalopathic on this current admission with waxing and waning mental status. CT and CTA has shown proximal left ICA stenosis. MRI of the head without any signs of acute infarct intracranial bleeding or masses. CT of his chest abdomen and pelvis performed on March 11, 2024 has shown a partially thrombosed infrarenal abdominal aortic aneurysm measuring 4 cm with benign phleboliths. CT of the chest on March 11 continued to show multilobar nodular infiltrates and enlarged subcarinal lymph nodes. Per personal review of images changes are worse compared to's CAT scan taken on March 04, 2024. Patient is unable to participate in any history at this present time due to his lethargy and somnolence. Treatment history: Meropenem 1 g IV every 8 hours between March 08 to March 16, 2024. Vancomycin March 08 to March 16, 2024. Recent multiple outpatient cultures of beta-lactamase and levofloxacin. Review of Systems 2 General: Reports: ROS unobtainable due to medical condition and ROS unobtainable due to mental status Medications/Allergies Home Medications Medication Instructions Recorded Confirmed Last Taken Type hydrocodone 10 mg-acetaminophen 1 tab PO Q6H 5 days #20 tabs 07/29/22 03/08/24 03/07/24 Rx 325 mg tablet Plavix 75 mg tablet (clopidogrel) 75 mg PO DAILY@09 #90 tabs 04/29/23 03/08/24 Unknown Rx albuterol sulfate 90 mcg/actuation See Rx Instructions .Route 05/31/23 03/08/24 03/08/24 Rx aerosol inhaler .COMPLEX #8.5 grams apixaban 5 mg tablet (Eliquis) 5 mg PO BID #60 tabs 09/20/23 03/08/24 03/08/24 Rx Nebulizer machine and supplies #1 ea 11/08/23 03/08/24 Unknown Rx albuterol sulfate 2.5 mg/3 mL 2.5 mg (3 mL) inhalation Q4H PRN 11/08/23 03/08/24 03/07/24 Rx (0.083 %) solution for nebulization shortness of breath or wheezing #75 mL gabapentin 400 mg capsule 400 mg PO TID #90 caps 12/20/23 03/08/24 03/08/24 Rx alprazolam 1 mg tablet 1 mg PO TID PRN anxiety #90 tabs 01/31/24 03/08/24 Unknown Rx losartan 25 mg tablet 25 mg PO DAILY #90 tabs 02/27/24 03/08/24 03/08/24 Rx amlodipine 5 mg tablet 5 mg PO DAILY 03/08/24 03/08/24 03/08/24 History metoprolol tartrate 25 mg tablet 25 mg PO BID 03/08/24 03/08/24 03/08/24 History cinacalcet 30 mg tablet 30 mg PO BID 30 days #60 tabs 03/13/24 Unknown Rx Allergies Allergy/AdvReac Type Severity Reaction Status Date / Time atorvastatin [From Lipitor] Allergy Severe Unknown Verified 03/09/24 03:45 lisinopril Allergy RASH Verified 03/09/24 03:45 Penicillins Allergy RASH Verified 03/09/24 03:45 Current Medications Generic Name Dose Route Start Last Admin Trade Name Freq PRN Reason Stop Dose Admin Acetaminophen 650 mg 03/08/24 19:39 03/10/24 13:24 Acetaminophen 325 Mg Tablet PO 650 mg Q6H PRN Administration Mild/Mod Pain Or Temp >/= 101 Hydrocodone Bitart/Acetaminophen 0.5 tab 03/14/24 09:20 03/16/24 09:23 Hydrocodone-Acetaminophen 10-325 Mg Tablet PO 0.5 tab Q6H PRN Administration back pain Albuterol/Ipratropium 3 ml 03/08/24 20:00 03/16/24 15:41 Ipratropium-Albuterol 3 Ml Neb INHALATION 3 ml QID.RESPIRATORY ALEN Administration Alprazolam 0.5 mg 03/14/24 09:20 03/15/24 21:54 Alprazolam 0.5 Mg Tablet PO 0.5 mg TID PRN Administration anxiety Apixaban 5 mg 03/15/24 10:15 03/16/24 09:22 Apixaban 5 Mg Tablet PO 5 mg BID@0900,2100 ALEN Administration Budesonide 0.5 mg 03/08/24 20:00 03/16/24 08:00 Budesonide 0.5 Mg/2 Ml Neb INHALATION 0.5 mg BID.RESPIRATORY ALEN Administration Clopidogrel Bisulfate 75 mg 03/13/24 09:00 03/16/24 08:57 Clopidogrel 75 Mg Tablet PO 75 mg DAILY ALEN Administration Folic Acid 1 mg 03/15/24 18:00 03/16/24 08:55 Folic Acid 1 Mg Tablet PO 1 mg BID ALEN Administration Voriconazole 600 mg/ Sodium 500 mls @ 250 mls/hr 03/16/24 11:00 03/16/24 11:36 Chloride IV 03/17/24 00:59 250 mls/hr Q12H ALEN Administration Insulin Human Lispro 0 unit 03/10/24 21:00 03/16/24 11:36 Insulin Lispro 100 Unit/1 Ml SUBCUT 10 unit WM&BEDTIME ALEN Administration Protocol Losartan Potassium 25 mg 03/09/24 09:00 03/16/24 08:56 Losartan 50 Mg Tablet PO 25 mg DAILY ALEN Administration Metoprolol Tartrate 25 mg 03/08/24 19:39 03/16/24 08:56 Metoprolol Tartrate 25 Mg Tablet PO 25 mg BID ALEN Administration Multivitamins Therapeutic 1 tab 03/16/24 09:00 03/16/24 08:56 Multivitamin Therapeutic Tablet PO 1 tab DAILY ALEN Administration Non-Formulary 1 each 03/14/24 09:45 03/16/24 08:51 Medication( PO 1 each Cinacalcet Hcl 30 Mg BID ALEN Administration Tab) Pantoprazole Sodium 40 mg 03/08/24 19:39 03/15/24 19:21 Pantoprazole 40 Mg Sdv IVP 40 mg Q24H ALEN Administration Thiamine HCl 200 mg 03/15/24 12:30 03/16/24 11:37 Thiamine 100 Mg/Ml 2ml Sdv IVP 03/18/24 12:29 200 mg Q8H ALEN Administration PFSH Acute 2 PFSH: Medical History Diastolic CHF Elevated troponin GERD without esophagitis Aortic valve stenosis Generalized anxiety disorder Pulmonary embolism, bilateral Abdominal aortic aneurysm 3.2 cm 09/28/21 DVT (deep venous thrombosis) hx of DVT History of heart attack COPD (chronic obstructive pulmonary disease) Chronic back pain Coronary artery disease has 11 stents Hyperlipidemia HTN (hypertension) Surgical History History of ankle surgery History of facial surgery History of thoracotomy S/P cholecystectomy S/P appendectomy Status post lung surgery Secondary to pneumothorax S/P knee surgery S/P eye surgery S/P PTCA (percutaneous transluminal coronary angioplasty) Previous back surgery C5 and C6 fusion Family History Other CAD (coronary artery disease) Hypertension Denies family history of Diabetes Stroke Social History Smoking and tobacco/nicotine status: never used tobacco/nicotine Quit status (tobacco/nicotine): has quit using Year quit tobacco: 2023 Alcohol intake: current Alcohol intake frequency: holidays/special occasions only Substance/Drug Use: former Lives independently: Yes Household members: none Marital status: Current occupational status: retired and disabled Do you think of yourself as: Straight/Heterosexual Current gender identity: Male Vitals/I&O/Wt Last Vital Signs Temp 98.2 F 03/16/24 08:00 Pulse 85 03/16/24 17:00 Resp 21 H 03/16/24 17:00 BP 106/76 03/16/24 17:00 Pulse Ox 90 03/16/24 17:00 O2 Del Method Nasal Cannula 03/16/24 17:00 O2 Flow Rate 3 03/16/24 17:00 03/16/24 03/16/24 03/16/24 06:59 14:59 22:59 Intake Total 800 / 800 Output Total 1600 / 3950 450 / 450 Balance -1600 / -2490 350 / 350 Weight last 48 hrs Weight 97 kg Physical Exam 2 Narrative: General: Acutely ill-appearing male lying in bed. He is pale, extremely lethargic and somnolent. Wakes up to calling his name but unable to hold a conversation as he falls back asleep very easily. HEENT: PERRLA, pupils bilaterally equal and reactive, pallors not present Chest: Coarse breath sounds bilaterally to auscultation. CVS: S1-S2 regular, no murmurs, no tachycardia, no gallops, no rubs Abdomen: Soft, nontender, no organomegaly, bowel sounds present Neuro: Unable to assess due to extreme somnolence. Urinary Catheter Management: Scott: Cath Placed During This Visit: yes Reason for Continuing Indwelling Catheter: Accurate Measurement of Urinary Output in Critically Ill Patients Urinary Catheter Date of Insertion: 03/14/24 Urinary Catheter Time of Insertion: 14:00 Data 03/17/24 04:20 03/17/24 04:20 Other Labs: Radiology Impressions Cervical Spine CT 03/10/24 12:36 IMPRESSION: 1. No acute posttraumatic changes in the cervical spine. 2. Nodular infiltrates in the left lung apex, likely infectious. Head MRI 03/11/24 09:59 IMPRESSION: No acute infarct, intracranial bleed or intracranial mass. Chest/Abdomen/Pelvis CT 03/11/24 14:56 IMPRESSION: Multilobar nodular infiltrates, suggestive of pneumonia. IMPRESSION: 1. No acute intra-abdominal process. 2. Hepatic steatosis. 3. Partially thrombosed infrarenal abdominal aortic aneurysm measuring 4 cm. COMMENTS: Consistent with the [employer]'s Incidental Findings Committee white paper (J Am Dee Dee Radiol 2018): Any incidental renal lesion less than 1 cm or classified as too small to characterize, or any incidental cystic renal lesion characterized as simple-appearing, is likely benign. No follow-up imaging is recommended for these lesions per consensus recommendations based on imaging criteria. Thyroid Ultrasound 03/11/24 15:01 IMPRESSION: No thyroid nodules or lymphadenopathy. Head CT 03/15/24 04:09 IMPRESSION: No acute findings. Head/Neck CTA 03/15/24 04:19 IMPRESSION: No large vessel stenosis or occlusion. IMPRESSION: 1. Severe proximal left internal carotid artery stenosis secondary to predominantly soft plaque just after the bifurcation. 2. Lung findings which can be seen in acute on chronic bronchitis with underlying advanced COPD changes. REFERENCES: NASCET CRITERIA. The degree of stenosis in the cervical segment of the internal carotid artery is based on NASCET criteria. Normal is no stenosis. Mild is less than 50% stenosis. Moderate is 50-69% stenosis. Severe is 70% to 99% stenosis. Total occlusion is no detectable patent lumen. ADDENDUM: 03/15/24623 ADDENDUM: Case was discussed with the ordering provider on 03/15/2024 at 5:50 a.m. Chest X-Ray 03/16/24 07:55 Impression: 1. No change in bilateral patchy pulmonary opacities. 2. Atherosclerosis. Laboratory Results WBC 18.98 10^3/uL (3.29-11.43) H 03/17/24 04:20 RBC 5.90 10^6/uL (3.85-5.65) H 03/17/24 04:20 Hgb 15.50 g/dL (11.27-16.99) 03/17/24 04:20 Hct 53.3 % (37-53) H 03/17/24 04:20 MCV 90.3 fl (82-101) 03/17/24 04:20 MCH 26.3 pg (27-33) L 03/17/24 04:20 MCHC 29.1 g/dL (30-55) L 03/17/24 04:20 RDW 14.0 % (12.1-15.1) 03/17/24 04:20 Plt Count 138 10^3/cmm (157-399) L 03/17/24 04:20 MPV 12.2 fL (7.4-10.4) H 03/17/24 04:20 Neut % (Auto) 88.8 % 03/17/24 04:20 Lymph % (Auto) 6.3 % 03/17/24 04:20 [place] % (Auto) 4.0 % 03/17/24 04:20 Eos % (Auto) 0.1 % 03/17/24 04:20 Baso % (Auto) 0.2 % 03/17/24 04:20 Neut # (Auto) 16.84 10^3/uL (1.8-7.7) H 03/17/24 04:20 Lymph # (Auto) 1.2 10^3/uL (0.8-4.8) 03/17/24 04:20 [place] # (Auto) 0.8 10^3/uL (0.2-0.9) 03/17/24 04:20 Eos # (Auto) 0.0 10^3/uL (0.0-0.8) 03/17/24 04:20 Baso # (Auto) 0.0 10^3/uL (0.0-0.1) 03/17/24 04:20 Nucleated RBC % (auto) 0 % 03/17/24 04:20 Nucleated RBCs # 0.0 /100WBC 03/17/24 04:20 PT 15.80 SECONDS (12.1-14.9) H 03/13/24 10:11 INR 1.18 (0.8-1.2) 03/13/24 10:11 Specimen Type Arterial 03/16/24 15:41 Sample Site Radial, left 03/16/24 15:41 ABG pH 7.46 (7.35-7.45) H 03/16/24 15:41 ABG pCO2 45.9 mmHg (35-45) H 03/16/24 15:41 ABG pO2 81.8 mmHg (80.0-100.0) 03/16/24 15:41 ABG PO2/FiO2 Ratio 255 03/16/24 15:41 ABG HCO3 32.9 mmol/L (22-26) H 03/16/24 15:41 ABG O2 Saturation 93.3 03/10/24 09:34 ABG Base Excess 7.7 mmol/L (-2.0-2.0) H 03/16/24 15:41 Wilber Test Pos 03/16/24 15:41 A-a O2 Gradient 7.5 mmHg (5-10) 03/10/24 09:34 Hematocrit 50.9 % (42-52) 03/16/24 15:41 Hgb O2 Saturation 91.3 % (95-100) L 03/10/24 09:34 Carboxyhemoglobin 1.3 %THgb (0.4-20.1) 03/10/24 09:34 Methemoglobin 0.9 % (0.4-1.5) 03/10/24 09:34 Total Hemoglobin 16.0 g/dL (14-18) 03/10/24 09:34 Sodium 137.0 mmol/L (131-143) 03/10/24 09:34 Potassium 4.3 mmol/L (3.5-5.0) 03/10/24 09:34 Glucose 391.0 mg/dL (70-115) H 03/10/24 09:34 Ionized Calcium 1.6 mmol/L (1.1-1.4) H 03/10/24 09:34 O2 Delivery Device Nc 03/16/24 15:41 O2 Liters/Min 3.0 % 03/16/24 15:41 FiO2 32.0 % 03/16/24 15:41 Public Works Inspector ID Cak 03/16/24 15:41 Sodium 142 mmol/L (136-145) 03/17/24 04:20 Potassium 4.3 mmol/L (3.5-5.1) 03/17/24 04:20 Chloride 104 mmol/L (98-107) 03/17/24 04:20 Carbon Dioxide 29 mmol/L (22-29) 03/17/24 04:20 Anion Gap 13.3 (5-19) 03/17/24 04:20 BUN 40 mg/dL (8-23) H 03/17/24 04:20 Creatinine 0.9 mg/dL (0.7-1.2) 03/17/24 04:20 GFR Calculation 83.9 mL/min (90-130) L 03/17/24 04:20 Glucose 172 mg/dL (65-115) H 03/17/24 04:20 POC Glucose 321 mg/dL (70-110) H 03/17/24 10:55 Calculated Osmolality 308 mOsm/kg (285-295) H 03/17/24 04:20 Lactic Acid 1.3 mmol/L (0.5-2.2) 03/16/24 16:53 Lactic Acid (Sepsis) 2.3 mmol/L (0.5-2.2) H 03/08/24 20:15 Lactate 1.2 mmol/L (0.5-2.2) 03/15/24 04:02 Calcium 11.9 mg/dL (8.5-10.5) H 03/17/24 04:20 Ionized Calcium Keesha 1.7 mmol/L (1.1-1.4) H 03/14/24 03:15 Phosphorus 2.8 mg/dL (2.5-4.5) 03/17/24 04:20 Magnesium 2.2 mg/dL (1.7-2.3) 03/17/24 04:20 Total Bilirubin 0.2 mg/dL (0.15-1.2) 03/17/24 04:20 AST 22 U/L (0-40) 03/17/24 04:20 ALT 23 U/L (0-41) 03/17/24 04:20 Alkaline Phosphatase 90 U/L (40-130) 03/17/24 04:20 Ammonia 48 umol/L (16-60) 03/16/24 16:53 Lactate Dehydrogenase 296 U/L (135-225) H 03/12/24 12:56 Troponin T Baseline 45 ng/L (0-15) H 03/10/24 15:23 Troponin T 120 Minute 42.60 ng/L (0-15) H 03/10/24 17:14 Delta Troponin T -2.40 ABS# (0-10) L 03/10/24 17:14 Troponin T Hi Sens 6Hr 45.28 ng/L (0-15) H 03/10/24 21:28 Troponin T Hi Sens 6Hr Delta 0.28 ng/L (0-12) 03/10/24 21:28 C-Reactive Protein 156.8 mg/L (0.0-4.9) H 03/17/24 04:20 NT-Pro-B Natriuret Pep 954 pg/mL (0-125) H 03/17/24 04:20 Total Protein 6.6 g/dL (6.6-8.7) 03/17/24 04:20 Albumin 2.5 g/dL (3.5-5.2) L 03/17/24 04:20 Globulin 4.1 g/dL (1.3-4.6) 03/17/24 04:20 Triglycerides 258 mg/dL (0-150) H 03/08/24 20:18 Cholesterol 135 mg/dL (0-200) 03/08/24 20:18 LDL Cholesterol, Calc 50 mg/dL (50-129) 03/08/24 20:18 HDL Cholesterol 33 mg/dL (60-100) L 03/08/24 20:18 LDL/HDL Ratio 1.52 RATIO (0.00-3.22) 03/08/24 20:18 Cholesterol/HDL Ratio 4.09 mg/dL (1.0-5.00) 03/08/24 20:18 Procalcitonin 0.23 ng/mL (0-0.5) 03/17/24 04:20 TSH 0.57 uIU/mL (0.27-4.20) 03/08/24 20:18 PTH Intact 130.2 pg/mL (15-65) H 03/14/24 03:15 Calcium (PTH Intact) 13.3 mg/dL (8.5-10.5) H 03/14/24 03:15 Urine Color Yellow (Yellow) 03/09/24 03:18 Urine Appearance Clear (CLEAR) 03/09/24 03:18 Urine pH 5.0 (5-7) 03/09/24 03:18 Ur Specific [place] 1.028 (1.005-1.030) 03/09/24 03:18 Urine Protein 1+ (Negative) A 03/09/24 03:18 Urine Glucose (UA) 3+ (Normal) H 03/09/24 03:18 Urine Ketones Trace (Negative) 03/09/24 03:18 Urine Blood Trace (Negative) A 03/09/24 03:18 Urine Nitrate Negative (Negative) 03/09/24 03:18 Urine Bilirubin Negative (Negative) 03/09/24 03:18 Urine Urobilinogen 1.0 mg/dL (Negative) 03/09/24 03:18 Ur Leukocyte Esterase Negative (Negative) 03/09/24 03:18 Urine RBC 0-2 /hpf (0-2) 03/09/24 03:18 Urine WBC 0-5 /hpf (0-5) 03/09/24 03:18 Ur Squamous Epith Cells 0-5 /hpf (0-5) 03/09/24 03:18 Amorphous Sediment Not Reportable 03/09/24 03:18 Urine Bacteria None seen /hpf (NONE) 03/09/24 03:18 Hyaline Casts 3.30 /lpf 03/09/24 03:18 Vancomycin Trough 14.9 ug/mL (10-15) 03/13/24 18:55 Blastomyces Ag Result None detected ng/mL 03/12/24 12:56 Blastomyces Ag Interp Negative 03/12/24 12:56 Coronavirus (PCR) Negative (Negative) 03/08/24 16:04 U Histop Galact Ag Qnt <0.2 ng/mL 03/12/24 15:25 Influenza A (PCR) Positive (Negative) 03/08/24 16:04 Influenza Type B (PCR) Negative (Negative) 03/08/24 16:04 Myco Comp PCR Spec Srce Sputum 03/13/24 21:40 A. galactomannan Ag EIA Detected A 03/12/24 12:56 A. galactomannan Ag Idx 1.61 03/12/24 12:56 RSV (PCR) Negative (Negative) 03/08/24 16:04 TB (QFT) Gold In Tube Indeterminate (NEGATIVE) A 03/13/24 10:11 TB Test (QFT) Nil 0.01 IU/mL 03/13/24 10:11 TB Test (QFT) Mitogen 0.10 IU/mL 03/13/24 10:11 TB Test Mitogen - Nil 0.00 IU/mL 03/13/24 10:11 TB Test TB -Nil 0.00 IU/mL 03/13/24 10:11 M.tuberculosis Cmplx PCR Not detected 03/13/24 21:40 Micro: Microbiology 03/15/24 08:45 Mycobacterial Smear - Preliminary Sputum - Expectorated Sputum 03/12/24 09:16 Fungal Smear - Preliminary Sputum - Expectorated Sputum March 17, 2024: Mycobacterial smear: Pending. March 15, 2024: Mycobacterial smear with no acid-fast bacilli on smear. Culture pending. March 13, 2024: MTB PCR not detected. March 12, 2024 sputum culture: Normal respiratory rachael and rare mold. March 12, 2024: Fungal sputum culture: Hyphal elements are seen. Mold present on culture. Identification currently in progress. March 08, 2024 blood culture no growth March 08, 2024: Few GPC's in pairs chains and clusters, few gram-positive rods. Mar 05, 2024: Sputum cx : heavy normal rachael, rare mold March 12, 2024: Blastomyces antigen not detected Coccidioides IgG and IgM antibody pending Urine histoplasma antigen negative. Serum Aspergillus galactomannan antigen positive at 1.61 Serum Fungitell: Pending. March 13, 2024: QuantiFERON indeterminate. March 05, 2024 influenza A positive H3 subtype. 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 Patient has not had any significant relief with prolonged course of antibacterials. Sputum culture without any bacterial growth. Sputum culture now also showing mold. Together with a positive Aspergillus galactomannan index, historical risk factors by way of prolonged steroid use, CT chest with bilateral worsening infiltrates, suspect invasive aspergillosis. Agree with discontinuing IV meropenem and vancomycin Start voriconazole 6 mg/kg IV every 12 hours loading dose thereafter followed by voriconazole 4 mg/kg every 12 hours. Blood cultures so far negative to date. QuantiFERON indeterminate, sputum AFB smear negative x 1, sputum AFB PCR negative x 1,. Patient unable to answer any questions with relation to history of TB or historical risk factors of the same. Given alternate likely diagnosis, may discontinue TB precautions once we have 2 negative sputum AFB smears. Daily EKG monitoring for QTc interval. Baseline LFTs reviewed normal. Check voriconazole trough 5 days after initiation of treatment. Attempted to discuss signs of voriconazole toxicity, however patient is currently not alert enough to have any discussions regarding the same. Continue to closely monitor respiratory status with initiation of antifungal therapy. Attempt to wean down steroids if feasible to minimize immunosuppression. Will follow Consult Attestations 2 Medical Necessity Statement: Per admitting Coding Level of Care Code Acute Code for Chg Fwd High MDM includes number and complexity of problems actively addressed during encounter, amount and/or complexity of data reviewed/ordered and described risk of complication, morbidity or mortality of management as documented Diagnoses Pulmonary aspergillosis B44.1 Fungal pneumonia J16.8; B49 Chronic steroid use Chronic obstructive pulmonary disease with acute exacerbation J44.1 COPD type: COPD with acute exacerbation Bullous emphysema J43.9 Invasive fungal infection B49
--- NOTE | 2024-03-16 18:08 | P.PN_ITS ---
Subjective 2 Subjective: Patient was examined multiple times throughout the morning -Early in the morning he was seen, he is alert to person, to place, not to time he follows commands I did a thorough neurologic examination no facial droop no slurring of words, no focal weakness he is able to follow commands such as squeezing my fingers wiggling his toes able to smile for me able to recognize his sister at bedside -Discussed with sister that I am worried about aspergillosis fungal infection, will speak with infectious disease likely start him on treatment -Patient continues to have encephalopath y could be from fungal infection, concerns for fungal meningitis, nonetheless we will start him on IV voriconazole monitor his mentation closely certainly we could do a lumbar puncture but he is on Eliquis and Plavix which would have to have to be held and with his cardiovascular disease that would be at risk nonetheless voriconazole has good [employer]CHNICIAN penetration we can watch his mentation and see if it improves of the weekend -There was also thought that with his hi story of alcohol use he could have Warnicke's encephalopathy, I have placed him on high-dose thiamine, folic acid -His repeat head CT's do not show any ac xu stroke, his CTA does show left internal carotid artery stenosis, however I cannot discern any focal weakness -Certainly ICU delirium could be a cause -He does take Xanax and hydrocodone fair ly regularly he could be withdrawing from these medications -It could also be his gabapentin will re duce his dose of gabapentin -His hypercalcemia is improving -He still has his leukocytosis, chest x- ray showing diffuse groundglass opacities highly suspicious for aspergillosis infection, -Spoke to infectious disease, will consu lt, started on aspergillosis medications of IV voriconazole -Patient reexamined the afternoon, sitti ng up in a chair, he does have a flat affect can follow commands, but remains at times encephalopathic, -Later in the afternoon patient had epis ode of low blood pressure, ABG does not show any significant hypoxia or hypercarbia, ammonia levels within normal limits EKG no significant ST-T wave changes will monitor mentation closely -Patient later on seen in bed, he does a waken, can follow commands but quite drowsy this evening Vitals/I&O/Wt Last Vital Signs Temp 98.2 F 03/16/24 08:00 Pulse 85 03/16/24 17:00 Resp 21 H 03/16/24 17:00 BP 106/76 03/16/24 17:00 Pulse Ox 90 03/16/24 17:00 O2 Del Method Nasal Cannula 03/16/24 17:00 O2 Flow Rate 3 03/16/24 17:00 03/16/24 03/16/24 03/16/24 06:59 14:59 22:59 Intake Total 800 / 800 Output Total 1600 / 3950 450 / 450 Balance -1600 / -2490 350 / 350 Weight last 48 hrs Weight 97 kg Physical Exam 2 Const: COMMON NORMALS: no acute distress EXAM LIMITATIONS: altered mental status GENERAL APPEARANCE: ill appearing and frail appearing O RIENTATION/CONSCIOUSNESS: Yes awake, Yes oriented to person, Yes oriented to place and Yes confused; not oriented to time Eye: COMMON NORMALS: Equal, round and reactive pupils present PUPIL: Yes Equal, round and reactive pupils present Resp: COMMON NORMALS: normal respiratory effort, No retractions, No use of accessory muscles and clear to auscultation bilaterally AUSCULTATION: clear to auscultation bilaterally Cardio: COMMON NORMALS: regular rate, regular rhythm, S1 normal heart sound present and S2 normal heart sound present RATE: regular rate RHYTHM: r egular rhythm HEART SOUNDS: S1 normal heart sound present and S2 normal heart sound present GI: COMMON NORMALS: Normal to inspection, nondistended, normoactive bowel sounds present and non-tender Extremity: COMMON NORMALS: no pedal edema Neuro: COMMON NORMALS: CN's II-XII intact bilaterally, moves all extremities and no focal motor deficits SENSORIUM/ORIENTATION: Yes oriented to person, Yes oriented to place and No oriented to time Urinary Catheter Management: Scott: Cath Placed During This Visit: yes Reason for Continuing Indwelling Catheter: Accurate Measurement of Urinary Output in Critically Ill Patients Urinary Catheter Date of Insertion: 03/14/24 Urinary Catheter Time of Insertion: 14:00 Data 03/16/24 04:43 03/16/24 04:43 Micro: Microbiology 03/15/24 08:45 Mycobacterial Smear - Preliminary Sputum - Expectorated Sputum 03/12/24 09:16 Fungal Smear - Preliminary Sputum - Expectorated Sputum A&P Assessment and plan (1) Acute hypoxic respiratory failure: (2) Sepsis: (3) Healthcare-associated pneumonia: (4) Influenza A: (5) COPD exacerbation: (6) Acute encephalopathy: (7) Altered mental status: (8) Hypercalcemia: (9) Hemoptysis: (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: (11) Chronic steroid use: Plan Hemoptysis, resolved -Roughly 100 cc 03/13/2024, has not had any since -Resumed Eliquis today, monitor closely -Tessalon Perles 200 3 times daily as needed -Monitor respiratory status, monitor for cough -Given CT chest findings as below will need to evaluate for Mycobacterium infection, atypical infection -QuantiFERON gold indeterminate Pulmonary aspergillosis -Patient's fungal sputum study showing hyphal elements -Aspergillosis galactomannan antigen detected, 1.61 -Has a history of steroid use for COPD -CT of the chest and chest x-ray showing multilobar nodular infiltrates -Repeat chest x-rays bilateral patchy pulmonary opacities despite being on over 10 days of IV antibiotics, broad-spectrum -With persistent leukocytosis, elevated CRP, Pro-Azam, encephalopathy -Highly suspicious for pulmonary aspergillosis Plan -Infectious disease consulted -Follow fungal studies -Follow-up fungal cultures -Follow Mycobacterium PCR -Follow AFB smears -QuantiFERON gold indeterminate -Start IV voriconazole loading dose followed by maintenance dose -Keep under isolation Acute encephalopathy, episodes of encephalopathy this morning, although following commands, no focal neurologic deficits, no facial droop no slurring words has a flat affect -Likely secondary to hypercalcemia, aspergillosis, pneumonia, hypoxia, ICU delirium, withdrawal -Had a stroke alert 03/15/2024 no focal neurologic deficits, does have severe left internal carotid artery stenosis, continue Plavix, statin, Eliquis -Possibly related to hypercalcemia? Calcium improving to 12.4 -Possible narcotic and benzo associated withdrawal is on Xanax 1 mg 3 times daily as needed, hydrocodone 10-325 every 6 hours as needed. Will continue home medications but Xanax 0.5 mg, hydrocodone 5 due to concerns for polypharmacy -Other concern would be more invasive aspergillosis infection such as fungal meningitis, continue voriconazole will consider lumbar puncture based on clinical progress but would have to hold Eliquis and Plavix for at least 5 days, does have cardiovascular disease -Initial CT head within normal limits -Repeat CT head, CT neck no acute findings -MRI brain no acute findings -Troponin series, ammonia levels within normal limits -No hypercarbia on ABG -Neurochecks, NIH stroke scale, monitor mentation closely Left internal carotid artery stenosis, severe -Will have to have patient follow-up with neurology, vascular as outpatient -Resume Plavix, statin, Eliquis Hypercalcemia -With concerns for encephalopathy -With hyperparathyroidism, PTH 165 -Elevated ionized calcium -Vitamin D pending -Ultrasound thyroid no acute findings -Will rule out lymphoma CT chest abdomen pelvis with IV contrast, does have enlarged subcarinal lymph node, will need to be evaluated as outpatient -Lasix 40 mg IV once today -calcitonin -cinacalcet -Will consider bisphosphonate -Monitor serum calcium, ionized calcium Atrial fibrillation -On metoprolol -Eliquis -Will consider amiodarone drip as heart rates are climbing Fall -With superficial laceration -Monitor -Repeat CT head, CT neck no acute findings -MRI brain no acute findings Acute hypoxic respiratory failure -Healthcare associated pneumonia -Influenza A completed treatment -COPD exacerbation -With evidence of sepsis, sepsis features met given hypoxia up to 5 L, tachycardia, leukocytosis source of infection pneumonia, influenza A -CT of the chest on 03/04/2024 CT/CT chest wo con [id number] IMPRESSION: 1. Scattered reticular and ground-glass opacities throughout the lungs likely represent multifocal pneumonia in the acute setting. Recommend imaging follow-up after clinical treatment to evaluate for resolution. 5. Enlarged subcarinal lymph node is favored to be reactive. Attention on follow-up recommended. Plan -Monitor respiratory status closely -Completed Tamiflu -Broaden antibiotic coverage to vancomycin, meropenem, azithromycin discontinued -Prednisone 40 mg daily -DuoNeb -Budesonide -Sputum culture -Blood culture -CHF exacerbation, required IV lasix -See -Full code -Eliquis for DVT prophylaxis currently on hold due to hemoptysis CAD status post stenting Resume Plavix Chronic pain -Continue hydrocodone -Continue Xanax Plan for today monitor mentation, PT OT, infectious disease consultation, start IV voriconazole follow repeat cultures Attestations 2 Medical Necessity Statement*: Patient requires hospitalization for acute encephalopathy, pulmonary aspergillosis, hemoptysis Diagnoses Acute hypoxic respiratory failure J96.01 Sepsis A41.9 Healthcare-associated pneumonia J18.9 Influenza A J10.1 COPD exacerbation J44.1 Acute encephalopathy G93.40 Altered mental status R41.82 Hypercalcemia E83.52 Hemoptysis R04.2 Pulmonary aspergillosis B44.1 Chronic steroid use
--- NOTE | 2024-03-16 18:14 | PC.NURSE ---
Patient denied PO medications by stating I do not want them , Patient was educated on the importance of taking all their medications but patient still refused. This nurse offered the patient some pudding for nutrition and they told this nurse If I was fucking hungry I would eat . Patient is resting in bed.
--- NOTE | 2024-03-16 18:16 | PC.NURSE ---
Patient uncooperative with NIH stroke scale. Patient refused to follow commands.
[2024-03-16] MEDS: gabapentin 100 mg Capsule 200 MG PO (20:31)
[2024-03-16] MEDS: pantoprazole 40 mg SDV IVP (20:31)
[2024-03-16 20:56] LABS: Glucose Point of Care 236 mg/dL (70-110)
[2024-03-17] VITALS (55 sets, daily range): BP systolic 82–138; BP diastolic 59–94; PULSE 69–102; RESP 12–21; TEMP 36.3–37.1; O2SAT 84–95; BMI 32.2
[2024-03-17 00:26] LABS: Histoplasma Galactomannan Ag <0.2 ng/mL
[2024-03-17 00:53] LABS: MTB Complex Respiratory PCR NOT DETECTED; MTB Source SPUTUM
[2024-03-17] MEDS: thiamine 100 mg/mL 2mL SDV 200 MG IVP ×3 (03:51→20:13)
[2024-03-17] MEDS: HYDROcodone-acetaminophen 10-325 mg Tablet 0.5 TAB PO ×2 (04:01→20:09)
[2024-03-17 04:55] LABS: Basophils % 0.2 %; Eosinophils % 0.1 %; Hematocrit 53.3 % (37-53); Lymphocytes # 1.2 10^3/uL (0.8-4.8); Lymphocytes % 6.3 %; Mean Corpuscular HGB Conc 29.1 g/dL (30-55); Mean Corpuscular Hemoglobin 26.3 pg (27-33); Mean Corpuscular Volume 90.3 fl (82-101); Mean Platelet Volume 12.2 fL (7.4-10.4); Monocytes # 0.8 10^3/uL (0.2-0.9); Neutrophils # 16.84 10^3/uL (1.8-7.7); Neutrophils % 88.8 %; Nucleated Red Blood Cells % 0 %; Platelet Count 138 10^3/cmm (157-399); White Blood Count 18.98 10^3/uL (3.29-11.43)
[2024-03-17 05:13] LABS: Alanine Aminotransferase 23 U/L (0-41); Albumin Level 2.5 g/dL (3.5-5.2); Alkaline Phosphatase 90 U/L (40-130); Aspartate Amino Transferase 22 U/L (0-40); Blood Urea Nitrogen 40 mg/dL (8-23); C Reactive Protein 156.8 mg/L (0.0-4.9); Calcium 11.9 mg/dL (8.5-10.5); Carbon Dioxide 29 mmol/L (22-29); Chloride 104 mmol/L (98-107); Creatinine Clr Calc Pharmacy 90.2444; Globulin 4.1 g/dL (1.3-4.6); Glomerular Filtration Rate 83.9 mL/min (90-130); Glucose 172 mg/dL (65-115); Magnesium 2.2 mg/dL (1.7-2.3); Osmolality Calculated 308 mOsm/kg (285-295); Phosphorus 2.8 mg/dL (2.5-4.5); Sodium 142 mmol/L (136-145); Total Bilirubin 0.2 mg/dL (0.15-1.2); Total Protein 6.6 g/dL (6.6-8.7)
[2024-03-17 05:14] LABS: Anion Gap 13.3 (5-19); Potassium 4.3 mmol/L (3.5-5.1)
[2024-03-17 05:20] LABS: NT Pro B Type Natriuretic Pept 954 pg/mL (0-125); Procalcitonin 0.23 ng/mL (0-0.5)
[2024-03-17 07:13] LABS: Glucose Point of Care 172 mg/dL (70-110)
[2024-03-17] MEDS: insulin lispro 100 unit/1 mL SUBCUT ×4 (08:08→22:38)
[2024-03-17] MEDS: CINACALCET HCL 30 MG 1 EACH PO ×2 (08:08→17:08)
[2024-03-17] MEDS: folic acid 1 mg Tablet PO ×2 (08:09→17:09)
[2024-03-17] MEDS: predniSONE 20 mg Tablet 30 MG PO (08:09)
[2024-03-17] MEDS: clopidogrel 75 mg Tablet PO (08:09)
[2024-03-17] MEDS: metoprolol tartrate 25 mg Tablet PO (08:09)
[2024-03-17] MEDS: multivitamin therapeutic Tablet 1 TAB PO (08:09)
[2024-03-17] MEDS: gabapentin 100 mg Capsule 200 MG PO ×3 (08:09→20:10)
[2024-03-17] MEDS: apixaban 5 mg Tablet PO ×2 (08:09→20:10)
[2024-03-17] MEDS: bisacodyl 5 mg Tablet PO (08:09)
[2024-03-17] MEDS: polyethylene glycol 3350 Pkt 17 gm PO (08:10)
[2024-03-17] MEDS: ipratropium-albuterol 3 mL Neb INHALATION ×4 (08:45→21:01)
[2024-03-17] MEDS: budesonide 0.5 mg/2 mL Neb INHALATION ×2 (08:45→21:01)
--- NOTE | 2024-03-17 10:00 | ECG_ITS ---
[facility] Test Date: 2024-03-17 Pat Name: Jono Nixon (Randy)partment: Room: [facility] Gender: Male [employer]: : 1955 Requested By: Reena Rivas Order Number: [id number] Deven MD: Jignesh Kline M.D. Measurements Intervals [place] Rate: 93 P: 47 NJ: 124 QRS: -10 QRSD: 94 T: 41 QT: 333 QTc: 415 Interpretive Statements SINUS RHYTHM Compared to ECG 03/16/2024 15:43:26 Short [place] interval no longer present Electronically Signed On 03-17-2024 23:23:58 [employer] PHLEBOTOMIST by Jignesh Kline M.D. [email or web address]
[2024-03-17 11:00] LABS: Glucose Point of Care 321 mg/dL (70-110)
--- NOTE | 2024-03-17 13:46 | P.PN_ITS ---
Subjective 2 Subjective: Infectious disease progress note. Mold on sputum culture has now been identified as Aspergillus fumigatus. sitting in chair at bedside today, still falling asleep in conversation, unable to provide details but states that breathing is not good Medications: Reviewed: Yes Vitals/I&O/Wt Last Vital Signs Temp 97.3 F L 03/17/24 13:00 Pulse 75 03/17/24 13:00 Resp 17 03/17/24 13:00 BP 97/76 03/17/24 13:00 Pulse Ox 90 03/17/24 13:00 O2 Del Method Nasal Cannula 03/17/24 13:00 O2 Flow Rate 2 03/17/24 13:00 03/16/24 03/17/24 03/17/24 22:59 06:59 14:59 Intake Total 920 / 1720 1000 / 2720 780 / 780 Output Total 850 / 1300 900 / 2200 850 / 850 Balance 70 / 420 100 / 520 -70 / -70 Weight last 48 hrs Weight 99 kg Weight 97 kg Physical Exam 2 Narrative: General: Acutely ill-appearing male lying in bed. He is pale, extremely lethargic and somnolent. Wakes up to calling his name but unable to hold a conversation as he falls back asleep very easily. HEENT: PERRLA, pupils bilaterally equal and reactive, pallors not present Chest: Coarse breath sounds bilaterally to auscultation. CVS: S1-S2 regular, no murmurs, no tachycardia, no gallops, no rubs Abdomen: Soft, nontender, no organomegaly, bowel sounds present Neuro: Unable to assess due to extreme somnolence. Urinary Catheter Management: Scott: Cath Placed During This Visit: yes Reason for Continuing Indwelling Catheter: Accurate Measurement of Urinary Output in Critically Ill Patients Urinary Catheter Date of Insertion: 03/14/24 Urinary Catheter Time of Insertion: 14:00 Data 03/17/24 04:20 03/17/24 04:20 Micro: Microbiology 03/15/24 08:45 Mycobacterial Smear - Preliminary Sputum - Expectorated Sputum 03/12/24 09:16 Fungal Smear - Preliminary Sputum - Expectorated Sputum March 17, 2024: Mycobacterial smear: Pending. March 15, 2024: Mycobacterial smear with no acid-fast bacilli on smear. Culture pending. March 13, 2024: MTB PCR not detected. March 12, 2024 sputum culture: Normal respiratory rachael and rare mold. March 12, 2024: Fungal sputum culture: Hyphal elements are seen. Mold present on culture. Identification currently in progress. March 08, 2024 blood culture no growth March 08, 2024: Few GPC's in pairs chains and clusters, few gram-positive rods. Mar 05, 2024: Sputum cx : heavy normal rachael, rare mold March 12, 2024: Blastomyces antigen not detected Coccidioides IgG and IgM antibody pending Urine histoplasma antigen negative. Serum Aspergillus galactomannan antigen positive at 1.61 Serum Fungitell: Pending. March 13, 2024: QuantiFERON indeterminate. March 05, 2024 influenza A positive H3 subtype. 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 Patient has not had any significant relief with prolonged course of antibacterials. Sputum culture without any bacterial growth. Sputum culture now also showing mold. Together with a positive Aspergillus galactomannan index, historical risk factors by way of prolonged steroid use, CT chest with bilateral worsening infiltrates, suspect invasive aspergillosis. Agree with discontinuing IV meropenem and vancomycin Start voriconazole 6 mg/kg IV every 12 hours loading dose thereafter followed by voriconazole 4 mg/kg every 12 hours. Blood cultures so far negative to date. QuantiFERON indeterminate, sputum AFB smear negative x 1, sputum AFB PCR negative x 1,. Patient unable to answer any questions with relation to history of TB or historical risk factors of the same. Given alternate likely diagnosis, may discontinue TB precautions once we have 2 negative sputum AFB smears. Daily EKG monitoring for QTc interval. Baseline LFTs reviewed normal. Check voriconazole trough 5 days after initiation of treatment. Attempted to discuss signs of voriconazole toxicity, however patient is currently not alert enough to have any discussions regarding the same. Continue to closely monitor respiratory status with initiation of antifungal therapy. Attempt to wean down steroids if feasible to minimize immunosuppression. March 17, 2023: Mold from sputum culture identified as Aspergillus fumigatus, continue Voriconazole 400mg iv every 12 hs. Monitor qtc interval and LFTs. Requested sensitivity added on at [employer]. Voriconazole trough level on 03/20/24. Attestations 2 Medical Necessity Statement*: continued iv antifungal therapy Coding Level of Care Code Acute Code for Chg Fwd High MDM includes number and complexity of problems actively addressed during encounter, amount and/or complexity of data reviewed/ordered and described risk of complication, morbidity or mortality of management as documented Diagnoses Pulmonary aspergillosis B44.1 Fungal pneumonia J16.8; B49 Chronic steroid use Chronic obstructive pulmonary disease with acute exacerbation J44.1 COPD type: COPD with acute exacerbation Bullous emphysema J43.9 Invasive fungal infection B49
--- NOTE | 2024-03-17 14:45 | P.PN_ITS ---
Subjective 2 Subjective: Patient was seen this morning, he is sitting up in bed, patient's sister is at bedside he is much more alert this morning alert to person, to place, not to time he can follow commands no focal weakness or slurring of words, he is able to give me a thumbs up that he is doing okay, he has no complaints, no fevers, no chills does have a cough, he is sister tells me that he has an old car that he has been working on the car is more than 20 years old, she thinks that the floor mats might have mold in them, as he was exposed to them, as they have not been cleaned Vitals/I&O/Wt Last Vital Signs Temp 97.3 F L 03/17/24 13:00 Pulse 75 03/17/24 13:00 Resp 17 03/17/24 13:00 BP 97/76 03/17/24 13:00 Pulse Ox 90 03/17/24 13:00 O2 Del Method Nasal Cannula 03/17/24 13:00 O2 Flow Rate 2 03/17/24 13:00 03/16/24 03/17/24 03/17/24 22:59 06:59 14:59 Intake Total 920 / 1720 1000 / 2720 780 / 780 Output Total 850 / 1300 900 / 2200 850 / 850 Balance 70 / 420 100 / 520 -70 / -70 Weight last 48 hrs Weight 99 kg Weight 97 kg Physical Exam 2 Const: COMMON NORMALS: no acute distress ORIENTATION/CONSCIOUSNESS: Yes awake, Yes oriented to person and Yes oriented to place; not oriented to time OTHER: Continues to have a flat affect Resp: COMMON NORMALS: normal respiratory effort, No retractions, No use of accessory muscles and clear to auscultation bilaterally AUSCULTATION: clear to auscultation bilaterally Cardio: COMMON NORMALS: regular rate, regular rhythm, S1 normal heart sound present and S2 normal heart sound present RATE: regular rate RHYTHM: r egular rhythm HEART SOUNDS: S1 normal heart sound present and S2 normal heart sound present GI: COMMON NORMALS: Normal to inspection, nondistended, normoactive bowel sounds present, Soft to palpation and non-tender PALPATION: Yes Soft to palpation Extremity: COMMON NORMALS: no clubbing, cyanosis or edema and no pedal edema Neuro: COMMON NORMALS: CN's II-XII intact bilaterally, moves all extremities and no focal motor deficits SENSORIUM/ORIENTATION: Yes oriented to person, Yes oriented to place and No oriented to time Psych: COMMON NORMALS: mental status grossly normal Urinary Catheter Management: Scott: Cath Placed During This Visit: yes Reason for Continuing Indwelling Catheter: Accurate Measurement of Urinary Output in Critically Ill Patients Urinary Catheter Date of Insertion: 03/14/24 Urinary Catheter Time of Insertion: 14:00 Data 03/17/24 04:20 03/17/24 04:20 Micro: Microbiology 03/15/24 08:45 Mycobacterial Smear - Preliminary Sputum - Expectorated Sputum 03/12/24 09:16 Fungal Smear - Preliminary Sputum - Expectorated Sputum A&P Assessment and plan (1) Acute hypoxic respiratory failure: (2) Sepsis: (3) Healthcare-associated pneumonia: (4) Influenza A: (5) COPD exacerbation: (6) Acute encephalopathy: (7) Altered mental status: (8) Hypercalcemia: (9) Hemoptysis: (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: (11) Chronic steroid use: Plan Hemoptysis, resolved -Roughly 100 cc 03/13/2024, has not had any since -Resumed Eliquis today, monitor closely -Tessalon Perles 200 3 times daily as needed -Monitor respiratory status, monitor for cough -Given CT chest findings as below will need to evaluate for Mycobacterium infection, atypical infection -QuantiFERON gold indeterminate 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 -Aspergillosis galactomannan antigen detected, 1.61 -Has a history of steroid use for COPD -CT of the chest and chest x-ray showing multilobar nodular infiltrates -Repeat chest x-rays bilateral patchy pulmonary opacities despite being on over 10 days of IV antibiotics, broad-spectrum -With persistent leukocytosis, elevated CRP, Pro-Azam, encephalopathy Plan -Infectious disease consulted -Follow fungal studies -Follow-up fungal cultures -Follow Mycobacterium PCR negative -Follow AFB smears -QuantiFERON gold indeterminate -IV voriconazole loading dose followed by maintenance dose, monitor LFTs, monitor QTc, voriconazole trough 03/20/2023 -Keep under isolation once AFB smears are negative x 2 Acute encephalopathy, episodes of encephalopathy this morning, although following commands, no focal neurologic deficits, no facial droop no slurring words has a flat affect -Likely secondary to hypercalcemia, aspergillosis, pneumonia, hypoxia, ICU delirium, withdrawal -Had a stroke alert 03/15/2024 no focal neurologic deficits, does have severe left internal carotid artery stenosis, continue Plavix, statin, Eliquis -Possibly related to hypercalcemia? Calcium improving to 12.4 -Possible narcotic and benzo associated withdrawal is on Xanax 1 mg 3 times daily as needed, hydrocodone 10-325 every 6 hours as needed. Will continue home medications but Xanax 0.5 mg, hydrocodone 5 due to concerns for polypharmacy -Other concern would be more invasive aspergillosis infection such as fungal meningitis, continue voriconazole will consider lumbar puncture based on clinical progress but would have to hold Eliquis and Plavix for at least 5 days, does have cardiovascular disease -Initial CT head within normal limits -Repeat CT head, CT neck no acute findings -MRI brain no acute findings -Troponin series, ammonia levels within normal limits -No hypercarbia on ABG -Neurochecks, NIH stroke scale, monitor mentation closely Left internal carotid artery stenosis, severe -Will have to have patient follow-up with neurology, vascular as outpatient -Resume Plavix, statin, Eliquis Hypercalcemia -With concerns for encephalopathy -With hyperparathyroidism, PTH 165 -Elevated ionized calcium -Vitamin D pending -Ultrasound thyroid no acute findings -Will rule out lymphoma CT chest abdomen pelvis with IV contrast, does have enlarged subcarinal lymph node, will need to be evaluated as outpatient -Lasix 40 mg IV once today -calcitonin -cinacalcet -Will consider bisphosphonate -Monitor serum calcium, ionized calcium Atrial fibrillation -On metoprolol -Eliquis -Will consider amiodarone drip as heart rates are climbing Fall -With superficial laceration -Monitor -Repeat CT head, CT neck no acute findings -MRI brain no acute findings Acute hypoxic respiratory failure -Healthcare associated pneumonia -Influenza A completed treatment -COPD exacerbation -With evidence of sepsis, sepsis features met given hypoxia up to 5 L, tachycardia, leukocytosis source of infection pneumonia, influenza A -CT of the chest on 03/04/2024 CT/CT chest wo con [id number] IMPRESSION: 1. Scattered reticular and ground-glass opacities throughout the lungs likely represent multifocal pneumonia in the acute setting. Recommend imaging follow-up after clinical treatment to evaluate for resolution. 5. Enlarged subcarinal lymph node is favored to be reactive. Attention on follow-up recommended. Plan -Monitor respiratory status closely -Completed Tamiflu -Broaden antibiotic coverage to vancomycin, meropenem, azithromycin discontinued -Prednisone 40 mg daily -DuoNeb -Budesonide -Sputum culture -Blood culture -CHF exacerbation, Lasix as needed -See -Full code -Eliquis for DVT prophylaxis currently on hold due to hemoptysis CAD status post stenting Resume Plavix Chronic pain -Continue hydrocodone -Continue Xanax Plan for today continue IV voriconazole, monitor closely Attestations 2 Medical Necessity Statement*: Patient requires hospitalization for pulmonary aspergillosis, required IV voriconazole, acute encephalopathy Diagnoses Acute hypoxic respiratory failure J96.01 Sepsis A41.9 Healthcare-associated pneumonia J18.9 Influenza A J10.1 COPD exacerbation J44.1 Acute encephalopathy G93.40 Altered mental status R41.82 Hypercalcemia E83.52 Hemoptysis R04.2 Pulmonary aspergillosis B44.1 Chronic steroid use
[2024-03-17 17:03] LABS: Glucose Point of Care 230 mg/dL (70-110)
[2024-03-17] MEDS: metoprolol tartrate 25 mg Tablet 12.5 MG PO (17:09)
--- NOTE | 2024-03-17 19:21 | PC.NURSE ---
SHift Summary: Uneventful shift Patient spent almost entire day up to a chair. Appetite has been increasing. Mental status has slowly improved compared to previous day. CUrrently is oriented to person, place, and sometimes situation. Patient has remained calm and cooperative.
[2024-03-17] MEDS: pantoprazole 40 mg SDV IVP (20:11)
[2024-03-17 21:10] LABS: Coccidioides IgG Antibody NEGATIVE; Coccidioides IgM Antibody NEGATIVE
[2024-03-17 22:15] LABS: Glucose Point of Care 193 mg/dL (70-110)
[2024-03-18] VITALS (35 sets, daily range): BP systolic 87–118; BP diastolic 56–89; PULSE 66–114; RESP 12–50; TEMP 36.3–36.7; O2SAT 87–95
[2024-03-18] MEDS: thiamine 100 mg/mL 2mL SDV 200 MG IVP (03:40)
[2024-03-18 05:36] LABS: Basophils % 0.2 %; Eosinophils # 0.1 10^3/uL (0.0-0.8); Eosinophils % 0.5 %; Hematocrit 49.6 % (37-53); Lymphocytes # 1.4 10^3/uL (0.8-4.8); Lymphocytes % 8.7 %; Mean Corpuscular HGB Conc 29.4 g/dL (30-55); Mean Corpuscular Hemoglobin 26.1 pg (27-33); Mean Corpuscular Volume 88.7 fl (82-101); Monocytes # 0.6 10^3/uL (0.2-0.9); Neutrophils # 13.48 10^3/uL (1.8-7.7); Neutrophils % 86.1 %; Nucleated Red Blood Cells % 0 %; Platelet Count 110 10^3/cmm (157-399); Red Blood Count 5.59 10^6/uL (3.85-5.65); Red Cell Distribution Width 13.9 % (12.1-15.1); White Blood Count 15.66 10^3/uL (3.29-11.43)
[2024-03-18 06:02] LABS: Alanine Aminotransferase 20 U/L (0-41); Albumin Level 2.1 g/dL (3.5-5.2); Alkaline Phosphatase 84 U/L (40-130); Anion Gap 8.9 (5-19); Aspartate Amino Transferase 18 U/L (0-40); Blood Urea Nitrogen 33 mg/dL (8-23); Carbon Dioxide 31 mmol/L (22-29); Chloride 99 mmol/L (98-107); Globulin 4.7 g/dL (1.3-4.6); Glomerular Filtration Rate 96.1 mL/min (90-130); Glucose 134 mg/dL (65-115); Magnesium 2.1 mg/dL (1.7-2.3); NT Pro B Type Natriuretic Pept 682 pg/mL (0-125); Osmolality Calculated 289 mOsm/kg (285-295); Phosphorus 2.7 mg/dL (2.5-4.5); Potassium 3.9 mmol/L (3.5-5.1); Sodium 135 mmol/L (136-145); Total Bilirubin 0.2 mg/dL (0.15-1.2); Total Protein 6.8 g/dL (6.6-8.7)
[2024-03-18 06:45] LABS: HIV 1 & 2 Antibody Non-Reactive (Non-Reactiv); HIV 1 & 2 Antigen Non-Reactive (Non-Reactiv)
[2024-03-18] MEDS: budesonide 0.5 mg/2 mL Neb INHALATION ×2 (08:34→19:48)
[2024-03-18] MEDS: ipratropium-albuterol 3 mL Neb INHALATION ×4 (08:34→19:48)
[2024-03-18 08:45] LABS: Glucose Point of Care 158 mg/dL (70-110)
[2024-03-18] MEDS: insulin lispro 100 unit/1 mL SUBCUT ×4 (09:21→22:54)
[2024-03-18] MEDS: metoprolol tartrate 25 mg Tablet 12.5 MG PO ×2 (09:27→17:10)
[2024-03-18] MEDS: bisacodyl 5 mg Tablet PO (09:28)
[2024-03-18] MEDS: clopidogrel 75 mg Tablet PO (09:28)
[2024-03-18] MEDS: predniSONE 20 mg Tablet PO (09:28)
[2024-03-18] MEDS: multivitamin therapeutic Tablet 1 TAB PO (09:28)
[2024-03-18] MEDS: folic acid 1 mg Tablet PO ×2 (09:28→17:10)
[2024-03-18] MEDS: gabapentin 100 mg Capsule 200 MG PO ×3 (09:28→22:51)
[2024-03-18] MEDS: polyethylene glycol 3350 Pkt 17 gm PO (09:29)
[2024-03-18] MEDS: CINACALCET HCL 30 MG 1 EACH PO ×2 (09:32→17:10)
[2024-03-18] MEDS: apixaban 5 mg Tablet PO (09:33)
--- NOTE | 2024-03-18 11:11 | P.PN_ITS ---
Subjective 2 Subjective: ID progress note No acute interim events, 02 requirements stable at 4lpm. Medications: Reviewed: Yes Vitals/I&O/Wt Last Vital Signs Temp 97.4 F L 03/18/24 15:14 Pulse 77 03/18/24 19:59 Resp 17 03/18/24 19:49 BP 94/70 03/18/24 18:00 Pulse Ox 95 03/18/24 19:49 O2 Del Method Nasal Cannula 03/18/24 19:49 O2 Flow Rate 4 03/18/24 19:49 03/18/24 03/18/24 03/19/24 14:59 22:59 06:59 Intake Total 1130 / 1130 480 / 1610 Output Total 250 / 250 1650 / 1900 Balance 880 / 880 -1170 / -290 Weight last 48 hrs Weight 100.108 kg Weight 99 kg Physical Exam 2 Narrative: General: Acutely ill-appearing male sitting in chair by the bed HEENT: PERRLA, pupils bilaterally equal and reactive, pallors not present Chest: Coarse breath sounds bilaterally to auscultation. CVS: S1-S2 regular, no murmurs, no tachycardia, no gallops, no rubs Abdomen: Soft, nontender, no organomegaly, bowel sounds present Neuro: no focal deficits, moving all extremities, AAO x 3 Urinary Catheter Management: Scott: Cath Placed During This Visit: yes Reason for Continuing Indwelling Catheter: Accurate Measurement of Urinary Output in Critically Ill Patients Urinary Catheter Date of Insertion: 03/14/24 Urinary Catheter Time of Insertion: 14:00 Data 03/18/24 05:04 03/18/24 05:04 Micro: Microbiology 03/17/24 01:40 Mycobacterial Smear - Preliminary Sputum - Expectorated Sputum 03/15/24 08:45 Mycobacterial Smear - Preliminary Sputum - Expectorated Sputum March 17, 2024: Mycobacterial smear: NO AFB on smear March 15, 2024: Mycobacterial smear with no acid-fast bacilli on smear. Culture pending. March 13, 2024: MTB PCR not detected. March 12, 2024 sputum culture: Normal respiratory rachael and rare mold. March 12, 2024: Fungal sputum culture: Hyphal elements are seen. Mold present on culture. Aspergillus fumigatus March 08, 2024 blood culture no growth March 08, 2024: Few GPC's in pairs chains and clusters, few gram-positive rods. Mar 05, 2024: Sputum cx : heavy normal rachael, rare mold March 12, 2024: Blastomyces antigen not detected Coccidioides IgG and IgM antibody pending Urine histoplasma antigen negative. Serum Aspergillus galactomannan antigen positive at 1.61 Serum Fungitell: Pending. March 13, 2024: QuantiFERON indeterminate. March 05, 2024 influenza A positive H3 subtype. 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 Patient has not had any significant relief with prolonged course of antibacterials. Sputum culture without any bacterial growth. Sputum culture now also showing mold. Together with a positive Aspergillus galactomannan index, historical risk factors by way of prolonged steroid use, CT chest with bilateral worsening infiltrates, suspect invasive aspergillosis. Agree with discontinuing IV meropenem and vancomycin Start voriconazole 6 mg/kg IV every 12 hours loading dose thereafter followed by voriconazole 4 mg/kg every 12 hours. Blood cultures so far negative to date. QuantiFERON indeterminate, sputum AFB smear negative x 1, sputum AFB PCR negative x 1,. Patient unable to answer any questions with relation to history of TB or historical risk factors of the same. Given alternate likely diagnosis, may discontinue TB precautions once we have 2 negative sputum AFB smears. Daily EKG monitoring for QTc interval. Baseline LFTs reviewed normal. Check voriconazole trough 5 days after initiation of treatment. Attempted to discuss signs of voriconazole toxicity, however patient is currently not alert enough to have any discussions regarding the same. Continue to closely monitor respiratory status with initiation of antifungal therapy. Attempt to wean down steroids if feasible to minimize immunosuppression. March 17, 2023: Mold from sputum culture identified as Aspergillus fumigatus, continue Voriconazole 400mg iv every 12 hs. Monitor qtc interval and LFTs. Requested sensitivity added on at [facility]. Voriconazole trough level on 03/20/24. March 18, 2023 pending AFB smear from 03/17 negative. Can D/c TB airborne precautions with 2 negative smears and one negative MTB PCR. Recommend changing Eliquis to lovenox for anticoagulation while on voriconazole as the latter is a strong CYP inducer with potential to increase eliquis level and bleeding risk. qtc interval 415msec. LFT stable. Vori level check on day 5 of rx (Mar 20). Plan to repeat CT chest 7-10 days after starting voriconazole to assess for interval change. Attestations 2 Medical Necessity Statement*: per admitting. IFI requiring antifungals Coding Level of Care Code Acute Code for Chg Fwd High MDM includes number and complexity of problems actively addressed during encounter, amount and/or complexity of data reviewed/ordered and described risk of complication, morbidity or mortality of management as documented Diagnoses Pulmonary aspergillosis B44.1 Fungal pneumonia J16.8; B49 Chronic steroid use Chronic obstructive pulmonary disease with acute exacerbation J44.1 COPD type: COPD with acute exacerbation Bullous emphysema J43.9 Invasive fungal infection B49
[2024-03-18 12:20] LABS: Glucose Point of Care 214 mg/dL (70-110)
--- NOTE | 2024-03-18 16:13 | P.PN_ITS ---
Subjective 2 Subjective: Patient was seen this morning, he is alert to person, to place, to time he follows commands he tells me he feels significantly better continues to have a productive cough, no fevers, no chills, Vitals/I&O/Wt Last Vital Signs Temp 97.4 F L 03/18/24 15:14 Pulse 74 03/18/24 15:30 Resp 16 03/18/24 15:30 BP 90/71 03/18/24 15:14 Pulse Ox 91 03/18/24 15:30 O2 Del Method Nasal Cannula 03/18/24 15:30 O2 Flow Rate 4 03/18/24 15:30 03/18/24 03/18/24 03/18/24 06:59 14:59 22:59 Intake Total 925 / 2555 880 / 880 Output Total 800 / 1650 250 / 250 Balance 125 / 905 630 / 630 Weight last 48 hrs Weight 100.108 kg Weight 99 kg Physical Exam 2 Const: COMMON NORMALS: no acute distress and patient oriented x3 Resp: COMMON NORMALS: normal respiratory effort, No retractions and No use of accessory muscles AUSCULTATION: crackles and wheezes Cardio: COMMON NORMALS: regular rate, regular rhythm, S1 normal heart sound present and S2 normal heart sound present RATE: regular rate RHYTHM: r egular rhythm HEART SOUNDS: S1 normal heart sound present and S2 normal heart sound present GI: COMMON NORMALS: Normal to inspection, nondistended, normoactive bowel sounds present and non-tender Extremity: COMMON NORMALS: no pedal edema Neuro: COMMON NORMALS: patient oriented x3 Psych: COMMON NORMALS: mental status grossly normal Urinary Catheter Management: Scott: Cath Placed During This Visit: yes Reason for Continuing Indwelling Catheter: Accurate Measurement of Urinary Output in Critically Ill Patients Urinary Catheter Date of Insertion: 03/14/24 Urinary Catheter Time of Insertion: 14:00 Data 03/18/24 05:04 03/18/24 05:04 Micro: Microbiology 03/15/24 08:45 Mycobacterial Smear - Preliminary Sputum - Expectorated Sputum A&P Assessment and plan (1) Acute hypoxic respiratory failure: (2) Sepsis: (3) Healthcare-associated pneumonia: (4) Influenza A: (5) COPD exacerbation: (6) Acute encephalopathy: (7) Altered mental status: (8) Hypercalcemia: (9) Hemoptysis: (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: (11) Chronic steroid use: Plan Hemoptysis, resolved -Roughly 100 cc 03/13/2024, has not had any since -Switch to therapeutic Lovenox given concerns for interactions with voriconazole -Tessalon Perles 200 3 times daily as needed -Monitor respiratory status, monitor for cough -Given CT chest findings as below will need to evaluate for Mycobacterium infection, atypical infection, so far testing negative -QuantiFERON gold indeterminate 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 -Aspergillosis galactomannan antigen detected, 1.61 -Has a history of steroid use for COPD -CT of the chest and chest x-ray showing multilobar nodular infiltrates -Repeat chest x-rays bilateral patchy pulmonary opacities despite being on over 10 days of IV antibiotics, broad-spectrum -With persistent leukocytosis, elevated CRP, Pro-Azam, encephalopathy Plan -Infectious disease consulted -Follow fungal studies, sputum culture showing aspergillosis fumigatus -Follow-up fungal cultures -Follow Mycobacterium PCR negative -Follow AFB smears, so far negative -QuantiFERON gold indeterminate -IV voriconazole loading dose followed by maintenance dose, monitor LFTs, monitor QTc, voriconazole trough 03/20/2023 -Keep under isolation once AFB smears are negative x 2 Acute encephalopathy, episodes of encephalopathy this morning, although following commands, no focal neurologic deficits, no facial droop no slurring words has a flat affect -Likely secondary to hypercalcemia, aspergillosis, pneumonia, hypoxia, ICU delirium, withdrawal -Had a stroke alert 03/15/2024 no focal neurologic deficits, does have severe left internal carotid artery stenosis, continue Plavix, statin, Eliquis -Possibly related to hypercalcemia? Calcium improving to 12.4 -Possible narcotic and benzo associated withdrawal is on Xanax 1 mg 3 times daily as needed, hydrocodone 10-325 every 6 hours as needed. Will continue home medications but Xanax 0.5 mg, hydrocodone 5 due to concerns for polypharmacy -Other concern would be more invasive aspergillosis infection such as fungal meningitis, continue voriconazole will consider lumbar puncture based on clinical progress but would have to hold Eliquis and Plavix for at least 5 days, does have cardiovascular disease -Initial CT head within normal limits -Repeat CT head, CT neck no acute findings -MRI brain no acute findings -Troponin series, ammonia levels within normal limits -No hypercarbia on ABG -Neurochecks, NIH stroke scale, monitor mentation closely Left internal carotid artery stenosis, severe -Will have to have patient follow-up with neurology, vascular as outpatient -Resume Plavix, statin, Eliquis Hypercalcemia -With concerns for encephalopathy -With hyperparathyroidism, PTH 165 -Elevated ionized calcium -Vitamin D pending -Ultrasound thyroid no acute findings -Will rule out lymphoma CT chest abdomen pelvis with IV contrast, does have enlarged subcarinal lymph node, will need to be evaluated as outpatient -Lasix 40 mg IV once today -calcitonin -cinacalcet -Will consider bisphosphonate -Monitor serum calcium, ionized calcium Atrial fibrillation -On metoprolol -Eliquis -Will consider amiodarone drip as heart rates are climbing Fall -With superficial laceration -Monitor -Repeat CT head, CT neck no acute findings -MRI brain no acute findings Acute hypoxic respiratory failure -Healthcare associated pneumonia -Influenza A completed treatment -COPD exacerbation -With evidence of sepsis, sepsis features met given hypoxia up to 5 L, tachycardia, leukocytosis source of infection pneumonia, influenza A -CT of the chest on 03/04/2024 CT/CT chest wo con [id number] IMPRESSION: 1. Scattered reticular and ground-glass opacities throughout the lungs likely represent multifocal pneumonia in the acute setting. Recommend imaging follow-up after clinical treatment to evaluate for resolution. 5. Enlarged subcarinal lymph node is favored to be reactive. Attention on follow-up recommended. Plan -Monitor respiratory status closely -Completed Tamiflu -Broaden antibiotic coverage to vancomycin, meropenem, azithromycin discontinued -Prednisone 40 mg daily -DuoNeb -Budesonide -Sputum culture -Blood culture -CHF exacerbation, Lasix as needed -See -Full code -Eliquis for DVT prophylaxis currently on hold due to hemoptysis CAD status post stenting Resume Plavix Chronic pain -Continue hydrocodone -Continue Xanax Plan for today continue IV voriconazole, monitor closely Attestations 2 Medical Necessity Statement*: Patient requires hospitalization for aspergillosis pneumonia requiring IV voriconazole inpatient monitoring Diagnoses Acute hypoxic respiratory failure J96.01 Sepsis A41.9 Healthcare-associated pneumonia J18.9 Influenza A J10.1 COPD exacerbation J44.1 Acute encephalopathy G93.40 Altered mental status R41.82 Hypercalcemia E83.52 Hemoptysis R04.2 Pulmonary aspergillosis B44.1 Chronic steroid use
[2024-03-18 17:16] LABS: Glucose Point of Care 235 mg/dL (70-110)
[2024-03-18 17:23] LABS: Glucose Point of Care 249 mg/dL (70-110)
[2024-03-18 22:45] LABS: Glucose Point of Care 153 mg/dL (70-110)
[2024-03-18] MEDS: HYDROcodone-acetaminophen 10-325 mg Tablet 0.5 TAB PO (22:51)
[2024-03-18] MEDS: pantoprazole 40 mg SDV IVP (22:53)
[2024-03-18] MEDS: enoxaparin 100 mg/mL Syringe SUBCUT (22:55)
[2024-03-19] VITALS (26 sets, daily range): BP systolic 90–178; BP diastolic 66–83; PULSE 61–110; RESP 12–21; TEMP 36.2–37.2; O2SAT 90–95
[2024-03-19 06:31] LABS: Alanine Aminotransferase 18 U/L (0-41); Albumin Level 2.1 g/dL (3.5-5.2); Alkaline Phosphatase 83 U/L (40-130); Aspartate Amino Transferase 18 U/L (0-40); Blood Urea Nitrogen 25 mg/dL (8-23); Calcium 9.9 mg/dL (8.5-10.5); Carbon Dioxide 26 mmol/L (22-29); Chloride 101 mmol/L (98-107); Creatinine Clr Calc Pharmacy 91.6862; Globulin 3.5 g/dL (1.3-4.6); Glomerular Filtration Rate 83.9 mL/min (90-130); Glucose 116 mg/dL (65-115); Magnesium 2.2 mg/dL (1.7-2.3); Osmolality Calculated 291 mOsm/kg (285-295); Phosphorus 2.7 mg/dL (2.5-4.5); Sodium 138 mmol/L (136-145); Total Bilirubin 0.2 mg/dL (0.15-1.2); Total Protein 5.6 g/dL (6.6-8.7)
[2024-03-19 06:37] LABS: NT Pro B Type Natriuretic Pept 815 pg/mL (0-125)
[2024-03-19 07:06] LABS: Basophils % 0.2 %; Eosinophils # 0.1 10^3/uL (0.0-0.8); Eosinophils % 0.5 %; Hematocrit 48.9 % (37-53); Lymphocytes % 8.1 %; Mean Corpuscular HGB Conc 29.2 g/dL (30-55); Mean Corpuscular Hemoglobin 26.4 pg (27-33); Mean Corpuscular Volume 90.4 fl (82-101); Mean Platelet Volume 11.8 fL (7.4-10.4); Monocytes # 0.5 10^3/uL (0.2-0.9); Monocytes % 3.7 %; Neutrophils # 10.99 10^3/uL (1.8-7.7); Neutrophils % 87.1 %; Nucleated Red Blood Cells % 0 %; Platelet Count 106 10^3/cmm (157-399); Red Blood Count 5.41 10^6/uL (3.85-5.65); Red Cell Distribution Width 14.2 % (12.1-15.1); White Blood Count 12.62 10^3/uL (3.29-11.43)
[2024-03-19] MEDS: budesonide 0.5 mg/2 mL Neb INHALATION ×2 (08:11→20:38)
[2024-03-19] MEDS: ipratropium-albuterol 3 mL Neb INHALATION ×4 (08:11→20:39)
[2024-03-19 08:26] LABS: Glucose Point of Care 126 mg/dL (70-110)
[2024-03-19] MEDS: bisacodyl 5 mg Tablet PO (08:55)
[2024-03-19] MEDS: predniSONE 20 mg Tablet PO (08:55)
[2024-03-19] MEDS: folic acid 1 mg Tablet PO ×2 (08:55→17:17)
[2024-03-19] MEDS: gabapentin 100 mg Capsule 200 MG PO ×3 (08:55→21:02)
[2024-03-19] MEDS: clopidogrel 75 mg Tablet PO (08:55)
[2024-03-19] MEDS: multivitamin therapeutic Tablet 1 TAB PO (08:55)
[2024-03-19] MEDS: CINACALCET HCL 30 MG 1 EACH PO (08:56)
[2024-03-19] MEDS: polyethylene glycol 3350 Pkt 17 gm PO (08:56)
[2024-03-19 12:00] LABS: Glucose Point of Care 293 mg/dL (70-110)
[2024-03-19] MEDS: enoxaparin 100 mg/mL Syringe SUBCUT ×2 (12:04→23:26)
[2024-03-19] MEDS: insulin lispro 100 unit/1 mL SUBCUT ×3 (12:31→21:03)
--- NOTE | 2024-03-19 15:34 | PC.NURSE ---
Addendum entered by Edgar Hathaway RN 03/19/24 15:36: Nurser verified contents of wallet upon [facility] to [facility]. contains $45 in [employer]. Original Note: RN and self verified content of wallet dropped off by sister lloyd. contains $45 in [employer] and a buisness card.
--- NOTE | 2024-03-19 16:07 | PC.SOCIAL ---
IMM updated IMM dated and initialed, copy given to patient and copy placed in chart.
[2024-03-19] MEDS: thiamine 100 mg Tablet PO (16:23)
[2024-03-19 16:54] LABS: Glucose Point of Care 407 mg/dL (70-110)
--- NOTE | 2024-03-19 17:49 | P.PN_ITS ---
Subjective 2 Subjective: Patient was seen this morning, he is sitting up in a chair, sister at bedside he is alert oriented x 3, following all commands no complaints of weakness no fatigue no nausea, no vomiting, no fevers, no chills Vitals/I&O/Wt Last Vital Signs Temp 97.9 F 03/19/24 17:36 Pulse 92 03/19/24 17:36 Resp 20 H 03/19/24 17:36 BP 178/80 03/19/24 17:36 Pulse Ox 93 03/19/24 17:36 O2 Del Method Nasal Cannula 03/19/24 17:36 O2 Flow Rate 4 03/19/24 15:15 03/19/24 03/19/24 03/19/24 06:59 14:59 22:59 Intake Total 850 / 2460 360 / 360 250 / 610 Output Total 1350 / 3250 1000 / 1000 Balance -500 / -790 -640 / -640 250 / -390 Weight last 48 hrs Weight 100.244 kg Weight 100.108 kg Physical Exam 2 Const: COMMON NORMALS: no acute distress and patient oriented x3 Resp: COMMON NORMALS: normal respiratory effort, No retractions, No use of accessory muscles and clear to auscultation bilaterally AUSCULTATION: clear to auscultation bilaterally Cardio: COMMON NORMALS: regular rate, regular rhythm, S1 normal heart sound present and S2 normal heart sound present RATE: regular rate RHYTHM: r egular rhythm HEART SOUNDS: S1 normal heart sound present and S2 normal heart sound present GI: COMMON NORMALS: Normal to inspection, nondistended, normoactive bowel sounds present and non-tender Neuro: COMMON NORMALS: patient oriented x3 Psych: COMMON NORMALS: mental status grossly normal Urinary Catheter Management: Scott: Cath Placed During This Visit: yes Reason for Continuing Indwelling Catheter: Accurate Measurement of Urinary Output in Critically Ill Patients Urinary Catheter Date of Insertion: 03/14/24 Urinary Catheter Time of Insertion: 14:00 Data 03/19/24 06:48 03/19/24 05:18 Micro: Microbiology 03/08/24 17:48 Fungal Identification - Preliminary Other Source 03/17/24 01:40 Mycobacterial Smear - Preliminary Sputum - Expectorated Sputum A&P Assessment and plan (1) Acute hypoxic respiratory failure: (2) Sepsis: (3) Healthcare-associated pneumonia: (4) Influenza A: (5) COPD exacerbation: (6) Acute encephalopathy: (7) Altered mental status: (8) Hypercalcemia: (9) Hemoptysis: (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: (11) Chronic steroid use: Plan Hemoptysis, resolved -Roughly 100 cc 03/13/2024, has not had any since -Switch to therapeutic Lovenox given concerns for interactions with voriconazole -Tessalon Perles 200 3 times daily as needed -Monitor respiratory status, monitor for cough -Given CT chest findings as below will need to evaluate for Mycobacterium infection, atypical infection, so far testing negative -QuantiFERON gold indeterminate 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 -Aspergillosis galactomannan antigen detected, 1.61 -Has a history of steroid use for COPD -CT of the chest and chest x-ray showing multilobar nodular infiltrates -Repeat chest x-rays bilateral patchy pulmonary opacities despite being on over 10 days of IV antibiotics, broad-spectrum -With persistent leukocytosis, elevated CRP, Pro-Azam, encephalopathy Plan -Infectious disease consulted -Follow fungal studies, sputum culture showing aspergillosis fumigatus -Follow-up fungal cultures -Follow Mycobacterium PCR negative -Follow AFB smears, so far negative -QuantiFERON gold indeterminate -IV voriconazole loading dose followed by maintenance dose, monitor LFTs, monitor QTc, voriconazole trough 03/20/2023 -Keep under isolation once AFB smears are negative x 2 Acute encephalopathy, episodes of encephalopathy this morning, although following commands, no focal neurologic deficits, no facial droop no slurring words has a flat affect -Likely secondary to hypercalcemia, aspergillosis, pneumonia, hypoxia, ICU delirium, withdrawal -Had a stroke alert 03/15/2024 no focal neurologic deficits, does have severe left internal carotid artery stenosis, continue Plavix, statin, Eliquis -Possibly related to hypercalcemia? Calcium improving to 12.4 -Possible narcotic and benzo associated withdrawal is on Xanax 1 mg 3 times daily as needed, hydrocodone 10-325 every 6 hours as needed. Will continue home medications but Xanax 0.5 mg, hydrocodone 5 due to concerns for polypharmacy -Other concern would be more invasive aspergillosis infection such as fungal meningitis, continue voriconazole will consider lumbar puncture based on clinical progress but would have to hold Eliquis and Plavix for at least 5 days, does have cardiovascular disease -Initial CT head within normal limits -Repeat CT head, CT neck no acute findings -MRI brain no acute findings -Troponin series, ammonia levels within normal limits -No hypercarbia on ABG -Neurochecks, NIH stroke scale, monitor mentation closely Left internal carotid artery stenosis, severe -Will have to have patient follow-up with neurology, vascular as outpatient -Resume Plavix, statin, Eliquis Hypercalcemia -With concerns for encephalopathy -With hyperparathyroidism, PTH 165 -Elevated ionized calcium -Vitamin D pending -Ultrasound thyroid no acute findings -Will rule out lymphoma CT chest abdomen pelvis with IV contrast, does have enlarged subcarinal lymph node, will need to be evaluated as outpatient -Lasix 40 mg IV once today -calcitonin -cinacalcet -Will consider bisphosphonate -Monitor serum calcium, ionized calcium Atrial fibrillation -On metoprolol -Lovenox -Will consider amiodarone drip as heart rates are climbing Fall -With superficial laceration -Monitor -Repeat CT head, CT neck no acute findings -MRI brain no acute findings Acute hypoxic respiratory failure -Healthcare associated pneumonia -Influenza A completed treatment -COPD exacerbation -With evidence of sepsis, sepsis features met given hypoxia up to 5 L, tachycardia, leukocytosis source of infection pneumonia, influenza A -CT of the chest on 03/04/2024 CT/CT chest wo con [id number] IMPRESSION: 1. Scattered reticular and ground-glass opacities throughout the lungs likely represent multifocal pneumonia in the acute setting. Recommend imaging follow-up after clinical treatment to evaluate for resolution. 5. Enlarged subcarinal lymph node is favored to be reactive. Attention on follow-up recommended. Plan -Monitor respiratory status closely -Completed Tamiflu -Broaden antibiotic coverage to vancomycin, meropenem, azithromycin discontinued -Prednisone 40 mg daily -DuoNeb -Budesonide -Sputum culture -Blood culture -CHF exacerbation, Lasix as needed -See -Full code -Eliquis for DVT prophylaxis currently on hold due to hemoptysis CAD status post stenting Resume Plavix Chronic pain -Continue hydrocodone -Continue Xanax Plan for today continue IV voriconazole, monitor closely Attestations 2 Medical Necessity Statement*: Patient requires hospitalization for Aspergillus pneumonia requiring IV voriconazole Diagnoses Acute hypoxic respiratory failure J96.01 Sepsis A41.9 Healthcare-associated pneumonia J18.9 Influenza A J10.1 COPD exacerbation J44.1 Acute encephalopathy G93.40 Altered mental status R41.82 Hypercalcemia E83.52 Hemoptysis R04.2 Pulmonary aspergillosis B44.1 Chronic steroid use
[2024-03-19 20:29] LABS: Glucose Point of Care 226 mg/dL (70-110)
[2024-03-19] MEDS: pantoprazole 40 mg SDV IVP (21:02)
[2024-03-20] VITALS (12 sets, daily range): BP systolic 108–124; BP diastolic 64–92; PULSE 79–95; RESP 16–19; TEMP 36.5–36.6; O2SAT 91–98
--- NOTE | 2024-03-20 05:31 | ECG_ITS ---
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 Measurements Intervals [place] Rate: 79 P: 49 FL: 140 QRS: 9 QRSD: 97 T: 30 QT: 317 QTc: 365 Interpretive Statements SINUS RHYTHM Compared to ECG 03/17/2024 08:03:34 No significant changes Electronically Signed On 03-24-2024 13:51:33 [employer]IDE by Jignesh Kline M.D. [email or web address]
[2024-03-20 06:27] LABS: Glucose Point of Care 115 mg/dL (70-110)
[2024-03-20] MEDS: ipratropium-albuterol 3 mL Neb INHALATION ×4 (07:47→19:40)
[2024-03-20] MEDS: budesonide 0.5 mg/2 mL Neb INHALATION ×2 (07:47→19:40)
[2024-03-20] MEDS: clopidogrel 75 mg Tablet PO (09:33)
[2024-03-20] MEDS: thiamine 100 mg Tablet PO (09:33)
[2024-03-20] MEDS: gabapentin 100 mg Capsule 200 MG PO ×3 (09:33→21:38)
[2024-03-20] MEDS: metoprolol tartrate 25 mg Tablet 12.5 MG PO ×2 (09:33→18:20)
[2024-03-20] MEDS: multivitamin therapeutic Tablet 1 TAB PO (09:34)
[2024-03-20] MEDS: folic acid 1 mg Tablet PO ×2 (09:34→18:19)
[2024-03-20] MEDS: predniSONE 20 mg Tablet PO (09:34)
[2024-03-20] MEDS: bisacodyl 5 mg Tablet PO (09:34)
[2024-03-20] MEDS: polyethylene glycol 3350 Pkt 17 gm PO (09:34)
[2024-03-20 10:05] LABS: Basophils % 0.1 %; Eosinophils # 0.1 10^3/uL (0.0-0.8); Lymphocytes % 8.3 %; Mean Corpuscular Hemoglobin 26.7 pg (27-33); Mean Corpuscular Volume 88.9 fl (82-101); Mean Platelet Volume 12.3 fL (7.4-10.4); Monocytes # 0.5 10^3/uL (0.2-0.9); Monocytes % 4.3 %; Neutrophils # 9.91 10^3/uL (1.8-7.7); Neutrophils % 85.6 %; Nucleated Red Blood Cells % 0 %; Platelet Count 128 10^3/cmm (157-399); Red Blood Count 5.06 10^6/uL (3.85-5.65); Red Cell Distribution Width 14.2 % (12.1-15.1); White Blood Count 11.58 10^3/uL (3.29-11.43)
[2024-03-20 10:23] LABS: Alanine Aminotransferase 17 U/L (0-41); Alkaline Phosphatase 98 U/L (40-130); Anion Gap 8.7 (5-19); Aspartate Amino Transferase 19 U/L (0-40); Blood Urea Nitrogen 19 mg/dL (8-23); Calcium 10.6 mg/dL (8.5-10.5); Carbon Dioxide 30 mmol/L (22-29); Chloride 103 mmol/L (98-107); Creatinine Clr Calc Pharmacy 91.3436; Globulin 4.9 g/dL (1.3-4.6); Glomerular Filtration Rate 83.9 mL/min (90-130); Glucose 209 mg/dL (65-115); Magnesium 2.1 mg/dL (1.7-2.3); Osmolality Calculated 294 mOsm/kg (285-295); Phosphorus 1.9 mg/dL (2.5-4.5); Potassium 3.7 mmol/L (3.5-5.1); Sodium 138 mmol/L (136-145); Total Bilirubin 0.2 mg/dL (0.15-1.2); Total Protein 6.9 g/dL (6.6-8.7)
[2024-03-20 10:31] LABS: NT Pro B Type Natriuretic Pept 1030 pg/mL (0-125)
[2024-03-20 10:58] LABS: Glucose Point of Care 260 mg/dL (70-110)
[2024-03-20] MEDS: enoxaparin 100 mg/mL Syringe SUBCUT ×2 (11:04→22:43)
[2024-03-20 11:14] LABS: Fungitell 1-3-B Glucan Assay >500 pg/ml; Interpretation Positive (Negative)
[2024-03-20] MEDS: insulin lispro 100 unit/1 mL SUBCUT ×3 (12:02→21:38)
[2024-03-20 16:23] LABS: Glucose Point of Care 272 mg/dL (70-110)
--- NOTE | 2024-03-20 16:45 | P.PN_ITS ---
Subjective 2 Subjective: Infectious disease progress note. Leukocytosis is trending down at 11,000 today. Patient is afebrile. Oxygen supplementation at 3 L/min today. Overall appears to be clinically stable. Medications: Reviewed: Yes Vitals/I&O/Wt Last Vital Signs Temp 97.9 F 03/20/24 16:09 Pulse 84 03/20/24 16:09 Resp 18 03/20/24 16:09 BP 111/77 03/20/24 16:09 Pulse Ox 94 03/20/24 16:09 O2 Del Method Nasal Cannula 03/20/24 16:09 O2 Flow Rate 2 03/20/24 11:39 03/20/24 03/20/24 03/20/24 06:59 14:59 22:59 Intake Total 790 / 1880 970 / 970 Output Total 350 / 1350 500 / 500 Balance 440 / 530 470 / 470 Weight last 48 hrs Weight 99.473 kg Weight 100.244 kg Physical Exam 2 Narrative: General: Acutely ill-appearing male sitting in chair by the bed HEENT: PERRLA, pupils bilaterally equal and reactive, pallors not present Chest: Coarse breath sounds bilaterally to auscultation. CVS: S1-S2 regular, no murmurs, no tachycardia, no gallops, no rubs Abdomen: Soft, nontender, no organomegaly, bowel sounds present Neuro: no focal deficits, moving all extremities, AAO x 3 Urinary Catheter Management: Scott: Cath Placed During This Visit: yes, but has since been removed by the nurse Reason for Continuing Indwelling Catheter: Accurate Measurement of Urinary Output in Critically Ill Patients Urinary Catheter Date of Insertion: 03/14/24 Urinary Catheter Time of Insertion: 14:00 Date Urinary Catheter Removed: 03/19/24 Data 03/20/24 09:28 03/20/24 09:28 Micro: Microbiology 03/12/24 09:16 Fungal Smear - Final Sputum - Expectorated Sputum 03/08/24 17:48 Fungal Identification - Preliminary Other Source A&P Assessment and plan (1) Pulmonary aspergillosis: (2) Fungal pneumonia: (3) Chronic steroid use: (4) COPD (chronic obstructive pulmonary disease): Qualifiers: COPD type: COPD with acute exacerbation Qualified Code(s): J44.1 - Chronic obstructive pulmonary disease with (acute) exacerbation (5) Bullous emphysema: (6) Invasive fungal infection: Plan 68-year-old male with COPD, history of multiple courses of antibiotics and steroids since at least October 2023, currently admitted to the hospital with worsening bilateral pneumonia, shortness of breath fatigue and fevers. Patient has not had any significant relief with prolonged course of antibacterials. Sputum culture without any bacterial growth. Sputum culture now also showing mold. Together with a positive Aspergillus galactomannan index, historical risk factors by way of prolonged steroid use, CT chest with bilateral worsening infiltrates, suspect invasive aspergillosis. Agree with discontinuing IV meropenem and vancomycin Start voriconazole 6 mg/kg IV every 12 hours loading dose thereafter followed by voriconazole 4 mg/kg every 12 hours. Blood cultures so far negative to date. QuantiFERON indeterminate, sputum AFB smear negative x 1, sputum AFB PCR negative x 1,. Patient unable to answer any questions with relation to history of TB or historical risk factors of the same. Given alternate likely diagnosis, may discontinue TB precautions once we have 2 negative sputum AFB smears. Daily EKG monitoring for QTc interval. Baseline LFTs reviewed normal. Check voriconazole trough 5 days after initiation of treatment. Attempted to discuss signs of voriconazole toxicity, however patient is currently not alert enough to have any discussions regarding the same. Continue to closely monitor respiratory status with initiation of antifungal therapy. Attempt to wean down steroids if feasible to minimize immunosuppression. March 17, 2023: Mold from sputum culture identified as Aspergillus fumigatus, continue Voriconazole 400mg iv every 12 hs. Monitor qtc interval and LFTs. Requested sensitivity added on at [employer]. Voriconazole trough level on 03/20/24. March 18, 2023 pending AFB smear from 03/17 negative. Can D/c TB airborne precautions with 2 negative smears and one negative MTB PCR. Recommend changing Eliquis to lovenox for anticoagulation while on voriconazole as the latter is a strong CYP inducer with potential to increase eliquis level and bleeding risk. qtc interval 415msec. LFT stable. Vori level check on day 5 of rx (Mar 20). Plan to repeat CT chest 7-10 days after starting voriconazole to assess for interval change. March 19, 2023 Continue voriconazole 400 mg IV every 12 hours. (Started March 17, 2023). LFT stable. Leukocytosis downtrending. Clinically overall appears to be stable. QTc interval at 365. Thus far tolerating IV voriconazole. Trough level was sent today, currently pending. Plan to continue treatment with IV voriconazole through this week. Plan to repeat CT chest on March 25. If CT shows stability to improvement, patient may be discharged to detention. At that point would convert to oral voriconazole. Total treatment duration to be 3 months. Attestations 2 Medical Necessity Statement*: Continue treatment for invasive fungal infection. Coding Level of Care Code Acute Code for [facility] Diagnoses Pulmonary aspergillosis B44.1 Fungal pneumonia J16.8; B49 Chronic steroid use Chronic obstructive pulmonary disease with acute exacerbation J44.1 COPD type: COPD with acute exacerbation Bullous emphysema J43.9 Invasive fungal infection B49
--- NOTE | 2024-03-20 17:02 | P.PN_ITS ---
Subjective 2 Subjective: Patient was seen this morning, denies any fevers, no chills, no cough, he tells me that he continues to have a productive cough shortness of breath with exertion but feels overall significantly better, continues to have some degree of a flat affect, no focal weakness no slurring words, no focal weakness, Scott catheter was removed yesterday white count down to 11,000, currently on 3 L Vitals/I&O/Wt Last Vital Signs Temp 97.9 F 03/20/24 16:09 Pulse 84 03/20/24 16:09 Resp 18 03/20/24 16:09 BP 111/77 03/20/24 16:09 Pulse Ox 94 03/20/24 16:09 O2 Del Method Nasal Cannula 03/20/24 16:09 O2 Flow Rate 2 03/20/24 11:39 03/20/24 03/20/24 03/20/24 06:59 14:59 22:59 Intake Total 790 / 1880 970 / 970 Output Total 350 / 1350 500 / 500 Balance 440 / 530 470 / 470 Weight last 48 hrs Weight 99.473 kg Weight 100.244 kg Physical Exam 2 Const: COMMON NORMALS: no acute distress and patient oriented x3 Resp: COMMON NORMALS: normal respiratory effort, No retractions, No use of accessory muscles and clear to auscultation bilaterally AUSCULTATION: clear to auscultation bilaterally Cardio: COMMON NORMALS: regular rate, regular rhythm, S1 normal heart sound present and S2 normal heart sound present RATE: regular rate RHYTHM: r egular rhythm HEART SOUNDS: S1 normal heart sound present and S2 normal heart sound present GI: COMMON NORMALS: Normal to inspection, nondistended, normoactive bowel sounds present and non-tender Extremity: COMMON NORMALS: no pedal edema Neuro: COMMON NORMALS: patient oriented x3 Psych: COMMON NORMALS: mental status grossly normal Urinary Catheter Management: Scott: Cath Placed During This Visit: yes, but has since been removed by the nurse Reason for Continuing Indwelling Catheter: Accurate Measurement of Urinary Output in Critically Ill Patients Urinary Catheter Date of Insertion: 03/14/24 Urinary Catheter Time of Insertion: 14:00 Date Urinary Catheter Removed: 03/19/24 Data 03/20/24 09:28 03/20/24 09:28 Micro: Microbiology 03/12/24 09:16 Fungal Smear - Final Sputum - Expectorated Sputum 03/08/24 17:48 Fungal Identification - Preliminary Other Source A&P Assessment and plan (1) Acute hypoxic respiratory failure: (2) Sepsis: (3) Healthcare-associated pneumonia: (4) Influenza A: (5) COPD exacerbation: (6) Acute encephalopathy: (7) Altered mental status: (8) Hypercalcemia: (9) Hemoptysis: (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: (11) Chronic steroid use: Plan Hemoptysis, resolved -Roughly 100 cc 03/13/2024, has not had any since -Switch to therapeutic Lovenox given concerns for interactions with voriconazole -Tessalon Perles 200 3 times daily as needed -Monitor respiratory status, monitor for cough -Given CT chest findings as below will need to evaluate for Mycobacterium infection, atypical infection, so far testing negative -QuantiFERON gold indeterminate 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 -Aspergillosis galactomannan antigen detected, 1.61 -Has a history of steroid use for COPD -CT of the chest and chest x-ray showing multilobar nodular infiltrates -Repeat chest x-rays bilateral patchy pulmonary opacities despite being on over 10 days of IV antibiotics, broad-spectrum -With persistent leukocytosis, elevated CRP, Pro-Azam, encephalopathy Plan -Infectious disease consulted -Follow fungal studies, sputum culture showing aspergillosis fumigatus -Follow-up fungal cultures -Follow Mycobacterium PCR negative -Follow AFB smears, so far negative -QuantiFERON gold indeterminate -IV voriconazole loading dose followed by maintenance dose, monitor LFTs, monitor QTc, voriconazole trough 03/20/2023 -Keep under isolation once AFB smears are negative x 2, off isolation -Plan is to continue IV voriconazole, until repeat CT scan on Tuesday/Tuesday if improvement of infiltrates, will switch to p.o. voriconazole thereafter, and then likely can discharge Acute encephalopathy, episodes of encephalopathy this morning, although following commands, no focal neurologic deficits, no facial droop no slurring words has a flat affect -Likely secondary to hypercalcemia, aspergillosis, pneumonia, hypoxia, ICU delirium, withdrawal -Had a stroke alert 03/15/2024 no focal neurologic deficits, does have severe left internal carotid artery stenosis, continue Plavix, statin, Eliquis -Possibly related to hypercalcemia? Calcium improving to 12.4 -Possible narcotic and benzo associated withdrawal is on Xanax 1 mg 3 times daily as needed, hydrocodone 10-325 every 6 hours as needed. Will continue home medications but Xanax 0.5 mg, hydrocodone 5 due to concerns for polypharmacy -Other concern would be more invasive aspergillosis infection such as fungal meningitis, continue voriconazole will consider lumbar puncture based on clinical progress but would have to hold Eliquis and Plavix for at least 5 days, does have cardiovascular disease -Initial CT head within normal limits -Repeat CT head, CT neck no acute findings -MRI brain no acute findings -Troponin series, ammonia levels within normal limits -No hypercarbia on ABG -Neurochecks, NIH stroke scale, monitor mentation closely Left internal carotid artery stenosis, severe -Will have to have patient follow-up with neurology, vascular as outpatient -Resume Plavix, statin, Eliquis Hypercalcemia -With concerns for encephalopathy -With hyperparathyroidism, PTH 165 -Elevated ionized calcium -Vitamin D pending -Ultrasound thyroid no acute findings -Will rule out lymphoma CT chest abdomen pelvis with IV contrast, does have enlarged subcarinal lymph node, will need to be evaluated as outpatient -Lasix 40 mg IV once today -calcitonin -cinacalcet -Will consider bisphosphonate -Monitor serum calcium, ionized calcium Atrial fibrillation -On metoprolol -Lovenox -Will consider amiodarone drip as heart rates are climbing Fall -With superficial laceration -Monitor -Repeat CT head, CT neck no acute findings -MRI brain no acute findings Acute hypoxic respiratory failure -Healthcare associated pneumonia -Influenza A completed treatment -COPD exacerbation -With evidence of sepsis, sepsis features met given hypoxia up to 5 L, tachycardia, leukocytosis source of infection pneumonia, influenza A -CT of the chest on 03/04/2024 CT/CT chest wo con [id number] IMPRESSION: 1. Scattered reticular and ground-glass opacities throughout the lungs likely represent multifocal pneumonia in the acute setting. Recommend imaging follow-up after clinical treatment to evaluate for resolution. 5. Enlarged subcarinal lymph node is favored to be reactive. Attention on follow-up recommended. Plan -Monitor respiratory status closely -Completed Tamiflu -Broaden antibiotic coverage to vancomycin, meropenem, azithromycin discontinued -Prednisone 40 mg daily -DuoNeb -Budesonide -Sputum culture -Blood culture -CHF exacerbation, Lasix as needed -See -Full code -Lovenox CAD status post stenting Resume Plavix Chronic pain -Continue hydrocodone -Continue Xanax Plan for today continue IV voriconazole, monitor closely Attestations 2 Medical Necessity Statement*: Patient requires hospitalization for pulomnary aspergillosis requiring IV voriconazole inpatient monitoring Diagnoses Acute hypoxic respiratory failure J96.01 Sepsis A41.9 Healthcare-associated pneumonia J18.9 Influenza A J10.1 COPD exacerbation J44.1 Acute encephalopathy G93.40 Altered mental status R41.82 Hypercalcemia E83.52 Hemoptysis R04.2 Pulmonary aspergillosis B44.1 Chronic steroid use
[2024-03-20] MEDS: benzonatate 100 mg Capsule 200 MG PO (20:23)
[2024-03-20 21:02] LABS: Glucose Point of Care 255 mg/dL (70-110)
[2024-03-20] MEDS: pantoprazole 40 mg SDV IVP (21:37)
[2024-03-21] VITALS (10 sets, daily range): BP systolic 112–142; BP diastolic 61–87; PULSE 72–101; RESP 16–18; TEMP 36.1–36.8; O2SAT 90–97
[2024-03-21 06:35] LABS: Glucose Point of Care 171 mg/dL (70-110)
--- NOTE | 2024-03-21 06:56 | PC.NURSE ---
shift note pt confused and having hallucinations throughout the shift, easily redirected and pt aware that he is having hallucinations. no aggressive or angry behavior until 0430, pt angry because pt heard staff talking and thought people were talking about him, nurse spoke with pt and again redirected, took longer to redirect and pt asking for cigarettes became angry when reminded he is in hospital and no smoking in hospital, pt agreed to nicotine patch, hospitalist notified of awaiting order for nicotine patch.
[2024-03-21] MEDS: ipratropium-albuterol 3 mL Neb INHALATION ×2 (08:13→20:33)
[2024-03-21] MEDS: budesonide 0.5 mg/2 mL Neb INHALATION ×2 (08:13→20:33)
[2024-03-21] MEDS: bisacodyl 5 mg Tablet PO (08:32)
[2024-03-21] MEDS: thiamine 100 mg Tablet PO (08:32)
[2024-03-21] MEDS: metoprolol tartrate 25 mg Tablet 12.5 MG PO ×2 (08:32→18:03)
[2024-03-21] MEDS: multivitamin therapeutic Tablet 1 TAB PO (08:32)
[2024-03-21] MEDS: polyethylene glycol 3350 Pkt 17 gm PO (08:32)
[2024-03-21] MEDS: folic acid 1 mg Tablet PO ×2 (08:32→18:03)
[2024-03-21] MEDS: gabapentin 100 mg Capsule 200 MG PO ×2 (08:32→20:42)
[2024-03-21] MEDS: predniSONE 20 mg Tablet PO (08:32)
[2024-03-21] MEDS: clopidogrel 75 mg Tablet PO (08:32)
[2024-03-21] MEDS: insulin lispro 100 unit/1 mL SUBCUT ×4 (08:33→20:52)
[2024-03-21] MEDS: potassium chloride ER 20 mEq Tablet PO (10:52)
[2024-03-21] MEDS: FUROsemide 10 mg/mL SDV 4mL 40 MG IVP (10:52)
[2024-03-21 11:27] LABS: Glucose Point of Care 251 mg/dL (70-110)
[2024-03-21 11:44] LABS: Basophils % 0.2 %; Eosinophils # 0.1 10^3/uL (0.0-0.8); Eosinophils % 0.9 %; Hematocrit 45.8 % (37-53); Lymphocytes # 0.9 10^3/uL (0.8-4.8); Lymphocytes % 8.6 %; Mean Corpuscular HGB Conc 29.9 g/dL (30-55); Mean Corpuscular Hemoglobin 25.9 pg (27-33); Mean Corpuscular Volume 86.7 fl (82-101); Mean Platelet Volume 11.7 fL (7.4-10.4); Monocytes # 0.6 10^3/uL (0.2-0.9); Monocytes % 6.2 %; Neutrophils # 8.46 10^3/uL (1.8-7.7); Neutrophils % 83.3 %; Nucleated Red Blood Cells % 0 %; Platelet Count 147 10^3/cmm (157-399); Red Blood Count 5.28 10^6/uL (3.85-5.65); Red Cell Distribution Width 14.1 % (12.1-15.1); White Blood Count 10.15 10^3/uL (3.29-11.43)
--- NOTE | 2024-03-21 11:50 | PC.SLP ---
INFRASTRUCTURE DEVELOPER attempted to see pt, however, pt not wanting to try any oral intake.
[2024-03-21 12:03] LABS: Alanine Aminotransferase 19 U/L (0-41); Albumin Level 2.2 g/dL (3.5-5.2); Alkaline Phosphatase 88 U/L (40-130); Anion Gap 10.6 (5-19); Aspartate Amino Transferase 22 U/L (0-40); Blood Urea Nitrogen 17 mg/dL (8-23); Calcium 10.6 mg/dL (8.5-10.5); Carbon Dioxide 29 mmol/L (22-29); Chloride 102 mmol/L (98-107); Creatinine Clr Calc Pharmacy 91.8271; Globulin 5.2 g/dL (1.3-4.6); Glomerular Filtration Rate 83.9 mL/min (90-130); Glucose 259 mg/dL (65-115); Osmolality Calculated 296 mOsm/kg (285-295); Potassium 3.6 mmol/L (3.5-5.1); Sodium 138 mmol/L (136-145); Total Bilirubin 0.2 mg/dL (0.15-1.2); Total Protein 7.4 g/dL (6.6-8.7)
--- NOTE | 2024-03-21 14:20 | PC.SOCIAL ---
IMM Update pg 2 of IMM updated and reviewed w/ patient. Copy provided and copy dated, initialed and placed in chart.
--- NOTE | 2024-03-21 15:45 | PC.NURSE ---
Pt Behavior: Pt agitated over a can of pop and asking why no one will ever give him any? Pt has been receiving fluids when requested. When asking pt if he was ready for medications pt stated, I'm not taking that shit!
--- NOTE | 2024-03-21 15:54 | P.PN_ITS ---
Subjective 2 Subjective: Patient was seen this morning, has no significant pain complaints, alert to person to place, not to time but follows all commands Vitals/I&O/Wt Last Vital Signs Temp 98.1 F 03/21/24 12:00 Pulse 101 H 03/21/24 12:00 Resp 16 03/21/24 12:00 BP 130/84 03/21/24 12:00 Pulse Ox 95 03/21/24 12:00 O2 Del Method Nasal Cannula 03/21/24 12:00 O2 Flow Rate 2 03/21/24 08:15 03/21/24 03/21/24 03/21/24 06:59 14:59 22:59 Intake Total 910 / 3260 960 / 960 Output Total 1600 / 1600 Balance 910 / 2160 -640 / -640 Weight last 48 hrs Weight 100.561 kg Weight 99.473 kg Physical Exam 2 Const: COMMON NORMALS: no acute distress and patient oriented x3 Resp: COMMON NORMALS: normal respiratory effort, No retractions, No use of accessory muscles and clear to auscultation bilaterally AUSCULTATION: clear to auscultation bilaterally Cardio: COMMON NORMALS: regular rate, regular rhythm, S1 normal heart sound present and S2 normal heart sound present RATE: regular rate RHYTHM: r egular rhythm HEART SOUNDS: S1 normal heart sound present and S2 normal heart sound present GI: COMMON NORMALS: Normal to inspection, nondistended, normoactive bowel sounds present and non-tender Extremity: COMMON NORMALS: no pedal edema Neuro: COMMON NORMALS: patient oriented x3 Psych: COMMON NORMALS: mental status grossly normal Urinary Catheter Management: Scott: Cath Placed During This Visit: yes, but has since been removed by the nurse Reason for Continuing Indwelling Catheter: Accurate Measurement of Urinary Output in Critically Ill Patients Urinary Catheter Date of Insertion: 03/14/24 Urinary Catheter Time of Insertion: 14:00 Date Urinary Catheter Removed: 03/19/24 Data 03/21/24 11:16 03/21/24 11:16 Micro: Microbiology 03/08/24 17:48 Fungal Identification - Final Other Source 03/12/24 09:16 Fungal Smear - Final Sputum - Expectorated Sputum A&P Assessment and plan (1) Acute hypoxic respiratory failure: (2) Sepsis: (3) Healthcare-associated pneumonia: (4) Influenza A: (5) COPD exacerbation: (6) Acute encephalopathy: (7) Altered mental status: (8) Hypercalcemia: (9) Hemoptysis: (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: (11) Chronic steroid use: Plan Hemoptysis, resolved -Roughly 100 cc 03/13/2024, has not had any since -Switch to therapeutic Lovenox given concerns for interactions with voriconazole -Tessalon Perles 200 3 times daily as needed -Monitor respiratory status, monitor for cough -Given CT chest findings as below will need to evaluate for Mycobacterium infection, atypical infection, so far testing negative -QuantiFERON gold indeterminate 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 -Aspergillosis galactomannan antigen detected, 1.61 -Has a history of steroid use for COPD -CT of the chest and chest x-ray showing multilobar nodular infiltrates -Repeat chest x-rays bilateral patchy pulmonary opacities despite being on over 10 days of IV antibiotics, broad-spectrum -With persistent leukocytosis, elevated CRP, Pro-Azam, encephalopathy Plan -Infectious disease consulted -Follow fungal studies, sputum culture showing aspergillosis fumigatus -Follow-up fungal cultures -Follow Mycobacterium PCR negative -Follow AFB smears, so far negative -QuantiFERON gold indeterminate -IV voriconazole loading dose followed by maintenance dose, monitor LFTs, monitor QTc, voriconazole trough 03/20/2023 -Keep under isolation once AFB smears are negative x 2, off isolation -Plan is to continue IV voriconazole, until repeat CT scan on Tuesday/Tuesday if improvement of infiltrates, will switch to p.o. voriconazole thereafter, and then likely can discharge Acute encephalopathy, episodes of encephalopathy this morning, although following commands, no focal neurologic deficits, no facial droop no slurring words has a flat affect -Likely secondary to hypercalcemia, aspergillosis, pneumonia, hypoxia, ICU delirium, withdrawal -Had a stroke alert 03/15/2024 no focal neurologic deficits, does have severe left internal carotid artery stenosis, continue Plavix, statin, Eliquis -Possibly related to hypercalcemia? Calcium improving to 12.4 -Possible narcotic and benzo associated withdrawal is on Xanax 1 mg 3 times daily as needed, hydrocodone 10-325 every 6 hours as needed. Will continue home medications but Xanax 0.5 mg, hydrocodone 5 due to concerns for polypharmacy -Other concern would be more invasive aspergillosis infection such as fungal meningitis, continue voriconazole will consider lumbar puncture based on clinical progress but would have to hold Eliquis and Plavix for at least 5 days, does have cardiovascular disease -Initial CT head within normal limits -Repeat CT head, CT neck no acute findings -MRI brain no acute findings -Troponin series, ammonia levels within normal limits -No hypercarbia on ABG -Neurochecks, NIH stroke scale, monitor mentation closely Left internal carotid artery stenosis, severe -Will have to have patient follow-up with neurology, vascular as outpatient -Resume Plavix, statin, Eliquis Hypercalcemia -With concerns for encephalopathy -With hyperparathyroidism, PTH 165 -Elevated ionized calcium -Vitamin D pending -Ultrasound thyroid no acute findings -Will rule out lymphoma CT chest abdomen pelvis with IV contrast, does have enlarged subcarinal lymph node, will need to be evaluated as outpatient -Lasix 40 mg IV once today -calcitonin -cinacalcet -Will consider bisphosphonate -Monitor serum calcium, ionized calcium Atrial fibrillation -On metoprolol -Lovenox -Will consider amiodarone drip as heart rates are climbing Fall -With superficial laceration -Monitor -Repeat CT head, CT neck no acute findings -MRI brain no acute findings Acute hypoxic respiratory failure -Healthcare associated pneumonia -Influenza A completed treatment -COPD exacerbation -With evidence of sepsis, sepsis features met given hypoxia up to 5 L, tachycardia, leukocytosis source of infection pneumonia, influenza A -CT of the chest on 03/04/2024 CT/CT chest wo con [id number] IMPRESSION: 1. Scattered reticular and ground-glass opacities throughout the lungs likely represent multifocal pneumonia in the acute setting. Recommend imaging follow-up after clinical treatment to evaluate for resolution. 5. Enlarged subcarinal lymph node is favored to be reactive. Attention on follow-up recommended. Plan -Monitor respiratory status closely -Completed Tamiflu -Broaden antibiotic coverage to vancomycin, meropenem, azithromycin discontinued -Prednisone 40 mg daily -DuoNeb -Budesonide -Sputum culture -Blood culture -CHF exacerbation, Lasix as needed -See -Full code -Lovenox CAD status post stenting Resume Plavix Chronic pain -Continue hydrocodone -Continue Xanax Plan for today continue IV voriconazole, monitor closely Attestations 2 Medical Necessity Statement*: Patient requires hospitalization for Aspergillus pneumonia Diagnoses Acute hypoxic respiratory failure J96.01 Sepsis A41.9 Healthcare-associated pneumonia J18.9 Influenza A J10.1 COPD exacerbation J44.1 Acute encephalopathy G93.40 Altered mental status R41.82 Hypercalcemia E83.52 Hemoptysis R04.2 Pulmonary aspergillosis B44.1 Chronic steroid use
[2024-03-21 16:32] LABS: Glucose Point of Care 214 mg/dL (70-110)
[2024-03-21] MEDS: CINACALCET HCL 30 MG 1 EACH PO (18:03)
[2024-03-21 20:35] LABS: Glucose Point of Care 243 mg/dL (70-110)
[2024-03-21] MEDS: pantoprazole 40 mg SDV IVP (20:41)
[2024-03-21] MEDS: HYDROcodone-acetaminophen 10-325 mg Tablet 0.5 TAB PO (20:42)
[2024-03-21] MEDS: enoxaparin 100 mg/mL Syringe SUBCUT (22:52)
[2024-03-22 03:50] VITALS: BP 142/89; PULSE 80; RESP 17; TEMP 36.5; O2SAT 94
[2024-03-22 07:19] LABS: Glucose Point of Care 122 mg/dL (70-110)
[2024-03-22 07:26] VITALS: BP 127/81; PULSE 92; RESP 17; TEMP 36.3; O2SAT 90
[2024-03-22] MEDS: budesonide 0.5 mg/2 mL Neb INHALATION (07:30)
[2024-03-22 07:32] VITALS: PULSE 79; RESP 16; O2SAT 94
[2024-03-22 08:22] LABS: Basophils % 0.3 %; Eosinophils # 0.2 10^3/uL (0.0-0.8); Eosinophils % 1.5 %; Hematocrit 46.9 % (37-53); Lymphocytes # 1.2 10^3/uL (0.8-4.8); Lymphocytes % 12.3 %; Mean Corpuscular HGB Conc 29.6 g/dL (30-55); Mean Corpuscular Hemoglobin 26.4 pg (27-33); Monocytes # 0.6 10^3/uL (0.2-0.9); Monocytes % 6.3 %; Neutrophils # 7.63 10^3/uL (1.8-7.7); Neutrophils % 78.9 %; Nucleated Red Blood Cells % 0 %; Platelet Count 136 10^3/cmm (157-399); Red Blood Count 5.27 10^6/uL (3.85-5.65); Red Cell Distribution Width 14.5 % (12.1-15.1); White Blood Count 9.68 10^3/uL (3.29-11.43)
[2024-03-22 08:40] LABS: Alanine Aminotransferase 25 U/L (0-41); Albumin Level 2.1 g/dL (3.5-5.2); Alkaline Phosphatase 85 U/L (40-130); Aspartate Amino Transferase 29 U/L (0-40); Blood Urea Nitrogen 17 mg/dL (8-23); Carbon Dioxide 28 mmol/L (22-29); Chloride 103 mmol/L (98-107); Creatinine Clr Calc Pharmacy 82.5516; Glomerular Filtration Rate 74.3 mL/min (90-130); Glucose 168 mg/dL (65-115); Osmolality Calculated 291 mOsm/kg (285-295); Sodium 138 mmol/L (136-145); Total Bilirubin 0.2 mg/dL (0.15-1.2); Total Protein 7.1 g/dL (6.6-8.7)
[2024-03-22 08:43] LABS: Anion Gap 10.6 (5-19); Potassium 3.6 mmol/L (3.5-5.1)
--- NOTE | 2024-03-22 08:57 | XR_ITS ---
WS: [id number] Exam: XR chest 1V portable [id number] Date/Time of Exam: 03/22/2024 8:57 AM Reason For Exam: assess for serial improvement of pneumonia Comparison 03/16/2024. Again noted are widespread airspace and interstitial infiltrates in both lungs. Infiltrates show some increase in the bilateral upper lobe since the last exam. No pneumothorax or pleural effusion. Heart size is normal. The mediastinum is normal in contour. Signs of coronary artery stenting. XR/XR chest 1V portable [id number] IMPRESSION: 1. Widespread bilateral pulmonary infiltrates. Infiltrates have worsened somewh at in the bilateral upper lobes since the last exam. No other change.
--- NOTE | 2024-03-22 09:07 | P.PN_ITS ---
Subjective 2 Subjective: Infectious disease progress note. Patient is afebrile. Leukocytosis is resolved. Thrombocytopenia stable at 136. Oxygen requirements at 2 L/min. Medications: Reviewed: Yes Vitals/I&O/Wt Last Vital Signs Temp 97.4 F L 03/22/24 07:26 Pulse 79 03/22/24 07:32 Resp 16 03/22/24 07:32 BP 127/81 03/22/24 07:26 Pulse Ox 94 03/22/24 07:32 O2 Del Method Nasal Cannula 03/22/24 07:32 O2 Flow Rate 2 03/22/24 07:32 03/21/24 03/22/24 03/22/24 22:59 06:59 14:59 Intake Total 730 / 1690 786 / 2476 354 / 354 Output Total 600 / 2200 Balance 730 / 90 186 / 276 354 / 354 Weight last 48 hrs Weight 100.329 kg Weight 100.561 kg Physical Exam 2 Narrative: General: Awake alert oriented HEENT: PERRLA, pupils bilaterally equal and reactive, pallors not present Chest: Coarse breath sounds bilaterally to auscultation. CVS: S1-S2 regular, no murmurs, no tachycardia, no gallops, no rubs Abdomen: Soft, nontender, no organomegaly, bowel sounds present Neuro: no focal deficits, moving all extremities, AAO x 3 Urinary Catheter Management: Scott: Cath Placed During This Visit: yes, but has since been removed by the nurse Reason for Continuing Indwelling Catheter: Accurate Measurement of Urinary Output in Critically Ill Patients Urinary Catheter Date of Insertion: 03/14/24 Urinary Catheter Time of Insertion: 14:00 Date Urinary Catheter Removed: 03/19/24 Data 03/22/24 08:13 03/22/24 08:13 Micro: Microbiology 03/08/24 17:48 Fungal Identification - Final Other Source A&P Assessment and plan (1) Pulmonary aspergillosis: (2) Fungal pneumonia: (3) Chronic steroid use: (4) COPD (chronic obstructive pulmonary disease): Qualifiers: COPD type: COPD with acute exacerbation Qualified Code(s): J44.1 - Chronic obstructive pulmonary disease with (acute) exacerbation (5) Bullous emphysema: (6) Invasive fungal infection: Plan 68-year-old male with COPD, history of multiple courses of antibiotics and steroids since at least October 2023, currently admitted to the hospital with worsening bilateral pneumonia, shortness of breath fatigue and fevers. Patient has not had any significant relief with prolonged course of antibacterials. Sputum culture without any bacterial growth. Sputum culture now also showing mold. Together with a positive Aspergillus galactomannan index, historical risk factors by way of prolonged steroid use, CT chest with bilateral worsening infiltrates, suspect invasive aspergillosis. Agree with discontinuing IV meropenem and vancomycin Start voriconazole 6 mg/kg IV every 12 hours loading dose thereafter followed by voriconazole 4 mg/kg every 12 hours. Blood cultures so far negative to date. QuantiFERON indeterminate, sputum AFB smear negative x 1, sputum AFB PCR negative x 1,. Patient unable to answer any questions with relation to history of TB or historical risk factors of the same. Given alternate likely diagnosis, may discontinue TB precautions once we have 2 negative sputum AFB smears. Daily EKG monitoring for QTc interval. Baseline LFTs reviewed normal. Check voriconazole trough 5 days after initiation of treatment. Attempted to discuss signs of voriconazole toxicity, however patient is currently not alert enough to have any discussions regarding the same. Continue to closely monitor respiratory status with initiation of antifungal therapy. Attempt to wean down steroids if feasible to minimize immunosuppression. March 17, 2023: Mold from sputum culture identified as Aspergillus fumigatus, continue Voriconazole 400mg iv every 12 hs. Monitor qtc interval and LFTs. Requested sensitivity added on at [employer]. Voriconazole trough level on 03/20/24. March 18, 2023 pending AFB smear from 03/17 negative. Can D/c TB airborne precautions with 2 negative smears and one negative MTB PCR. Recommend changing Eliquis to lovenox for anticoagulation while on voriconazole as the latter is a strong CYP inducer with potential to increase eliquis level and bleeding risk. qtc interval 415msec. LFT stable. Vori level check on day 5 of rx (Mar 20). Plan to repeat CT chest 7-10 days after starting voriconazole to assess for interval change. March 19, 2023 Continue voriconazole 400 mg IV every 12 hours. (Started March 17, 2023). LFT stable. Leukocytosis downtrending. Clinically overall appears to be stable. QTc interval at 365. Thus far tolerating IV voriconazole. Trough level was sent today, currently pending. Plan to continue treatment with IV voriconazole through this week. Plan to repeat CT chest on March 25. If CT shows stability to improvement, patient may be discharged to retirement. At that point would convert to oral voriconazole. Total treatment duration to be 3 months. March 22, 2023. Continue voriconazole 400 mg IV every 12 hours. Patient appears to be clinically improving. LFTs stable. QTc interval not prolonged. Awaiting voriconazole trough level to return. Discussed with lab, anticipate another 48 hours turnaround time. Repeat chest x-ray today to assess for interval improvement. Attestations 2 Medical Necessity Statement*: per admitting Coding Level [facility] Pulmonary aspergillosis B44.1 Fungal pneumonia J16.8; B49 Chronic steroid use Chronic obstructive pulmonary disease with acute exacerbation J44.1 COPD type: COPD with acute exacerbation Bullous emphysema J43.9 Invasive fungal infection B49
[2024-03-22] MEDS: FUROsemide 10 mg/mL SDV 4mL 40 MG IVP (10:01)
[2024-03-22] MEDS: polyethylene glycol 3350 Pkt 17 gm PO (10:02)
[2024-03-22] MEDS: bisacodyl 5 mg Tablet PO (10:03)
[2024-03-22] MEDS: folic acid 1 mg Tablet PO ×2 (10:04→17:31)
[2024-03-22] MEDS: multivitamin therapeutic Tablet 1 TAB PO (10:05)
[2024-03-22] MEDS: clopidogrel 75 mg Tablet PO (10:06)
[2024-03-22] MEDS: benzonatate 100 mg Capsule 200 MG PO (10:07)
[2024-03-22] MEDS: gabapentin 100 mg Capsule 200 MG PO ×3 (10:07→20:55)
[2024-03-22] MEDS: CINACALCET HCL 30 MG 1 EACH PO ×2 (10:08→17:31)
[2024-03-22] MEDS: HYDROcodone-acetaminophen 10-325 mg Tablet 0.5 TAB PO ×2 (10:09→20:55)
[2024-03-22] MEDS: thiamine 100 mg Tablet PO (10:09)
[2024-03-22] MEDS: metoprolol tartrate 25 mg Tablet 12.5 MG PO ×2 (10:12→17:31)
[2024-03-22 11:08] LABS: Glucose Point of Care 303 mg/dL (70-110)
[2024-03-22 12:00] VITALS: BP 106/75; PULSE 72; RESP 18; TEMP 36.5; O2SAT 95
[2024-03-22] MEDS: insulin lispro 100 unit/1 mL SUBCUT ×2 (12:40→20:55)
--- NOTE | 2024-03-22 14:11 | P.PN_ITS ---
Subjective 2 Subjective: Patient was seen this morning, he is resting comfortably on 2 L, no chest pain, no shortness of breath, no abdominal pain, he says that he plans on going home next week, he is going to have his sister take care of his dog, Vitals/I&O/Wt Last Vital Signs Temp 97.7 F 03/22/24 12:00 Pulse 72 03/22/24 12:00 Resp 18 03/22/24 12:00 BP 106/75 03/22/24 12:00 Pulse Ox 95 03/22/24 12:00 O2 Del Method Nasal Cannula 03/22/24 12:00 O2 Flow Rate 2 03/22/24 07:32 03/21/24 03/22/24 03/22/24 22:59 06:59 14:59 Intake Total 730 / 1690 786 / 2476 714 / 714 Output Total 600 / 2200 650 / 650 Balance 730 / 90 186 / 276 64 / 64 Weight last 48 hrs Weight 100.329 kg Weight 100.561 kg Physical Exam 2 Const: COMMON NORMALS: no acute distress and patient oriented x3 HENMT: COMMON NORMALS: normocephalic HEAD & SCALP: normocephalic Resp: COMMON NORMALS: normal respiratory effort, No retractions, No use of accessory muscles and clear to auscultation bilaterally AUSCULTATION: clear to auscultation bilaterally Cardio: COMMON NORMALS: regular rate, regular rhythm, S1 normal heart sound present and S2 normal heart sound present RATE: regular rate RHYTHM: r egular rhythm HEART SOUNDS: S1 normal heart sound present and S2 normal heart sound present GI: COMMON NORMALS: Normal to inspection, nondistended, normoactive bowel sounds present and non-tender Extremity: COMMON NORMALS: no pedal edema Neuro: COMMON NORMALS: patient oriented x3 Psych: COMMON NORMALS: mental status grossly normal Urinary Catheter Management: Scott: Cath Placed During This Visit: yes, but has since been removed by the nurse Reason for Continuing Indwelling Catheter: Accurate Measurement of Urinary Output in Critically Ill Patients Urinary Catheter Date of Insertion: 03/14/24 Urinary Catheter Time of Insertion: 14:00 Date Urinary Catheter Removed: 03/19/24 Data 03/22/24 08:13 03/22/24 08:13 Micro: Microbiology 03/08/24 17:48 Fungal Identification - Final Other Source A&P Assessment and plan (1) Acute hypoxic respiratory failure: (2) Sepsis: (3) Healthcare-associated pneumonia: (4) Influenza A: (5) COPD exacerbation: (6) Acute encephalopathy: (7) Altered mental status: (8) Hypercalcemia: (9) Hemoptysis: (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: (11) Chronic steroid use: Plan Hemoptysis, resolved -Likely related to anticoagulant therapy, pulmonary aspergillosis -Roughly 100 cc 03/13/2024, has not had any since -Switch to therapeutic Lovenox given concerns for interactions with voriconazole -Tessalon Perles 200 3 times daily as needed -Monitor respiratory status, monitor for cough -Given CT chest findings as below will need to evaluate for Mycobacterium infection, atypical infection, so far testing negative -QuantiFERON gold indeterminate 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 -Aspergillosis galactomannan antigen detected, 1.61 -Has a history of steroid use for COPD -CT of the chest and chest x-ray showing multilobar nodular infiltrates -Repeat chest x-rays bilateral patchy pulmonary opacities despite being on over 10 days of IV antibiotics, broad-spectrum -With persistent leukocytosis, elevated CRP, Pro-Azam, encephalopathy, resolving Plan -Infectious disease consulted -Follow fungal studies, sputum culture showing aspergillosis fumigatus -Follow-up fungal cultures -Follow Mycobacterium PCR negative -Follow AFB smears, so far negative -QuantiFERON gold indeterminate -IV voriconazole loading dose followed by maintenance dose, monitor LFTs, monitor QTc, voriconazole trough 03/20/2023 -Keep under isolation once AFB smears are negative x 2, off isolation -Plan is to continue IV voriconazole, until repeat CT scan on Tuesday if improvement of infiltrates, will switch to p.o. voriconazole thereafter, and then likely can discharge Acute encephalopathy, resolving -episodes of encephalopathy , although following commands, no focal neurologic deficits, no facial droop no slurring words has a flat affect -Likely secondary to hypercalcemia, aspergillosis, pneumonia, hypoxia, ICU delirium, withdrawal -Had a stroke alert 03/15/2024 no focal neurologic deficits, does have severe left internal carotid artery stenosis, continue Plavix, statin, Eliquis -Possibly related to hypercalcemia? Calcium 10 -Possible narcotic and benzo associated withdrawal is on Xanax 1 mg 3 times daily as needed, hydrocodone 10-325 every 6 hours as needed. Will continue home medications but Xanax 0.5 mg, hydrocodone 5 due to concerns for polypharmacy -Other concern would be more invasive aspergillosis infection such as fungal meningitis, continue voriconazole will consider lumbar puncture based on clinical progress but would have to hold Eliquis and Plavix for at least 5 days, does have cardiovascular disease -Initial CT head within normal limits -Repeat CT head, CT neck no acute findings -MRI brain no acute findings -Troponin series, ammonia levels within normal limits -No hypercarbia on ABG -Neurochecks, NIH stroke scale, monitor mentation closely Left internal carotid artery stenosis, severe -Will have to have patient follow-up with neurology, vascular as outpatient -Resume Plavix, statin, Lovenox Hypercalcemia, resolving -With concerns for encephalopathy -With hyperparathyroidism, PTH 165 -Elevated ionized calcium -Vitamin D pending -Ultrasound thyroid no acute findings -Will rule out lymphoma CT chest abdomen pelvis with IV contrast, does have enlarged subcarinal lymph node, will need to be evaluated as outpatient -Lasix 40 mg IV once today -calcitonin -cinacalcet -Will consider bisphosphonate -Monitor serum calcium, ionized calcium Atrial fibrillation -On metoprolol -Lovenox -Will consider amiodarone drip as heart rates are climbing Fall -With superficial laceration -Monitor -Repeat CT head, CT neck no acute findings -MRI brain no acute findings Acute hypoxic respiratory failure -Healthcare associated pneumonia -Influenza A completed treatment -COPD exacerbation -With evidence of sepsis, sepsis features met given hypoxia up to 5 L, tachycardia, leukocytosis source of infection pneumonia, influenza A -CT of the chest on 03/04/2024 CT/CT chest wo con [id number] IMPRESSION: 1. Scattered reticular and ground-glass opacities throughout the lungs likely represent multifocal pneumonia in the acute setting. Recommend imaging follow-up after clinical treatment to evaluate for resolution. 5. Enlarged subcarinal lymph node is favored to be reactive. Attention on follow-up recommended. Plan -Monitor respiratory status closely -Completed Tamiflu -Broaden antibiotic coverage to vancomycin, meropenem, azithromycin discontinued -Prednisone 40 mg daily, discontinued -DuoNeb -Budesonide -Sputum culture -Blood culture -CHF exacerbation, Lasix as needed -See -Full code -Lovenox CAD status post stenting Resume Plavix Chronic pain -Continue hydrocodone -Continue Xanax Plan for today continue IV voriconazole, monitor closely, 1 dose IV Lasix today Attestations 2 Medical Necessity Statement*: Patient requires hospitalization for pulmonary aspergillosis, requiring IV voriconazole Diagnoses Acute hypoxic respiratory failure J96.01 Sepsis A41.9 Healthcare-associated pneumonia J18.9 Influenza A J10.1 COPD exacerbation J44.1 Acute encephalopathy G93.40 Altered mental status R41.82 Hypercalcemia E83.52 Hemoptysis R04.2 Pulmonary aspergillosis B44.1 Chronic steroid use
[2024-03-22] MEDS: enoxaparin 100 mg/mL Syringe SUBCUT (15:58)
[2024-03-22 16:00] VITALS: BP 108/74; PULSE 80; RESP 16; TEMP 36.6; O2SAT 95
[2024-03-22 16:15] LABS: Glucose Point of Care 138 mg/dL (70-110)
[2024-03-22 20:00] VITALS: BP 116/80; PULSE 83; RESP 18; TEMP 36.5; O2SAT 92
[2024-03-22 20:33] LABS: Glucose Point of Care 193 mg/dL (70-110)
[2024-03-23] VITALS (9 sets, daily range): BP systolic 94–110; BP diastolic 52–76; PULSE 64–100; RESP 16–22; TEMP 36.4–36.8; O2SAT 90–96
[2024-03-23] MEDS: HYDROcodone-acetaminophen 10-325 mg Tablet 0.5 TAB PO ×3 (02:50→14:47)
[2024-03-23] MEDS: enoxaparin 100 mg/mL Syringe SUBCUT ×2 (02:50→14:47)
--- NOTE | 2024-03-23 02:54 | PC.NURSE ---
03/22/24 3pm dose of voriconazole not started until 2044 due to pt not having IV access. time adjusted for this med to comply with Q12 administration order without missing a dose
[2024-03-23 06:23] LABS: Glucose Point of Care 138 mg/dL (70-110)
[2024-03-23] MEDS: budesonide 0.5 mg/2 mL Neb INHALATION ×2 (07:21→19:27)
[2024-03-23] MEDS: polyethylene glycol 3350 Pkt 17 gm PO (08:52)
[2024-03-23] MEDS: multivitamin therapeutic Tablet 1 TAB PO (08:53)
[2024-03-23] MEDS: clopidogrel 75 mg Tablet PO (08:53)
[2024-03-23] MEDS: folic acid 1 mg Tablet PO ×2 (08:53→17:32)
[2024-03-23] MEDS: bisacodyl 5 mg Tablet PO (08:53)
[2024-03-23] MEDS: pantoprazole DR 40 mg Tablet PO (08:53)
[2024-03-23] MEDS: gabapentin 100 mg Capsule 200 MG PO ×3 (08:53→21:34)
[2024-03-23] MEDS: metoprolol tartrate 25 mg Tablet 12.5 MG PO ×2 (08:53→17:32)
[2024-03-23] MEDS: thiamine 100 mg Tablet PO (08:53)
[2024-03-23] MEDS: CINACALCET HCL 30 MG 1 EACH PO ×2 (09:01→17:33)
[2024-03-23 09:26] LABS: Basophils % 0.4 %; Eosinophils # 0.2 10^3/uL (0.0-0.8); Eosinophils % 1.8 %; Hematocrit 47.3 % (37-53); Lymphocytes # 1.5 10^3/uL (0.8-4.8); Mean Corpuscular HGB Conc 29.6 g/dL (30-55); Mean Corpuscular Hemoglobin 26.5 pg (27-33); Mean Corpuscular Volume 89.6 fl (82-101); Mean Platelet Volume 11.3 fL (7.4-10.4); Monocytes # 0.6 10^3/uL (0.2-0.9); Monocytes % 5.8 %; Neutrophils # 7.53 10^3/uL (1.8-7.7); Neutrophils % 76.4 %; Nucleated Red Blood Cells % 0 %; Platelet Count 156 10^3/cmm (157-399); Red Blood Count 5.28 10^6/uL (3.85-5.65); Red Cell Distribution Width 14.6 % (12.1-15.1); White Blood Count 9.86 10^3/uL (3.29-11.43)
[2024-03-23 09:43] LABS: Alanine Aminotransferase 28 U/L (0-41); Alkaline Phosphatase 88 U/L (40-130); Anion Gap 10.9 (5-19); Aspartate Amino Transferase 28 U/L (0-40); Blood Urea Nitrogen 18 mg/dL (8-23); Calcium 9.4 mg/dL (8.5-10.5); Carbon Dioxide 31 mmol/L (22-29); Chloride 100 mmol/L (98-107); Creatinine Clr Calc Pharmacy 89.2671; Globulin 5.2 g/dL (1.3-4.6); Glomerular Filtration Rate 83.9 mL/min (90-130); Glucose 140 mg/dL (65-115); Osmolality Calculated 290 mOsm/kg (285-295); Potassium 3.9 mmol/L (3.5-5.1); Sodium 138 mmol/L (136-145); Total Bilirubin 0.2 mg/dL (0.15-1.2); Total Protein 7.2 g/dL (6.6-8.7)
[2024-03-23 11:33] LABS: Glucose Point of Care 236 mg/dL (70-110)
--- NOTE | 2024-03-23 11:45 | PC.SOCIAL ---
IMM Update pg 2 of IMM Updated and reviewed w/patient. Copy provided and copy dated, initialed and placed in chart.
[2024-03-23] MEDS: insulin lispro 100 unit/1 mL SUBCUT ×3 (12:13→21:33)
--- NOTE | 2024-03-23 14:35 | P.PN_ITS ---
Subjective 2 Subjective: Patient was seen this morning, denies any fevers, chills, no cough, sitting up in bed, sister is at bedside does report weakness, appetite is slowly improving alert oriented x 3, following all commands no chest pain, shortness of breath, no focal weakness does report generalized weakness he is worried about going home, discussed possible detention placement however he declines for now wants to go home with home health care likely on Tuesday Vitals/I&O/Wt Last Vital Signs Temp 97.7 F 03/23/24 11:40 Pulse 98 03/23/24 11:40 Resp 18 03/23/24 11:40 BP 105/69 03/23/24 11:40 Pulse Ox 93 03/23/24 11:40 O2 Del Method Nasal Cannula 03/23/24 11:40 O2 Flow Rate 2 03/23/24 07:23 03/22/24 03/23/24 03/23/24 22:59 06:59 14:59 Intake Total 652 / 1366 1058 / 2424 1450 / 1450 Output Total 900 / 1550 300 / 300 Balance -248 / -184 1058 / 874 1150 / 1150 Weight last 48 hrs Weight 94.801 kg Weight 100.329 kg Physical Exam 2 Const: COMMON NORMALS: no acute distress and patient oriented x3 Resp: COMMON NORMALS: normal respiratory effort, No retractions, No use of accessory muscles and clear to auscultation bilaterally AUSCULTATION: clear to auscultation bilaterally Cardio: COMMON NORMALS: regular rate, regular rhythm, S1 normal heart sound present and S2 normal heart sound present RATE: regular rate RHYTHM: r egular rhythm HEART SOUNDS: S1 normal heart sound present and S2 normal heart sound present GI: COMMON NORMALS: Normal to inspection, nondistended, normoactive bowel sounds present and non-tender Extremity: COMMON NORMALS: no pedal edema Neuro: COMMON NORMALS: patient oriented x3 Psych: COMMON NORMALS: mental status grossly normal Urinary Catheter Management: Scott: Cath Placed During This Visit: yes, but has since been removed by the nurse Reason for Continuing Indwelling Catheter: Accurate Measurement of Urinary Output in Critically Ill Patients Urinary Catheter Date of Insertion: 03/14/24 Urinary Catheter Time of Insertion: 14:00 Date Urinary Catheter Removed: 03/19/24 Data 03/23/24 08:41 03/23/24 08:41 A&P Assessment and plan (1) Acute hypoxic respiratory failure: (2) Sepsis: (3) Healthcare-associated pneumonia: (4) Influenza A: (5) COPD exacerbation: (6) Acute encephalopathy: (7) Altered mental status: (8) Hypercalcemia: (9) Hemoptysis: (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: (11) Chronic steroid use: Plan Hemoptysis, resolved -Likely related to anticoagulant therapy, pulmonary aspergillosis -Roughly 100 cc 03/13/2024, has not had any since -Switch to therapeutic Lovenox given concerns for interactions with voriconazole -Tessalon Perles 200 3 times daily as needed -Monitor respiratory status, monitor for cough -Given CT chest findings as below will need to evaluate for Mycobacterium infection, atypical infection, so far testing negative -QuantiFERON gold indeterminate 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 -Aspergillosis galactomannan antigen detected, 1.61 -Has a history of steroid use for COPD -CT of the chest and chest x-ray showing multilobar nodular infiltrates -Repeat chest x-rays bilateral patchy pulmonary opacities despite being on over 10 days of IV antibiotics, broad-spectrum -With persistent leukocytosis, elevated CRP, Pro-Azam, encephalopathy, resolving Plan -Infectious disease consulted -Follow fungal studies, sputum culture showing aspergillosis fumigatus -Follow-up fungal cultures -Follow Mycobacterium PCR negative -Follow AFB smears, so far negative -QuantiFERON gold indeterminate -IV voriconazole loading dose followed by maintenance dose, monitor LFTs, monitor QTc, voriconazole trough 03/20/2023 -Keep under isolation once AFB smears are negative x 2, off isolation -Plan is to continue IV voriconazole, until repeat CT scan on Tuesday if improvement of infiltrates, will switch to p.o. voriconazole thereafter, and then likely can discharge Acute encephalopathy, resolving -episodes of encephalopathy , although following commands, no focal neurologic deficits, no facial droop no slurring words has a flat affect -Likely secondary to hypercalcemia, aspergillosis, pneumonia, hypoxia, ICU delirium, withdrawal -Had a stroke alert 03/15/2024 no focal neurologic deficits, does have severe left internal carotid artery stenosis, continue Plavix, statin, Eliquis -Possibly related to hypercalcemia? Calcium 10 -Possible narcotic and benzo associated withdrawal is on Xanax 1 mg 3 times daily as needed, hydrocodone 10-325 every 6 hours as needed. Will continue home medications but Xanax 0.5 mg, hydrocodone 5 due to concerns for polypharmacy -Other concern would be more invasive aspergillosis infection such as fungal meningitis, continue voriconazole will consider lumbar puncture based on clinical progress but would have to hold Eliquis and Plavix for at least 5 days, does have cardiovascular disease -Initial CT head within normal limits -Repeat CT head, CT neck no acute findings -MRI brain no acute findings -Troponin series, ammonia levels within normal limits -No hypercarbia on ABG -Neurochecks, NIH stroke scale, monitor mentation closely Left internal carotid artery stenosis, severe -Will have to have patient follow-up with neurology, vascular as outpatient -Resume Plavix, statin, Lovenox Hypercalcemia, resolving -With concerns for encephalopathy -With hyperparathyroidism, PTH 165 -Elevated ionized calcium -Vitamin D pending -Ultrasound thyroid no acute findings -Will rule out lymphoma CT chest abdomen pelvis with IV contrast, does have enlarged subcarinal lymph node, will need to be evaluated as outpatient -Lasix 40 mg IV once today -calcitonin -cinacalcet -Will consider bisphosphonate -Monitor serum calcium, ionized calcium Atrial fibrillation -On metoprolol -Lovenox -Will consider amiodarone drip as heart rates are climbing Fall -With superficial laceration -Monitor -Repeat CT head, CT neck no acute findings -MRI brain no acute findings Acute hypoxic respiratory failure -Healthcare associated pneumonia -Influenza A completed treatment -COPD exacerbation -With evidence of sepsis, sepsis features met given hypoxia up to 5 L, tachycardia, leukocytosis source of infection pneumonia, influenza A -CT of the chest on 03/04/2024 CT/CT chest wo con [id number] IMPRESSION: 1. Scattered reticular and ground-glass opacities throughout the lungs likely represent multifocal pneumonia in the acute setting. Recommend imaging follow-up after clinical treatment to evaluate for resolution. 5. Enlarged subcarinal lymph node is favored to be reactive. Attention on follow-up recommended. Plan -Monitor respiratory status closely -Completed Tamiflu -Broaden antibiotic coverage to vancomycin, meropenem, azithromycin discontinued -Prednisone 40 mg daily, discontinued -DuoNeb -Budesonide -Sputum culture -Blood culture -CHF exacerbation, Lasix as needed -See -Full code -Lovenox CAD status post stenting Resume Plavix Chronic pain -Continue hydrocodone -Continue Xanax Plan for today continue IV voriconazole, monitor closely, 1 dose IV Lasix today Attestations 2 Medical Necessity Statement*: Patient requires hospitalization for pulmonary aspergillosis, requiring IV voriconazole Diagnoses Acute hypoxic respiratory failure J96.01 Sepsis A41.9 Healthcare-associated pneumonia J18.9 Influenza A J10.1 COPD exacerbation J44.1 Acute encephalopathy G93.40 Altered mental status R41.82 Hypercalcemia E83.52 Hemoptysis R04.2 Pulmonary aspergillosis B44.1 Chronic steroid use
--- NOTE | 2024-03-23 14:38 | PC.OT ---
OT TREATMENT ATTEMPTED. PATIENT RESTING AND REQUESTS TO HOLD OT FOR TODAY.
[2024-03-23 15:08] LABS: Miscellaneous Test 6.4
[2024-03-23 16:24] LABS: Glucose Point of Care 156 mg/dL (70-110)
[2024-03-23 17:14] LABS: Vit D 1,25 (Oh)2, Total 75 pg/mL (18-72); Vit D2 1,25 (Oh)2 <8 pg/mL; Vit D3 1,25 (Oh)2 75 pg/mL
[2024-03-23 20:49] LABS: Glucose Point of Care 199 mg/dL (70-110)
--- NOTE | 2024-03-24 01:59 | PC.NURSE ---
Patients 2044 dose of voriconazole was not sent from pharmacy 03/23/24. Nurse contacted Dr. Benitez to advise him of situation. Dr. Benitez said to wait for morning dose.
[2024-03-24] MEDS: enoxaparin 100 mg/mL Syringe SUBCUT ×2 (03:11→15:33)
[2024-03-24 03:30] LABS: Basophils % 0.4 %; Eosinophils # 0.2 10^3/uL (0.0-0.8); Eosinophils % 1.6 %; Hematocrit 44.4 % (37-53); Lymphocytes # 1.2 10^3/uL (0.8-4.8); Mean Corpuscular HGB Conc 29.1 g/dL (30-55); Mean Corpuscular Volume 89.5 fl (82-101); Mean Platelet Volume 11.6 fL (7.4-10.4); Monocytes # 0.5 10^3/uL (0.2-0.9); Monocytes % 5.4 %; Neutrophils # 7.62 10^3/uL (1.8-7.7); Neutrophils % 79.8 %; Nucleated Red Blood Cells % 0 %; Platelet Count 127 10^3/cmm (157-399); Red Blood Count 4.96 10^6/uL (3.85-5.65); Red Cell Distribution Width 14.7 % (12.1-15.1); White Blood Count 9.56 10^3/uL (3.29-11.43)
[2024-03-24 03:53] LABS: Blood Urea Nitrogen 14 mg/dL (8-23); Calcium 8.7 mg/dL (8.5-10.5); Carbon Dioxide 29 mmol/L (22-29); Chloride 98 mmol/L (98-107); Creatinine Clr Calc Pharmacy 89.2671; Glomerular Filtration Rate 83.9 mL/min (90-130); Glucose 98 mg/dL (65-115); Osmolality Calculated 276 mOsm/kg (285-295); Sodium 133 mmol/L (136-145)
[2024-03-24 04:00] VITALS: BP 92/60; PULSE 75; RESP 18; TEMP 36.4; O2SAT 95
[2024-03-24 04:04] LABS: Anion Gap 9.8 (5-19); Potassium 3.8 mmol/L (3.5-5.1)
[2024-03-24 06:31] LABS: Glucose Point of Care 126 mg/dL (70-110)
[2024-03-24 08:00] VITALS: BP 117/77; PULSE 78; PULSE 85; RESP 16; RESP 17; TEMP 36.6; O2SAT 93; O2SAT 96
[2024-03-24] MEDS: clopidogrel 75 mg Tablet PO (08:13)
[2024-03-24] MEDS: pantoprazole DR 40 mg Tablet PO (08:13)
[2024-03-24] MEDS: multivitamin therapeutic Tablet 1 TAB PO (08:14)
[2024-03-24] MEDS: ALPRAZolam 0.5 mg Tablet PO ×2 (08:14→15:39)
[2024-03-24] MEDS: folic acid 1 mg Tablet PO ×2 (08:14→17:54)
[2024-03-24] MEDS: bisacodyl 5 mg Tablet PO (08:14)
[2024-03-24] MEDS: gabapentin 100 mg Capsule 200 MG PO ×3 (08:14→21:36)
[2024-03-24] MEDS: thiamine 100 mg Tablet PO (08:14)
[2024-03-24] MEDS: benzonatate 100 mg Capsule 200 MG PO ×2 (08:14→15:39)
[2024-03-24] MEDS: metoprolol tartrate 25 mg Tablet 12.5 MG PO (08:14)
[2024-03-24] MEDS: polyethylene glycol 3350 Pkt 17 gm PO (08:18)
[2024-03-24] MEDS: HYDROcodone-acetaminophen 10-325 mg Tablet 0.5 TAB PO ×2 (08:23→15:39)
[2024-03-24] MEDS: budesonide 0.5 mg/2 mL Neb INHALATION (08:58)
[2024-03-24 11:14] LABS: Glucose Point of Care 169 mg/dL (70-110)
[2024-03-24 12:00] VITALS: BP 92/64; PULSE 87; RESP 16; TEMP 36.5; O2SAT 90
[2024-03-24] MEDS: insulin lispro 100 unit/1 mL SUBCUT ×3 (12:46→21:37)
[2024-03-24 16:45] LABS: Glucose Point of Care 234 mg/dL (70-110)
--- NOTE | 2024-03-24 17:27 | P.PN_ITS ---
Subjective 2 Subjective: Patient was seen this morning, no acute events overnight Vitals/I&O/Wt Last Vital Signs Temp 97.7 F 03/24/24 12:00 Pulse 87 03/24/24 12:00 Resp 16 03/24/24 12:00 BP 92/64 03/24/24 12:00 Pulse Ox 90 03/24/24 12:00 O2 Del Method Nasal Cannula 03/24/24 12:00 O2 Flow Rate 2 03/24/24 08:00 03/24/24 03/24/24 03/24/24 06:59 14:59 22:59 Intake Total 250 / 250 Output Total 500 / 1000 300 / 300 Balance -500 / 1650 -50 / -50 Weight last 48 hrs Weight 95.254 kg Weight 94.801 kg Physical Exam 2 Const: COMMON NORMALS: no acute distress and patient oriented x3 Resp: COMMON NORMALS: normal respiratory effort, No retractions, No use of accessory muscles and clear to auscultation bilaterally AUSCULTATION: clear to auscultation bilaterally Cardio: COMMON NORMALS: regular rate, regular rhythm, S1 normal heart sound present and S2 normal heart sound present RATE: regular rate RHYTHM: r egular rhythm HEART SOUNDS: S1 normal heart sound present and S2 normal heart sound present GI: COMMON NORMALS: Normal to inspection, nondistended, normoactive bowel sounds present and non-tender Extremity: COMMON NORMALS: no pedal edema Neuro: COMMON NORMALS: patient oriented x3 Psych: COMMON NORMALS: mental status grossly normal Urinary Catheter Management: Scott: Cath Placed During This Visit: yes, but has since been removed by the nurse Reason for Continuing Indwelling Catheter: Accurate Measurement of Urinary Output in Critically Ill Patients Urinary Catheter Date of Insertion: 03/14/24 Urinary Catheter Time of Insertion: 14:00 Date Urinary Catheter Removed: 03/19/24 Data 03/24/24 03:05 03/24/24 03:05 A&P Assessment and plan (1) Acute hypoxic respiratory failure: (2) Sepsis: (3) Healthcare-associated pneumonia: (4) Influenza A: (5) COPD exacerbation: (6) Acute encephalopathy: (7) Altered mental status: (8) Hypercalcemia: (9) Hemoptysis: (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: (11) Chronic steroid use: Plan Hemoptysis, resolved -Likely related to anticoagulant therapy, pulmonary aspergillosis -Roughly 100 cc 03/13/2024, has not had any since -Switch to therapeutic Lovenox given concerns for interactions with voriconazole -Tessalon Perles 200 3 times daily as needed -Monitor respiratory status, monitor for cough -Given CT chest findings as below will need to evaluate for Mycobacterium infection, atypical infection, so far testing negative -QuantiFERON gold indeterminate 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 -Aspergillosis galactomannan antigen detected, 1.61 -Has a history of steroid use for COPD -CT of the chest and chest x-ray showing multilobar nodular infiltrates -Repeat chest x-rays bilateral patchy pulmonary opacities despite being on over 10 days of IV antibiotics, broad-spectrum -With persistent leukocytosis, elevated CRP, Pro-Azam, encephalopathy, resolving Plan -Infectious disease consulted -Follow fungal studies, sputum culture showing aspergillosis fumigatus -Follow-up fungal cultures -Follow Mycobacterium PCR negative -Follow AFB smears, so far negative -QuantiFERON gold indeterminate -IV voriconazole loading dose followed by maintenance dose, monitor LFTs, monitor QTc, voriconazole trough 03/20/2023 -Keep under isolation once AFB smears are negative x 2, off isolation -Plan is to continue IV voriconazole, until repeat CT scan on Tuesday if improvement of infiltrates, will switch to p.o. voriconazole thereafter, and then likely can discharge Acute encephalopathy, resolving -episodes of encephalopathy , although following commands, no focal neurologic deficits, no facial droop no slurring words has a flat affect -Likely secondary to hypercalcemia, aspergillosis, pneumonia, hypoxia, ICU delirium, withdrawal -Had a stroke alert 03/15/2024 no focal neurologic deficits, does have severe left internal carotid artery stenosis, continue Plavix, statin, Eliquis -Possibly related to hypercalcemia? Calcium 10 -Possible narcotic and benzo associated withdrawal is on Xanax 1 mg 3 times daily as needed, hydrocodone 10-325 every 6 hours as needed. Will continue home medications but Xanax 0.5 mg, hydrocodone 5 due to concerns for polypharmacy -Other concern would be more invasive aspergillosis infection such as fungal meningitis, continue voriconazole will consider lumbar puncture based on clinical progress but would have to hold Eliquis and Plavix for at least 5 days, does have cardiovascular disease -Initial CT head within normal limits -Repeat CT head, CT neck no acute findings -MRI brain no acute findings -Troponin series, ammonia levels within normal limits -No hypercarbia on ABG -Neurochecks, NIH stroke scale, monitor mentation closely Left internal carotid artery stenosis, severe -Will have to have patient follow-up with neurology, vascular as outpatient -Resume Plavix, statin, Lovenox Hypercalcemia, resolving -With concerns for encephalopathy -With hyperparathyroidism, PTH 165 -Elevated ionized calcium -Vitamin D pending -Ultrasound thyroid no acute findings -Will rule out lymphoma CT chest abdomen pelvis with IV contrast, does have enlarged subcarinal lymph node, will need to be evaluated as outpatient -Lasix 40 mg IV once today -calcitonin -cinacalcet -Will consider bisphosphonate -Monitor serum calcium, ionized calcium Atrial fibrillation -On metoprolol -Lovenox -Will consider amiodarone drip as heart rates are climbing Fall -With superficial laceration -Monitor -Repeat CT head, CT neck no acute findings -MRI brain no acute findings Acute hypoxic respiratory failure -Healthcare associated pneumonia -Influenza A completed treatment -COPD exacerbation -With evidence of sepsis, sepsis features met given hypoxia up to 5 L, tachycardia, leukocytosis source of infection pneumonia, influenza A -CT of the chest on 03/04/2024 CT/CT chest wo con [id number] IMPRESSION: 1. Scattered reticular and ground-glass opacities throughout the lungs likely represent multifocal pneumonia in the acute setting. Recommend imaging follow-up after clinical treatment to evaluate for resolution. 5. Enlarged subcarinal lymph node is favored to be reactive. Attention on follow-up recommended. Plan -Monitor respiratory status closely -Completed Tamiflu -Broaden antibiotic coverage to vancomycin, meropenem, azithromycin discontinued -Prednisone 40 mg daily, discontinued -DuoNeb -Budesonide -Sputum culture -Blood culture -CHF exacerbation, Lasix as needed -See -Full code -Lovenox CAD status post stenting Resume Plavix Chronic pain -Continue hydrocodone -Continue Xanax Plan for today continue IV voriconazole, Attestations 2 Medical Necessity Statement*: Patient requires hospitalization for Aspergillus pneumonia Diagnoses Acute hypoxic respiratory failure J96.01 Sepsis A41.9 Healthcare-associated pneumonia J18.9 Influenza A J10.1 COPD exacerbation J44.1 Acute encephalopathy G93.40 Altered mental status R41.82 Hypercalcemia E83.52 Hemoptysis R04.2 Pulmonary aspergillosis B44.1 Chronic steroid use
[2024-03-24 17:58] VITALS: BP 103/70; PULSE 69; RESP 18
[2024-03-24 19:06] VITALS: BP 91/61; PULSE 89; RESP 19; TEMP 36.4; O2SAT 92
[2024-03-24 19:59] VITALS: BP 111/74; PULSE 89; RESP 19; TEMP 36.7; O2SAT 93
[2024-03-24 20:42] LABS: Glucose Point of Care 142 mg/dL (70-110)
[2024-03-25] VITALS (8 sets, daily range): BP systolic 80–125; BP diastolic 60–83; PULSE 80–109; RESP 15–18; TEMP 36.4–37.2; O2SAT 92–94
[2024-03-25] MEDS: enoxaparin 100 mg/mL Syringe SUBCUT ×2 (02:04→14:11)
[2024-03-25 03:37] LABS: Basophils # 0.1 10^3/uL (0.0-0.1); Basophils % 0.4 %; Eosinophils # 0.1 10^3/uL (0.0-0.8); Eosinophils % 1.3 %; Hematocrit 44.7 % (37-53); Lymphocytes # 1.2 10^3/uL (0.8-4.8); Lymphocytes % 10.6 %; Mean Corpuscular HGB Conc 28.6 g/dL (30-55); Mean Corpuscular Hemoglobin 25.8 pg (27-33); Mean Corpuscular Volume 89.9 fl (82-101); Mean Platelet Volume 11.1 fL (7.4-10.4); Monocytes # 0.6 10^3/uL (0.2-0.9); Neutrophils # 9.16 10^3/uL (1.8-7.7); Neutrophils % 81.8 %; Nucleated Red Blood Cells % 0 %; Platelet Count 142 10^3/cmm (157-399); Red Blood Count 4.97 10^6/uL (3.85-5.65); Red Cell Distribution Width 14.8 % (12.1-15.1)
[2024-03-25 03:55] LABS: Blood Urea Nitrogen 11 mg/dL (8-23); Calcium 9.1 mg/dL (8.5-10.5); Carbon Dioxide 31 mmol/L (22-29); Chloride 102 mmol/L (98-107); Creatinine Clr Calc Pharmacy 80.5216; Glomerular Filtration Rate 74.3 mL/min (90-130); Glucose 144 mg/dL (65-115); Osmolality Calculated 292 mOsm/kg (285-295); Sodium 140 mmol/L (136-145)
[2024-03-25 03:57] LABS: Anion Gap 10.8 (5-19); Potassium 3.8 mmol/L (3.5-5.1)
[2024-03-25 06:34] LABS: Glucose Point of Care 177 mg/dL (70-110)
[2024-03-25] MEDS: insulin lispro 100 unit/1 mL SUBCUT ×4 (08:23→21:04)
[2024-03-25] MEDS: polyethylene glycol 3350 Pkt 17 gm PO (08:23)
[2024-03-25] MEDS: gabapentin 100 mg Capsule 200 MG PO ×3 (08:24→21:04)
[2024-03-25] MEDS: multivitamin therapeutic Tablet 1 TAB PO (08:24)
[2024-03-25] MEDS: clopidogrel 75 mg Tablet PO (08:24)
[2024-03-25] MEDS: ALPRAZolam 0.5 mg Tablet PO (08:24)
[2024-03-25] MEDS: pantoprazole DR 40 mg Tablet PO (08:24)
[2024-03-25] MEDS: thiamine 100 mg Tablet PO (08:24)
[2024-03-25] MEDS: bisacodyl 5 mg Tablet PO (08:24)
[2024-03-25] MEDS: folic acid 1 mg Tablet PO ×2 (08:24→17:27)
[2024-03-25] MEDS: metoprolol tartrate 25 mg Tablet 12.5 MG PO (08:25)
[2024-03-25] MEDS: CINACALCET HCL 30 MG 1 EACH PO ×2 (08:25→17:27)
[2024-03-25] MEDS: HYDROcodone-acetaminophen 10-325 mg Tablet 0.5 TAB PO ×2 (08:25→14:11)
--- NOTE | 2024-03-25 09:22 | CTR_ITS ---
PROCEDURE INFORMATION: Exam: CT Chest Without Contrast; Diagnostic Exam date and time: 03/25/2024 10:31 AM Age: 68 years old Clinical indication: Shortness of breath; Additional info: SOB TECHNIQUE: Imaging protocol: Diagnostic computed tomography of the chest without contrast. Radiation optimization: All CT scans at this facility use at least one of these dose optimization techniques: automated exposure control; mA and/or kV adjustment per patient size (includes targeted exams where dose is matched to clinical indication); or iterative reconstruction. COMPARISON: CT chest abdpel w/*[id number] 03/11/2024 3:26 PM RADIATION DOSE METRICS: Total DLP (mGy-cm): 573.3 FINDINGS: Lungs: There are confluent and nodular opacities involving both lungs worse on today's exam when compared to prior exam most compatible with pneumonia. There are now air-fluid levels involving multiple upper lobe cysts which were not present on prior exam likely representing superimposed infection involving the cysts. There are scattered areas of bronchiectasis. Pleural spaces: There are trace pleural effusions. Heart: Unremarkable. No cardiomegaly. No pericardial effusion. Lymph nodes: There are multiple small mediastinal lymph nodes. No enlarged nodes are appreciated. Vasculature: The thoracic aorta is normal in caliber. There is calcified plaque involving the aorta and coronary vessels. Liver: There is diffuse fatty infiltration of the liver. The liver is otherwise normal. Gallbladder and biliary ducts: There are surgical clips within the gallbladder fossa. Bones/joints: Unremarkable. No acute fracture. Soft tissues: Unremarkable. CT/CT chest wo con [id number] IMPRESSION: 1. Trace pleural effusions. 2. Interval worsening in bilateral confluent and nodular opacities likely inflammatory. However, given the nodular quality of the opacities, follow-up to document complete resolution would be recommended.
--- NOTE | 2024-03-25 09:35 | ECG_ITS ---
[facility] Date: 2024-03-25 Pat Name: Jono Nixon (Randy)partment: Room: 258 Gender: Male [employer] Technician: : 1955 Requested By: Gagandeep Allen Order Number: [id number] Deven MD: Jignesh Kline M.D. Measurements Intervals [place] Rate: 90 P: 48 FL: 146 QRS: -1 QRSD: 90 T: 14 QT: 331 QTc: 406 Interpretive Statements SINUS RHYTHM Compared to ECG 03/20/2024 05:31:18 No significant changes Electronically Signed On 03-29-2024 22:11:01 REBEAMER by Jignesh Kline M.D. [email or web address]
[2024-03-25] MEDS: budesonide 0.5 mg/2 mL Neb INHALATION ×2 (09:36→20:26)
[2024-03-25] MEDS: ipratropium-albuterol 3 mL Neb INHALATION ×2 (09:36→20:26)
[2024-03-25 09:46] LABS: Alanine Aminotransferase 22 U/L (0-41); Alkaline Phosphatase 86 U/L (40-130); Globulin 5.4 g/dL (1.3-4.6); Total Bilirubin 0.2 mg/dL (0.15-1.2); Total Protein 7.4 g/dL (6.6-8.7)
[2024-03-25 09:59] LABS: Aspartate Amino Transferase 19 U/L (0-40)
[2024-03-25 12:21] LABS: Glucose Point of Care 198 mg/dL (70-110)
--- NOTE | 2024-03-25 12:39 | P.PN_ITS ---
Subjective 2 Subjective: Patient was seen this morning he is alert to person, to place, to time he follows commands, no nausea, vomiting, abdominal pain Vitals/I&O/Wt Last Vital Signs Temp 97.5 F L 03/25/24 12:00 Pulse 90 03/25/24 12:00 Resp 16 03/25/24 12:00 BP 91/61 03/25/24 12:00 Pulse Ox 92 03/25/24 12:00 O2 Del Method Nasal Cannula 03/25/24 12:00 O2 Flow Rate 3 03/25/24 12:00 03/24/24 03/25/24 03/25/24 22:59 06:59 14:59 Intake Total 250 / 620 480 / 1100 490 / 490 Balance 250 / -380 480 / 100 490 / 490 Weight last 48 hrs Weight 99.155 kg Weight 95.254 kg Physical Exam 2 Const: COMMON NORMALS: no acute distress and patient oriented x3 Resp: COMMON NORMALS: normal respiratory effort, No retractions, No use of accessory muscles and clear to auscultation bilaterally AUSCULTATION: clear to auscultation bilaterally Cardio: COMMON NORMALS: regular rate, regular rhythm, S1 normal heart sound present and S2 normal heart sound present RATE: regular rate RHYTHM: r egular rhythm HEART SOUNDS: S1 normal heart sound present and S2 normal heart sound present GI: COMMON NORMALS: Normal to inspection, nondistended, normoactive bowel sounds present and non-tender Extremity: COMMON NORMALS: no pedal edema Neuro: COMMON NORMALS: patient oriented x3 Psych: COMMON NORMALS: mental status grossly normal Urinary Catheter Management: Scott: Cath Placed During This Visit: yes, but has since been removed by the nurse Reason for Continuing Indwelling Catheter: Accurate Measurement of Urinary Output in Critically Ill Patients Urinary Catheter Date of Insertion: 03/14/24 Urinary Catheter Time of Insertion: 14:00 Date Urinary Catheter Removed: 03/19/24 Data 03/25/24 02:48 03/25/24 02:48 A&P Assessment and plan (1) Acute hypoxic respiratory failure: (2) Sepsis: (3) Healthcare-associated pneumonia: (4) Influenza A: (5) COPD exacerbation: (6) Acute encephalopathy: (7) Altered mental status: (8) Hypercalcemia: (9) Hemoptysis: (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: (11) Chronic steroid use: Plan Hemoptysis, resolved -Likely related to anticoagulant therapy, pulmonary aspergillosis -Roughly 100 cc 03/13/2024, has not had any since -Switch to therapeutic Lovenox given concerns for interactions with voriconazole -Tessalon Perles 200 3 times daily as needed -Monitor respiratory status, monitor for cough -Given CT chest findings as below will need to evaluate for Mycobacterium infection, atypical infection, so far testing negative -QuantiFERON gold indeterminate 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 -Aspergillosis galactomannan antigen detected, 1.61 -Has a history of steroid use for COPD -CT of the chest and chest x-ray showing multilobar nodular infiltrates -Repeat chest x-rays bilateral patchy pulmonary opacities despite being on over 10 days of IV antibiotics, broad-spectrum -With persistent leukocytosis, elevated CRP, Pro-Azam, encephalopathy, resolving Plan -Infectious disease consulted -Follow fungal studies, sputum culture showing aspergillosis fumigatus -Follow-up fungal cultures -Follow Mycobacterium PCR negative -Follow AFB smears, so far negative -QuantiFERON gold indeterminate -IV voriconazole loading dose followed by maintenance dose, monitor LFTs, monitor QTc, voriconazole trough 03/20/2023 -Keep under isolation once AFB smears are negative x 2, off isolation -Plan is to continue IV voriconazole, until repeat CT scan on Tuesday if improvement of infiltrates, will switch to p.o. voriconazole thereafter, and then likely can discharge Acute encephalopathy, resolving -episodes of encephalopathy , although following commands, no focal neurologic deficits, no facial droop no slurring words has a flat affect -Likely secondary to hypercalcemia, aspergillosis, pneumonia, hypoxia, ICU delirium, withdrawal -Had a stroke alert 03/15/2024 no focal neurologic deficits, does have severe left internal carotid artery stenosis, continue Plavix, statin, Eliquis -Possibly related to hypercalcemia? Calcium 10 -Possible narcotic and benzo associated withdrawal is on Xanax 1 mg 3 times daily as needed, hydrocodone 10-325 every 6 hours as needed. Will continue home medications but Xanax 0.5 mg, hydrocodone 5 due to concerns for polypharmacy -Other concern would be more invasive aspergillosis infection such as fungal meningitis, continue voriconazole will consider lumbar puncture based on clinical progress but would have to hold Eliquis and Plavix for at least 5 days, does have cardiovascular disease -Initial CT head within normal limits -Repeat CT head, CT neck no acute findings -MRI brain no acute findings -Troponin series, ammonia levels within normal limits -No hypercarbia on ABG -Neurochecks, NIH stroke scale, monitor mentation closely Left internal carotid artery stenosis, severe -Will have to have patient follow-up with neurology, vascular as outpatient -Resume Plavix, statin, Lovenox Hypercalcemia, resolving -With concerns for encephalopathy -With hyperparathyroidism, PTH 165 -Elevated ionized calcium -Vitamin D pending -Ultrasound thyroid no acute findings -Will rule out lymphoma CT chest abdomen pelvis with IV contrast, does have enlarged subcarinal lymph node, will need to be evaluated as outpatient -Lasix 40 mg IV once today -calcitonin -cinacalcet -Will consider bisphosphonate -Monitor serum calcium, ionized calcium Atrial fibrillation -On metoprolol -Lovenox -Will consider amiodarone drip as heart rates are climbing Fall -With superficial laceration -Monitor -Repeat CT head, CT neck no acute findings -MRI brain no acute findings Acute hypoxic respiratory failure -Healthcare associated pneumonia -Influenza A completed treatment -COPD exacerbation -With evidence of sepsis, sepsis features met given hypoxia up to 5 L, tachycardia, leukocytosis source of infection pneumonia, influenza A -CT of the chest on 03/04/2024 CT/CT chest wo con [id number] IMPRESSION: 1. Scattered reticular and ground-glass opacities throughout the lungs likely represent multifocal pneumonia in the acute setting. Recommend imaging follow-up after clinical treatment to evaluate for resolution. 5. Enlarged subcarinal lymph node is favored to be reactive. Attention on follow-up recommended. Plan -Monitor respiratory status closely -Completed Tamiflu -Broaden antibiotic coverage to vancomycin, meropenem, azithromycin discontinued -Prednisone 40 mg daily, discontinued -DuoNeb -Budesonide -Sputum culture -Blood culture -CHF exacerbation, Lasix as needed -See -Full code -Lovenox CAD status post stenting Resume Plavix Chronic pain -Continue hydrocodone -Continue Xanax Plan for today CTA chest, switch to p.o. voriconazole 200 twice daily, vori level 6.4, QTc 406 ms, LFTs within normal limits, 1 dose of Lasix with p.o. potassium Attestations 2 Medical Necessity Statement*: Patient requires hospitalization for pulmonary aspergillosis Diagnoses Acute hypoxic respiratory failure J96.01 Sepsis A41.9 Healthcare-associated pneumonia J18.9 Influenza A J10.1 COPD exacerbation J44.1 Acute encephalopathy G93.40 Altered mental status R41.82 Hypercalcemia E83.52 Hemoptysis R04.2 Pulmonary aspergillosis B44.1 Chronic steroid use
[2024-03-25] MEDS: potassium chloride ER 20 mEq Tablet PO (12:57)
[2024-03-25] MEDS: FUROsemide 40 mg Tablet PO (12:57)
[2024-03-25 16:36] LABS: Glucose Point of Care 214 mg/dL (70-110)
[2024-03-25 20:53] LABS: Glucose Point of Care 217 mg/dL (70-110)
[2024-03-26] VITALS (14 sets, daily range): BP systolic 89–112; BP diastolic 52–75; PULSE 72–101; RESP 14–20; TEMP 36.4–37.1; O2SAT 91–94
[2024-03-26] MEDS: enoxaparin 100 mg/mL Syringe SUBCUT ×2 (02:21→14:57)
[2024-03-26 06:33] LABS: Glucose Point of Care 232 mg/dL (70-110)
[2024-03-26] MEDS: budesonide 0.5 mg/2 mL Neb INHALATION ×2 (07:30→21:32)
[2024-03-26] MEDS: polyethylene glycol 3350 Pkt 17 gm PO (08:55)
[2024-03-26] MEDS: insulin lispro 100 unit/1 mL SUBCUT ×4 (08:55→21:08)
[2024-03-26] MEDS: folic acid 1 mg Tablet PO ×2 (08:56→17:17)
[2024-03-26] MEDS: benzonatate 100 mg Capsule 200 MG PO (08:56)
[2024-03-26] MEDS: bisacodyl 5 mg Tablet PO (08:56)
[2024-03-26] MEDS: gabapentin 100 mg Capsule 200 MG PO ×3 (08:56→20:45)
[2024-03-26] MEDS: pantoprazole DR 40 mg Tablet PO (08:56)
[2024-03-26] MEDS: clopidogrel 75 mg Tablet PO (08:56)
[2024-03-26] MEDS: HYDROcodone-acetaminophen 10-325 mg Tablet 0.5 TAB PO ×2 (08:56→17:19)
[2024-03-26] MEDS: thiamine 100 mg Tablet PO (08:56)
[2024-03-26] MEDS: multivitamin therapeutic Tablet 1 TAB PO (08:56)
[2024-03-26] MEDS: metoprolol tartrate 25 mg Tablet 12.5 MG PO ×2 (08:57→17:19)
[2024-03-26] MEDS: CINACALCET HCL 30 MG 1 EACH PO ×2 (09:00→17:17)
[2024-03-26 09:25] LABS: Basophils % 0.4 %; Eosinophils # 0.1 10^3/uL (0.0-0.8); Eosinophils % 1.2 %; Hematocrit 42.6 % (37-53); Lymphocytes # 1.3 10^3/uL (0.8-4.8); Lymphocytes % 13.3 %; Mean Corpuscular HGB Conc 29.3 g/dL (30-55); Mean Corpuscular Hemoglobin 26.3 pg (27-33); Mean Corpuscular Volume 89.7 fl (82-101); Mean Platelet Volume 10.2 fL (7.4-10.4); Monocytes # 0.5 10^3/uL (0.2-0.9); Monocytes % 5.5 %; Neutrophils # 7.67 10^3/uL (1.8-7.7); Neutrophils % 78.9 %; Nucleated Red Blood Cells % 0 %; Platelet Count 157 10^3/cmm (157-399); Red Blood Count 4.75 10^6/uL (3.85-5.65); Red Cell Distribution Width 14.9 % (12.1-15.1); White Blood Count 9.72 10^3/uL (3.29-11.43)
[2024-03-26 09:42] LABS: Alanine Aminotransferase 20 U/L (0-41); Alkaline Phosphatase 82 U/L (40-130); Anion Gap 10.8 (5-19); Aspartate Amino Transferase 19 U/L (0-40); Blood Urea Nitrogen 9 mg/dL (8-23); Calcium 9.3 mg/dL (8.5-10.5); Carbon Dioxide 31 mmol/L (22-29); Chloride 98 mmol/L (98-107); Creatinine Clr Calc Pharmacy 80.3404; Globulin 4.9 g/dL (1.3-4.6); Glomerular Filtration Rate 74.3 mL/min (90-130); Glucose 207 mg/dL (65-115); Osmolality Calculated 287 mOsm/kg (285-295); Potassium 3.8 mmol/L (3.5-5.1); Sodium 136 mmol/L (136-145); Total Bilirubin 0.2 mg/dL (0.15-1.2); Total Protein 6.9 g/dL (6.6-8.7)
[2024-03-26 11:57] LABS: Glucose Point of Care 233 mg/dL (70-110)
[2024-03-26 15:23] LABS: P. Jirovecii DNA QL PCR NOT DETECTED
--- NOTE | 2024-03-26 16:21 | PC.SOCIAL ---
IMM updated IMM dated and initialed, copy given to patient and copy placed in chart
--- NOTE | 2024-03-26 16:31 | P.PN_ITS ---
Subjective 2 Subjective: Patient was seen this morning, sitting up in a chair denies any fevers, no chills, no cough, no abdominal pain, reports not having a bowel movement Vitals/I&O/Wt Last Vital Signs Temp 97.5 F L 03/26/24 15:46 Pulse 84 03/26/24 15:46 Resp 14 03/26/24 15:46 BP 93/67 03/26/24 15:46 Pulse Ox 94 03/26/24 15:46 O2 Del Method Nasal Cannula 03/26/24 15:46 O2 Flow Rate 2 03/26/24 08:00 03/26/24 03/26/24 03/26/24 06:59 14:59 22:59 Intake Total 682 / 682 Output Total 650 / 950 Balance -650 / 140 682 / 682 Weight last 48 hrs Weight 94.801 kg Weight 99.155 kg Physical Exam 2 Const: COMMON NORMALS: no acute distress and patient oriented x3 Resp: COMMON NORMALS: normal respiratory effort, No retractions, No use of accessory muscles and clear to auscultation bilaterally AUSCULTATION: clear to auscultation bilaterally Cardio: COMMON NORMALS: regular rate, regular rhythm, S1 normal heart sound present and S2 normal heart sound present RATE: regular rate RHYTHM: r egular rhythm HEART SOUNDS: S1 normal heart sound present and S2 normal heart sound present GI: COMMON NORMALS: Normal to inspection, nondistended, normoactive bowel sounds present and non-tender Extremity: COMMON NORMALS: no pedal edema Neuro: COMMON NORMALS: patient oriented x3 Psych: COMMON NORMALS: mental status grossly normal Urinary Catheter Management: Scott: Cath Placed During This Visit: yes, but has since been removed by the nurse Reason for Continuing Indwelling Catheter: Accurate Measurement of Urinary Output in Critically Ill Patients Urinary Catheter Date of Insertion: 03/14/24 Urinary Catheter Time of Insertion: 14:00 Date Urinary Catheter Removed: 03/19/24 Data 03/26/24 09:14 03/26/24 09:14 Micro: Microbiology 03/17/24 01:40 Mycobacterial Smear - Preliminary Sputum - Expectorated Sputum A&P Assessment and plan (1) Acute hypoxic respiratory failure: (2) Sepsis: (3) Healthcare-associated pneumonia: (4) Influenza A: (5) COPD exacerbation: (6) Acute encephalopathy: (7) Altered mental status: (8) Hypercalcemia: (9) Hemoptysis: (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: (11) Chronic steroid use: Plan Hemoptysis, resolved -Likely related to anticoagulant therapy, pulmonary aspergillosis -Roughly 100 cc 03/13/2024, has not had any since -Switch to therapeutic Lovenox given concerns for interactions with voriconazole -Tessalon Perles 200 3 times daily as needed -Monitor respiratory status, monitor for cough -Given CT chest findings as below will need to evaluate for Mycobacterium infection, atypical infection, so far testing negative -QuantiFERON gold indeterminate 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 -Aspergillosis galactomannan antigen detected, 1.61 -Has a history of steroid use for COPD -CT of the chest and chest x-ray showing multilobar nodular infiltrates -Repeat chest x-rays bilateral patchy pulmonary opacities despite being on over 10 days of IV antibiotics, broad-spectrum -With persistent leukocytosis, elevated CRP, Pro-Azam, encephalopathy, resolving Plan -Infectious disease consulted -Follow fungal studies, sputum culture showing aspergillosis fumigatus -Follow-up fungal cultures -Follow Mycobacterium PCR negative -Follow AFB smears, so far negative -QuantiFERON gold indeterminate -Currently on p.o. voriconazole -Repeat CT of the chest CT/CT chest wo con [id number] IMPRESSION: 1. Trace pleural effusions. 2. Interval worsening in bilateral confluent and nodular opacities likely inflammatory. However, given the nodular quality of the opacities, follow-up to document complete resolution would be recommended. Acute encephalopathy, resolving -episodes of encephalopathy , although following commands, no focal neurologic deficits, no facial droop no slurring words has a flat affect -Likely secondary to hypercalcemia, aspergillosis, pneumonia, hypoxia, ICU delirium, withdrawal -Had a stroke alert 03/15/2024 no focal neurologic deficits, does have severe left internal carotid artery stenosis, continue Plavix, statin, Eliquis -Possibly related to hypercalcemia? Calcium 10 -Possible narcotic and benzo associated withdrawal is on Xanax 1 mg 3 times daily as needed, hydrocodone 10-325 every 6 hours as needed. Will continue home medications but Xanax 0.5 mg, hydrocodone 5 due to concerns for polypharmacy -Other concern would be more invasive aspergillosis infection such as fungal meningitis, continue voriconazole will consider lumbar puncture based on clinical progress but would have to hold Eliquis and Plavix for at least 5 days, does have cardiovascular disease -Initial CT head within normal limits -Repeat CT head, CT neck no acute findings -MRI brain no acute findings -Troponin series, ammonia levels within normal limits -No hypercarbia on ABG -Neurochecks, NIH stroke scale, monitor mentation closely Left internal carotid artery stenosis, severe -Will have to have patient follow-up with neurology, vascular as outpatient -Resume Plavix, statin, Lovenox Hypercalcemia, resolving -With concerns for encephalopathy -With hyperparathyroidism, PTH 165 -Elevated ionized calcium -Vitamin D pending -Ultrasound thyroid no acute findings -Will rule out lymphoma CT chest abdomen pelvis with IV contrast, does have enlarged subcarinal lymph node, will need to be evaluated as outpatient repeat CT scan -Lasix 40 mg IV once today -calcitonin -cinacalcet -Will consider bisphosphonate -Monitor serum calcium, Atrial fibrillation -On metoprolol -Loveno Fall -With superficial laceration -Monitor -Repeat CT head, CT neck no acute findings -MRI brain no acute findings Acute hypoxic respiratory failure -Healthcare associated pneumonia -Influenza A completed treatment -COPD exacerbation -With evidence of sepsis, sepsis features met given hypoxia up to 5 L, tachycardia, leukocytosis source of infection pneumonia, influenza A -CT of the chest on 03/04/2024 CT/CT chest wo con [id number] IMPRESSION: 1. Scattered reticular and ground-glass opacities throughout the lungs likely represent multifocal pneumonia in the acute setting. Recommend imaging follow-up after clinical treatment to evaluate for resolution. 5. Enlarged subcarinal lymph node is favored to be reactive. Attention on follow-up recommended. Plan -Monitor respiratory status closely -Completed Tamiflu -Broaden antibiotic coverage to vancomycin, meropenem, azithromycin discontinued -Prednisone 40 mg daily, discontinued -DuoNeb -Budesonide -Sputum culture -Blood culture -CHF exacerbation, Lasix as needed -See -Full code -Lovenox CAD status post stenting Resume Plavix Chronic pain -Continue hydrocodone -Xanax currently on hold as patient is on voriconazole Plan for today switch to p.o. voriconazole PT OT, monitor mentation, start p.o. prednisone, working on discharge in next 24 to 48 hours, spoke to infectious disease Attestations 2 Medical Necessity Statement*: patient requires hospitalization for pulmonary aspergillosis Diagnoses Acute hypoxic respiratory failure J96.01 Sepsis A41.9 Healthcare-associated pneumonia J18.9 Influenza A J10.1 COPD exacerbation J44.1 Acute encephalopathy G93.40 Altered mental status R41.82 Hypercalcemia E83.52 Hemoptysis R04.2 Pulmonary aspergillosis B44.1 Chronic steroid use
[2024-03-26 16:35] LABS: Glucose Point of Care 192 mg/dL (70-110)
--- NOTE | 2024-03-26 17:09 | PM.PN ---
Subjective Subjective: no acute interim events since last being seen Medications: Reviewed: Yes Vitals/I&O/Wt Last Vital Signs Temp 97.5 F L 03/26/24 15:46 Pulse 84 03/26/24 15:46 Resp 14 03/26/24 15:46 BP 93/67 03/26/24 15:46 Pulse Ox 94 03/26/24 15:46 O2 Del Method Nasal Cannula 03/26/24 15:46 O2 Flow Rate 2 03/26/24 08:00 03/26/24 03/26/24 03/26/24 06:59 14:59 22:59 Intake Total 682 / 682 Output Total 650 / 950 Balance -650 / 140 682 / 682 Weight last 48 hrs Weight 94.801 kg Weight 99.155 kg Physical Exam Narrative: General: Awake alert oriented HEENT: PERRLA, pupils bilaterally equal and reactive, pallors not present Chest: Coarse breath sounds bilaterally to auscultation. CVS: S1-S2 regular, no murmurs, no tachycardia, no gallops, no rubs Abdomen: Soft, nontender, no organomegaly, bowel sounds present Neuro: no focal deficits, moving all extremities, AAO x 3 Urinary Catheter Management: Scott: Cath Placed During This Visit: yes, but has since been removed by the nurse Reason for Continuing Indwelling Catheter: Accurate Measurement of Urinary Output in Critically Ill Patients Urinary Catheter Date of Insertion: 03/14/24 Urinary Catheter Time of Insertion: 14:00 Date Urinary Catheter Removed: 03/19/24 Data 03/26/24 09:14 03/26/24 09:14 Micro: Microbiology 03/17/24 01:40 Mycobacterial Smear - Preliminary Sputum - Expectorated Sputum Other data: CT Scan Report Signed Patient: Jono Pierce (Lonnie) Edgard Unit #: [id number] : 1955 Age/Sex: 68 / M ADM Date: 03/08/24 Loc: [facility] Room/Bed: [facility] Attending Dr: Gagandeep Allen MD Ordering Provider/Ordering MD: Gagandeep Allen MD Date of Service: 03/25/24 Procedure(s): CT chest [facility] [id number] Accession Number(s): [id number] Report Number: [id number] PROCEDURE INFORMATION: Exam: CT Chest Without Contrast; Diagnostic Exam date and time: 03/25/2024 10:31 AM Age: 68 years old Clinical indication: Shortness of breath; Additional info: SOB TECHNIQUE: Imaging protocol: Diagnostic computed tomography of the chest without contrast. Radiation optimization: All CT scans at this facility use at least one of these dose optimization techniques: automated exposure control; mA and/or kV adjustment per patient size (includes targeted exams where dose is matched to clinical indication); or iterative reconstruction. COMPARISON: CT chest abdpel w/*[id number] 03/11/2024 3:26 PM RADIATION DOSE METRICS: Total DLP (mGy-cm): 573.3 FINDINGS: Lungs: There are confluent and nodular opacities involving both lungs worse on today's exam when compared to prior exam most compatible with pneumonia. There are now air-fluid levels involving multiple upper lobe cysts which were not present on prior exam likely representing superimposed infection involving the cysts. There are scattered areas of bronchiectasis. Pleural spaces: There are trace pleural effusions. Heart: Unremarkable. No cardiomegaly. No pericardial effusion. Lymph nodes: There are multiple small mediastinal lymph nodes. No enlarged nodes are appreciated. Vasculature: The thoracic aorta is normal in caliber. There is calcified plaque involving the aorta and coronary vessels. Liver: There is diffuse fatty infiltration of the liver. The liver is otherwise normal. Gallbladder and biliary ducts: There are surgical clips within the gallbladder fossa. Bones/joints: Unremarkable. No acute fracture. Soft tissues: Unremarkable. CT/CT chest wo con [id number] IMPRESSION: 1. Trace pleural effusions. 2. Interval worsening in bilateral confluent and nodular opacities likely inflammatory. However, given the nodular quality of the opacities, follow-up to document complete resolution would be recommended. 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 Patient has not had any significant relief with prolonged course of antibacterials. Sputum culture without any bacterial growth. Sputum culture now also showing mold. Together with a positive Aspergillus galactomannan index, historical risk factors by way of prolonged steroid use, CT chest with bilateral worsening infiltrates, suspect invasive aspergillosis. Agree with discontinuing IV meropenem and vancomycin Start voriconazole 6 mg/kg IV every 12 hours loading dose thereafter followed by voriconazole 4 mg/kg every 12 hours. Blood cultures so far negative to date. QuantiFERON indeterminate, sputum AFB smear negative x 1, sputum AFB PCR negative x 1,. Patient unable to answer any questions with relation to history of TB or historical risk factors of the same. Given alternate likely diagnosis, may discontinue TB precautions once we have 2 negative sputum AFB smears. Daily EKG monitoring for QTc interval. Baseline LFTs reviewed normal. Check voriconazole trough 5 days after initiation of treatment. Attempted to discuss signs of voriconazole toxicity, however patient is currently not alert enough to have any discussions regarding the same. Continue to closely monitor respiratory status with initiation of antifungal therapy. Attempt to wean down steroids if feasible to minimize immunosuppression. March 17, 2023: Mold from sputum culture identified as Aspergillus fumigatus, continue Voriconazole 400mg iv every 12 hs. Monitor qtc interval and LFTs. Requested sensitivity added on at [employer]. Voriconazole trough level on 03/20/24. March 18, 2023 pending AFB smear from 03/17 negative. Can D/c TB airborne precautions with 2 negative smears and one negative MTB PCR. Recommend changing Eliquis to lovenox for anticoagulation while on voriconazole as the latter is a strong CYP inducer with potential to increase eliquis level and bleeding risk. qtc interval 415msec. LFT stable. Vori level check on day 5 of rx (Mar 20). Plan to repeat CT chest 7-10 days after starting voriconazole to assess for interval change. March 19, 2023 Continue voriconazole 400 mg IV every 12 hours. (Started March 17, 2023). LFT stable. Leukocytosis downtrending. Clinically overall appears to be stable. QTc interval at 365. Thus far tolerating IV voriconazole. Trough level was sent today, currently pending. Plan to continue treatment with IV voriconazole through this week. Plan to repeat CT chest on March 25. If CT shows stability to improvement, patient may be discharged to retirement. At that point would convert to oral voriconazole. Total treatment duration to be 3 months. March 22, 2023. Continue voriconazole 400 mg IV every 12 hours. Patient appears to be clinically improving. LFTs stable. QTc interval not prolonged. Awaiting voriconazole trough level to return. Discussed with lab, anticipate another 48 hours turnaround time. Repeat chest x-ray today to assess for interval improvement. March 26, 2024 Voriconazole level on March 20, 2024 returned at 6.4. Patient switched to oral voriconazole 200 mg twice daily on Tuesday. Repeat voriconazole level has been sent this morning. Currently pending. QTc interval at 406. CT of the chest repeated on 07/12/2024 had shown trace pleural effusion. Per radiology interpretation, bilateral confluent opacities likely inflammatory which were noted to be worsening. Per personal review of images there is noted to be some confluence of the existing opacities. There is interval development of some cavitations. Patient remains clinically improving. His leukocytosis remains resolved since initiating antifungal therapy. He remains afebrile. Clinically he is improving. Oxygen requirement is down to 2 L/min. He is ambulating up to 80 feet with a walker with physical therapy however is overall deconditioned from his extreme illness. Since patient is otherwise clinically improving, favored the CT changes to be expected progression with confluent single opacities. Will continue voriconazole 200 mg p.o. twice daily and plan to repeat a CT in 2 to 3 weeks. Infectious disease follow-up arranged outpatient on April 03, 2024 at 11 AM. Patient is currently undergoing appropriate disposition planning. Once ready for discharge, will reduce dose of Eliquis to 2.5 mg twice daily due to drug drug interaction with voriconazole. Voriconazole is a strong CYP inducer, unlikely to increase levels of Eliquis, making him more prone to bleeding. Additionally recommend to reduce dose of alprazolam at discharge with a similar drug drug interaction. This documentation was created by [employer] parts identification technician software. Every effort was made to ensure accuracy of parts identification technician. Any obvious errors or omissions should be clarified with the author of the document. Attestations Medical Necessity Statement*: Per admitting Coding Level of Care Code Acute Code for Chg Fwd High MDM includes number and complexity of problems actively addressed during encounter, amount and/or complexity of data reviewed/ordered and described risk of complication, morbidity or mortality of management as documented Diagnoses Pulmonary aspergillosis B44.1 Fungal pneumonia J16.8; B49 Chronic steroid use Chronic obstructive pulmonary disease with acute exacerbation J44.1 COPD type: COPD with acute exacerbation Bullous emphysema J43.9 Invasive fungal infection B49
[2024-03-26] MEDS: magnesium citrate Btl 296 mL 150 ML PO (17:17)
[2024-03-26] MEDS: predniSONE 5 mg Tablet PO (17:17)
[2024-03-26] MEDS: sodium chloride 0.9% 500 ML 999 ML IV (20:45)
[2024-03-26 21:13] LABS: Glucose Point of Care 128 mg/dL (70-110)
[2024-03-26] MEDS: ipratropium-albuterol 3 mL Neb INHALATION (21:32)
[2024-03-27] VITALS (12 sets, daily range): BP systolic 104–121; BP diastolic 70–82; PULSE 73–92; RESP 15–20; TEMP 36.3–36.6; O2SAT 88–100
[2024-03-27] MEDS: sodium chloride 0.9% 500 ML 999 ML IV (00:27)
[2024-03-27] MEDS: enoxaparin 100 mg/mL Syringe SUBCUT ×2 (03:00→14:38)
[2024-03-27 06:35] LABS: Glucose Point of Care 127 mg/dL (70-110)
[2024-03-27 08:00] LABS: Basophils % 0.4 %; Eosinophils # 0.1 10^3/uL (0.0-0.8); Eosinophils % 1.6 %; Hematocrit 39.9 % (37-53); Lymphocytes # 1.3 10^3/uL (0.8-4.8); Lymphocytes % 16.5 %; Mean Corpuscular HGB Conc 29.6 g/dL (30-55); Mean Corpuscular Hemoglobin 26.5 pg (27-33); Mean Corpuscular Volume 89.5 fl (82-101); Mean Platelet Volume 10.2 fL (7.4-10.4); Monocytes # 0.5 10^3/uL (0.2-0.9); Monocytes % 6.3 %; Neutrophils # 5.69 10^3/uL (1.8-7.7); Neutrophils % 74.5 %; Nucleated Red Blood Cells % 0 %; Platelet Count 142 10^3/cmm (157-399); Red Blood Count 4.46 10^6/uL (3.85-5.65); White Blood Count 7.63 10^3/uL (3.29-11.43)
[2024-03-27] MEDS: budesonide 0.5 mg/2 mL Neb INHALATION ×2 (08:11→19:23)
[2024-03-27] MEDS: ipratropium-albuterol 3 mL Neb INHALATION ×2 (08:13→19:23)
[2024-03-27 08:22] LABS: Alanine Aminotransferase 55 U/L (0-41); Albumin Level 1.8 g/dL (3.5-5.2); Alkaline Phosphatase 115 U/L (40-130); Anion Gap 9.6 (5-19); Aspartate Amino Transferase 79 U/L (0-40); Blood Urea Nitrogen 10 mg/dL (8-23); Calcium 9.1 mg/dL (8.5-10.5); Carbon Dioxide 30 mmol/L (22-29); Chloride 102 mmol/L (98-107); Cortisol Random 15.85 ug/dL (2.47-19.5); Creatinine Clr Calc Pharmacy 101.6955; Globulin 4.8 g/dL (1.3-4.6); Glomerular Filtration Rate 112.1 mL/min (90-130); Glucose 126 mg/dL (65-115); Osmolality Calculated 287 mOsm/kg (285-295); Potassium 3.6 mmol/L (3.5-5.1); Sodium 138 mmol/L (136-145); Total Bilirubin 0.2 mg/dL (0.15-1.2); Total Protein 6.6 g/dL (6.6-8.7)
[2024-03-27] MEDS: polyethylene glycol 3350 Pkt 17 gm PO (09:47)
[2024-03-27] MEDS: pantoprazole DR 40 mg Tablet PO (09:47)
[2024-03-27] MEDS: predniSONE 5 mg Tablet PO (09:47)
[2024-03-27] MEDS: clopidogrel 75 mg Tablet PO (09:47)
[2024-03-27] MEDS: thiamine 100 mg Tablet PO ×2 (09:48)
[2024-03-27] MEDS: metoprolol tartrate 25 mg Tablet 12.5 MG PO ×2 (09:48→17:54)
[2024-03-27] MEDS: multivitamin therapeutic Tablet 1 TAB PO (09:48)
[2024-03-27] MEDS: CINACALCET HCL 30 MG 1 EACH PO ×2 (09:48→17:55)
[2024-03-27] MEDS: folic acid 1 mg Tablet PO ×2 (09:48→17:54)
[2024-03-27] MEDS: bisacodyl 5 mg Tablet PO (09:48)
[2024-03-27 11:16] LABS: Gamma Glutamyl Transferase 85 U/L (8-61); Lipase 24 U/L (13-60)
[2024-03-27 11:31] LABS: Glucose Point of Care 175 mg/dL (70-110)
--- NOTE | 2024-03-27 11:50 | PC.OT ---
OT TREATMENT ATTEMPTED. PATIENT LYING IN BED AND STATES THAT HE DOES NOT WANT TO GET UP FOR LUNCH OR PERFORM ADLS AT THIS TIME.
[2024-03-27] MEDS: insulin lispro 100 unit/1 mL SUBCUT ×3 (12:24→21:18)
[2024-03-27] MEDS: gabapentin 100 mg Capsule 200 MG PO ×2 (14:38→21:18)
[2024-03-27] MEDS: HYDROcodone-acetaminophen 10-325 mg Tablet 0.5 TAB PO ×2 (14:38→23:11)
[2024-03-27 16:44] LABS: Glucose Point of Care 166 mg/dL (70-110)
--- NOTE | 2024-03-27 17:23 | P.PN_ITS ---
Subjective 2 Subjective: Patient was seen this morning continues to complain shortness of breath with minimal exertion productive cough weakness fatigue, he tells me he is worn out he feels short of breath with minimal exertion, Vitals/I&O/Wt Last Vital Signs Temp 97.4 F L 03/27/24 15:31 Pulse 80 03/27/24 15:31 Resp 18 03/27/24 15:31 BP 115/75 03/27/24 15:31 Pulse Ox 92 03/27/24 15:31 O2 Del Method Nasal Cannula 03/27/24 15:31 O2 Flow Rate 2 03/27/24 08:14 03/27/24 03/27/24 03/27/24 06:59 14:59 22:59 Intake Total 800 / 2542 720 / 720 Output Total 600 / 600 Balance 800 / 1842 120 / 120 Weight last 48 hrs Weight 97.341 kg Weight 94.801 kg Physical Exam 2 Const: COMMON NORMALS: no acute distress and patient oriented x3 Resp: COMMON NORMALS: normal respiratory effort, No retractions and No use of accessory muscles AUSCULTATION: crackles and wheezes Cardio: COMMON NORMALS: regular rate, regular rhythm, S1 normal heart sound present and S2 normal heart sound present RATE: regular rate RHYTHM: r egular rhythm HEART SOUNDS: S1 normal heart sound present and S2 normal heart sound present GI: COMMON NORMALS: Normal to inspection, nondistended, normoactive bowel sounds present and non-tender Extremity: COMMON NORMALS: no pedal edema Neuro: COMMON NORMALS: patient oriented x3 Psych: COMMON NORMALS: mental status grossly normal Urinary Catheter Management: Scott: Cath Placed During This Visit: yes, but has since been removed by the nurse Reason for Continuing Indwelling Catheter: Accurate Measurement of Urinary Output in Critically Ill Patients Urinary Catheter Date of Insertion: 03/14/24 Urinary Catheter Time of Insertion: 14:00 Date Urinary Catheter Removed: 03/19/24 Data 03/27/24 07:48 03/27/24 07:48 A&P Assessment and plan (1) Acute hypoxic respiratory failure: (2) Sepsis: (3) Healthcare-associated pneumonia: (4) Influenza A: (5) COPD exacerbation: (6) Acute encephalopathy: (7) Altered mental status: (8) Hypercalcemia: (9) Hemoptysis: (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: (11) Chronic steroid use: (12) Physical deconditioning: Plan Hemoptysis, resolved -Likely related to anticoagulant therapy, pulmonary aspergillosis -Roughly 100 cc 03/13/2024, has not had any since -Switch to therapeutic Lovenox given concerns for interactions with voriconazole -Tessalon Perles 200 3 times daily as needed -Monitor respiratory status, monitor for cough -Given CT chest findings as below will need to evaluate for Mycobacterium infection, atypical infection, so far testing negative -QuantiFERON gold indeterminate 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 -Aspergillosis galactomannan antigen detected, 1.61 -Has a history of steroid use for COPD -CT of the chest and chest x-ray showing multilobar nodular infiltrates -Repeat chest x-rays bilateral patchy pulmonary opacities despite being on over 10 days of IV antibiotics, broad-spectrum -With persistent leukocytosis, elevated CRP, Pro-Azam, encephalopathy, resolving Plan -Infectious disease consulted -Follow fungal studies, sputum culture showing aspergillosis fumigatus -Follow-up fungal cultures -Follow Mycobacterium PCR negative -Follow AFB smears, so far negative -QuantiFERON gold indeterminate -Currently on p.o. voriconazole -Repeat CT of the chest CT/CT chest wo con [id number] IMPRESSION: 1. Trace pleural effusions. 2. Interval worsening in bilateral confluent and nodular opacities likely inflammatory. However, given the nodular quality of the opacities, follow-up to document complete resolution would be recommended. -Patient is short of breath with minimal exertion, decreased pulmonary reserve given pulmonary aspergillosis underlying COPD would recommend placement to LTAC or skilled rehab Acute encephalopathy, resolving -episodes of encephalopathy , although following commands, no focal neurologic deficits, no facial droop no slurring words has a flat affect -Likely secondary to hypercalcemia, aspergillosis, pneumonia, hypoxia, ICU delirium, withdrawal -Had a stroke alert 03/15/2024 no focal neurologic deficits, does have severe left internal carotid artery stenosis, continue Plavix, statin, Eliquis -Possibly related to hypercalcemia? Calcium 10 -Possible narcotic and benzo associated withdrawal is on Xanax 1 mg 3 times daily as needed, hydrocodone 10-325 every 6 hours as needed. Will continue home medications but Xanax 0.5 mg, hydrocodone 5 due to concerns for polypharmacy -Other concern would be more invasive aspergillosis infection such as fungal meningitis, continue voriconazole will consider lumbar puncture based on clinical progress but would have to hold Eliquis and Plavix for at least 5 days, does have cardiovascular disease -Initial CT head within normal limits -Repeat CT head, CT neck no acute findings -MRI brain no acute findings -Troponin series, ammonia levels within normal limits -No hypercarbia on ABG -Neurochecks, NIH stroke scale, monitor mentation closely Left internal carotid artery stenosis, severe -Will have to have patient follow-up with neurology, vascular as outpatient -Resume Plavix, statin, Lovenox Hypercalcemia, resolving -With concerns for encephalopathy -With hyperparathyroidism, PTH 165 -Elevated ionized calcium -Vitamin D pending -Ultrasound thyroid no acute findings -Will rule out lymphoma CT chest abdomen pelvis with IV contrast, does have enlarged subcarinal lymph node, will need to be evaluated as outpatient repeat CT scan -Lasix 40 mg IV once today -calcitonin -cinacalcet -Will consider bisphosphonate -Monitor serum calcium, Atrial fibrillation -On metoprolol -Loveno Fall -With superficial laceration -Monitor -Repeat CT head, CT neck no acute findings -MRI brain no acute findings Acute hypoxic respiratory failure -Healthcare associated pneumonia -Influenza A completed treatment -COPD exacerbation -With evidence of sepsis, sepsis features met given hypoxia up to 5 L, tachycardia, leukocytosis source of infection pneumonia, influenza A -CT of the chest on 03/04/2024 CT/CT chest wo con [id number] IMPRESSION: 1. Scattered reticular and ground-glass opacities throughout the lungs likely represent multifocal pneumonia in the acute setting. Recommend imaging follow-up after clinical treatment to evaluate for resolution. 5. Enlarged subcarinal lymph node is favored to be reactive. Attention on follow-up recommended. Plan -Monitor respiratory status closely -Completed Tamiflu -Broaden antibiotic coverage to vancomycin, meropenem, azithromycin discontinued -Prednisone 40 mg daily, discontinued -DuoNeb -Budesonide -Sputum culture -Blood culture -CHF exacerbation, Lasix as needed -See -Full code -Lovenox CAD status post stenting Resume Plavix Chronic pain -Continue hydrocodone -Xanax currently on hold as patient is on voriconazole Plan for today continue p.o. voriconazole, monitor LFTs continues to be short of breath with minimal exertion decreased pulmonary reserve, high risk of going home at this time, recommend placement to LTAC or intermediate care facility, will work on placement, patient in agreement, PDMP PDMP Reviewed: Last Reviewed 03/10/24 15:03 by Gagandeep Allne MD Attestations 2 Medical Necessity Statement*: Patient requires hospitalization for acute hypoxic respiratory failure secondary to pulmonary aspergillosis decreased pulmonary reserve, deconditioning Diagnoses Acute hypoxic respiratory failure J96.01 Sepsis A41.9 Healthcare-associated pneumonia J18.9 Influenza A J10.1 COPD exacerbation J44.1 Acute encephalopathy G93.40 Altered mental status R41.82 Hypercalcemia E83.52 Hemoptysis R04.2 Pulmonary aspergillosis B44.1 Chronic steroid use Physical deconditioning R53.81
[2024-03-27 20:45] LABS: Glucose Point of Care 173 mg/dL (70-110)
[2024-03-28] MEDS: enoxaparin 100 mg/mL Syringe SUBCUT (03:35)
[2024-03-28 04:18] VITALS: BP 89/58; PULSE 78; RESP 15; O2SAT 90
[2024-03-28 06:00] VITALS: PULSE 88; BMI 36.1
[2024-03-28 06:32] LABS: Glucose Point of Care 115 mg/dL (70-110)
[2024-03-28 07:27] LABS: Basophils % 0.4 %; Eosinophils # 0.1 10^3/uL (0.0-0.8); Eosinophils % 1.4 %; Hematocrit 39.4 % (37-53); Lymphocytes # 1.2 10^3/uL (0.8-4.8); Lymphocytes % 17.5 %; Mean Corpuscular HGB Conc 30.2 g/dL (30-55); Mean Corpuscular Hemoglobin 26.6 pg (27-33); Mean Corpuscular Volume 88.1 fl (82-101); Mean Platelet Volume 10.2 fL (7.4-10.4); Monocytes # 0.5 10^3/uL (0.2-0.9); Monocytes % 7.4 %; Neutrophils # 5.12 10^3/uL (1.8-7.7); Neutrophils % 72.5 %; Nucleated Red Blood Cells % 0 %; Platelet Count 162 10^3/cmm (157-399); Red Blood Count 4.47 10^6/uL (3.85-5.65); White Blood Count 7.07 10^3/uL (3.29-11.43)
[2024-03-28 07:44] VITALS: BP 117/77; PULSE 65; RESP 18; TEMP 36.6; O2SAT 94
[2024-03-28 07:49] VITALS: PULSE 85; RESP 18; O2SAT 95
[2024-03-28] MEDS: ipratropium-albuterol 3 mL Neb INHALATION (07:49)
[2024-03-28] MEDS: budesonide 0.5 mg/2 mL Neb INHALATION (07:49)
[2024-03-28 07:51] LABS: Alanine Aminotransferase 53 U/L (0-41); Albumin Level 1.8 g/dL (3.5-5.2); Alkaline Phosphatase 115 U/L (40-130); Aspartate Amino Transferase 66 U/L (0-40); Blood Urea Nitrogen 10 mg/dL (8-23); Calcium 8.8 mg/dL (8.5-10.5); Carbon Dioxide 29 mmol/L (22-29); Chloride 102 mmol/L (98-107); Creatinine Clr Calc Pharmacy 101.6955; Globulin 4.7 g/dL (1.3-4.6); Glomerular Filtration Rate 112.1 mL/min (90-130); Glucose 113 mg/dL (65-115); Osmolality Calculated 284 mOsm/kg (285-295); Sodium 137 mmol/L (136-145); Total Bilirubin 0.2 mg/dL (0.15-1.2); Total Protein 6.5 g/dL (6.6-8.7)
[2024-03-28] MEDS: pantoprazole DR 40 mg Tablet PO (08:11)
[2024-03-28] MEDS: HYDROcodone-acetaminophen 10-325 mg Tablet 0.5 TAB PO (08:11)
[2024-03-28] MEDS: bisacodyl 5 mg Tablet PO (08:11)
[2024-03-28] MEDS: thiamine 100 mg Tablet PO (08:12)
[2024-03-28] MEDS: clopidogrel 75 mg Tablet PO (08:12)
[2024-03-28] MEDS: CINACALCET HCL 30 MG 1 EACH PO (08:12)
[2024-03-28] MEDS: predniSONE 5 mg Tablet PO (08:12)
[2024-03-28] MEDS: folic acid 1 mg Tablet PO (08:12)
[2024-03-28] MEDS: metoprolol tartrate 25 mg Tablet 12.5 MG PO (08:12)
[2024-03-28] MEDS: gabapentin 100 mg Capsule 200 MG PO (08:12)
[2024-03-28] MEDS: multivitamin therapeutic Tablet 1 TAB PO (08:12)
[2024-03-28] MEDS: polyethylene glycol 3350 Pkt 17 gm PO (08:13)
--- NOTE | 2024-03-28 10:30 | PM.DCS ---
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 Patient tells me that recently he was discharged from [facility] but he continued to have shortness of breath, cough, subjective fevers, chills, fatigue, malaise, denies any chest pain, no palpitations, no calf pain, no calf swelling, no sick contacts, he lives at home by himself, no falls Please look at my last progress note for further detail, as patient has a prolonged hospitalization Patient was admitted to [facility] for acute hypoxic respiratory failure secondary to pulmonary aspergillosis, had prolonged ICU stay, infectious disease was consulted placed on voriconazole, overall clinically improved, moved to medical floors will be discharged on p.o. voriconazole with close follow-up with infectious disease as outpatient. Patient's voriconazole levels from 03/26/2024 are pending. Patient is to follow with pulmonary as outpatient for consideration of bronchoscopy as CT of the chest shows bilateral confluent and nodular opacities, will need pulmonary evaluation. Patient' hospitalization was complicated by hemoptysis, anticoagulation was initially held, hemoptysis resolved anticoagulation resumed, has not had any recurrent hemoptysis episodes Acute encephalopathy likely secondary to hypoxia, hypercalcemia, pulmonary aspergillosis, ICU delirium, withdrawal, has resolved Left internal carotid artery stenosis, follow-up with neurology, vascular surgery as outpatient Hyperparathyroidism, hypercalcemia, continue Cinacalcet on discharge, follow-up with Dr. Castillo as outpatient Chronic pain his hydrocodone dose was reduced, Xanax has been held due to interaction with voriconazole Multiple attempts were made to place patient to senior living facility for rehab due to deconditioning from prolonged hospitalization/respiratory failure/pulmonary aspergillosis, and diminished pulmonary reserve given underlying COPD and pulmonary aspergillosis however patient's insurance company has declined. Attempts were made to place him to LTAC facility or inpatient rehab however patient was upset about being here in the hospital for a prolonged period of time, upset at insurance company's decision, did not want to wait any further, and wanted to go home. Patient will be discharged home, with home health care, with the help of his sister at home. Physical Exam Const: COMMON NORMALS: no acute distress and patient oriented x3 Resp: COMMON NORMALS: normal respiratory effort, No retractions, No use of accessory muscles and clear to auscultation bilaterally AUSCULTATION: clear to auscultation bilaterally Cardio: COMMON NORMALS: regular rate, regular rhythm, S1 normal heart sound present and S2 normal heart sound present RATE: regular rate RHYTHM: regular rhythm HEART SOUNDS: S1 normal heart sound present and S2 normal heart sound present GI: COMMON NORMALS: Normal to inspection, nondistended, normoactive bowel sounds present and non-tender Extremity: COMMON NORMALS: no pedal edema Neuro: COMMON NORMALS: patient oriented x3 Psych: COMMON NORMALS: mental status grossly normal Urinary Catheter Management: Scott: Cath Placed During This Visit: yes, but has since been removed by the nurse Reason for Continuing Indwelling Catheter: Accurate Measurement of Urinary Output in Critically Ill Patients Urinary Catheter Date of Insertion: 03/14/24 Urinary Catheter Time of Insertion: 14:00 Date Urinary Catheter Removed: 03/19/24 Discharge Data Studies Completed and Pending Completed Studies During Hospitalization Category Date Time Status CT cervical spin wo con* [id number] Routine Cat Scan 03/10/24 12:[address] chest abdomen pelvis [CT chest abdpel w/*[id number] Cat Scan 03/11/24 14:56 Completed ] Stat CT chest wo con [id number] Routine Cat Scan 03/25/24 09:[address] head wo con* 11134 Routine Cat Scan 03/10/24 12:[address] head wo con* [id number] Routine Cat Scan 03/14/24 09:[address] head wo con* [id number] Stat Cat Scan 03/10/24 02:[address] head wo con* [id number] Stat Cat Scan 03/15/24 04:09 Completed CTA head neck [CT angio headneck* [id number]/[id number]] Stat Cat Scan 03/15/24 04:19 Completed CXRP [XR chest 1V portable [id number]] Routine Exams 03/22/24 08:57 Completed XR chest 1V [id number] Stat Exams 03/08/24 15:23 Completed XR chest 1V portable 05630 Routine Exams 03/13/24 07:00 Completed XR chest 1V portable 79049 Routine Exams 03/15/24 07:00 Completed XR chest 1V portable 41128 Routine Exams 03/16/24 07:55 Completed Fungal Culture not HR/SK/BL Routine Lab 03/12/24 09:16 Completed Fungal Isolate Identification Routine Lab 03/08/24 17:48 Completed MR head wo con* 23008 Routine MRI 03/11/24 09:59 Completed US thyroid 65903 Routine Ultrasound 03/11/24 15:01 Completed Pending at discharge Category Date Time Status AFB [Mycobacteria, Culture w/Fluor] DAILY Lab 03/13/24 09:26 Results AFB [Mycobacteria, Culture w/Fluor] Routine Lab 03/12/24 18:37 Uncollected AFB [Mycobacteria, Culture w/Fluor] Stat Lab 03/12/24 18:37 Uncollected AFB [Mycobacteria, Culture w/Fluor] Stat Lab 03/17/24 01:40 Results Complete Blood Count w/Auto AM LABS Lab 03/29/24 04:00 Ordered Complete Blood Count w/Auto AM LABS Lab 03/30/24 04:00 Ordered Miscellaneous Test Stat Lab 03/26/24 09:14 Received Radiology Impressions Cervical Spine CT 03/10/24 12:36 IMPRESSION: 1. No acute posttraumatic changes in the cervical spine. 2. Nodular infiltrates in the left lung apex, likely infectious. Head MRI 03/11/24 09:59 IMPRESSION: No acute infarct, intracranial bleed or intracranial mass. Chest/Abdomen/Pelvis CT 03/11/24 14:56 IMPRESSION: Multilobar nodular infiltrates, suggestive of pneumonia. IMPRESSION: 1. No acute intra-abdominal process. 2. Hepatic steatosis. 3. Partially thrombosed infrarenal abdominal aortic aneurysm measuring 4 cm. COMMENTS: Consistent with the [employer]'s Incidental Findings Committee white paper (J Am Dee Dee Radiol 2018): Any incidental renal lesion less than 1 cm or classified as too small to characterize, or any incidental cystic renal lesion characterized as simple-appearing, is likely benign. No follow-up imaging is recommended for these lesions per consensus recommendations based on imaging criteria. Thyroid Ultrasound 03/11/24 15:01 IMPRESSION: No thyroid nodules or lymphadenopathy. Head CT 03/15/24 04:09 IMPRESSION: No acute findings. Head/Neck CTA 03/15/24 04:19 IMPRESSION: No large vessel stenosis or occlusion. IMPRESSION: 1. Severe proximal left internal carotid artery stenosis secondary to predominantly soft plaque just after the bifurcation. 2. Lung findings which can be seen in acute on chronic bronchitis with underlying advanced COPD changes. REFERENCES: NASCET CRITERIA. The degree of stenosis in the cervical segment of the internal carotid artery is based on NASCET criteria. Normal is no stenosis. Mild is less than 50% stenosis. Moderate is 50-69% stenosis. Severe is 70% to 99% stenosis. Total occlusion is no detectable patent lumen. ADDENDUM: 03/15/24623 ADDENDUM: Case was discussed with the ordering provider on 03/15/2024 at 5:50 a.m. Chest X-Ray 03/22/24 08:57 IMPRESSION: 1. Widespread bilateral pulmonary infiltrates. Infiltrates have worsened somewhat in the bilateral upper lobes since the last exam. No other change. Chest CT 03/25/24 09:22 IMPRESSION: 1. Trace pleural effusions. 2. Interval worsening in bilateral confluent and nodular opacities likely inflammatory. However, given the nodular quality of the opacities, follow-up to document complete resolution would be recommended. Laboratory Results WBC 7.07 10^3/uL (3.29-11.43) 03/28/24 07:12 Corrected WBC Cancelled 03/19/24 05:18 RBC 4.47 10^6/uL (3.85-5.65) 03/28/24 07:12 Hgb 11.90 g/dL (11.27-16.99) 03/28/24 07:12 Hct 39.4 % (37-53) 03/28/24 07:12 MCV 88.1 fl (82-101) 03/28/24 07:12 MCH 26.6 pg (27-33) L 03/28/24 07:12 MCHC 30.2 g/dL (30-55) 03/28/24 07:12 RDW 15.0 % (12.1-15.1) 03/28/24 07:12 Plt Count 162 10^3/cmm (157-399) 03/28/24 07:12 MPV 10.2 fL (7.4-10.4) 03/28/24 07:12 Gran % Cancelled 03/19/24 05:18 Neut % (Auto) 72.5 % 03/28/24 07:12 Lymph % (Auto) 17.5 % 03/28/24 07:12 Hardy % (Auto) 7.4 % 03/28/24 07:12 Eos % (Auto) 1.4 % 03/28/24 07:12 Baso % (Auto) 0.4 % 03/28/24 07:12 Neut # (Auto) 5.12 10^3/uL (1.8-7.7) 03/28/24 07:12 Lymph # (Auto) 1.2 10^3/uL (0.8-4.8) 03/28/24 07:12 Hardy # (Auto) 0.5 10^3/uL (0.2-0.9) 03/28/24 07:12 Eos # (Auto) 0.1 10^3/uL (0.0-0.8) 03/28/24 07:12 Baso # (Auto) 0.0 10^3/uL (0.0-0.1) 03/28/24 07:12 Absolute Gran (auto) Cancelled 03/19/24 05:18 Nucleated RBC % (auto) 0 % 03/28/24 07:12 Nucleated RBCs # 0.0 /100WBC 03/28/24 07:12 PT 15.80 SECONDS (12.1-14.9) H 03/13/24 10:11 INR 1.18 (0.8-1.2) 03/13/24 10:11 Specimen Type Arterial 03/16/24 15:41 Sample Site Radial, left 03/16/24 15:41 ABG pH 7.46 (7.35-7.45) H 03/16/24 15:41 ABG pCO2 45.9 mmHg (35-45) H 03/16/24 15:41 ABG pO2 81.8 mmHg (80.0-100.0) 03/16/24 15:41 ABG PO2/FiO2 Ratio 255 03/16/24 15:41 ABG HCO3 32.9 mmol/L (22-26) H 03/16/24 15:41 ABG O2 Saturation 93.3 03/10/24 09:34 ABG Base Excess 7.7 mmol/L (-2.0-2.0) H 03/16/24 15:41 Wilber Test Pos 03/16/24 15:41 A-a O2 Gradient 7.5 mmHg (5-10) 03/10/24 09:34 Hematocrit 50.9 % (42-52) 03/16/24 15:41 Hgb O2 Saturation 91.3 % (95-100) L 03/10/24 09:34 Carboxyhemoglobin 1.3 %THgb (0.4-20.1) 03/10/24 09:34 Methemoglobin 0.9 % (0.4-1.5) 03/10/24 09:34 Total Hemoglobin 16.0 g/dL (14-18) 03/10/24 09:34 Sodium 137.0 mmol/L (131-143) 03/10/24 09:34 Potassium 4.3 mmol/L (3.5-5.0) 03/10/24 09:34 Glucose 391.0 mg/dL (70-115) H 03/10/24 09:34 Ionized Calcium 1.6 mmol/L (1.1-1.4) H 03/10/24 09:34 O2 Delivery Device Nc 03/16/24 15:41 O2 Liters/Min 3.0 % 03/16/24 15:41 FiO2 32.0 % 03/16/24 15:41 Endoscopy Rn ID Cak 03/16/24 15:41 Sodium 137 mmol/L (136-145) 03/28/24 07:12 Potassium 4.0 mmol/L (3.5-5.1) 03/28/24 07:12 Chloride 102 mmol/L (98-107) 03/28/24 07:12 Carbon Dioxide 29 mmol/L (22-29) 03/28/24 07:12 Anion Gap 10.0 (5-19) 03/28/24 07:12 BUN 10 mg/dL (8-23) 03/28/24 07:12 Creatinine 0.7 mg/dL (0.7-1.2) 03/28/24 07:12 GFR Calculation 112.1 mL/min (90-130) 03/28/24 07:12 Glucose 113 mg/dL (65-115) 03/28/24 07:12 POC Glucose 115 mg/dL (70-110) H 03/28/24 06:28 Calculated Osmolality 284 mOsm/kg (285-295) L 03/28/24 07:12 Lactic Acid 1.3 mmol/L (0.5-2.2) 03/16/24 16:53 Lactic Acid (Sepsis) 2.3 mmol/L (0.5-2.2) H 03/08/24 20:15 Lactate 1.2 mmol/L (0.5-2.2) 03/15/24 04:02 Calcium 8.8 mg/dL (8.5-10.5) 03/28/24 07:12 Ionized Calcium Keesha 1.7 mmol/L (1.1-1.4) H 03/14/24 03:15 Phosphorus 1.9 mg/dL (2.5-4.5) L 03/20/24 09:28 Magnesium 2.1 mg/dL (1.7-2.3) 03/20/24 09:28 Total Bilirubin 0.2 mg/dL (0.15-1.2) 03/28/24 07:12 Direct Bilirubin 0.20 mg/dL (0.00-0.30) 03/25/24 02:48 GGT 85 U/L (8-61) H 03/27/24 07:48 AST 66 U/L (0-40) H 03/28/24 07:12 ALT 53 U/L (0-41) H 03/28/24 07:12 Alkaline Phosphatase 115 U/L (40-130) 03/28/24 07:12 Ammonia 48 umol/L (16-60) 03/16/24 16:53 Lactate Dehydrogenase 296 U/L (135-225) H 03/12/24 12:56 Troponin T Baseline 45 ng/L (0-15) H 03/10/24 15:23 Troponin T 120 Minute 42.60 ng/L (0-15) H 03/10/24 17:14 Delta Troponin T -2.40 ABS# (0-10) L 03/10/24 17:14 Troponin T Hi Sens 6Hr 45.28 ng/L (0-15) H 03/10/24 21:28 Troponin T Hi Sens 6Hr Delta 0.28 ng/L (0-12) 03/10/24 21:28 C-Reactive Protein 156.8 mg/L (0.0-4.9) H 03/17/24 04:20 NT-Pro-B Natriuret Pep 1030 pg/mL (0-125) H 03/20/24 09:28 Total Protein 6.5 g/dL (6.6-8.7) L 03/28/24 07:12 Albumin 1.8 g/dL (3.5-5.2) L 03/28/24 07:12 Globulin 4.7 g/dL (1.3-4.6) H 03/28/24 07:12 Triglycerides 258 mg/dL (0-150) H 03/08/24 20:18 Cholesterol 135 mg/dL (0-200) 03/08/24 20:18 LDL Cholesterol, Calc 50 mg/dL (50-129) 03/08/24 20:18 HDL Cholesterol 33 mg/dL (60-100) L 03/08/24 20:18 LDL/HDL Ratio 1.52 RATIO (0.00-3.22) 03/08/24 20:18 Cholesterol/HDL Ratio 4.09 mg/dL (1.0-5.00) 03/08/24 20:18 Lipase 24 U/L (13-60) 03/27/24 07:48 25-OH Vitamin D Total 75 pg/mL (18-72) H 03/10/24 17:14 1,25 Dihydroxy Vit D2 <8 pg/mL 03/10/24 17:14 1,25 Dihydroxy Vit D3 75 pg/mL 03/10/24 17:14 Procalcitonin 0.23 ng/mL (0-0.5) 03/17/24 04:20 TSH 0.57 uIU/mL (0.27-4.20) 03/08/24 20:18 PTH Intact 130.2 pg/mL (15-65) H 03/14/24 03:15 Calcium (PTH Intact) 13.3 mg/dL (8.5-10.5) H 03/14/24 03:15 Random Cortisol 15.85 ug/dL (2.47-19.5) 03/27/24 07:48 Urine Color Yellow (Yellow) 03/09/24 03:18 Urine Appearance Clear (CLEAR) 03/09/24 03:18 Urine pH 5.0 (5-7) 03/09/24 03:18 Ur Specific [place] 1.028 (1.005-1.030) 03/09/24 03:18 Urine Protein 1+ (Negative) A 03/09/24 03:18 Urine Glucose (UA) 3+ (Normal) H 03/09/24 03:18 Urine Ketones Trace (Negative) 03/09/24 03:18 Urine Blood Trace (Negative) A 03/09/24 03:18 Urine Nitrate Negative (Negative) 03/09/24 03:18 Urine Bilirubin Negative (Negative) 03/09/24 03:18 Urine Urobilinogen 1.0 mg/dL (Negative) 03/09/24 03:18 Ur Leukocyte Esterase Negative (Negative) 03/09/24 03:18 Urine RBC 0-2 /hpf (0-2) 03/09/24 03:18 Urine WBC 0-5 /hpf (0-5) 03/09/24 03:18 Ur Squamous Epith Cells 0-5 /hpf (0-5) 03/09/24 03:18 Amorphous Sediment Not Reportable 03/09/24 03:18 Urine Bacteria None seen /hpf (NONE) 03/09/24 03:18 Hyaline Casts 3.30 /lpf 03/09/24 03:18 Fluid Source Cancelled 03/17/24 11:15 Vancomycin Trough 14.9 ug/mL (10-15) 03/13/24 18:55 Blastomyces Ag Result None detected ng/mL 03/12/24 12:56 Blastomyces Ag Interp Negative 03/12/24 12:56 Coccidioides IgG Ab Negative 03/12/24 12:56 Coccidioides IgM Ab Negative 03/12/24 12:56 Coronavirus (PCR) Negative (Negative) 03/08/24 16:04 U Histop Galact Ag Qnt <0.2 ng/mL 03/12/24 15:25 HIV 1&2 Ab & HIV 1 Ag Non-reactive (Non-Reactiv) 03/18/24 05:04 HIV 1&2 Antibody Non-reactive (Non-Reactiv) 03/18/24 05:04 Influenza A (PCR) Positive (Negative) 03/08/24 16:04 Influenza Type B (PCR) Negative (Negative) 03/08/24 16:04 Myco Comp PCR Spec Srce Sputum 03/13/24 21:40 Pneumocystis Source See note 03/17/24 11:15 Pneumocystis DNA (PCR) Cancelled 03/17/24 11:15 Pneumocyst Special Info Cancelled 03/17/24 11:15 Pneumocyst jirovecii PCR Not detected 03/17/24 11:15 A. galactomannan Ag EIA Detected A 03/12/24 12:56 A. galactomannan Ag Idx 1.61 03/12/24 12:56 RSV (PCR) Negative (Negative) 03/08/24 16:04 TB (QFT) Gold In Tube Indeterminate (NEGATIVE) A 03/13/24 10:11 TB Test (QFT) Nil 0.01 IU/mL 03/13/24 10:11 TB Test (QFT) Mitogen 0.10 IU/mL 03/13/24 10:11 TB Test Mitogen - Nil 0.00 IU/mL 03/13/24 10:11 TB Test TB -Nil 0.00 IU/mL 03/13/24 10:11 Beta-(1,3)-D-Glucan >500 pg/ml 03/12/24 12:56 B-(1,3)-D-Glucan Intrp Positive (Negative) A 03/12/24 12:56 M.tuberculosis Cmplx PCR Not detected 03/13/24 21:40 Misc Test Reference 6.4 03/20/24 09:28 Vitals Last Vital Signs Temp 97.9 F 03/28/24 07:44 Pulse 85 03/28/24 07:49 Resp 18 03/28/24 07:49 BP 117/77 02/05/25 07:44 Pulse Ox 95 03/28/24 07:49 O2 Del Method Nasal Cannula 03/28/24 07:49 O2 Flow Rate 2 03/28/24 08:00 Discharge Plan Discharge Patient Disposition: Home Condition: Stable Prescriptions: New cinacalcet 30 mg tablet 30 mg PO BID 30 Days Qty: 60 0RF prednisone 5 mg Tablet 5 mg PO DAILY 7 Days Qty: 7 0RF clopidogrel 75 mg Tablet 75 mg PO DAILY 30 Days Qty: 30 0RF benzonatate 100 mg Capsule 100 mg PO TID PRN (Reason: cough) 7 Days Qty: 21 0RF folic acid 1 mg Tablet 1 mg PO BID 30 Days Qty: 60 0RF polyethylene glycol 3350 17 gram Powder In Packet 17 g PO DAILY 30 Days Qty: 30 0RF thiamine mononitrate (vit B1) [Vitamin B-1 (mononitrate)] 100 mg Tablet 100 mg PO DAILY 30 Days Qty: 30 0RF insulin aspart U-100 [Novolog FlexPen U-100 Insulin] 100 unit/mL (3 mL) insulin pen See Rx Instructions .ROUTE .COMPLEX MDD 20 Qty: 15 0RF Rx Instructions: Inject, subcut, 3 times daily, after meals, based on sliding scale provided (DME) glucometer testing kit See Rx Instructions .Route .MEDSUPPLY Qty: 1 0RF Rx Instructions: Glucometer testing kit, check bs tid Lancets #100 Strips #100 voriconazole 200 mg tablet 200 mg PO .bid @0600, 1800 90 Days Qty: 180 0RF Rx Instructions: administer on empty stomach, at least 1 hour before or after meal(s) Continued albuterol sulfate 2.5 mg /3 mL (0.083 %) solution for nebulization 2.5 mg inhalation Q4H PRN (Reason: shortness of breath or wheezing) Qty: 75 6RF (DME) Nebulizer machine and supplies See Rx Instructions .ROUTE .MEDSUPPLY Qty: 1 11RF Rx Instructions: As directed clopidogrel [Plavix] 75 mg tablet 75 mg PO DAILY@09 Qty: 90 3RF albuterol sulfate 90 mcg/actuation HFA aerosol inhaler See Rx Instructions .ROUTE .COMPLEX Qty: 8.5 5RF Dose Instruction: INHALE TWO PUFFS EVERY 4 HOURS NEEDED FOR help with breathing Rx Instructions: INHALE TWO PUFFS EVERY 4 HOURS NEEDED FOR help with breathing amlodipine 5 mg tablet 5 mg PO DAILY Changed hydrocodone-acetaminophen 10-325 mg tablet 0.5 tab PO Q6H 5 Days Qty: 20 0RF gabapentin 400 mg capsule 200 mg PO TID Qty: 90 1RF Eliquis 5 mg tablet 2.5 mg PO BID Qty: 60 11RF metoprolol tartrate 25 mg tablet 12.5 mg PO BID 30 Days Qty: 30 0RF Rx Instructions: TAKE 1 TABLET BY MOUTH TWICE DAILY Discontinued alprazolam 1 mg tablet 1 mg PO TID PRN (Reason: anxiety) Qty: 90 2RF losartan 25 mg tablet 25 mg PO DAILY Qty: 90 3RF Discharge Orders: Discharge Order (Routine); Ordered 03/28/24 Ordered By: Gagandeep Allen Other Ambulatory Orders: DME: Walker (Order) Location: None Selected Ordered By: Gagandeep Allen DME: Juan Carlos (Order) Location: None Selected Ordered By: Gagandeep Allen Referrals: Reena Rivas MD [Hospitalist] - 1 month (We have notified your physician's clinic of the need for a follow-up appointment to be scheduled. If you have not heard from them within the next 2 business days, please call them directly. ) Thomas Josue MD, MBBS, MPH [Referring] - 1 month (pulmonary aspergilosis. Sent referral We have notified your physician's clinic of the need for a follow-up appointment to be scheduled. If you have not heard from them within the next 2 business days, please call them directly. ) Discharge Diet: Cardiac Discharge Activity: Resume usual activity Patient Instructions: Opioid Safety Activity Restrictions/Additional Instructions: - If you develop fevers or chills or worsening shortness of breath please go to the emergency room -If you have hemoptysis please immediately call [phone] -See primary care provider in 1 week Discharge Attestations Time Spent in Discharge Care*: greater than 30 min Status at Discharge: Cognitive status at discharge: cognitively intact, Behavioral status at discharge: cooperative, Quality Metrics Clinical Quality Measures [ No reported AMI, CVA or VTE this stay] Coding Level of Care Code 03007 Total time (in minutes) for Discharge: 45 Diagnoses Acute hypoxic respiratory failure J96.01 Sepsis A41.9 Healthcare-associated pneumonia J18.9 Influenza A J10.1 COPD exacerbation J44.1 Acute encephalopathy G93.40 Altered mental status R41.82 Hypercalcemia E83.52 Hemoptysis R04.2 Pulmonary aspergillosis B44.1 Chronic steroid use Physical deconditioning R53.81
[2024-03-28 11:14] LABS: Glucose Point of Care 224 mg/dL (70-110)
== END 2024-03-28 12:05 | disposition home or self-care (01) | DRG 871 ==
LOC: ER 17:25 → MEDSURG 19:38 → ICU 03-12 12:34 → MEDSURG 03-19 16:00
PROVIDERS: Student in an Organized Health Care Education/Training Program; Admitting Provider Family Medicine; Emergency Provider Emergency Medicine; Visit Provider Family Medicine
DX: A41.9 Sepsis, unspecified organism (principal); G93.41 Metabolic encephalopathy; J16.8 Pneumonia due to other specified infectious organisms; J96.01 Acute respiratory failure with hypoxia; I50.33 Acute on chronic diastolic (congestive) heart failure; J44.1 Chronic obstructive pulmonary disease with (acute) exacerbation; J44.0 Chronic obstructive pulmonary disease with (acute) lower respiratory infection; B48.8 Other specified mycoses; R04.2 Hemoptysis; B44.1 Other pulmonary aspergillosis; F05 Delirium due to known physiological condition; J10.1 Influenza due to other identified influenza virus with other respiratory manifestations; E83.52 Hypercalcemia; Z79.52 Long term (current) use of systemic steroids; I25.10 Atherosclerotic heart disease of native coronary artery without angina pectoris; Z95.5 Presence of coronary angioplasty implant and graft; D64.9 Anemia, unspecified; Z86.718 Personal history of other venous thrombosis and embolism; Z86.711 Personal history of pulmonary embolism; I35.0 Nonrheumatic aortic (valve) stenosis; Z79.01 Long term (current) use of anticoagulants; I11.0 Hypertensive heart disease with heart failure; I65.22 Occlusion and stenosis of left carotid artery; D69.6 Thrombocytopenia, unspecified; Z77.120 Contact with and (suspected) exposure to mold (toxic); J43.9 Emphysema, unspecified; F41.1 Generalized anxiety disorder; I71.43 Infrarenal abdominal aortic aneurysm, without rupture; Z79.51 Long term (current) use of inhaled steroids; S01.01XA Laceration without foreign body of scalp, initial encounter; W18.30XA Fall on same level, unspecified, initial encounter; Y92.230 Patient room in hospital as the place of occurrence of the external cause; Z87.891 Personal history of nicotine dependence; G89.29 Other chronic pain; M54.9 Dorsalgia, unspecified; I25.2 Old myocardial infarction; K21.9 Gastro-esophageal reflux disease without esophagitis; Z79.02 Long term (current) use of antithrombotics/antiplatelets; Z79.891 Long term (current) use of opiate analgesic; E21.3 Hyperparathyroidism, unspecified
CPT/HCPCS: 12345; 36415; 36416; 36600; 51702; 70450; 70496; 70498; 70551; 71045; 71250; 71260; 72125; 74177; 76536; 80048; 80051; 80053; 80061; 80076; 80202; 81001; 82140; 82310; 82330; 82533; 82652; 82803; 82805; 82962; 82977; 83605; 83615; 83690; 83735; 83880; 83970; 84100; 84145; 84443; 84484; 85025; 85610; 86140; 86480; 86635; 87015; 87040; 87070; 87102; 87106; 87116; 87205; 87206; 87305; 87385; 87449; 87556; 87637; 87798; 87799; 87801; 87806; 92507; 92523; 92526; 92610; 93005; 94640; 94664; 94668; 96365; 96372; 96374; 96375; 96376; 97110; 97116; 97163; 97167; 97530; 97535; 99285; J0456; J0630; J1100; J1650; J1815; J1940; J1956; J2185; J2470; J2919; J3370; J3411; J3465; J7040; J7050; J7512; J7613; J7626

== ENCOUNTER 2024-04-20 08:16 | Outpatient (CLI) | payer MEDICAID, MEDICARE, SELFPAY ==
--- NOTE | 2024-04-20 08:30 | CTR_ITS ---
PROCEDURE INFORMATION: Exam: CT Chest Without Contrast; Diagnostic Exam date and time: 04/20/2024 8:23 AM Age: 68 years old Clinical indication: Condition or disease; Lung condition and disease; Pneumonia; Additional info: Follow up invasive aspergillus pneumonia, follow up invasive aspergillus pneumonia. Please perform TECHNIQUE: Imaging protocol: Diagnostic computed tomography of the chest without contrast. Radiation optimization: All CT scans at this facility use at least one of these dose optimization techniques: automated exposure control; mA and/or kV adjustment per patient size (includes targeted exams where dose is matched to clinical indication); or iterative reconstruction. COMPARISON: CT chest con [id number] 03/25/2024 10:31 AM RADIATION DOSE METRICS: Total DLP (mGy-cm): 507.79 FINDINGS: Limitations: Examination is limited for the evaluation of vascular structures due to the lack of intravenous contrast. Lungs: Interval improvement in aeration of the lungs and of the multifocal pneumonia. There is density in the right apical region corresponding to the previously noted site of emphysematous disease, this may represent fluid in this region, recommend follow-up to confirm resolution. Pleural spaces: No pleural effusion or pneumothorax noted. Heart: There is no cardiomegaly. There is no pericardial effusion. Coronary arteries: Moderate coronary arterial calcification, indicating the presence of coronary artery disease. Lymph nodes: Multiple mediastinal nodes which are likely reactive. Vasculature: Dilatation of the ascending aorta measuring 4.3 cm. There is atherosclerotic disease. Bones/joints: There is degenerative disease of the spine. No acute osseous abnormality. Soft tissues: Unremarkable. CT/CT chest con [id number] IMPRESSION: 1. Interval improvement in the multifocal pneumonia with consolidation of the opacification of the multiple upper lobe cysts which again is likely due to superimposed infection, recommend follow-up to confirm complete resolution. 2. Moderate coronary arterial calcification, indicating the presence of coronary artery disease. If the patient has associated symptoms recommend management as per chest pain guidelines. If the patient is asymptomatic consider reviewing modifiable cardiovascular risk factors and managing as per guidelines for primary prevention COMMENTS: The presence of pulmonary emphysema on CT is an independent risk factor for lung cancer. In the absence of a history or active diagnosis of lung cancer, it is recommended that this patient with emphysema be evaluated for enrollment in a low dose CT lung cancer screening program.
[2024-04-20 09:23] LABS: Alanine Aminotransferase 15 U/L (0-41); Albumin Level 3.6 g/dL (3.5-5.2); Alkaline Phosphatase 89 U/L (40-130); Aspartate Amino Transferase 12 U/L (0-40); Blood Urea Nitrogen 11 mg/dL (8-23); Carbon Dioxide 26 mmol/L (22-29); Chloride 104 mmol/L (98-107); Globulin 4.6 g/dL (1.3-4.6); Glomerular Filtration Rate 96.1 mL/min (90-130); Glucose 128 mg/dL (65-115); Osmolality Calculated 287 mOsm/kg (285-295); Sodium 138 mmol/L (136-145); Total Bilirubin 0.2 mg/dL (0.15-1.2); Total Protein 8.2 g/dL (6.6-8.7)
[2024-04-20 09:27] LABS: Anion Gap 12.3 (5-19); Potassium 4.3 mmol/L (3.5-5.1)
== END 2024-04-20 08:17 | disposition home or self-care (01) ==
LOC: RAD 08:18
PROVIDERS: Visit Provider Student in an Organized Health Care Education/Training Program
DX: B44.1 Other pulmonary aspergillosis (principal); B49 Unspecified mycosis; Z79.899 Other long term (current) drug therapy; J18.9 Pneumonia, unspecified organism; J98.4 Other disorders of lung; I25.10 Atherosclerotic heart disease of native coronary artery without angina pectoris; R59.0 Localized enlarged lymph nodes; I77.810 Thoracic aortic ectasia; I70.90 Unspecified atherosclerosis; M47.9 Spondylosis, unspecified
CPT/HCPCS: 36415; 71250; 80053; 80299

== ENCOUNTER → 2024-05-01 14:33 | Outpatient (BNVA) | payer MEDICARE, MEDICAID, SELFPAY | PROVIDERS: PCP Clinical Nurse Specialist Adult Health; Visit Provider Student in an Organized Health Care Education/Training Program | DX: B44.1 Other pulmonary aspergillosis (principal); Z79.899 Other long term (current) drug therapy; J02.9 Acute pharyngitis, unspecified | CPT/HCPCS: 36415; 80053; 80299; 83036; 85025; 87486; 87581; 87633; 99205 ==

== ENCOUNTER → 2024-05-17 14:50 | Outpatient (BNVA) | payer MEDICARE, MEDICAID, SELFPAY | PROVIDERS: PCP Family Medicine; Visit Provider Internal Medicine Cardiovascular Disease | DX: Z09 Encounter for follow-up examination after completed treatment for conditions other than malignant neoplasm (principal); E78.00 Pure hypercholesterolemia, unspecified; I77.9 Disorder of arteries and arterioles, unspecified | CPT/HCPCS: 99214 ==

== ENCOUNTER 2024-05-31 13:54 | Emergency (ER) | payer MEDICARE, MEDICAID, SELFPAY ==
[2024-05-31 13:58] VITALS: BP 153/106; PULSE 84; RESP 18; TEMP 37.7; O2SAT 99; BMI 33.5
--- NOTE | 2024-05-31 14:19 | XR_ITS ---
WS: [id number] Exam: XR chest 1V portable [id number] Date/Time of Exam: 05/31/2024 2:33 PM Reason For Exam: fever Comparison 03/22/2024. Mild patchy infiltrates in the bilateral upper lobes. There appears to be superimposed chronic interstitial changes throughout both lungs. The lungs are fully expanded. No pleural effusion. Normal cardiomediastinal silhouette. Signs of coronary artery stenting. IMPRESSION1. Mild patchy infiltrates in the bilateral upper lobes suspicious for pneumonia. 2. Superimposed chronic interstitial changes noted bilaterally.
[2024-05-31 14:28] VITALS: PULSE 85; RESP 16; O2SAT 98
[2024-05-31 14:40] VITALS: PULSE 80; O2SAT 96
[2024-05-31 14:40] LABS: Basophils # 0.1 10^3/uL (0.0-0.1); Basophils % 0.9 %; Eosinophils # 0.1 10^3/uL (0.0-0.8); Eosinophils % 1.6 %; Hematocrit 37.5 % (37-53); Lymphocytes # 2.1 10^3/uL (0.8-4.8); Lymphocytes % 36.1 %; Mean Corpuscular HGB Conc 29.6 g/dL (30-55); Mean Corpuscular Hemoglobin 26.6 pg (27-33); Mean Corpuscular Volume 89.7 fl (82-101); Mean Platelet Volume 9.8 fL (7.4-10.4); Monocytes # 0.8 10^3/uL (0.2-0.9); Neutrophils # 2.73 10^3/uL (1.8-7.7); Neutrophils % 47.1 %; Nucleated Red Blood Cells % 0 %; Platelet Count 228 10^3/cmm (157-399); Red Blood Count 4.18 10^6/uL (3.85-5.65); Red Cell Distribution Width 17.4 % (12.1-15.1); White Blood Count 5.79 10^3/uL (3.29-11.43)
[2024-05-31 14:44] LABS: Bacteria Urine None Seen /hpf; RBC Urine 0-2 /hpf (0-2); Squamous Epithelial Cell Urine 0-5 /hpf (0-5); WBC Urine 0-5 /hpf (0-5)
[2024-05-31 14:57] LABS: Alanine Aminotransferase 9 U/L (0-41); Albumin Level 3.9 g/dL (3.5-5.2); Alkaline Phosphatase 55 U/L (40-130); Anion Gap 17.4 (5-19); Aspartate Amino Transferase 13 U/L (0-40); Blood Urea Nitrogen 17 mg/dL (8-23); Calcium 8.8 mg/dL (8.5-10.5); Carbon Dioxide 22 mmol/L (22-29); Chloride 104 mmol/L (98-107); Globulin 4.2 g/dL (1.3-4.6); Glomerular Filtration Rate 74.3 mL/min (90-130); Glucose 91 mg/dL (65-115); Osmolality Calculated 289 mOsm/kg (285-295); Potassium 4.4 mmol/L (3.5-5.1); Sodium 139 mmol/L (136-145); Total Bilirubin 0.2 mg/dL (0.15-1.2); Total Protein 8.1 g/dL (6.6-8.7)
--- NOTE | 2024-05-31 15:03 | CTR_ITS ---
PROCEDURE INFORMATION: Exam: CT Chest Without Contrast; Diagnostic Exam date and time: 05/31/2024 3:06 PM Age: 68 years old Clinical indication: Fever; Additional info: Fever, HX of lung infections. Cough TECHNIQUE: Imaging protocol: Diagnostic computed tomography of the chest without contrast. Radiation optimization: All CT scans at this facility use at least one of these dose optimization techniques: automated exposure control; mA and/or kV adjustment per patient size (includes targeted exams where dose is matched to clinical indication); or iterative reconstruction. COMPARISON: CT chest con [id number] 04/20/2024 8:23 AM RADIATION DOSE METRICS: Total DLP (mGy-cm): 569.27 FINDINGS: Lungs: Biapical scarring with traction bronchiectasis. Scattered areas of scarring throughout both lungs. Clustered areas of pulmonary micro nodules noted predominantly within the left lung. Pleural spaces: Unremarkable. No pneumothorax. No pleural effusion. Heart: Coronary artery calcifications. No cardiomegaly. No pericardial effusion. Lymph nodes: Unremarkable. No enlarged lymph nodes. Vasculature: Unremarkable. No aortic aneurysm. Bones/joints: Unremarkable. No acute fracture. Soft tissues: Unremarkable. CT/CT chest [facility] [id number] IMPRESSION: Clustered areas of pulmonary micro nodules predominantly noted within the left lung suggestive of small airway infectious or inflammatory process.
[2024-05-31 15:04] LABS: Bilirubin Urine Neg (Negative); Blood Urine Neg (Negative); Glucose Urine UA 4+ (Normal); Ketones Urine Negative (Negative); Leukocyte Esterase Urine Negative (Negative); Nitrate Urine Negative (Negative); Protein Urine Neg (Negative); Specific Gravity, Urine 1.015 (1.005-1.030); Urine Appearance Clear (CLEAR); Urine Color Yellow (Yellow); Urobilinogen Urine Norm (Negative); pH Urine 6 (5-7)
[2024-05-31 15:10] VITALS: PULSE 79; O2SAT 93
[2024-05-31 15:19] LABS: Influenza A NEGATIVE (Negative); Influenza B NEGATIVE (Negative); Respiratory Syncytial Virus Ce NEGATIVE (Negative); SARS-CoV-2 PCR NEGATIVE (Negative)
[2024-05-31 15:40] VITALS: PULSE 77; O2SAT 96
--- NOTE | 2024-05-31 16:37 | W.ED.FEVER ---
HPI - Fever General: Chief Complaint: Fever Stated Complaint: fever Time Seen by Provider: 05/31/24 14:03 Source: patient Mode of arrival: ambulatory Limitations: no limitations History of Present Illness: Patient was then complaining of low-grade fever consistently for a few days as well as having some occasional sweats and increased cough. Also has this pain in the mornings it feels like a ring around his chest or upper abdomen. Improved after a dose of [place]. Patient has a history of aspergillosis and is taking voriconazole per chart review. Has a follow-up appointment with ID in 2 weeks. It was seen in clinic and sent him here to the ER for further evaluation. Related Data Home Medications ?Medication ?Instructions ?Recorded ?Confirmed thiamine HCl (vitamin B1) 100 mg 50 mg PO DAILY 05/15/24 05/31/24 tablet albuterol sulfate 90 mcg/actuation 2 puff inhalation Q4H PRN 05/31/24 05/31/24 aerosol inhaler Shortness Of Breath amlodipine 5 mg tablet 5 mg PO DAILY 05/31/24 05/31/24 folic acid 1 mg tablet 1 mg PO BID 05/31/24 05/31/24 Previous Rx's ?Medication ?Instructions ?Recorded Nebulizer machine and supplies #1 ea 11/08/23 albuterol sulfate 2.5 mg/3 mL 2.5 mg (3 mL) inhalation Q4H PRN 11/08/23 (0.083 %) solution for nebulization shortness of breath or wheezing #75 mL glucometer testing kit #1 ea 03/28/24 hydrocodone 10 mg-acetaminophen 0.5 tab PO Q6H 5 days #20 tabs 03/28/24 325 mg tablet voriconazole 200 mg tablet 200 mg PO .bid @0600, 1800 90 days 05/01/24 #180 tabs Plavix 75 mg tablet (clopidogrel) 75 mg PO DAILY@09 #90 tabs 05/15/24 alprazolam 1 mg tablet 1 mg PO TID PRN anxiety #90 tabs 05/15/24 apixaban 2.5 mg tablet 2.5 mg PO BID #60 tabs 05/15/24 cinacalcet 30 mg tablet 30 mg PO BID 30 days #60 tabs 05/15/24 empagliflozin 10 mg tablet 10 mg PO QAM #30 tabs 05/15/24 (Jardiance) gabapentin 100 mg capsule 100 mg PO TID #90 caps 05/15/24 losartan 25 mg tablet 25 mg PO DAILY #90 tabs 05/15/24 metoprolol tartrate 25 mg tablet 12.5 mg (1/2 x 25 mg) PO BID 30 05/15/24 days #45 tabs one touch ultra blue #100 ea 05/31/24 Allergies Allergy/AdvReac Type Severity Reaction Status Date / Time atorvastatin (From Lipitor) Allergy Severe Unknown Verified 05/31/24 13:19 lisinopril Allergy RASH Verified 05/31/24 13:19 Penicillins Allergy RASH Verified 05/31/24 13:19 Review of Systems General: Reports: 10 or more systems reviewed and unremarkable except in HPI and below PFSH ED PFSH: Medical History COPD (chronic obstructive pulmonary disease) Generalized anxiety disorder Pulmonary embolism, bilateral Diastolic CHF Elevated troponin GERD without esophagitis Aortic valve stenosis Abdominal aortic aneurysm 3.2 cm 09/28/21 DVT (deep venous thrombosis) hx of DVT History of heart attack COPD (chronic obstructive pulmonary disease) Chronic back pain Coronary artery disease has 11 stents Hyperlipidemia HTN (hypertension) Surgical History History of ankle surgery History of facial surgery History of thoracotomy S/P cholecystectomy S/P appendectomy Status post lung surgery Secondary to pneumothorax S/P knee surgery S/P eye surgery S/P PTCA (percutaneous transluminal coronary angioplasty) Previous back surgery C5 and C6 fusion Family History Other CAD (coronary artery disease) Hypertension Denies family history of Diabetes Stroke Social History Smoking and tobacco/nicotine status: former use of tobacco/nicotine Quit status (tobacco/nicotine): has quit using Year quit tobacco: 2023 Alcohol intake: current Alcohol intake frequency: holidays/special occasions only Substance/Drug Use: former Lives independently: Yes Household members: none Marital status: Current occupational status: retired and disabled Do you think of yourself as: Straight/Heterosexual Current gender identity: Male Physical Exam Const: COMMON NORMALS: no acute distress, average body habitus, patient oriented x3, healthy appearing, alert and well nourished GENERAL APPEARANCE: well kempt and well developed HENMT: COMMON NORMALS: normocephalic, atraumatic, external ears normal and moist oral mucous membranes HEAD & SCALP: normocephalic and atraumatic EXTERNAL EAR: Yes external ears normal Eye: COMMON NORMALS: Equal, round and reactive pupils present, EOMs intact bilaterally and conjunctivae normal CONJUNCTIVA: Yes conjunctivae normal PUPIL: Yes Equal, round and reactive pupils present Neck/C-Spine: COMMON NORMALS: full ROM, no lymphadenopathy and supple Chest: CHEST: Yes Symmetrical chest wall rise and No Surgical scars present (Chest) Resp: COMMON NORMALS: normal respiratory effort, No retractions, No use of accessory muscles and clear to auscultation bilaterally AUSCULTATION: clear to auscultation bilaterally Cardio: COMMON NORMALS: regular rate, regular rhythm, S1 normal heart sound present, S2 normal heart sound present, No gallops present (Cardio), No clicks present (Cardio), No murmurs present (Cardio) and No rub (Cardio) RATE: regular rate RHYTHM: regular rhythm HEART SOUNDS: S1 normal heart sound present, S2 normal heart sound present and no murmurs PERIPHERAL PULSES: other (Radial pulses 2+ and symmetric) GI: COMMON NORMALS: Soft to palpation, non-tender and no masses INSPECTION: No abdominal distension PALPATION: Yes Soft to palpation, No Guarding due to palpation present (GI) and No Rebound tenderness present : COMMON NORMALS: Yes no CVA tenderness BLADDER/KIDNEY EXAM: Yes no CVA tenderness Back/Pelvis: COMMON NORMALS: no CVA tenderness Extremity: COMMON NORMALS: normal to inspection, full ROM, capillary refill normal and no clubbing, cyanosis or edema Neuro: COMMON NORMALS: patient oriented x3 SENSORIUM/ORIENTATION: Yes alert Psych: APPEARANCE: Yes well kempt Skin: COMMON NORMALS: no rashes or lesions noted, no wounds, turgor normal and no jaundice GENERAL SKIN EXAM: no rashes or lesions noted and turgor normal Course Vital Signs: Vital signs: Vital Signs Temperature 99.9 F H 05/31/24 13:58 Pulse Rate 77 05/31/24 15:40 Respiratory Rate 16 05/31/24 14:28 Blood Pressure 153/106 05/31/24 13:58 Pulse Oximetry 96 05/31/24 15:40 Oxygen Delivery Me thod Room Air 05/31/24 13:58 MDM - Fever Medical Decision Making Patient with aspergillosis, currently taking voriconazole twice daily. Patient reports compliance of medication. Still having some low-grade fevers. No hypoxia. Attempted to reach out to ID but they were unreachable at the moment. Of note they are not on-call just an established patient. Will reach back out in about 1/2 to 2 hours and speak with them again and may place an addendum in the chart. As for the time being patient is not having any hypoxia and will be discharged. Medical Records I reviewed the patient's medical records. Lab Data I reviewed the patient's lab results. 05/31/24 14:29 05/31/24 14:[address] 05/31/24 15:03 IMPRESSION: Clustered areas of pulmonary micro nodules predominantly noted within the left lung suggestive of small airway infectious or inflammatory process. Laboratory Results WBC 5.79 10^3/uL (3.29-11.43) 05/31/24 14: RBC 4.18 10^6/uL (3.85-5.65) 05/31/24 14:29 Hgb 11.10 g/dL (11.27-16.99) L 05/31/24 14:29 Hct 37.5 % (37-53) 05/31/24 14:29 MCV 89.7 fl (82-101) 05/31/24 14:29 MCH 26.6 pg (27-33) L 05/31/24 14: MCHC 29.6 g/dL (30-55) L 05/31/24 14:29 RDW 17.4 % (12.1-15.1) H 05/31/24 14:29 Plt Count 228 10^3/cmm (157-399) 05/31/24 14:29 MPV 9.8 fL (7.4-10.4) 05/31/24 14:29 Neut % (Auto) 47.1 % 05/31/24 14:29 Lymph % (Auto) 36.1 % 05/31/24 14:29 Sharkey % (Auto) 14.0 % 05/31/24 14:29 Eos % (Auto) 1.6 % 05/31/24 14:29 Baso % (Auto) 0.9 % 05/31/24 14: Neut # (Auto) 2.73 10^3/uL (1.8-7.7) 05/31/24 14: Lymph # (Auto) 2.1 10^3/uL (0.8-4.8) 05/31/24 14: Sharkey # (Auto) 0.8 10^3/uL (0.2-0.9) 05/31/24 14: Eos # (Auto) 0.1 10^3/uL (0.0-0.8) 05/31/24 14: Baso # (Auto) 0.1 10^3/uL (0.0-0.1) 05/31/24 14: Nucleated RBC % (auto) 0 % 05/31/24 14: Nucleated RBCs # 0.0 /100WBC 05/31/24 14: Sodium 139 mmol/L (136-145) 05/31/24 14: Potassium 4.4 mmol/L (3.5-5.1) 05/31/24 14: Chloride 104 mmol/L (98-107) 05/31/24 14: Carbon Dioxide 22 mmol/L (22-29) 05/31/24 14: Anion Gap 17.4 (5-19) 05/31/24 14: BUN 17 mg/dL (8-23) 05/31/24 14: Creatinine 1.0 mg/dL (0.7-1.2) 05/31/24 14: GFR Calculation 74.3 mL/min (90-130) L 05/31/24 14: Glucose 91 mg/dL (65-115) 05/31/24 14: Calculated Osmolality 289 mOsm/kg (285-295) 05/31/24 14: Calcium 8.8 mg/dL (8.5-10.5) 05/31/24 14: Total Bilirubin 0.2 mg/dL (0.15-1.2) 05/31/24 14: AST 13 U/L (0-40) 05/31/24 14: ALT 9 U/L (0-41) 05/31/24 14: Alkaline Phosphatase 55 U/L (40-130) 05/31/24 14: Total Protein 8.1 g/dL (6.6-8.7) 05/31/24 14: Albumin 3.9 g/dL (3.5-5.2) 05/31/24 14: Globulin 4.2 g/dL (1.3-4.6) 05/31/24 14:29 Urine Color Yellow (Yellow) 05/31/24 13:30 Urine Appearance Clear (CLEAR) 05/31/24 13:30 Urine pH 6 (5-7) 05/31/24 13:30 Ur Specific [place] 1.015 (1.005-1.030) 05/31/24 13:30 Urine Protein Neg (Negative) 05/31/24 13:30 Urine Glucose (UA) 4+ (Normal) H 05/31/24 13:30 Urine Ketones Negative (Negative) 05/31/24 13:30 Urine Blood Neg (Negative) 05/31/24 13:30 Urine Nitrate Negative (Negative) 05/31/24 13:30 Urine Bilirubin Neg (Negative) 05/31/24 13:30 Urine Urobilinogen Norm mg/dL (Negative) 05/31/24 13:30 Ur Leukocyte Esterase Negative (Negative) 05/31/24 13:30 Urine RBC 0-2 /hpf (0-2) 05/31/24 13:30 Urine WBC 0-5 /hpf (0-5) 05/31/24 13:30 Ur Squamous Epith Cells 0-5 /hpf (0-5) 05/31/24 13:30 Amorphous Sediment Not Reportable 05/31/24 13:30 Urine Bacteria None seen /hpf (NONE) 05/31/24 13:30 Hyaline Casts 0.40 /lpf 05/31/24 13:30 Influenza A (PCR) Negative (Negative) 05/31/24 13:30 Influenza Type B (PCR) Negative (Negative) 05/31/24 13:30 RSV (PCR) Negative (Negative) 05/31/24 13:30 SARS-CoV-2 (PCR) Negative (Negative) 05/31/24 13:30 All radiology interpretation(s) finalized by discharge ED provider radiology interpretation(s): Increased bilateral interstitial disease on x-ray. CT reviewed per radiologist Discharge Plan Discharge Patient Disposition: Home Clinical Impression: Pulmonary aspergillosis, Fever, Chest pain Condition: Stable Prescriptions: No Action voriconazole 200 mg tablet 200 mg PO .bid @0600, 1800 90 Days Qty: 180 0RF Rx Instructions: administer on empty stomach, at least 1 hour before or after meal(s) albuterol sulfate 2.5 mg /3 mL (0.083 %) solution for nebulization 2.5 mg inhalation Q4H PRN (Reason: shortness of breath or wheezing) Qty: 75 6RF (DME) Nebulizer machine and supplies See Rx Instructions .ROUTE .MEDSUPPLY Qty: 1 11RF Rx Instructions: As directed thiamine HCl (vitamin B1) 100 mg tablet 50 mg PO DAILY apixaban 2.5 mg tablet 2.5 mg PO BID Qty: 60 11RF cinacalcet 30 mg tablet 30 mg PO BID 30 Days Qty: 60 1RF Jardiance 10 mg tablet 10 mg PO QAM Qty: 30 1RF gabapentin 100 mg capsule 100 mg PO TID Qty: 90 1RF alprazolam 1 mg tablet 1 mg PO TID PRN (Reason: anxiety) Qty: 90 1RF losartan 25 mg tablet 25 mg PO DAILY Qty: 90 1RF metoprolol tartrate 25 mg tablet 12.5 mg PO BID 30 Days Qty: 45 0RF clopidogrel [Plavix] 75 mg tablet 75 mg PO DAILY@09 Qty: 90 3RF (DME) one touch ultra blue See Rx Instructions .Route .MEDSUPPLY Qty: 100 6RF Rx Instructions: As directed hydrocodone-acetaminophen 10-325 mg tablet 0.5 tab PO Q6H 5 Days Qty: 20 0RF (DME) glucometer testing kit See Rx Instructions .Route .MEDSUPPLY Qty: 1 0RF Rx Instructions: Glucometer testing kit, check bs tid Lancets #100 Strips #100 amlodipine 5 mg tablet 5 mg PO DAILY folic acid 1 mg tablet 1 mg PO BID albuterol sulfate 90 mcg/actuation HFA aerosol inhaler 2 puff inhalation Q4H PRN (Reason: Shortness Of Breath) Discharge Orders: Discharge ED (Routine); Ordered 05/31/24 Ordered By: Jorge Luis Melissa Referrals: Arely Sewell DO [Primary Care Provider] - Discharge Diet: Advance as tolerated Discharge Activity: Resume usual activity Patient Instructions: Fever - Adult Activity Restrictions/Additional Instructions: I will reach out to you tonight and give you an update. Return to the ER with any worsening symptoms. Print Language: Greenlandic Coding Level of Care Code ED Forming Press Operator for María Galvan
== END 2024-05-31 16:45 | disposition home or self-care (01) ==
PROVIDERS: Emergency Provider Emergency Medicine; PCP Family Medicine
DX: B44.1 Other pulmonary aspergillosis (principal); R50.9 Fever, unspecified; R07.9 Chest pain, unspecified; Z79.02 Long term (current) use of antithrombotics/antiplatelets; Z11.52 Encounter for screening for COVID-19; Z87.891 Personal history of nicotine dependence; J44.9 Chronic obstructive pulmonary disease, unspecified; I25.10 Atherosclerotic heart disease of native coronary artery without angina pectoris; E78.5 Hyperlipidemia, unspecified; I11.0 Hypertensive heart disease with heart failure; I50.30 Unspecified diastolic (congestive) heart failure
CPT/HCPCS: 36415; 71045; 71250; 80053; 81001; 85025; 87637; 99284

== ENCOUNTER → 2024-06-12 11:13 | Outpatient (BNVA) | payer MEDICARE, MEDICAID, SELFPAY | PROVIDERS: PCP Family Medicine; Visit Provider Student in an Organized Health Care Education/Training Program | DX: B44.1 Other pulmonary aspergillosis (principal); B49 Unspecified mycosis | CPT/HCPCS: 36415; 80299; 99215 ==

== ENCOUNTER → 2024-06-14 10:40 | Outpatient (BNVA) | payer MEDICARE, MEDICAID, SELFPAY | PROVIDERS: PCP Family Medicine; Visit Provider Dermatology | DX: L56.0 Drug phototoxic response (principal); L81.8 Other specified disorders of pigmentation; L30.9 Dermatitis, unspecified | CPT/HCPCS: 11104; 99204 ==

== ENCOUNTER → 2024-06-26 10:56 | Outpatient (BNVA) | payer MEDICARE, MEDICAID, SELFPAY | PROVIDERS: PCP Family Medicine; Visit Provider Dermatology | DX: L81.7 Pigmented purpuric dermatosis (principal); L56.0 Drug phototoxic response | CPT/HCPCS: 99214 ==

== ENCOUNTER → 2024-07-03 12:30 | Outpatient (BNVA) | payer MEDICARE, MEDICAID, SELFPAY | PROVIDERS: PCP Family Medicine; Referring Provider Family Medicine; Visit Provider Internal Medicine | DX: E11.42 Type 2 diabetes mellitus with diabetic polyneuropathy (principal); E78.00 Pure hypercholesterolemia, unspecified; E83.52 Hypercalcemia | CPT/HCPCS: 36415; 80053; 82306; 82310; 83970 ==

== ENCOUNTER 2024-07-11 09:45 | Outpatient (CLI) | payer MEDICARE, MEDICAID, SELFPAY ==
[2024-07-11 10:21] LABS: Urine Creatinine 82 mg/dL (39-259)
[2024-07-11 10:28] LABS: Calcium 24 Hour Urine 470 mg/24hr (100-300); Total Volume Urine 2400 ml; Urine Calcium Result 19.6 mg/dL
== END 2024-07-11 09:46 | disposition home or self-care (01) ==
PROVIDERS: PCP Family Medicine; Visit Provider Internal Medicine
DX: E11.42 Type 2 diabetes mellitus with diabetic polyneuropathy (principal); E78.00 Pure hypercholesterolemia, unspecified
CPT/HCPCS: 82340; 82570

== ENCOUNTER 2024-07-18 12:44 | Outpatient (CLI) | payer OTHER, MEDICAID, SELFPAY ==
--- NOTE | 2024-07-18 13:00 | CTR_ITS ---
PROCEDURE INFORMATION: Exam: CT Chest Without Contrast; Diagnostic Exam date and time: 07/18/2024 1:04 PM Age: 68 years old Clinical indication: Condition or disease; Lung condition and disease; Other: Invasive pulmonary aspergillosis TECHNIQUE: Imaging protocol: Diagnostic computed tomography of the chest without contrast. Radiation optimization: All CT scans at this facility use at least one of these dose optimization techniques: automated exposure control; mA and/or kV adjustment per patient size (includes targeted exams where dose is matched to clinical indication); or iterative reconstruction. COMPARISON: CT chest wo con [id number] 05/31/2024 3:06 PM RADIATION DOSE METRICS: Total DLP (mGy-cm): 557.26 FINDINGS: Lungs: Biapical pleural and parenchymal fibrosis is stable. Mild scattered nodularity is stable. Emphysematous changes in each apex, right greater than left. An infiltrate which had been present in the right upper lobe has improved with residual fibrosis remaining. Pleural spaces: Unremarkable. No pneumothorax. No pleural effusion. Heart: Unremarkable. No cardiomegaly. No pericardial effusion. Coronary arteries: Heavy coronary artery calcifications. Lymph nodes: Visible central lymph nodes are small in size and not pathologically enlarged. Vasculature: Unremarkable. No aortic aneurysm. Gallbladder and biliary ducts: Cholecystectomy. Bones/joints: Unremarkable. No acute fracture. Soft tissues: Unremarkable. CT/CT chest con [id number] IMPRESSION: A mild infiltrate which had been superimposed upon chronic changes in the right apex has improved. COMMENTS: The presence of pulmonary emphysema on CT is an independent risk factor for lung cancer. In the absence of a history or active diagnosis of lung cancer, it is recommended that this patient with emphysema be evaluated for enrollment in a low dose CT lung cancer screening program.
== END 2024-07-18 12:45 | disposition home or self-care (01) ==
PROVIDERS: PCP Family Medicine; Visit Provider Student in an Organized Health Care Education/Training Program
DX: B44.1 Other pulmonary aspergillosis (principal); R91.8 Other nonspecific abnormal finding of lung field; J94.1 Fibrothorax; J43.8 Other emphysema; J84.10 Pulmonary fibrosis, unspecified; I25.10 Atherosclerotic heart disease of native coronary artery without angina pectoris; R59.0 Localized enlarged lymph nodes; Z90.49 Acquired absence of other specified parts of digestive tract
CPT/HCPCS: 71250

== ENCOUNTER → 2024-07-24 11:37 | Outpatient (BNVA) | payer MEDICARE, MEDICAID, SELFPAY | PROVIDERS: PCP Family Medicine; Visit Provider Student in an Organized Health Care Education/Training Program | DX: B44.1 Other pulmonary aspergillosis (principal); B49 Unspecified mycosis | CPT/HCPCS: 99215 ==

== ENCOUNTER → 2024-08-07 11:09 | Outpatient (BNVA) | payer MEDICARE, MEDICAID, SELFPAY | PROVIDERS: PCP Family Medicine; Visit Provider Family Medicine | DX: E11.42 Type 2 diabetes mellitus with diabetic polyneuropathy (principal) | CPT/HCPCS: 80053; 83036 ==

== ENCOUNTER → 2024-08-15 10:55 | Outpatient (BNVA) | payer MEDICARE, MEDICAID, SELFPAY | PROVIDERS: PCP Family Medicine; Visit Provider Internal Medicine | DX: E83.52 Hypercalcemia (principal); N18.2 Chronic kidney disease, stage 2 (mild) | CPT/HCPCS: 99214 ==

== ENCOUNTER → 2024-08-19 14:40 | Outpatient (BNVA) | payer MEDICARE, MEDICAID, SELFPAY | PROVIDERS: PCP Family Medicine; Visit Provider Emergency Medicine | DX: J16.8 Pneumonia due to other specified infectious organisms (principal); B49 Unspecified mycosis | CPT/HCPCS: 87070; 87077; 87184; 87205; 87486; 87581; 87633 ==

== ENCOUNTER 2024-08-20 16:26 | Outpatient (CLI) | payer MEDICARE, MEDICAID, SELFPAY ==
--- NOTE | 2024-08-20 17:00 | CTR_ITS ---
PROCEDURE INFORMATION: Exam: CT Chest Without Contrast; Diagnostic Exam date and time: 08/20/2024 4:38 PM Age: 68 years old Clinical indication: Condition or disease; Lung condition and disease; Other: Fungal(aspergillus pneumonia; HX of aspergillus pneumonia, recurring cough TECHNIQUE: Imaging protocol: Diagnostic computed tomography of the chest without contrast. Radiation optimization: All CT scans at this facility use at least one of these dose optimization techniques: automated exposure control; mA and/or kV adjustment per patient size (includes targeted exams where dose is matched to clinical indication); or iterative reconstruction. COMPARISON: CT chest wo con [id number] 07/18/2024 1:04 PM RADIATION DOSE METRICS: Total DLP (mGy-cm): 586.21 FINDINGS: Lungs: Biapical pleural/parenchymal scarring is similar to prior. Mild paraseptal emphysema most pronounced along the lung apices. Scattered mild nodularity throughout the lungs bilaterally overall appears similar to the most recent prior examination from 07/18/2024 and improved from 05/31/2024. Scattered areas of mild fibrosis as well as mild bronchiectasis. No new airspace disease. Pleural spaces: Unremarkable. No pneumothorax. No pleural effusion. Heart: Unremarkable. No cardiomegaly. No pericardial effusion. Coronary arteries: Multivessel coronary artery calcifications are again seen. Lymph nodes: Unremarkable. No enlarged lymph nodes. Vasculature: The thoracic aorta is nonaneurysmal with mild atherosclerotic calcifications. Gallbladder and biliary ducts: Status post cholecystectomy. Kidneys: Partially imaged left renal cysts. Bones/joints: Degenerative changes of the thoracic spine. Soft tissues: Unremarkable. CT/CT chest wo con [id number] IMPRESSION: 1. No significant interval change in mild nodularity throughout bilateral lungs with areas of fibrosis. 2. Additional ancillary findings as above are also similar to prior. COMMENTS: 1. Consistent with the [employer]'s Incidental Findings Committee white paper (J Am Dee Dee Radiol 2018): Any incidental renal lesion less than 1 cm or classified as too small to characterize, or any incidental cystic renal lesion characterized as simple-appearing, is likely benign. No follow-up imaging is recommended for these lesions per consensus recommendations based on imaging criteria. 2. The presence of pulmonary emphysema on CT is an independent risk factor for lung cancer. In the absence of a history or active diagnosis of lung cancer, it is recommended that this patient with emphysema be evaluated for enrollment in a low dose CT lung cancer screening program.
== END 2024-08-20 16:27 | disposition home or self-care (01) ==
LOC: RAD 16:27
PROVIDERS: PCP Family Medicine; Visit Provider Emergency Medicine
DX: J16.8 Pneumonia due to other specified infectious organisms (principal); B49 Unspecified mycosis; Z90.49 Acquired absence of other specified parts of digestive tract
CPT/HCPCS: 71250; J0696

== ENCOUNTER → 2024-08-21 12:01 | Outpatient (BNVA) | payer MEDICARE, MEDICAID, SELFPAY | PROVIDERS: PCP Family Medicine; Visit Provider Student in an Organized Health Care Education/Training Program | DX: J16.8 Pneumonia due to other specified infectious organisms (principal); B49 Unspecified mycosis; B34.8 Other viral infections of unspecified site; J15.9 Unspecified bacterial pneumonia; J44.1 Chronic obstructive pulmonary disease with (acute) exacerbation | CPT/HCPCS: 99205 ==

== ENCOUNTER → 2024-09-03 11:15 | Outpatient (BNVA) | payer MEDICARE, MEDICAID, SELFPAY | PROVIDERS: PCP Family Medicine; Visit Provider Dermatology | DX: L56.0 Drug phototoxic response (principal); L81.7 Pigmented purpuric dermatosis; I83.92 Asymptomatic varicose veins of left lower extremity; I87.2 Venous insufficiency (chronic) (peripheral) | CPT/HCPCS: 99214 ==

== ENCOUNTER → 2024-10-02 13:32 | Outpatient (BNVA) | payer MEDICARE, MEDICAID, SELFPAY | PROVIDERS: PCP Family Medicine; Visit Provider Family Medicine | DX: N18.2 Chronic kidney disease, stage 2 (mild) (principal); E83.52 Hypercalcemia; E11.9 Type 2 diabetes mellitus without complications | CPT/HCPCS: 80053; 82310; 83970 ==

== ENCOUNTER → 2024-10-08 10:08 | Outpatient (BNVA) | payer MEDICARE, MEDICAID, SELFPAY | PROVIDERS: PCP Family Medicine; Visit Provider Dermatology | DX: L81.7 Pigmented purpuric dermatosis (principal); I87.2 Venous insufficiency (chronic) (peripheral); L56.0 Drug phototoxic response | CPT/HCPCS: 99214 ==

== ENCOUNTER → 2024-10-10 08:38 | Outpatient (BNVA) | payer MEDICARE, MEDICAID, SELFPAY | PROVIDERS: PCP Family Medicine; Visit Provider Internal Medicine Cardiovascular Disease | DX: I12.9 Hypertensive chronic kidney disease with stage 1 through stage 4 chronic kidney disease, or unspecified chronic kidney disease (principal); N18.2 Chronic kidney disease, stage 2 (mild); E78.5 Hyperlipidemia, unspecified; J44.9 Chronic obstructive pulmonary disease, unspecified; R12 Heartburn; R21 Rash and other nonspecific skin eruption; I77.9 Disorder of arteries and arterioles, unspecified; Z95.5 Presence of coronary angioplasty implant and graft; Z86.718 Personal history of other venous thrombosis and embolism; Z86.711 Personal history of pulmonary embolism; Z79.01 Long term (current) use of anticoagulants; Z87.891 Personal history of nicotine dependence; I25.2 Old myocardial infarction | CPT/HCPCS: 99214 ==

== ENCOUNTER → 2024-10-15 10:41 | Outpatient (BNVA) | payer MEDICARE, MEDICAID, SELFPAY | PROVIDERS: PCP Family Medicine; Visit Provider Family Medicine | DX: N18.2 Chronic kidney disease, stage 2 (mild) (principal) | CPT/HCPCS: 80048 ==

== ENCOUNTER 2024-10-26 11:36 | Outpatient (CLI) | payer OTHER, MEDICAID, SELFPAY ==
--- NOTE | 2024-10-26 12:00 | CTR_ITS ---
PROCEDURE INFORMATION: Exam: CT Chest Without Contrast; Diagnostic Exam date and time: 10/26/2024 11:54 AM Age: 69 years old Clinical indication: Condition or disease; Other: Fungal lung infection; Additional info: F/up ifi/pulmonary aspergillosis, f/up pulmonary aspergillosis, please perform before 10/30/24 TECHNIQUE: Imaging protocol: Diagnostic computed tomography of the chest without contrast. Radiation optimization: All CT scans at this facility use at least one of these dose optimization techniques: automated exposure control; mA and/or kV adjustment per patient size (includes targeted exams where dose is matched to clinical indication); or iterative reconstruction. COMPARISON: CT chest con [id number] 08/20/2024 4:38 PM RADIATION DOSE METRICS: Total DLP (mGy-cm): 656 FINDINGS: Lungs: Similar mild paraseptal emphysematous changes with upper lobe predominance. Biapical pleural/parenchymal scarring is again seen. Scattered areas of mild fibrosis, including subpleural reticular opacities, and mild bronchiectasis are similar to prior. Mild nodularity scattered throughout the lungs bilaterally appears similar to the most recent study from 08/20/2024 as well as 07/18/2024. No new airspace disease is evident. Pleural spaces: Unremarkable. No pneumothorax. No pleural effusion. Heart: Aortic valve calcifications. Coronary arteries: Multivessel coronary artery calcifications, most pronounced along the LAD. Lymph nodes: Unremarkable. No enlarged lymph nodes. Vasculature: The thoracic aorta is nonaneurysmal with scattered atherosclerotic calcifications. Diaphragm: Small sliding-type hiatal hernia. Gallbladder and biliary ducts: Status post cholecystectomy. Bones/joints: Similar degenerative changes of the thoracic spine. No acute or aggressive osseous lesion. Soft tissues: Unremarkable. CT/CT chest [facility] [id number] IMPRESSION: 1. Similar appearance of the lungs with scattered mild nodularity as well as areas of mild fibrosis and bronchiectasis. No new airspace disease. 2. Valve calcifications can be seen with aortic stenosis. COMMENTS: The presence of pulmonary emphysema on CT is an independent risk factor for lung cancer. In the absence of a history or active diagnosis of lung cancer, it is recommended that this patient with emphysema be evaluated for enrollment in a low dose CT lung cancer screening program.
== END 2024-10-26 11:37 | disposition home or self-care (01) ==
LOC: RAD 11:37
PROVIDERS: PCP Family Medicine; Visit Provider Student in an Organized Health Care Education/Training Program
DX: B44.1 Other pulmonary aspergillosis (principal); B49 Unspecified mycosis; J43.9 Emphysema, unspecified; J84.10 Pulmonary fibrosis, unspecified; R91.8 Other nonspecific abnormal finding of lung field; I25.10 Atherosclerotic heart disease of native coronary artery without angina pectoris; K44.9 Diaphragmatic hernia without obstruction or gangrene; Z90.49 Acquired absence of other specified parts of digestive tract
CPT/HCPCS: 71250

== ENCOUNTER → 2024-10-30 10:36 | Outpatient (BNVA) | payer OTHER, MEDICAID, SELFPAY | PROVIDERS: PCP Family Medicine; Visit Provider Student in an Organized Health Care Education/Training Program | DX: B44.1 Other pulmonary aspergillosis (principal); J16.8 Pneumonia due to other specified infectious organisms; B49 Unspecified mycosis | CPT/HCPCS: 99214 ==

== ENCOUNTER → 2024-11-05 08:08 | Outpatient (BNVA) | payer OTHER, MEDICAID, SELFPAY | PROVIDERS: PCP Family Medicine; Visit Provider Internal Medicine | DX: J43.9 Emphysema, unspecified (principal); Z99.81 Dependence on supplemental oxygen; I25.10 Atherosclerotic heart disease of native coronary artery without angina pectoris; I10 Essential (primary) hypertension; Z86.711 Personal history of pulmonary embolism; Z79.01 Long term (current) use of anticoagulants; Z87.891 Personal history of nicotine dependence; J44.9 Chronic obstructive pulmonary disease, unspecified | CPT/HCPCS: 36415; 85025; 99204 ==

== ENCOUNTER 2024-11-28 07:53 | Outpatient (CLI) | payer OTHER, MEDICAID, SELFPAY ==
[2024-11-28 08:17] VITALS: PULSE 78; RESP 18; O2SAT 96
== END 2024-11-28 07:54 | disposition home or self-care (01) ==
PROVIDERS: PCP Family Medicine; Visit Provider Internal Medicine
DX: J44.9 Chronic obstructive pulmonary disease, unspecified (principal); R94.2 Abnormal results of pulmonary function studies
CPT/HCPCS: 94060; 94726; 94729

== ENCOUNTER → 2024-12-18 11:39 | Outpatient (BNVA) | payer OTHER, MEDICAID, SELFPAY | PROVIDERS: PCP Family Medicine; Visit Provider Family Medicine | DX: E11.42 Type 2 diabetes mellitus with diabetic polyneuropathy (principal) | CPT/HCPCS: 80053; 82043; 83036 ==

== ENCOUNTER 2025-01-29 10:46 | Outpatient (CLI) | payer MEDICARE, MEDICAID, SELFPAY ==
--- NOTE | 2025-01-29 11:00 | CT_ITS ---
WS: [id number] CT chest wo con [id number] REASON FOR EXAM: follow up aspergillosis IV CONTRAST ADMINISTERED: None. TECHNIQUE: Multiple axial images without intravenous contrast enhancement. Coronal and sagittal reconstructions. COMPARISON STUDY: 10/26/2024. TOTAL EXAM DLP: 638.[address] scans at [facility] use at least one of these dose optimization techniques: automated exposure control; mA and/or kV adjustment per patient size (includes targeted exams where dose is matched to clinical indication); or iterative reconstruction. FINDINGS: The current examination is unchanged compared to the previous study. There is underlying central lobar emphysema and paraseptal emphysema which predominates in the lung apices. The previous extensive airspace consolidation seen on the CT examination of 03/25/2024 has completely resolved. Residual areas of pleural thickening and fibrotic parenchymal scarring are seen in the upper lobes most notably on the right where there is an area of traction bronchiectasis as well. No new infiltrates or nodules. CT/CT chest wo con [id number] IMPRESSION: Stable abnormal chest with no new findings.
== END 2025-01-29 10:47 | disposition home or self-care (01) ==
LOC: RAD 10:47
PROVIDERS: PCP Family Medicine; Visit Provider Student in an Organized Health Care Education/Training Program
DX: B44.1 Other pulmonary aspergillosis (principal); J43.2 Centrilobular emphysema; J43.1 Panlobular emphysema; J84.10 Pulmonary fibrosis, unspecified
CPT/HCPCS: 71250